=== PATIENT | female | born 1960 | race Caucasian/White ===

== ENCOUNTER → 2016-05-25 | Outpatient (CLI) | payer BC ==
[~2016-05-25] MED LIST: ACID1TAB PO; ALPR0.2550 PO; ALPR1TAB2 PO; ALPR1TAB7 PO; AMLO1TAB12 PO; AMLO1TAB13 PO; BNZ10T; CHOL210P2 PO; CYCL10TA9 PO; DOXY100C2; ESTR1TAB24 PO; ETHINYL ESTRADIOL; HYDR-3583 PO; LORA10TA7 PO; LRZ1T; MEDR2.5T6 PO; MELO15TA39 PO; MTC10T; NEXIUM 22.3 MG PO; NF-ESOM40C PO; NITR100C3 PO; NORG1TAB81 PO; NORGESTIMATE; OMEP20TA2 PO; ONDA-42 SL; OXYC-12 PO; PNT40TEC; PRD20T PO; PRM25T PO; SPRINTEC PO; SULF1TAB35 PO; SULF1TAB38 PO; TRAM50TA2 PO; [UNRECOGNIZED DRUG - CODE] PO; [UNRECOGNIZED DRUG - OTHER]
--- OUTSIDE RECORDS SUMMARY | 2016-05-25 17:45 | XMS REPORT | Continuity of Care Document ---
Author Author [facility] Organization [facility] Address Unknown Phone Unavailable Care Team Providers Care Slusher Operator Name Role Phone EVANS JACKSON MD PCP Insurance Providers Payer Name Policy Number [facility]scriber [id number] [place] [facility] Self / Same As Patient Advance Directives Directive Response Recorded Date/Time Advance Directives No 04/18/14 4:49am Health Care Power of National Sales Trainer No 04/18/14 4:49am Organ Donor Yes 04/18/14 4:49am Resuscitation Status Full Code 04/18/14 4:49am Chief Complaint and Reason for Visit Chief Complaint GASTROENTERITIS;INTRACTABLE NAUSEA Reason for Visit Gastroenteritis Problems Medical Problems Problem Onset Date Status Gastroenteritis Unknown Active Gastroenteritis Unknown Active Gastroenteritis Unknown Active Medications Medication Dose Route Sig Days/Qty Instructions Order Date Discontinued Date Status Benazepril HCl 11/24/07 01/06/13 Discontinued Pantoprazole Sodium 11/24/07 03/14/09 Discontinued [Lo-Ortho Tricyclen] 11/24/07 08/06/11 Discontinued [Citritase Otc] 11/24/07 01/06/13 Discontinued Lorazepam 11/24/07 01/06/13 Discontinued Metoclopramide HCl 03/14/09 01/06/13 Discontinued Alprazolam 1 Mg PO TWICE A DAY PRN PRN ANXIETY 03/14/09 04/17/14 Discontinued Doxycycline Hyclate (Vibramycin) 03/14/09 01/06/13 Discontinued Esomeprazole Magnesium 1 Cap PO DAILY 30 Qty 08/06/11 01/06/13 Discontinued [Sprintec] 1 Tab PO DAILY 08/06/11 04/17/14 Discontinued Amlodipine/Valsartan 10-160 Mg PO DAILY 08/06/11 04/18/14 Discontinued Omeprazole 20 Mg PO DAILY 01/06/13 04/17/14 Discontinued Trimethoprim/Sulfamethoxazole 1 Ea PO TWICE A DAY 5 Days 01/06/1302/08 Discontinued Acetaminophen/Hydrocodone Bitart 1 Ea PO Q4HR PRN 10 Qty 01/06/13 Discontinued Nitrofurantoin Macrocrystals 1 Cap PO TWICE A DAY 10 Qty 01/06/13 Discontinued Acetaminophen/Hydrocodone Bitart 5 Mg PO Q4HR PRN PRN PAIN 01/11/13 Discontinued Oxycodone Hcl/Acetaminophen 1 - 2 Each PO Q4-6H PRN 01/12/13 Discontinued Ondansetron Hcl 4 Mg SL EVERY 4HRS 5 Qty 04/17/14 04/18/14 Discontinued Amlodipine/Valsartan 1 Tab PO DAILY 04/18/14 Active Alprazolam 1 Mg PO BEDTIME 04/18/14 Active [Nexium 22.3MG Otc] 22.3 Mg PO DAILY 04/18/14 Active Loratadine 10 Mg PO DAILY 04/18/14 Active Norgestimate-Ethinyl Estradiol 1 Tab PO DAILY 04/18/14 Active Acidophilus 1 Tab.chew PO TWICE A DAY 60 Qty 04/19/14 Active Promethazine Hcl 1 Tab PO FOUR TIMES DAILY PRN NAUSEA/VOMITING 30 Qty 04/19/14 Active Ondansetron Hcl 4 Mg SL EVERY 4HRS 15 Qty FOR NAUSEA AND VOMITING Active Cholestyramine/Aspartame 210 Gm PO TWICE A DAY 60 Qty diarrhea from cholecystectomy 04/19/14 Active Social History Social History Problem Response Recorded Date/Time Alcohol Use Denies Use 04/18/2014 4:50am Recreational Drug Use No 04/18/2014 4:50am Recent Foreign Travel No 01/14/2013 2:15am Recent Infectious Disease Exposure No 01/14/2013 2:15am Hospitalization with Isolation Denies 01/14/2013 3:48pm Smoking Status Never a Smoker 04/18/2014 4:53am Query Response Start Date Stop Date Smoking Status Never a Smoker Hospital Discharge Instructions Patient Instructions Physician Instructions Prescription: Call to Patients Pharmacy Patient Instructions: call for any acute concerns, bland diet x 48 hours, then advance as tolerated Resume Normal Activity: Yes Discharge Diet: Avoid Fatty Foods Diet for 24 Hours: No Alcohol, No [place] Foods, No Spicy Foods Diet After 24 Hours: Clear Liquid if Nauseous Driving Instructions: No Driving for 24 Hours Symptoms to Reoprt to Dr.: Appetite Changes, Fever Over 101 Degrees F, Questions/Concerns, Nausea/Vomiting, Shortness of Breath Plan of Care Discharge Date 04/19/14 2:00pm Disposition 30 STILL A PATIENT Instructions/Education Provided Clear Liquid Diet (DC) Acute Abdominal Pain (ED) Forms Provided PDI Medical Prescriptions See Medications Section Referrals evans jackson md (Unspecified) Reason(s) for Referral: need follow up appt in 2-3 weeks with jordi or nurse practitioner Functional Status Query Response Date Recorded Comprehension Ability Understands Concepts April 18, 2014 8:17am Allergies, Adverse Reactions, Alerts Allergen Type Severity Reaction Status Last Updated Erythromycin base Allergy Unknown Active 11/24/07 azithromycin ([id number]) Allergy Intermediate Active 04/17/14 Immunizations Name Given Type Tetanus Booster (TDap) More than 5yrs Historical Vital Signs Acute Vital Signs Vital Response Date/Time Temperature (Fahrenheit) 98.9 degrees F (97.6 - 99.5) Temperature (Calculated Celsius) 37.90873 degrees C (36.4 - 37.5) Temperature Source Tympanic Pulse Rate (adult) 73 bpm (60 - 90) Respiratory Rate 20 bpm (12 - 24) O2 Sat by Pulse Oximetry 97 % (88 - 100) Blood Pressure 143/86 mm Hg Pain Pain Intensity 4 Height (Feet) 5 feet Height (Inches) 0.00 inches Height (Calculated Centimeters) 152.581636 cm Weight (Pounds) 136 pounds Weight (Ounces) 8.0 oz Weight (Calculated Grams) 70914.359 gm Weight (Calculated Kilograms) 61.586330 kilograms Calculated BMI 26.17 Results Laboratory Results Test Name Result Units Flags Reference Collection Date/Time Result Date/ Time Comments White Blood Count 9.8 10^3/uL 4.3-11.0 04/17/2014 7:2004/17/2014 7: 52pm Red Blood Count 4.68 10^6/uL 4.35-5.85 04/17/2014 7:2004/17/2014 7: 52pm Hemoglobin 14.4 G/DL 11.5-16.0 04/17/2014 7:20pm 04/17/2014 7:52pm Hematocrit 40 % 35-52 04/17/2014 7:04/17/2014 7:52pm Mean Corpuscular Volume 86 FL 80-99 04/17/2014 7:04/17/2014 7: 52pm Mean Corpuscular Hemoglobin 31 PG 25-34 04/17/2014 7:04/17/2014 7: 52pm Mean Corpuscular Hemoglobin Concent 36 G/DL 32-36 04/17/2014 7:pm 7:52pm Red Cell Distribution Width 11.9 % 10.0-14.5 04/17/2014 7:2014 7:52pm Platelet Count 360 10^3/uL 130-400 04/17/2014 7:04/17/2014 7:52pm Mean Platelet Volume 10.4 FL 7.4-10.4 04/17/2014 7:04/17/2014 7: 52pm Neutrophils (%) (Auto) 60 % 42-75 04/17/2014 7:pm 04/17/2014 7:52pm Lymphocytes (%) (Auto) 34 % 12-44 04/17/2014 7:04/17/2014 7:52pm Monocytes (%) (Auto) 5 % 0-12 04/17/2014 7:pm 04/17/2014 7:52pm Eosinophils (%) (Auto) 2 % 0-10 04/17/2014 7:pm 04/17/2014 7:52pm Basophils (%) (Auto) 1 % 0-10 04/17/2014 7:pm 04/17/2014 7:52pm Neutrophils # (Auto) 5.8 X 10^3 1.8-7.8 04/17/2014 7:20pm 04/17/2014 7: 52pm Lymphocytes # (Auto) 3.3 X 10^3 1.0-4.0 04/17/2014 7:20pm 04/17/2014 7: 52pm Monocytes # (Auto) 0.5 X 10^3 0.0-1.0 04/17/2014 7:20pm 04/17/2014 7: 52pm Eosinophils # (Auto) 0.2 10^3/uL 0.0-0.3 04/17/2014 7:20pm 04/17/2014 7 :52pm Basophils # (Auto) 0.1 10^3/uL 0.0-0.1 04/17/2014 7:20pm 04/17/2014 7: 52pm Urine Color YELLOW 04/17/2014 7:00pm 04/17/2014 8:02pm Urine Clarity CLEAR 04/17/2014 7:00pm 04/17/2014 8:02pm Urine pH 5 5-9 04/17/2014 7:00pm 04/17/2014 8:02pm Urine Specific [place] 1.020 1.016-1.022 04/17/2014 7:00pm 2014 8:02pm Urine Protein NEGATIVE NEGATIVE 04/17/2014 7:00pm 04/17/2014 8:02pm Urine Glucose (UA) NEGATIVE NEGATIVE 04/17/2014 7:00pm 04/17/2014 8: 02pm Urine RBC (Auto) 1+ * NEGATIVE 04/17/2014 7:00pm 04/17/2014 8:02pm Urine Ketones 4+ * NEGATIVE 04/17/2014 7:00pm 04/17/2014 8:02pm Urine Nitrite NEGATIVE NEGATIVE 04/17/2014 7:00pm 04/17/2014 8:02pm Urine Bilirubin NEGATIVE NEGATIVE 04/17/2014 7:00pm 04/17/2014 8: 02pm Urine Urobilinogen NORMAL MG/DL NORMAL 04/17/2014 7:00pm 04/17/2014 8: 02pm Urine Leukocyte Esterase NEGATIVE NEGATIVE 04/17/2014 7:00pm 2014 8:02pm Urine RBC RARE /HPF 04/17/2014 7:00pm 04/17/2014 8:02pm Urine WBC 0-2 /HPF 04/17/2014 7:00pm 04/17/2014 8:02pm Urine Bacteria MODERATE /HPF * 04/17/2014 7:00pm 04/17/2014 8:02pm Urine Squamous Epithelial Cells 10-25 /HPF * 04/17/2014 7:00pm 2014 8:02pm Urine Crystals NONE /LPF 04/17/2014 7:00pm 04/17/2014 8:02pm Urine Casts NONE /LPF 04/17/2014 7:00pm 04/17/2014 8:02pm Urine Mucus MODERATE /LPF * 04/17/2014 7:00pm 04/17/2014 8:02pm Urine Culture Indicated NO 04/17/2014 7:00pm 04/17/2014 8:02pm Sodium Level 137 MMOL/L 135-145 04/17/2014 7:04/17/2014 8:09pm Potassium Level 3.1 MMOL/L L 3.6-5.0 04/17/2014 7:04/17/2014 8:09pm Chloride Level 105 MMOL/L 98-107 04/17/2014 7:04/17/2014 8:09pm Carbon Dioxide Level 19 MMOL/L L 21-32 04/17/2014 7:04/17/2014 8: 09pm Blood Urea Nitrogen 6 MG/DL L 7-18 04/17/2014 7:04/17/2014 8:09pm Creatinine 0.69 MG/DL 0.60-1.30 04/17/2014 7:04/17/2014 8:09pm BUN/Creatinine Ratio 9 04/17/2014 7:04/17/2014 8:09pm Estimat Glomerular Filtration Rate > 60 04/17/2014 7:2014 8:09pm GFR INTERPRETIVE DATA UNITS FOR ESTIMATED GFR (eGFR): mL/min/1.73 M2 REFERENCE RANGE FOR ESTIMATED GFR (eGFR) eGFR NORMAL eGFR >60 MODERATELY DECREASED eGFR 30-59 SEVERLY DECREASED eGFR 15-29 KIDNEY FAILURE <15 (OR DIALYSIS) Glucose Level 89 MG/DL 70-105 04/17/2014 7:20pm 04/17/2014 8:09pm Calcium Level 9.3 MG/DL 8.5-10.1 04/17/2014 7:2004/17/2014 8:09pm Total Bilirubin 0.6 MG/DL 0.1-1.0 04/17/2014 7:2004/17/2014 8:09pm Alkaline Phosphatase 56 U/L 40-136 04/17/2014 7:04/17/2014 8:09pm Aspartate Amino Transf (AST/SGOT) 16 U/L 5-34 04/17/2014 7:202014 8:09pm Alanine Aminotransferase (ALT/SGPT) 11 U/L 0-55 04/17/2014 7:2004/17 8:09pm Total Protein 7.3 G/DL 6.4-8.2 04/17/2014 7:04/17/2014 8:09pm Albumin 4.2 G/DL 3.2-4.5 04/17/2014 7:2004/17/2014 8:09pm Amylase Level 65 U/L 25-125 04/17/2014 7:04/17/2014 8:09pm Lipase 14 U/L 8-78 04/17/2014 7:04/17/2014 8:09pm White Blood Count 8.9 10^3/uL 4.3-11.0 04/18/2014 6:04/18/2014 6: 34am Red Blood Count 3.92 10^6/uL L 4.35-5.85 04/18/2014 6:04/18/2014 6: 34am Hemoglobin 12.3 G/DL 11.5-16.0 04/18/2014 6:04/18/2014 6:34am Hematocrit 34 % L 35-52 04/18/2014 6:04/18/2014 6:34am Mean Corpuscular Volume 87 FL 80-99 04/18/2014 6:04/18/2014 6: 34am Mean Corpuscular Hemoglobin 31 PG 25-34 04/18/2014 6:04/18/2014 6: 34am Mean Corpuscular Hemoglobin Concent 36 G/DL 32-36 04/18/2014 6: 6:34am Red Cell Distribution Width 11.8 % 10.0-14.5 04/18/2014 6:2014 6:34am Platelet Count 310 10^3/uL 130-400 04/18/2014 6:04/18/2014 6:34am Mean Platelet Volume 10.4 FL 7.4-10.4 04/18/2014 6:04/18/2014 6: 34am Neutrophils (%) (Auto) 74 % 42-75 04/18/2014 6:04/18/2014 6:34am Lymphocytes (%) (Auto) 22 % 12-44 04/18/2014 6:04/18/2014 6:34am Monocytes (%) (Auto) 3 % 0-12 04/18/2014 6:04/18/2014 6:34am Eosinophils (%) (Auto) 0 % 0-10 04/18/2014 6:04/18/2014 6:34am Basophils (%) (Auto) 1 % 0-10 04/18/2014 6:04/18/2014 6:34am Neutrophils # (Auto) 6.6 X 10^3 1.8-7.8 04/18/2014 6:04/18/2014 6: 34am Lymphocytes # (Auto) 2.0 X 10^3 1.0-4.0 04/18/2014 6:04/18/2014 6: 34am Monocytes # (Auto) 0.3 X 10^3 0.0-1.0 04/18/2014 6:04/18/2014 6: 34am Eosinophils # (Auto) 0.0 10^3/uL 0.0-0.3 04/18/2014 6:04/18/2014 6 :34am Basophils # (Auto) 0.1 10^3/uL 0.0-0.1 04/18/2014 6:04/18/2014 6: 34am Sodium Level 137 MMOL/L 135-145 04/18/2014 6:04/18/2014 7:00am Potassium Level 3.3 MMOL/L L 3.6-5.0 04/18/2014 6:04/18/2014 7:00am Chloride Level 108 MMOL/L H 98-107 04/18/2014 6:04/18/2014 7:00am Carbon Dioxide Level 22 MMOL/L 21-32 04/18/2014 6:04/18/2014 7: 00am Blood Urea Nitrogen 5 MG/DL L 7-18 04/18/2014 6:04/18/2014 7:00am Creatinine 0.61 MG/DL 0.60-1.30 04/18/2014 6:1304/18/2014 7:00am BUN/Creatinine Ratio 8 04/18/2014 6:04/18/2014 7:00am Estimat Glomerular Filtration Rate > 60 04/18/2014 6:2014 7:00am GFR INTERPRETIVE DATA UNITS FOR ESTIMATED GFR (eGFR): mL/min/1.73 M2 REFERENCE RANGE FOR ESTIMATED GFR (eGFR) eGFR NORMAL eGFR >60 MODERATELY DECREASED eGFR 30-59 SEVERLY DECREASED eGFR 15-29 KIDNEY FAILURE <15 (OR DIALYSIS) Glucose Level 93 MG/DL 70-105 04/18/2014 6:04/18/2014 7:00am Calcium Level 8.5 MG/DL 8.5-10.1 04/18/2014 6:04/18/2014 7:00am Total Bilirubin 0.5 MG/DL 0.1-1.0 04/18/2014 6:04/18/2014 7:00am Alkaline Phosphatase 47 U/L 40-136 04/18/2014 6:04/18/2014 7:00am Aspartate Amino Transf (AST/SGOT) 13 U/L 5-34 04/18/2014 6:2014 7:00am Alanine Aminotransferase (ALT/SGPT) 12 U/L 0-55 04/18/2014 6:04/18 7:00am Total Protein 5.9 G/DL L 6.4-8.2 04/18/2014 6:04/18/2014 7:00am Albumin 3.5 G/DL 3.2-4.5 04/18/2014 6:04/18/2014 7:00am Stool Occult Blood Immunoassay NEGATIVE NEGATIVE 04/19/2014 10:50am 04/19/2014 11:09am Procedures No known history of procedures. Encounters Encounter Location Date/Time Discharged Inpatient Via [facility] 04/18/14 3:00am Departed Emergency Room Via [facility] 04/17/14 6:42pm Recent Diagnosis Gastroenteritis
--- NOTE | 2016-05-25 18:18 | Diagnostic Imaging Report ---
PROCEDURE: CT head without contrast. TECHNIQUE: Multiple contiguous axial images were obtained through the brain without the use of intravenous contrast. INDICATION: 55-year-old female injured injured in fall presents with dizziness, visual changes and headaches. COMPARISONS: None FINDINGS: Midline structures are not displaced. The lateral, third and fourth ventricles are normal in size, shape and anatomic position. There is no evidence of mass, mass effect, hydrocephalus or hemorrhage. Walter-white differentiation is normal. There is no sulcal effacement. There are no abnormal extra-axial fluid collections or hemorrhages. There is a background chronic microvascular ischemic change. Basilar cisterns appear normal. Sinuses, orbits and mastoid air cells are normal. Bone windows show no calvarial changes. IMPRESSION: A few small areas of background chronic microvascular ischemic change, otherwise unremarkable nonenhanced CT head. Dictated by: Dictated on workstation # [id number]
== END ==
LOC: RAD 17:41
PROVIDERS: ATTEND Nurse Practitioner Family
DX: R51 Headache (principal); H53.9 Unspecified visual disturbance; W19.XXXA Unspecified fall, initial encounter; Y99.8 Other external cause status
CPT/HCPCS: 70450

== ENCOUNTER 2016-06-10 10:09 | Emergency (ER) | payer BC ==
[~2016-06-10] VITALS: Ht 152.4 cm; Wt 58.3 kg
[~2016-06-10 10:09] MED LIST changes: -ALPR1TAB2 PO; -AMLO1TAB12 PO; -CYCL10TA9 PO; -ESTR1TAB24 PO; -MEDR2.5T6 PO; -MELO15TA39 PO; -PRD20T PO; -TRAM50TA2 PO
--- OUTSIDE RECORDS SUMMARY | 2016-06-10 10:15 | XMS REPORT | Continuity of Care Document ---
Author Author [facility] Organization [facility] Address Unknown Phone Unavailable Care Team Providers Care Locomotive Oiler Name Role Phone EVANS JACKSON MD PCP Insurance Providers Payer Name Policy Number Subscriber [id number] [place] [place] [facility] Self / Same As Patient Advance Directives Directive Response Recorded Date/Time Advance Directives No 04/18/14 4:49am Health Care Power of [place] Man No 04/18/14 4:49am Organ Donor Yes 04/18/14 [...] Diet for 24 Hours: No Alcohol, No [place] Foods, No Spicy Foods Diet After 24 [...] Erythromycin base Allergy Unknown Active 11/24/07 azithromycin ([id number]) Allergy Intermediate Active 04/17/14 Immunizations Name Given Type Tetanus Booster (TDap) More than 5yrs Historical Vital Signs Acute Vital Signs Vital Response Date/Time Temperature (Fahrenheit) 98.9 degrees F (97.6 - 99.5) Temperature (Calculated Celsius) 37.57325 degrees C (36.4 - 37.5) Temperature Source Tympanic Pulse Rate (adult) 73 bpm (60 - 90) Respiratory Rate 20 bpm (12 - 24) O2 Sat by Pulse Oximetry 97 % (88 - 100) Blood Pressure 143/86 mm Hg Pain Pain Intensity 4 Height (Feet) 5 feet Height (Inches) 0.00 inches Height (Calculated Centimeters) 152.284788 cm Weight (Pounds) 136 pounds Weight (Ounces) 8.0 oz Weight (Calculated Grams) 35588.359 gm Weight (Calculated Kilograms) 61.535915 kilograms Calculated BMI 26.17 Results Laboratory Results [...] 5-9 04/17/2014 7:00pm 04/17/2014 8:02pm Urine Specific [place] 1.020 1.016-1.022 04/17/2014 7:00pm 2014 8:02pm Urine [...] Encounters Encounter Location Date/Time Discharged Inpatient Via [facility] 04/18/14 3:00am Departed Emergency Room Via [facility] 04/17/14 6:42pm Recent Diagnosis Gastroenteritis
[2016-06-10] MEDS ORDERED: AMLO1TAB12 PO (11:05)
[2016-06-10] MEDS ORDERED: MELO15TA39 PO (11:05)
[2016-06-10] MEDS ORDERED: MEDR2.5T6 PO (11:05)
[2016-06-10] MEDS ORDERED: ALPR1TAB2 PO (11:05)
[2016-06-10] MEDS ORDERED: ESTR1TAB24 PO (11:05)
--- NOTE | 2016-06-10 11:56 | ED Back Pain ---
General Chief Complaint: Back Problems Stated Complaint: BACK/LEFT HIP PAIN Nursing Triage Note: Pt c/o L lower back/hip pain. Pt reports she was dx last summer w/ bursitis of L hip by Dr Morgan at [address] and received injections at that time. Pt reports pain began to get worse again last night. Nursing Sepsis Screen: No Definite Risk Source of Information: Patient Exam Limitations: No Limitations History of Present Illness Time Seen by Provider: 11:56 Location: Paraspinous Muscles (left low back) Timing/Duration: 1-2 Days, Getting Worse Pain/Injury Location: Back Radiation: Buttocks (left hip/buttock.) Method of Injury: Unknown Modifying Factors: Improves With Immobilization, Worse With Movement Associated Symptoms: muscle spasmsNo fever, No weakness, No numbness in legs/ feet, No tingling in legs/feet, No sensory/motor loss, lower back painNo loss of bladder control, No loss of bowel control Allergies and Home Medications Allergies Coded Allergies: azithromycin (Unverified Allergy, Intermediate, 04/17/14) erythromycin base (Verified Allergy, Unknown, 11/24/07) Home Medications Alprazolam 1 Mg Tablet 1 MG PO HS (Reported) Alprazolam 1 Mg Tablet 1 MG PO HS (Reported) Amlodipine/Valsartan 1 Each Tablet 1 EACH PO DAILY (Reported) Cyclobenzaprine HCl 10 Mg Tablet #14 10 MG PO Q8H PRN PRN SPASMS Prescribed by: SHANNA DE LA GARZA on 06/10/16 1233 Estradiol 1 Mg Tablet 1 MG PO DAILY (Reported) Medroxyprogesterone Acetate 2.5 Mg Tablet 2.5 MG PO DAILY (Reported) Meloxicam 15 Mg Tablet Unknown Dose PO (Reported) Prednisone 20 Mg Tab #10 40 MG PO DAILY Prescribed by: SHANNA DE LA GARZA on 06/10/16 1233 Tramadol HCl 50 Mg Tablet #14 50 MG PO Q4H PRN PRN PAIN Prescribed by: SHANNA DE LA GARZA on 06/10/16 1233 Constitutional: No chills, No dizziness, No fever, No malaise, No weakness EENTM: no symptoms reported Respiratory: no symptoms reported Cardiovascular: no symptoms reported Gastrointestinal: No abdominal pain, No constipation, No diarrhea, No nausea, No vomiting Genitourinary: No decreased output, No dysuria, No frequency, No hematuria, No pain Musculoskeletal: see HPI back pain joint pain muscle pain Skin: no symptoms reported Psychiatric/Neurological: Denies Headache, Denies Numbness, Denies Paresthesia , Denies Tingling, Denies Weakness All Other Systems Reviewed Negative Unless Noted: Yes (Negative excepted noted.) Past Lqqlleq-Tofwlb-Jteooy Hx Patient Social History Alcohol Use: Denies Use Recreational Drug Use: No Smoking Status: Never a Smoker 2nd Hand Smoke Exposure: No Recent Foreign Travel: No Contact w/Someone Who Travel: No Recent Infectious Disease Expo: No Recent Hopitalizations: No Immunizations Up To Date Tetanus Booster (TDap): More than 5yrs Seasonal Allergies Seasonal Allergies: No Surgeries HX Surgeries: Yes (HIATAL HERNIA REPAIR) Surgeries: Gallbladder Respiratory Hx Respiratory Disorders: No Cardiovascular Hx Cardiac Disorders: Yes Cardiac Disorders: Hypertension Neurological Hx Neurological Disorders: No Reproductive System Hx Reproductive Disorders: No Genitourinary Hx Genitourinary Disorders: No Gastrointestinal Hx Gastrointestinal Disorders: Yes Gastrointestinal Disorders: Abdominal Hernia, Gastroesophageal Reflux Musculoskeletal Hx Musculoskeletal Disorders: Yes (DX W/ BURSITIS L HIP LAST SUMMER) Musculoskeletal Disorders: Chronic Back Pain Endocrine Hx Endocrine Disorders: No HEENT HX ENT Disorders: No Cancer Hx Cancer: No Psychosocial Hx Psychiatric Problems: Yes Behavioral Health Disorders: Anxiety Integumentary HX Skin/Integumentary Disorder: No Blood Transfusions Hx Blood Disorders: No Adverse Reaction to a Blood Tr: No (NEVER HAD BLOOD TRANSFUSION) Reviewed Nursing Assessment Reviewed/Agree w Nursing PMH: Yes Family Medical History Significant Family History: No Pertinent Family Hx Family Medial History: Arthritis 19 MOTHER Cardiovascular disease 19 MOTHER Completed stroke 19 MOTHER Diabetes mellitus 19 MOTHER Hypertension 19 MOTHER No Family History of: AIDS Abdominal aortic aneurysm Brennan's disease Alcoholism Alzheimer's disease Aphasia Asthma Cancer of mouth Cataracts Colon cancer Congenital disease Congenital heart disease Coronary thrombosis Cystic fibrosis Deafness or hearing loss Dementia Drug abuse Dysphasia Fibrocystic disease of breast Gastroenteritis Glaucoma Headache disorder Hypercholesterolemia Infertility Kidney disease Myocardial infarction Neoplasm Not obtainable due to adoption Osteoporosis Parkinson's disease Prostate cancer Psychosocial problem Respiratory disorder Seizure disorder Severe allergy Thyroid disease Tuberculosis Visual disorder Physical Exam Vital Signs Vital Sign - Last 12Hours 06/10/16 10:56 Temp 98.8 Pulse 71 Resp 18 B/P 124/97 Pulse Ox 96 O2 Delivery Room Air Capillary Refill : Less Than 3 Seconds General Appearance: No Apparent Distress WD/WN HEENT: PERRL/EOMI Pharynx Normal Neck: Full Range of Motion Normal Inspection Non Tender Supple Cardiovascular: Regular Rate, Rhythm No Edema No Murmur Normal Peripheral Pulses Respiratory: Lungs Clear Normal Breath Sounds No Respiratory Distress Peripheral Pulses: 2+ Dorsalis Pedis (R), 2+ Left Dors-Pedis (L), 2+ Radial Pulses (R), 2+ Radial Pulses (L) Gastrointestinal: Normal Bowel Sounds Non Tender SoftNo Distended Back: Normal Inspection No Vertebral TendernessNo Decreased Range of Motion, Muscle Spasm Extremity: Normal Capillary Refill Normal Inspection Normal Range of Motion Other (left buttock and lateral hip ttp w/o evidence of trauma. ) Neurologic/Psychiatric: Alert Oriented x3 No Motor/Sensory Deficits Normal Mood/Affect Skin: Normal Color Warm/Dry Progress/Results/Core Measures Results/Orders My Orders Orders-SHANNA DE LA GARZA Ketorolac Injection (Toradol Injection) (06/10/16 12:10) Dexamethasone Pf Injection (Decadron Pf (06/10/16 12:10) Vital Signs/I&O Vital Sign - Last 12Hours 06/10/16 06/10/16 10:56 12:50 Temp 98.8 Pulse 71 65 Resp 18 18 B/P 124/97 Pulse Ox 96 97 O2 Delivery Room Air Blood Pressure Mean: 106 Departure Communication Progress Notes Patient reports improvement in symptoms with medications given. Plan for discharge to home. Patient ambulated from the emergency department without difficulty. Impression Impression: Primary Impression: Hip pain, left Disposition: 01 HOME, SELF-CARE Condition: Improved Departure-Patient Inst. Decision time for Depature: 12:28 Referrals: EVANS JACKSON MD (PCP/Family) Primary Care Physician Patient Instructions: Hip Bursitis (DC) Add. Discharge Instructions: All discharge instructions reviewed with patient and/or family. Voiced understanding. Medications as directed. Continue usual medications. Heating pad or ice packs as needed. No heavy lifting, pushing, pulling, twisting, bending, climbing 7 days. Avoid riding in cars or sitting for long periods of time for 5-7 days. Follow-up with Dr. Morgan next week as previously scheduled. Return to the emergency department for worsened pain, numbness, weakness, bowel incontinence, bladder incontinence, or any other concerns. Scripts Tramadol HCl 50 Mg [id number] Mg PO Q4H PRN PAIN #14 TAB Ref 0 Prov:SHANNA DE LA GARZA 06/10/16 Cyclobenzaprine HCl 10 Mg [id number] Mg PO Q8H PRN SPASMS #14 TAB Ref 0 Prov:SHANNA DE LA GARZA 06/10/16 Prednisone 20 Mg Tab40 Mg PO DAILY #10 TAB Ref 0 Prov:SHANNA DE LA GARZA 06/10/16 Work/School Note: Work Release Form Date Seen in the Emergency Department: Jun 10, 2016 Return to Work: Jun 13, 2016 SHANNA DE LA GARZA Jun 10, 2016 11:56
[2016-06-10] MEDS ORDERED: DEXAMETHASONE PF 10 MG/ML (DECADRON) VIAL IM STA (12:10)
[2016-06-10] MEDS ORDERED: KETOROLAC 60 MG/2 ML VIAL IM STA (12:10)
[2016-06-10] MEDS ORDERED: CYCL10TA9 PO (12:33)
[2016-06-10] MEDS ORDERED: TRAM50TA2 PO (12:33)
[2016-06-10] MEDS ORDERED: PRD20T PO (12:33)
[2016-06-10 12:50] VITALS: BP 144/86
== END 2016-06-10 12:50 | disposition home or self-care (01) ==
LOC: EDUNIT# 10:09 → ER 10:12
DX: M25.552 Pain in left hip (principal)
CPT/HCPCS: 96372; 99281

== ENCOUNTER → 2017-02-09 | Outpatient (CLI) | payer BC ==
[~2017-02-09] MED LIST changes: +ALPR1TAB2 PO; +AMLO1TAB12 PO; +CYCL10TA9 PO; +ESTR1TAB24 PO; +MEDR2.5T6 PO; +MELO15TA39 PO; +PRD20T PO; +TRAM50TA2 PO
--- NOTE | 2017-02-09 19:16 | Diagnostic Imaging Report ---
INDICATION: Low back pain. COMPARISON: 10/18/2015. FINDINGS: Three views of the lumbar column demonstrate normal alignment. There is no subluxation or fracture. Minimal degenerative changes are seen in the disc spaces and facet joints. There is no osseous lesion. The SI joints are symmetric. IMPRESSION: Minimal stable degenerative changes throughout the disc spaces and facet joints. Dictated by: Dictated on workstation # [id number]
--- NOTE | 2017-02-09 19:47 | Diagnostic Imaging Report ---
EXAMINATION: AP pelvis and bilateral frog-leg lateral and AP views of the hip on both sides. INDICATION: Back and hip pain, more on the left. FINDINGS: There is degenerative change at the SI joints of mild degree with no subluxation or dislocation. No pelvic fracture is noted. The hip radiographs bilaterally demonstrate mild subchondral sclerotic degenerative changes; otherwise, no significant joint space loss. No fracture is seen. No radiopaque foreign body. IMPRESSION: Mild degenerative changes. Dictated by: Dictated on workstation # [id number]
== END ==
LOC: RAD 16:36
PROVIDERS: ATTEND Chiropractor
DX: M54.5 Low back pain (principal); M25.552 Pain in left hip
CPT/HCPCS: 72100; 73521

== ENCOUNTER 2017-04-15 09:12 | Emergency (ER) | payer BC ==
[~2017-04-15] VITALS: Ht 152.4 cm; Wt 56.9 kg
--- OUTSIDE RECORDS SUMMARY | 2017-04-15 09:18 | XMS REPORT | Continuity of Care Document ---
Author Author [facility] Organization [facility] Address Unknown Phone Unavailable Allergies Active Description Code Type Severity Reaction Onset Reported/Identified Relationship to Patient Clinical Status Yes erythromycin base [id number] Drug Allergy Unknown N/A 11/24/2007 Yes azithromycin [id number] Drug Allergy Moderate N/A 04/17/2014 Medications There is no data. Problems Date Dx Coded Attending Type Code Diagnosis Diagnosed By 08/10/2011 Ot 530.81 ESOPHAGEAL REFLUX 01/06/2013 TAMAR MISHRA APRN Ot 564.00 UNSPEC CONSTIPATION 01/06/2013 TAMAR MISHRA APRN Ot 789.07 ABDOMINAL PAIN, GENERALIZED 01/12/2013 ARTURO LARES MD Ot 574.10 CHOLELITH W CHOLECYS NEC 01/14/2013 ARTURO LARES MD Ot 276.8 HYPOPOTASSEMIA 01/14/2013 ARTURO LARES MD Ot 338.18 OTHER ACUTE POSTOPERATIVE PAIN 01/14/2013 ARTURO LARES MD Ot 401.9 HYPERTENSION NOS 01/14/2013 ARTURO LARES MD Ot 530.81 ESOPHAGEAL REFLUX 01/14/2013 ARTURO LARES MD Ot 787.02 NAUSEA ALONE 01/14/2013 ARTURO LARES MD Ot V45.89 POSTSURGICAL STATES NEC 04/17/2014 JALEN PIERCE DO Ot 558.9 NONINF GASTROENTERIT NEC 04/17/2014 JALEN PIERCE DO Ot 787.91 DIARRHEA 04/18/2014 Ot 787.91 04/18/2014 Ot 789.00 04/18/2014 Ot 789.00 04/18/2014 Ot V16.0 04/18/2014 Ot V76.12 04/18/2014 Ot V76.12 04/18/2014 Ot V76.12 04/18/2014 Ot V72.84 04/18/2014 Ot 530.81 04/18/2014 EVANS JACKSON MD Ot V76.12 04/18/2014 ARTURO LARES MD Ot 575.8 04/18/2014 ARNAUD GALAN, TAKAAKI Ot 575.8 04/18/2014 ARNAUD GALAN, TAKAAKI Ot V72.63 04/18/2014 ARNAUD GALAN, TAKAAKI Ot V72.81 04/18/2014 RENETTA GALAN, EVANS Latif Ot V76.12 04/18/2014 CRISTY MAXWELL Ot 782.1 04/18/2014 CRISTY MAXWELL Ot 786.05 04/19/2014 RENETTA GALAN, EVANS Latif Ot 300.00 ANXIETY STATE NOS 04/19/2014 RENETTA GALAN, EVANS Latif Ot 305.1 TOBACCO USE DISORDER 04/19/2014 RENETTA GALAN, EVANS Latif Ot 401.9 HYPERTENSION NOS 04/19/2014 RENETTA GALAN, EVANS Latif Ot 558.9 04/19/2014 RENETTA GALAN, EVANS Latif Ot 787.01 NAUSEA WITH VOMITING 04/19/2014 RENETTA GALAN, EVANS Latif Ot 787.91 DIARRHEA 07/26/2014 Ot 789.00 07/26/2014 Ot V16.0 07/26/2014 Ot V76.12 07/26/2014 Ot V76.12 07/26/2014 Ot V76.12 07/26/2014 Ot V72.84 07/26/2014 Ot 530.81 07/26/2014 RENETTA GALAN, EVANS Latif Ot V76.12 07/26/2014 ARNAUD GALAN, LUDINAAGISELLA Ot 575.8 07/26/2014 ARNAUD GALAN, TAKAAGISELLA Ot 575.8 07/26/2014 ARNAUD GALAN, TAKAAKI Ot V72.63 07/26/2014 ARNAUD GALAN, TAKAAKI Ot V72.81 07/26/2014 RENETTA GALAN, EVANS Latif Ot V76.12 07/26/2014 CRISTY MAXWELL Ot 782.1 07/26/2014 CRISTY MAXWELL Ot 786.05 08/25/2014 LUCIO WHITEHEADP Ot 789.04 09/11/2014 LUCIO WHITEHEAD VP CLIENT SERVICES Ot V76.12 09/12/2014 RENETTA GALAN, EVANS Latif Ot 787.3 09/12/2014 EVANS JACKSON MD Ot 789.00 09/12/2014 LUCIO WHITEHEAD Ot 401.9 09/12/2014 LUCIO WHITEHEADP Ot 789.00 10/24/2015 MIKAYLA BOYD DO Ot M54.5 LOW BACK PAIN 10/29/2015 MIKAYLA BOYD DO Ot M54.5 LOW BACK PAIN 11/28/2015 MIKAYLA BOYD DO Ot M54.5 LOW BACK PAIN 12/18/2015 MIKAYLA BOYD DO Ot M54.5 LOW BACK PAIN 05/28/2016 Ot V76.12 OTH SCREEN MAMMO-MALIGN NEOPLASM OF PAT 05/28/2016 Ot V72.84 EXAM PRE- OPERATIVE NOS 05/28/2016 Ot 530.81 ESOPHAGEAL REFLUX 05/28/2016 RENETTA GALAN, EVANS Latif Ot V76.12 OTH SCREEN MAMMO-MALIGN NEOPLASM OF PAT 05/28/2016 ARNAUD GALAN, ARTURO Ot 575.8 DIS OF GALLBLADDER NEC 05/28/2016 ARNAUD GALAN, ARTURO Ot 575.8 DIS OF GALLBLADDER NEC 05/28/2016 ARNAUD GALAN, ARTURO Ot V72.63 PRE-PROCEDURAL LABORATORY EXAMINATION 05/28/2016 ARNAUD GALAN, ARTURO Ot V72.81 [id number] CARDIOVASCULAR 05/28/2016 RENETTA GALAN, EVANS Latif Ot V76.12 OTH SCREEN MAMMO-MALIGN NEOPLASM OF PAT 05/28/2016 CRISTY MAXWELL AUGER MILL OPERATOR Ot 782.1 NONSPECIF SKIN ERUPT NEC 05/28/2016 CRISTY MAXWELL AUGER MILL OPERATOR Ot 786.05 SHORTNESS OF BREATH 05/28/2016 LUCIO WHITEHEAD Ot V76.12 OTH SCREEN MAMMO-MALIGN NEOPLASM OF PAT 05/28/2016 EVANS JACKSON MD Ot 787.3 FLATUL/ERUCTAT/GAS PAIN 05/28/2016 EVANS JACKSON MD Ot 789.00 ABDOMINAL PAIN, UNSPECIFIED SITE 05/28/2016 LUCIO WHITEHEAD Ot 789.04 ABDOMINAL PAIN, LEFT LOWER QUADRANT 05/28/2016 LUCIO WHITEHEADP Ot 401.9 HYPERTENSION NOS 05/28/2016 LUCIO WHITEHEAD Ot 789.00 ABDOMINAL PAIN, UNSPECIFIED SITE 05/28/2016 MIKAYLA BOYD DO Ot M54.5 LOW BACK PAIN 05/28/2016 TORY MARTIN 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 Ot H53.9 UNSPECIFIED VISUAL DISTURBANCE 05/28/2016 TORY MARTIN 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 Ot R51 HEADACHE 05/28/2016 TORY MARTIN 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 Ot W19.XXXA UNSPECIFIED FALL, INITIAL ENCOUNTER 05/28/2016 TORY MARTIN 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 Ot Y99.8 OTHER EXTERNAL CAUSE STATUS 06/10/2016 SHANNA ROSA Ot M25.552 PAIN IN LEFT HIP 06/11/2016 SHANNA ROSA Ot M25.552 PAIN IN LEFT HIP 06/11/2016 TORY MARTIN 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 Ot H53.9 UNSPECIFIED VISUAL DISTURBANCE 06/11/2016 TORY MARTIN 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 Ot R51 HEADACHE 06/11/2016 TORY MARTIN 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 Ot W19.XXXA UNSPECIFIED FALL, INITIAL ENCOUNTER 06/11/2016 TORY MARTIN 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 Ot Y99.8 OTHER EXTERNAL CAUSE STATUS 06/12/2016 SHANNA ROSA Ot M25.552 PAIN IN LEFT HIP 06/22/2016 Ot V76.12 OTH SCREEN MAMMO-MALIGN NEOPLASM OF PAT 06/22/2016 Ot V72.84 EXAM PRE- OPERATIVE NOS 06/22/2016 Ot 530.81 ESOPHAGEAL REFLUX 06/22/2016 EVANS JACKSON MD Ot V76.12 OTH SCREEN MAMMO-MALIGN NEOPLASM OF PAT 06/22/2016 ARTURO LARES MD Ot 575.8 DIS OF GALLBLADDER NEC 06/22/2016 ARTURO LARES MD Ot 575.8 DIS OF GALLBLADDER NEC 06/22/2016 ARTURO LARES MD Ot V72.63 PRE-PROCEDURAL LABORATORY EXAMINATION 06/22/2016 ARTURO LARES MD Ot V72.81 [id number] CARDIOVASCULAR 06/22/2016 EVANS JACKSON MD Ot V76.12 OTH SCREEN MAMMO-MALIGN NEOPLASM OF PAT 06/22/2016 CRISTY MAXWELL AUGER MILL OPERATOR Ot 782.1 NONSPECIF SKIN ERUPT NEC 06/22/2016 CRISTY MAXWELL Ot 786.05 SHORTNESS OF BREATH 06/22/2016 WHITEHEAD, LUCIO M VP CLIENT SERVICES Ot V76.12 OTH SCREEN MAMMO-MALIGN NEOPLASM OF PAT 06/22/2016 EVANS JACKSON MD Ot 787.3 FLATUL/ERUCTAT/GAS PAIN 06/22/2016 EVANS JACKSON MD Ot 789.00 ABDOMINAL PAIN, UNSPECIFIED SITE 06/22/2016 LUCIO WHITEHEAD VP CLIENT SERVICES Ot 789.04 ABDOMINAL PAIN, LEFT LOWER QUADRANT 06/22/2016 LUCIO WHITEHEAD VP CLIENT SERVICES Ot 401.9 HYPERTENSION NOS 06/22/2016 LUCIO WHITEHEAD VP CLIENT SERVICES Ot 789.00 ABDOMINAL PAIN, UNSPECIFIED SITE 06/22/2016 OLIVER DAY MIKAYLA Paulo Ot M54.5 LOW BACK PAIN 06/22/2016 TORY MARTIN 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 Ot H53.9 UNSPECIFIED VISUAL DISTURBANCE 06/22/2016 TORY MARTIN 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 Ot R51 HEADACHE 06/22/2016 TORY MARTIN 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 Ot W19.XXXA UNSPECIFIED FALL, INITIAL ENCOUNTER 06/22/2016 TORY MARTIN 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 Ot Y99.8 OTHER EXTERNAL CAUSE STATUS 06/22/2016 Ot V76.12 OTH SCREEN MAMMO-MALIGN NEOPLASM OF PAT 06/22/2016 Ot V72.84 EXAM PRE- OPERATIVE NOS 06/22/2016 Ot 530.81 ESOPHAGEAL REFLUX 06/22/2016 EVANS JACKSON MD Ot V76.12 OTH SCREEN MAMMO-MALIGN NEOPLASM OF PAT 06/22/2016 ARTURO LARES MD Ot 575.8 DIS OF GALLBLADDER NEC 06/22/2016 ARTURO LARES MD Ot 575.8 DIS OF GALLBLADDER NEC 06/22/2016 ARTURO LARES MD Ot V72.63 PRE-PROCEDURAL LABORATORY EXAMINATION 06/22/2016 ARTURO LARES MD Ot V72.81 [id number] CARDIOVASCULAR 06/22/2016 EVANS JACKSON MD Ot V76.12 OTH SCREEN MAMMO-MALIGN NEOPLASM OF PAT 06/22/2016 CRISTY MAXWELL AUGER MILL OPERATOR Ot 782.1 NONSPECIF SKIN ERUPT NEC 06/22/2016 CRISTY MAXWELL AUGER MILL OPERATOR Ot 786.05 SHORTNESS OF BREATH 06/22/2016 LUCIO WHITEHEAD VP CLIENT SERVICES Ot V76.12 OTH SCREEN MAMMO-MALIGN NEOPLASM OF PAT 06/22/2016 EVANS JACKSON MD Ot 787.3 FLATUL/ERUCTAT/GAS PAIN 06/22/2016 EVANS JACKSON MD Ot 789.00 ABDOMINAL PAIN, UNSPECIFIED SITE 06/22/2016 LUCIO WHITEHEAD VP CLIENT SERVICES Ot 789.04 ABDOMINAL PAIN, LEFT LOWER QUADRANT 06/22/2016 LUCIO WHITEHEAD VP CLIENT SERVICES Ot 401.9 HYPERTENSION NOS 06/22/2016 LUCIO WHITEHEAD VP CLIENT SERVICES Ot 789.00 ABDOMINAL PAIN, UNSPECIFIED SITE 06/22/2016 MIKAYLA BOYD DO M Ot M54.5 LOW BACK PAIN 06/22/2016 TORY MARTIN 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 Ot H53.9 UNSPECIFIED VISUAL DISTURBANCE 06/22/2016 TORY MARTIN 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 Ot R51 HEADACHE 06/22/2016 TORY MARTIN 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 Ot W19.XXXA UNSPECIFIED FALL, INITIAL ENCOUNTER 06/22/2016 TORY MARTIN 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 Ot Y99.8 OTHER EXTERNAL CAUSE STATUS 06/22/2016 Ot V76.12 OTH SCREEN MAMMO-MALIGN NEOPLASM OF PAT 06/22/2016 Ot V72.84 EXAM PRE- OPERATIVE NOS 06/22/2016 Ot 530.81 ESOPHAGEAL REFLUX 06/22/2016 EVANS JACSKON MD Ot V76.12 OTH SCREEN MAMMO-MALIGN NEOPLASM OF PAT 06/22/2016 ARTURO LARES MD Ot 575.8 DIS OF GALLBLADDER NEC 06/22/2016 ARTURO LARES MD Ot 575.8 DIS OF GALLBLADDER NEC 06/22/2016 ARTURO LARES MD Ot V72.63 PRE-PROCEDURAL LABORATORY EXAMINATION 06/22/2016 ARTURO LARES MD Ot V72.81 [id number]-[id number] CARDIOVASCULAR 06/22/2016 EVANS JACKSON MD Ot V76.12 OTH SCREEN MAMMO-MALIGN NEOPLASM OF PAT 06/22/2016 CRISTY MAXWELL AUGER MILL OPERATOR Ot 782.1 NONSPECIF SKIN ERUPT NEC 06/22/2016 CRISTY MAXWELL AUGER MILL OPERATOR Ot 786.05 SHORTNESS OF BREATH 06/22/2016 LUCIO WHITEHEAD VP CLIENT SERVICES Ot V76.12 OTH SCREEN MAMMO-MALIGN NEOPLASM OF PAT 06/22/2016 EVANS JACKSON MD Ot 787.3 FLATUL/ERUCTAT/GAS PAIN 06/22/2016 RENETTA GALAN, EVANS Latif Ot 789.00 ABDOMINAL PAIN, UNSPECIFIED SITE 06/22/2016 LUCIO WHITEHEAD VP CLIENT SERVICES Ot 789.04 ABDOMINAL PAIN, LEFT LOWER QUADRANT 06/22/2016 LUCIO WHITEHEAD VP CLIENT SERVICES Ot 401.9 HYPERTENSION NOS 06/22/2016 GARY WHITEHEADHANTAMIR Bates VP CLIENT SERVICES Ot 789.00 ABDOMINAL PAIN, UNSPECIFIED SITE 06/22/2016 MIKAYLA BOYD DO M Ot M54.5 LOW BACK PAIN 06/22/2016 TORY MARTIN 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 Ot H53.9 UNSPECIFIED VISUAL DISTURBANCE 06/22/2016 TORY MARTIN 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 Ot R51 HEADACHE 06/22/2016 TORY MARTIN 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 Ot W19.XXXA UNSPECIFIED FALL, INITIAL ENCOUNTER 06/22/2016 TORY MARTIN 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 Ot Y99.8 OTHER EXTERNAL CAUSE STATUS 06/22/2016 Ot V76.12 OTH SCREEN MAMMO-MALIGN NEOPLASM OF PAT 06/22/2016 Ot V72.84 EXAM PRE- OPERATIVE NOS 06/22/2016 Ot 530.81 ESOPHAGEAL REFLUX 06/22/2016 EVANS JACKSON MD Ot V76.12 OTH SCREEN MAMMO-MALIGN NEOPLASM OF PAT 06/22/2016 ARNAUD GALAN, ARTURO Ot 575.8 DIS OF GALLBLADDER NEC 06/22/2016 ARTURO LARES MD Ot 575.8 DIS OF GALLBLADDER NEC 06/22/2016 ARTURO LARES MD Ot V72.63 PRE-PROCEDURAL LABORATORY EXAMINATION 06/22/2016 ARTURO LARES MD Ot V72.81 JKXX-NOR-ASARRZCEI CARDIOVASCULAR 06/22/2016 EVANS JACKSON MD Ot V76.12 OTH SCREEN MAMMO-MALIGN NEOPLASM OF PAT 06/22/2016 CRISTY MAXWELLP Ot 782.1 NONSPECIF SKIN ERUPT NEC 06/22/2016 CRISTY MAXWELL AUGER MILL OPERATOR Ot 786.05 SHORTNESS OF BREATH 06/22/2016 LUCIO WHITEHEAD VP CLIENT SERVICES Ot V76.12 OTH SCREEN MAMMO-MALIGN NEOPLASM OF PAT 06/22/2016 EVANS JACKSON MD Ot 787.3 FLATUL/ERUCTAT/GAS PAIN 06/22/2016 EVANS JACKSON MD Ot 789.00 ABDOMINAL PAIN, UNSPECIFIED SITE 06/22/2016 LUCIO WHITEHEAD VP CLIENT SERVICES Ot 789.04 ABDOMINAL PAIN, LEFT LOWER QUADRANT 06/22/2016 LUCIO WHITEHEAD VP CLIENT SERVICES Ot 401.9 HYPERTENSION NOS 06/22/2016 LUCIO WHITEHEAD VP CLIENT SERVICES Ot 789.00 ABDOMINAL PAIN, UNSPECIFIED SITE 06/22/2016 MIKAYLA BOYD DO M Ot M54.5 LOW BACK PAIN 06/22/2016 TORY MARTIN 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 Ot H53.9 UNSPECIFIED VISUAL DISTURBANCE 06/22/2016 TORY MARTIN 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 Ot R51 HEADACHE 06/22/2016 TORY MARTIN 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 Ot W19.XXXA UNSPECIFIED FALL, INITIAL ENCOUNTER 06/22/2016 TORY MARTIN 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 Ot Y99.8 OTHER EXTERNAL CAUSE STATUS 06/22/2016 Ot V76.12 OTH SCREEN MAMMO-MALIGN NEOPLASM OF PAT 06/22/2016 Ot V72.84 EXAM PRE- OPERATIVE NOS 06/22/2016 Ot 530.81 ESOPHAGEAL REFLUX 06/22/2016 EVANS JACKSON MD Ot V76.12 OTH SCREEN MAMMO-MALIGN NEOPLASM OF PAT 06/22/2016 ARTURO LARES MD Ot 575.8 DIS OF GALLBLADDER NEC 06/22/2016 ARTURO LARES MD Ot 575.8 DIS OF GALLBLADDER NEC 06/22/2016 ARTURO LARES MD Ot V72.63 PRE-PROCEDURAL LABORATORY EXAMINATION 06/22/2016 ARTURO LARES MD Ot V72.81 [id number] CARDIOVASCULAR 06/22/2016 EVANS JACKSON MD Ot V76.12 OTH SCREEN MAMMO-MALIGN NEOPLASM OF PAT 06/22/2016 CRISTY MAXWELLP Ot 782.1 NONSPECIF SKIN ERUPT NEC 06/22/2016 RCISTY MAXWELL AUGER MILL OPERATOR Ot 786.05 SHORTNESS OF BREATH 06/22/2016 LUCIO WHITEHEAD Ot V76.12 OTH SCREEN MAMMO-MALIGN NEOPLASM OF PAT 06/22/2016 EVANS JACKSON MD Ot 787.3 FLATUL/ERUCTAT/GAS PAIN 06/22/2016 EVANS JACKSON MD Ot 789.00 ABDOMINAL PAIN, UNSPECIFIED SITE 06/22/2016 LUCIO WHITEHEAD VP CLIENT SERVICES Ot 789.04 ABDOMINAL PAIN, LEFT LOWER QUADRANT 06/22/2016 LUCIO WHITEHEAD VP CLIENT SERVICES Ot 401.9 HYPERTENSION NOS 06/22/2016 LUCIO WHITEHEAD VP CLIENT SERVICES Ot 789.00 ABDOMINAL PAIN, UNSPECIFIED SITE 06/22/2016 MIKAYLA BOYD DO Ot M54.5 LOW BACK PAIN 06/22/2016 TORY MARTIN 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 Ot H53.9 UNSPECIFIED VISUAL DISTURBANCE 06/22/2016 TORY MARTIN 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 Ot R51 HEADACHE 06/22/2016 TORY MARTIN 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 Ot W19.XXXA UNSPECIFIED FALL, INITIAL ENCOUNTER 06/22/2016 TORY MARTIN 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 Ot Y99.8 OTHER EXTERNAL CAUSE STATUS 06/23/2016 Ot V76.12 OTH SCREEN MAMMO-MALIGN NEOPLASM OF PAT 06/23/2016 Ot V72.84 EXAM PRE- OPERATIVE NOS 06/23/2016 Ot 530.81 ESOPHAGEAL REFLUX 06/23/2016 EVANS JACKSON MD Ot V76.12 OTH SCREEN MAMMO-MALIGN NEOPLASM OF PAT 06/23/2016 ARTURO LARES MD Ot 575.8 DIS OF GALLBLADDER NEC 06/23/2016 ARTURO LARES MD Ot 575.8 DIS OF GALLBLADDER NEC 06/23/2016 ARTURO LARES MD Ot V72.63 PRE-PROCEDURAL LABORATORY EXAMINATION 06/23/2016 ARTURO LARES MD Ot V72.81 [id number]-PKZ-MIHBJESMF CARDIOVASCULAR 06/23/2016 EVANS JACKSON MD Ot V76.12 OTH SCREEN MAMMO-MALIGN NEOPLASM OF PAT 06/23/2016 CRISTY MAXWELL AUGER MILL OPERATOR Ot 782.1 NONSPECIF SKIN ERUPT NEC 06/23/2016 CRISTY MAXWELL AUGER MILL OPERATOR Ot 786.05 SHORTNESS OF BREATH 06/23/2016 LUCIO WHITEHEAD VP CLIENT SERVICES Ot V76.12 OTH SCREEN MAMMO-MALIGN NEOPLASM OF PAT 06/23/2016 EVANS JACKSON MD Ot 787.3 FLATUL/ERUCTAT/GAS PAIN 06/23/2016 EVANS JACKSON MD Ot 789.00 ABDOMINAL PAIN, UNSPECIFIED SITE 06/23/2016 LUCIO WHITEHEAD VP CLIENT SERVICES Ot 789.04 ABDOMINAL PAIN, LEFT LOWER QUADRANT 06/23/2016 LUCIO WHITEHEAD VP CLIENT SERVICES Ot 401.9 HYPERTENSION NOS 06/23/2016 LUCIO WHITEHEAD VP CLIENT SERVICES Ot 789.00 ABDOMINAL PAIN, UNSPECIFIED SITE 06/23/2016 MIKAYLA BOYD DO Ot M54.5 LOW BACK PAIN 06/23/2016 VERONICA TORY M 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 Ot H53.9 UNSPECIFIED VISUAL DISTURBANCE 06/23/2016 TORY MARTIN 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 Ot R51 HEADACHE 06/23/2016 TORY MARTIN 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 Ot W19.XXXA UNSPECIFIED FALL, INITIAL ENCOUNTER 06/23/2016 VERONICATORY 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 Ot Y99.8 OTHER EXTERNAL CAUSE STATUS 02/09/2017 Ot 530.81 ESOPHAGEAL REFLUX 02/09/2017 RENETTA GALAN, EVANS Latif Ot V76.12 OTH SCREEN MAMMO-MALIGN NEOPLASM OF PAT 02/09/2017 ARNAUD GALAN, ARTURO Ot 575.8 DIS OF GALLBLADDER NEC 02/09/2017 ARNAUD GALAN, ARTURO Ot 575.8 DIS OF GALLBLADDER NEC 02/09/2017 ARNAUD GALAN, ARTURO Ot V72.63 PRE-PROCEDURAL LABORATORY EXAMINATION 02/09/2017 ARNAUD GALAN, ARTURO Ot V72.81 BTMI-YYW-EHHUDMPEW CARDIOVASCULAR 02/09/2017 RENETTA GALAN, EVANS Latif Ot V76.12 OTH SCREEN MAMMO-MALIGN NEOPLASM OF PAT 02/09/2017 CRISTY MAXWELL AUGER MILL OPERATOR Ot 782.1 NONSPECIF SKIN ERUPT NEC 02/09/2017 CRISTY MAXWELL AUGER MILL OPERATOR Ot 786.05 SHORTNESS OF BREATH 02/09/2017 LUCIO WHITEHEAD VP CLIENT SERVICES Ot V76.12 OTH SCREEN MAMMO-MALIGN NEOPLASM OF PAT 02/09/2017 EVANS JACKSON MD Ot 787.3 FLATUL/ERUCTAT/GAS PAIN 02/09/2017 EVANS JACKSON MD Ot 789.00 ABDOMINAL PAIN, UNSPECIFIED SITE 02/09/2017 LUCIO WHITEHEAD VP CLIENT SERVICES Ot 789.04 ABDOMINAL PAIN, LEFT LOWER QUADRANT 02/09/2017 LUCIO WHITEHEAD VP CLIENT SERVICES Ot 401.9 HYPERTENSION NOS 02/09/2017 LUCIO WHITEHEAD VP CLIENT SERVICES Ot 789.00 ABDOMINAL PAIN, UNSPECIFIED SITE 02/09/2017 MIKAYLA BOYD DO Ot M54.5 LOW BACK PAIN 02/09/2017 TORY MARTIN Paulo 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 Ot H53.9 UNSPECIFIED VISUAL DISTURBANCE 02/09/2017 VERONICATORY 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 Ot R51 HEADACHE 02/09/2017 TORY MARTIN 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 Ot W19.XXXA UNSPECIFIED FALL, INITIAL ENCOUNTER 02/09/2017 TORY MARTIN 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 Ot Y99.8 OTHER EXTERNAL CAUSE STATUS 02/11/2017 LONG DC, RICH S Ot M25.552 PAIN IN LEFT HIP 02/11/2017 LONG DC, RICH S Ot M54.5 LOW BACK PAIN 02/25/2017 LONG DC, RICH S Ot M25.552 PAIN IN LEFT HIP 02/25/2017 LONG DC, RICH S Ot M54.5 LOW BACK PAIN Procedures There is no data. Results There is no data. Encounters ACCT No. Visit Date/Time Discharge Status Pt. Type Provider Facility Loc./Unit Complaint [id number] 08/09/2013 16:44:47 08/09/2013 23:59:59 CLS Outpatient Walker, Angelina [id number] 08/02/2013 14:06:17 08/02/2013 23:59:59 CLS Outpatient Walker, Angelina [id number] 07/26/2013 14:22:04 07/26/2013 23:59:59 CLS Outpatient Walker, Angelina [id number] 07/19/2013 09:16:53 07/19/2013 23:59:59 CLS Outpatient Walker, Angelina [id number] 07/19/2013 09:03:44 07/19/2013 23:59:59 CLS Outpatient Walker, Angelina [id number] 07/12/2013 09:08:28 07/12/2013 23:59:59 CLS Outpatient Walker, Angelina [id number] 07/06/2013 09:04:31 07/06/2013 23:59:59 CLS Outpatient Nataly Varner [id number] 06/29/2013 11:16:49 06/29/2013 23:59:59 CLS Outpatient Walker, Angelina [id number] 02/09/2017 16:36:00 02/09/2017 23:59:59 CLS Outpatient LONG DC, RICH S [facility] RAD LBP LT HIP PAIN [id number] 06/10/2016 10:12:00 06/10/2016 12:50:00 DIS Emergency SHANNA ROSA [facility] ER BACK/LEFT HIP PAIN [id number] 05/25/2016 17:41:00 05/25/2016 23:59:59 CLS Outpatient VERONICA TORY M 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 [facility] RAD FALL,HEADACHE,VISION CHANGE [id number] 10/23/2015 16:35:00 10/23/2015 23:59:59 CLS Outpatient MIKAYLA BOYD DO [facility] RAD LOW BACK PAIN [id number] 10/18/2015 10:13:00 10/18/2015 23:59:59 CLS Outpatient MISSY DURAND 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 [facility] QUICK [id number] 08/15/2014 11:01:00 08/15/2014 23:59:59 CLS Outpatient LUCIO WHITEHEAD VP CLIENT SERVICES [facility] RAD SCREENING [id number] 07/30/2014 06:49:00 07/30/2014 23:59:59 CLS Outpatient LUCIO WHITEHEAD VP CLIENT SERVICES [facility] RAD ABDOMINAL PAIN HTN [id number] 07/26/2014 10:25:00 07/26/2014 23:59:59 CLS Outpatient LUCIO WHITEHEAD VP CLIENT SERVICES [facility] RAD LEFT LOWER QUADRANT PAIN [id number] 07/25/2014 11:15:00 07/25/2014 23:59:59 CLS Outpatient EVANS JACKSON MD [facility] SDC ABD PAIN [id number] 04/18/2014 03:00:00 04/19/2014 14:00:00 DIS Inpatient EVANS JACKSON MD [facility] 4TH GASTROENTERITIS; INTRACTABLE NAUSEA [id number] 04/17/2014 18:42:00 04/17/2014 21:26:00 DIS Emergency JALEN PIERCE DO [facility] ER DEHYDRATION [id number] 11/22/2013 13:56:00 11/22/2013 23:59:59 CLS Outpatient [id number] 08/18/2013 10:01:00 08/18/2013 23:59:59 CLS Outpatient CRISYT MAXWELL AUGER MILL OPERATOR [facility] RAD RASH,SOB [id number] 05/31/2013 15:14:00 05/31/2013 23:59:59 CLS Outpatient EVANS JACKSON MD [facility] RAD SCREENING [id number] 01/14/2013 01:58:00 01/14/2013 15:21:00 DIS Inpatient ARTURO LARES MD [facility] SURGICAL INTRACTABLE NAUSEA, POST OP PAIN [id number] 01/12/2013 06:31:00 01/12/2013 13:15:00 DIS Outpatient ARTURO LARES MD [facility] SDC DYSKNESIA [id number] 01/11/2013 13:22:00 01/11/2013 23:59:59 CLS Outpatient ARTURO LARES MD [facility] PREOP DYSKNESIA [id number] 01/11/2013 09:55:00 01/11/2013 23:59:59 CLS Outpatient ARTURO LARES MD [facility] RAD ABD PAIN [id number] 01/06/2013 12:28:00 01/06/2013 14:56:00 DIS Emergency TAMAR 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 [facility] ER ABD [id number] 08/02/2012 10:13:00 08/02/2012 23:59:59 CLS Outpatient EVANS JACKSON MD [facility] RAD SCREENING [id number] 04/18/2014 04:16:00 Document Registration [id number] 04/18/2014 04:16:00 Document Registration [id number] 08/31/2011 07:58:00 Document Registration [id number] 08/10/2011 07:18:00 Document Registration [id number] 08/05/2011 07:52:00 Document Registration [id number] 07/31/2011 07:57:00 Document Registration [id number] 08/15/2010 09:43:00 Document Registration [id number] 08/16/2009 07:43:00 Document Registration [id number] 08/02/2009 06:55:00 Document Registration [id number] 12/13/2008 07:52:00 Document Registration
[2017-04-15] MEDS ORDERED: LACTATED RINGERS 1,000 ML IV ONE ×2 (09:56→15:07)
[2017-04-15] MEDS ORDERED: diphenhydrAMINE 50 MG/ML INJ (BENADRYL) IVP ONE ×3 (10:00→14:30)
[2017-04-15] MEDS ORDERED: PROMETHAZINE INJ 25 MG/ML (PHENERGAN) AMP IVP ONE ×3 (10:00→14:30)
[2017-04-15 10:07] LABS: BASOPHILS % (AUTO) 0 % (0-10); EOSINOPHILS # (AUTO) 0.2 10^3/uL (0.0-0.3); EOSINOPHILS % (AUTO) 1 % (0-10); HEMATOCRIT 47 % (35-52); HEMOGLOBIN 16.6 G/DL (11.5-16.0); LYMPHOCYTES % (AUTO) 7 % (12-44); MEAN CORPUSCULAR HEMOGLOBIN 31 PG (25-34); MEAN CORPUSCULAR HGB CONC 36 G/DL (32-36); MEAN CORPUSCULAR VOLUME 86 FL (80-99); MEAN PLATELET VOLUME 10.8 FL (7.4-10.4); MONOCYTES # (AUTO) 0.7 X 10^3 (0.0-1.0); MONOCYTES % (AUTO) 5 % (0-12); NEUTROPHILS # (AUTO) 12.3 X 10^3 (1.8-7.8); NEUTROPHILS % (AUTO) 86 % (42-75); PLATELET COUNT 317 10^3/uL (130-400); RED BLOOD COUNT 5.38 10^6/uL (4.35-5.85); RED CELL DISTRIBUTION WIDTH 12.3 % (10.0-14.5); WHITE BLOOD COUNT 14.2 10^3/uL (4.3-11.0)
[2017-04-15 10:21] LABS: PROTHROMBIN TIME PATIENT 13.3 SEC (12.2-14.7)
[2017-04-15 10:29] LABS: ALANINE AMINOTRANSFERASE 20 U/L (0-55); ALBUMIN 4.4 GM/DL (3.2-4.5); ALKALINE PHOSPHATASE 67 U/L (40-136); AMYLASE 62 U/L (25-125); BILIRUBIN,TOTAL 0.8 MG/DL (0.1-1.0); BUN/CREATININE RATIO 26; CALCIUM 9.1 MG/DL (8.5-10.1); CARBON DIOXIDE 21 MMOL/L (21-32); CHLORIDE 106 MMOL/L (98-107); GFR ESTIMATED > 60; GLUCOSE 95 MG/DL (70-105); LIPASE 17 U/L (8-78); MAGNESIUM 1.9 MG/DL (1.8-2.4); POTASSIUM 4.3 MMOL/L (3.6-5.0); SODIUM 140 MMOL/L (135-145); TOTAL PROTEIN 7.2 GM/DL (6.4-8.2)
[2017-04-15 10:30] LABS: CLARITY,URINE CLEAR; COLOR,URINE YELLOW; GLUCOSE, URINE (UA) NEGATIVE (NEGATIVE); KETONES,URINE NEGATIVE (NEGATIVE); LEUKOCYTE ESTERASE ,URINE NEGATIVE (NEGATIVE); NITRITE,URINE NEGATIVE (NEGATIVE); PH,URINE 5 (5-9); PROTEIN,URINE NEGATIVE (NEGATIVE); UROBILINOGEN,URINE NORMAL (NORMAL)
[2017-04-15 10:42] LABS: BAND NEUTROPHILS 0 %; BASOPHILS % (MANUAL) 0 %; EOSINOPHILS % (MANUAL) 4 %; LYMPHOCYTES % (MANUAL) 12 %; MONOCYTES % (MANUAL) 3 %; NEUTROPHILS % (MANUAL) 81 %
[2017-04-15 10:43] LABS: RBC MORPH NORMAL
[2017-04-15] MEDS ORDERED: IOHEXOL 350 MG/ML 100 ML (OMNIPAQUE 350) VIAL IV ONE (10:45)
[2017-04-15] MEDS ORDERED: NS 100 ML (IVPB) BAG IV ONE (10:45)
[2017-04-15] MEDS ORDERED: SCOPOLAMINE 1.5 MG (TRANSDERM-SCOP) PATCH TD ONE (10:45)
[2017-04-15] MEDS ORDERED: CATHETER FLUSH 10 ML SYR IV PRN (10:45)
[2017-04-15] MEDS ORDERED: PANTOPRAZOLE 40 MG/10 ML (PROTONIX) VIAL IV ONE (10:45)
[2017-04-15 11:01] LABS: BILIRUBIN,URINE 2+ (NEGATIVE); WBC,URINE RARE /HPF
[2017-04-15 11:02] LABS: BACTERIA,URINE TRACE /HPF
--- NOTE | 2017-04-15 12:07 | Diagnostic Imaging Report ---
PROCEDURE: CT abdomen and pelvis with contrast. TECHNIQUE: Multiple contiguous axial images were obtained through the abdomen and pelvis after administration of intravenous contrast. INDICATION: Nausea and abdominal pain. Comparison is made with prior CT from 04/17/2014. The lung bases are clear. Liver again demonstrates a well-defined low densities, suggestive of cysts. The gallbladder is surgically absent. Pancreas and spleen are unremarkable. No adrenal mass is identified. Kidneys are unremarkable. Aorta is nonaneurysmal. There is moderate stool in the sigmoid colon and rectum. Remainder of the colon is fluid-filled. Small bowel loops are nondilated. No free fluid or fluid collection is seen. No inflammatory process is detected. The uterus and bladder are unremarkable. The bony structures are nonacute. IMPRESSION: Moderate stool in the colon and fluid-filled colon, perhaps owing to diarrhea. The remainder of the study is unremarkable. Dictated by: Dictated on workstation # [id number]
[2017-04-15] MEDS ORDERED: LACT1CAP8 PO (12:25)
[2017-04-15] MEDS ORDERED: PANT40TA2 PO (12:25)
[2017-04-15] MEDS ORDERED: SCOP1PAT TD (12:25)
[2017-04-15] MEDS ORDERED: HYOS0.1283 SL (12:25)
[2017-04-15] MEDS ORDERED: ONDA8TAB9 PO (12:25)
[2017-04-15] MEDS ORDERED: PROM25SU43 RC (12:25)
--- NOTE | 2017-04-15 12:25 | ED GI ---
General Chief Complaint: Abdominal/GI Problems Stated Complaint: ABD PAIN,DIZZY Nursing Triage Note: PT STATES ABD PAIN, DIZZINESS, AND LT EAR ACHE SINCE THIS A.M. WAS DX WITH BRONCHITIS LAST WEDNESDAY AT [facility]. Sepsis Screen: No Definite Risk Source of Information: Patient History of Present Illness Date Seen by Provider: Apr 15, 2017 Time Seen By Provider: 09:55 Initial Comments PT ARRIVES VIA POV FROM HOME C/O NAUSEA AND DRY HEAVES, WITH DIFFUSE ABDOMINAL PAIN, BUT MOST PAIN IS IN UPPER ABDOMEN/EPIGASTRIC AREA NO VOMITING C/O SOME DIZZINESS AND LEFT EAR PAIN ALL THESE SYMPTOMS BEGAN THIS AM HAS CHRONIC DIARRHEA/LOOSE STOOLS, BUT HAS NOT HAD A BM YET TODAY. NO URINARY SYMPTOMS NO FEVER C/O LEFT EAR PAIN AND DIZZINESS WAS SEEN AT [facility] ON WEDNESDAY FOR SORE THROAT/COUGH--DX BRONCHITIS AND PLACED ON BACTRIM, TESSALON, PREDNISONE-THOSE SYMPTOMS ARE BETTER PT HAS HAD THESE SAME SYMPTOMS BEFORE, STATES ZOFRAN NEVER WORKS, AND REQUESTS PHENERGAN. PT HAS HAD CHOLECYSTECTOMY AND HIATAL HERNIA REPAIR. PCP: DR. JACKSON Allergies and Home Medications Allergies Coded Allergies: azithromycin (Unverified Allergy, Intermediate, 04/17/14) erythromycin base (Verified Allergy, Unknown, 11/24/07) Home Medications Alprazolam 1 Mg Tablet, 1 MG PO HS, (Reported) Alprazolam 1 Mg Tablet, 1 MG PO HS, (Reported) Amlodipine/Valsartan 1 Each Tablet, 1 EACH PO DAILY, (Reported) Cyclobenzaprine HCl 10 Mg Tablet, 10 MG PO Q8H PRN for SPASMS, #14 Ref 0 Prescribed by: SHANNA DE LA GARZA on 06/10/16 1233 Estradiol 1 Mg Tablet, 1 MG PO DAILY, (Reported) Hyoscyamine Sulfate 0.125 Mg Tab.subl, 1-2 TAB SL Q4H, #15 Prescribed by: JALEN PIERCE on 04/15/17 1225 Lactobacillus Acidophilus 1 Each Capsule, 2 EACH PO QID, #80 Prescribed by: JALEN PIERCE on 04/15/17 1225 Medroxyprogesterone Acetate 2.5 Mg Tablet, 2.5 MG PO DAILY, (Reported) Meloxicam 15 Mg Tablet, Unknown Dose PO, (Reported) Ondansetron 8 Mg Tab.rapdis, 8 MG PO Q4H, #14 Prescribed by: JALEN PIERCE on 04/15/17 1225 Pantoprazole Sodium 40 Mg Tablet.dr, 40 MG PO DAILY, #15 Prescribed by: JALEN PIERCE on 04/15/17 1225 Prednisone 20 Mg Tab, 40 MG PO DAILY, #10 Ref 0 Prescribed by: SHANNA DE LA GARZA on 06/10/16 1233 Promethazine HCl 25 Mg Supp.rect, 25 MG RC Q4H, #10 Prescribed by: JALEN PIERCE on 04/15/17 1225 Scopolamine 1 Each Patch.td72, 1 EACH TD Q72 HOURS, #3 Prescribed by: JALEN PIERCE on 04/15/17 1225 Tramadol HCl 50 Mg Tablet, 50 MG PO Q4H PRN for PAIN, #14 Ref 0 Prescribed by: SHANNA DE LA GARZA on 06/10/16 1233 Review of Systems Constitutional: No fever, malaise, weakness EENTM: Ear Pain Respiratory: No Symptoms Reported Cardiovascular: No Symptoms Reported, Denies Edema, Denies Irregular Heart Rate , Lightheadedness, Denies Palpitations, Denies Syncope Gastrointestinal: See HPI, Abdominal Pain, Diarrhea, Nausea, Poor Appetite, Vomiting (DRY HEAVES ) Genitourinary: No Symptoms Reported Musculoskeletal: no symptoms reported Skin: no symptoms reported Psychiatric/Neurological: No Symptoms Reported Endocrine: No Symptoms Reported Hematologic/Lymphatic: No Symptoms Reported Past Udjfyex-Xljhmp-Tkzwvb Hx Patient Social History Alcohol Use: Rarely Uses Alcohol Beverage of Choice: Beer Recreational Drug Use: No Smoking Status: Current Someday Smoker (< 1/2 PPD) Type Used: Cigarettes 2nd Hand Smoke Exposure: No Recent Foreign Travel: No Contact w/Someone Who Travel: No Recent Infectious Disease Expo: No Recent Hopitalizations: No Immunizations Up To Date Tetanus Booster (TDap): More than 5yrs Date of Influenza Vaccine: Dec 02, 2016 Seasonal Allergies Seasonal Allergies: No Surgeries History of Surgeries: Yes (HIATAL HERNIA REPAIR) Surgeries: Abdominal, Gallbladder Respiratory History of Respiratory Disorde: No Cardiovascular History of Cardiac Disorders: Yes Cardiac Disorders: Hypertension Neurological History of Neurological Disord: No Reproductive System Hx Reproductive Disorders: No DOUBLE CUTTER History: Menopausal Genitourinary History of Genitourinary Disor: No Gastrointestinal History of Gastrointestinal Di: Yes Gastrointestinal Disorders: Abdominal Hernia, Gastroesophageal Reflux, Chronic Diarrhea Musculoskeletal History of Musculoskeletal Dis: Yes (DX W/ BURSITIS L HIP LAST SUMMER) Musculoskeletal Disorders: Chronic Back Pain Endocrine History of Endocrine Disorders: No HEENT History of HEENT Disorders: No Cancer History of Cancer: No Psychosocial History of Psychiatric Problem: Yes Behavioral Health Disorders: Anxiety Integumentary History of Skin or Integumenta: No Blood Transfusions History of Blood Disorders: No Adverse Reaction to a Blood Tr: No (NEVER HAD BLOOD TRANSFUSION) Family Medical History Significant Family History: No Pertinent Family Hx Family Medial History: Arthritis 19 MOTHER Cardiovascular disease 19 MOTHER Completed stroke 19 MOTHER Diabetes mellitus 19 MOTHER Hypertension 19 MOTHER No Family History of: AIDS Abdominal aortic aneurysm Brennan's disease Alcoholism Alzheimer's disease Aphasia Asthma Cancer of mouth Cataracts Colon cancer Congenital disease Congenital heart disease Coronary thrombosis Cystic fibrosis Deafness or hearing loss Dementia Drug abuse Dysphasia Fibrocystic disease of breast Gastroenteritis Glaucoma Headache disorder Hypercholesterolemia Infertility Kidney disease Myocardial infarction Neoplasm Not obtainable due to adoption Osteoporosis Parkinson's disease Prostate cancer Psychosocial problem Respiratory disorder Seizure disorder Severe allergy Thyroid disease Tuberculosis Visual disorder Physical Exam Vital Signs VS - Last 72 Hours, by Label 04/15/17 04/15/17 09:41 17:01 Temp 97.4 97.0 Pulse 81 90 Resp 18 18 B/P (MAP) 114/81 (92) Pulse Ox 97 97 O2 Delivery Room Air Room Air Capillary Refill : Less Than 3 Seconds General Appearance: WD/WN, no apparent distress, other (MILDLY LETHARGIC) HEENT: PERRL/EOMI, other (ORAL MUCOSA MOIST) Neck: normal inspection Respiratory: normal breath sounds, no respiratory distress, no accessory muscle use Cardiovascular: no edema, no JVD, no murmur, tachycardia (110), extra beats ( OCCASIONAL ECTOPY--C/W PAC'S ON MONITOR) Gastrointestinal: normal bowel sounds, soft, no organomegaly, no pulsatile mass , No distended, No guarding, No rebound, tenderness (DIFFUSE TENDERNESS, BUT MOST TENDER IN EPIGASTRIC AREA, WELL RLQ AND LLQ AND RIGHT FLANK), No hernia, No mass Extremities: normal inspection, normal capillary refill Back: normal inspection, no CVA tenderness, CVA tenderness (R) 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, no motor/sensory deficits, alert, oriented x 3 Skin: normal color, warm/dry Progress/Results/Core Measures Results/Orders Lab Results Laboratory Tests Test 1/18/18 09:50 04/15/17 10:10 Range/Units White Blood Count 14.2 H 4.3-11.0 10^3/uL Red Blood Count 5.38 4.35-5.85 10^6/uL Hemoglobin 16.6 H 11.5-16.0 G/DL Hematocrit 47 35-52 % Mean Corpuscular Volume 86 80-99 FL Mean Corpuscular Hemoglobin 31 25-34 PG Mean Corpuscular Hemoglobin Concent 36 32-36 G/DL Red Cell Distribution Width 12.3 10.0-14.5 % Platelet Count 317 130-400 10^3/uL Mean Platelet Volume 10.8 H 7.4-10.4 FL Neutrophils (%) (Auto) 86 H 42-75 % Lymphocytes (%) (Auto) 7 L 12-44 % Monocytes (%) (Auto) 5 0-12 % Eosinophils (%) (Auto) 1 0-10 % Basophils (%) (Auto) 0 0-10 % Neutrophils # (Auto) 12.3 H 1.8-7.8 X 10^3 Lymphocytes # (Auto) 1.0 1.0-4.0 X 10^3 Monocytes # (Auto) 0.7 0.0-1.0 X 10^3 Eosinophils # (Auto) 0.2 0.0-0.3 10^3/uL Basophils # (Auto) 0.0 0.0-0.1 10^3/uL Neutrophils % (Manual) 81 % Lymphocytes % (Manual) 12 % Monocytes % (Manual) 3 % Eosinophils % (Manual) 4 % Basophils % (Manual) 0 % Band Neutrophils 0 % Blood Morphology Comment NORMAL Prothrombin Time 13.3 12.2-14.7 SEC INR Comment 1.0 0.8-1.4 Activated Partial Thromboplast Time 20 L 24-35 SEC Sodium Level 140 135-145 MMOL/L Potassium Level 4.3 3.6-5.0 MMOL/L Chloride Level 106 98-107 MMOL/L Carbon Dioxide Level 21 21-32 MMOL/L Anion Gap 13 5-14 MMOL/L Blood Urea Nitrogen 21 H 7-18 MG/DL Creatinine 0.80 0.60-1.30 MG/DL Estimat Glomerular Filtration Rate > 60 BUN/Creatinine Ratio 26 Glucose Level 95 70-105 MG/DL Calcium Level 9.1 8.5-10.1 MG/DL Magnesium Level 1.9 1.8-2.4 MG/DL Total Bilirubin 0.8 0.1-1.0 MG/DL Aspartate Amino Transf (AST/SGOT) 17 5-34 U/L Alanine Aminotransferase (ALT/SGPT) 20 0-55 U/L Alkaline Phosphatase 67 40-136 U/L Total Protein 7.2 6.4-8.2 GM/DL Albumin 4.4 3.2-4.5 GM/DL Amylase Level 62 25-125 U/L Lipase 17 8-78 U/L Urine Color YELLOW Urine Clarity CLEAR Urine pH 5 5-9 Urine Specific [place] 1.025 H 1.016-1.022 Urine Protein NEGATIVE NEGATIVE Urine Glucose (UA) NEGATIVE NEGATIVE Urine Ketones NEGATIVE NEGATIVE Urine Nitrite NEGATIVE NEGATIVE Urine Bilirubin 2+ H NEGATIVE Urine Urobilinogen NORMAL NORMAL MG/DL Urine Leukocyte Esterase NEGATIVE NEGATIVE Urine RBC (Auto) NEGATIVE NEGATIVE Urine RBC NONE /HPF Urine WBC RARE /HPF Urine Squamous Epithelial Cells 10-25 H /HPF Urine Crystals NONE /LPF Urine Bacteria TRACE /HPF Urine Casts NONE /LPF Urine Mucus LARGE H /LPF Urine Culture Indicated NO My Orders Orders - JALEN PIERCE DO Saline Lock/Iv-Start (04/15/17 09:56) Monitor-Rhythm Ecg Trace Only (04/15/17 09:56) Amylase (04/15/17 09:56) Cbc With Automated Diff (04/15/17 09:56) Comprehensive Metabolic Panel (04/15/17 09:56) Lipase (04/15/17 09:56) Magnesium (04/15/17 09:56) Protime With Inr (04/15/17 09:56) Partial Thromboplastin Time (04/15/17 09:56) Ua Culture If Indicated (04/15/17 09:56) Saline Lock/Iv-Start (04/15/17 09:56) Lactated Ringers (Lr 1000 Ml Iv Solution (04/15/17 09:56) Promethazine Injection (Phenergan Injec (04/15/17 10:00) Diphenhydramine Injection (Benadryl Inje (04/15/17 10:00) Manual Differential (04/15/17 09:50) Scopolamine Patch (Transderm-Scop Patch) (04/15/17 10:45) Promethazine Injection (Phenergan Injec (04/15/17 10:45) Ct Abdomen/Pelvis W (04/15/17 10:39) Pantoprazole Injection (Protonix Injecti (04/15/17 10:45) Iohexol Injection (Omnipaque 350 Mg/Ml 1 (04/15/17 10:45) Sodium Chloride Flush (Catheter Flush Sy (04/15/17 10:45) Ns (Ivpb) (Sodium Chloride 0.9% Ivpb Bag (04/15/17 10:45) Pharmacy Communication (Pharmacy Communi (04/15/17 10:42) Hyoscyamine Sl Tablet (Levsin Sl Tablet) (04/15/17 12:30) Diphenhydramine Injection (Benadryl Inje (04/15/17 12:30) Ondansetron Injection (Zofran Injectio (04/15/17 12:30) Promethazine Injection (Phenergan Injec (04/15/17 14:30) Diphenhydramine Injection (Benadryl Inje (04/15/17 14:30) Saline Lock/Iv-Start (04/15/17 15:07) Lactated Ringers (Lr 1000 Ml Iv Solution (04/15/17 15:07) Metoclopramide Injection (Reglan Injecti (04/15/17 15:15) Prochlorperazine Injection (Compazine In (04/15/17 15:15) Medications Given in ED Current Medications Medications Dose Ordered Sig/Jovanna Route Start Time Stop Time Status Last Admin Dose Admin Diphenhydramine HCl 25 mg ONCE ONCE IVP 04/15/17 10:00 04/15/17 10:01 DC 04/15/17 10:09 25 MG Diphenhydramine HCl 25 mg ONCE ONCE IVP 04/15/17 14:30 04/15/17 14:31 DC 04/15/17 15:14 25 MG Hyoscyamine Sulfate 0.25 mg ONCE ONCE PO 04/15/17 12:30 04/15/17 12:31 DC 04/15/17 15:38 0.25 MG Iohexol 100 ml ONCE ONCE IV 04/15/17 10:45 04/15/17 10:46 DC 04/15/17 10:58 100 ML Lactated Ringer's 1,000 ml @ 0 mls/hr Q0M ONCE IV 04/15/17 09:56 04/15/17 09:59 DC 04/15/17 10:10 1,000 MLS/HR Lactated Ringer's 1,000 ml @ 0 mls/hr Q0M ONCE IV 04/15/17 15:07 04/15/17 15:09 DC 04/15/17 15:13 1,000 MLS/HR Metoclopramide HCl 10 mg ONCE ONCE IVP 04/15/17 15:15 04/15/17 15:16 DC 04/15/17 15:38 10 MG Ondansetron HCl 8 mg ONCE ONCE IVP 04/15/17 12:30 04/15/17 12:31 DC 04/15/17 14:05 8 MG Pantoprazole 40 mg ONCE ONCE IV 04/15/17 10:45 04/15/17 10:46 DC 04/15/17 10:51 40 MG Prochlorperazine Edisylate 10 mg ONCE ONCE IV 04/15/17 15:15 04/15/17 15:16 DC 04/15/17 15:38 10 MG Promethazine HCl 25 mg ONCE ONCE IVP 04/15/17 10:00 04/15/17 10:01 DC 04/15/17 10:09 25 MG Promethazine HCl 25 mg ONCE ONCE IVP 04/15/17 10:45 04/15/17 10:46 DC 04/15/17 10:51 25 MG Promethazine HCl 25 mg ONCE ONCE IVP 04/15/17 14:30 04/15/17 14:31 DC 04/15/17 15:14 25 MG Scopolamine 1.5 mg ONCE ONCE TD 04/15/17 10:45 04/15/17 10:46 DC 04/15/17 10:51 1.5 MG Sodium Chloride 10 ml NEEDED PRN IV 04/15/17 10:45 04/15/17 17:01 DC 04/15/17 10:58 10 ML Sodium Chloride 100 ml ONCE ONCE IV 04/15/17 10:45 04/15/17 10:46 DC 04/15/17 10:58 80 ML Vital Signs/I&O Vital Sign - Last 12Hours 04/15/17 04/15/17 09:41 17:01 Temp 97.4 97.0 Pulse 81 90 Resp 18 18 B/P (MAP) 114/81 (92) Pulse Ox 97 97 O2 Delivery Room Air Room Air Blood Pressure Mean: 92 Progress Note : Progress Note VERY LONG ER STAY, DUE TO PERSISTENT DRY HEAVING--MOSTLY WHEN STAFF ENTER ROOM. PT GIVEN LARGE AMOUNTS OF MULTIPLE ANTI-EMETICS PT WANTING TO BE ADMITTED --DISCUSSED WITH PT AND SON THAT SHE DID NOT MEET ADMISSION CRITERIA AT THIS POINT. PT EVENTUALLY ABLE TO TAKE ICE CHIPS AND STATES NAUSEA IS A LITTLE BETTER AT DISMISSAL PT HAD NO VOMITING, ONLY DRY HEAVES. AND DID NOT HAVE ANY DIARRHEA DURING ER STAY PT DID NOT COMPLAIN OF ABDOMINAL PAIN AT ANY OTHER TIME DURING ER STAY, ONLY NAUSEA. PT RECEIVED 3 LITERS OF FLUIDS DURING ER STAY AND HAD ADEQUATE URINE OUTPUT Diagnostic Imaging Comments CT ABDOMEN/PELVIS--NO ACUTE PROCESS, LARGE AMOUNT OF LIQUID STOOL IN COLON C/W DIARRHEA. PER RADIOLOGIST REPORT @ 1209 Reviewed: Reviewed by Me Departure Communication (Admissions) Progress Notes 4490--MESSAGE TO DR. JACKSON'S OFFICE STAFF 1510--SPOKE WITH DR. JACKSON, REVIEWED ALL LAB. SHE STATES PT DOES NOT MEET ADMISSION OR EVEN OBSERVATION CRITERIA AT THIS POINT. SHE ADVISES GIVING REGLAN AND COMPAZINE IN ADDITION TO WHAT SHE HAS ALREADY RECEIVED. 1610--DR. JACKSON CALLED BACK TO CHECK ON PT--UPDATE GIVEN. Impression Impression: Primary Impression: Gastroenteritis Disposition: 01 HOME, SELF-CARE Condition: Stable Departure-Patient Inst. Referrals: EVANS JACKSON MD (PCP/Family) Primary Care Physician Patient Instructions: [id number], Viral Gastroenteritis, Adult ( DC) Add. Discharge Instructions: CLEAR LIQUIDS--WATER, BROTH, JELLO, GATORADE TOMORROW IF YOU ARE BETTER, ADD BRATS DIET TO CLEAR LIQUIDS--BANANAS, RICE, APPLESAUCE, TOAST, SALTINES FOLLOW UP WITH YOUR DR IN 1-2 DAYS IF NO BETTER All discharge instructions reviewed with patient and/or family. Voiced understanding. Scripts Ondansetron (Zofran Odt) 8 Mg Tab.rapdis 8 MG PO Q4H for Nausea/Vomiting, #14 TAB Prov: JALEN PIERCE DO 04/15/17 Scopolamine (Transderm-Scop) 1 Each Patch.td72 1 EACH TD Q72 HOURS for Dizziness, #3 PATCH Prov: JALEN PIERCE DO 04/15/17 Pantoprazole Sodium (Protonix) 40 Mg Tablet.dr 40 MG PO DAILY, #15 TAB Prov: JALEN PIERCE DO 04/15/17 Promethazine HCl (Phenergan) 25 Mg Supp.rect 25 MG RC Q4H for Nausea/Vomiting, #10 SUPP.RECT Prov: JALEN PIERCE DO 04/15/17 Hyoscyamine Sulfate (Levsin-Sl) 0.125 Mg Tab.subl 1-2 TAB SL Q4H for Abdominal Pain, #15 TAB Prov: JALEN PIERCE DO 04/15/17 Lactobacillus Acidophilus (Acidophilus) 1 Each Capsule 2 EACH PO QID, #80 CAP Prov: JALEN PIERCE DO 04/15/17 JALEN PIERCE DO Apr 15, 2017 12:25
[2017-04-15] MEDS ORDERED: HYOSCYAMINE 0.125 MG (LEVSIN) TAB PO ONE (12:30)
[2017-04-15] MEDS ORDERED: ONDANSETRON 4 MG/2 ML (SDV) Z0FRAN IVP ONE (12:30)
[2017-04-15] MEDS ORDERED: PROCHLORPERAZINE 10 MG/2ML INJ (COMPAZINE) IV ONE (15:15)
[2017-04-15] MEDS ORDERED: METOCLOPRAMIDE INJ 10 MG/2 ML (REGLAN) IVP ONE (15:15)
[2017-04-15 17:01] VITALS: BP 111/68
== END 2017-04-15 17:01 | disposition home or self-care (01) ==
LOC: EDUNIT# 09:12 → ER 09:14
DX: K52.9 Noninfective gastroenteritis and colitis, unspecified (principal); F41.9 Anxiety disorder, unspecified; K21.9 Gastro-esophageal reflux disease without esophagitis; I10 Essential (primary) hypertension; F17.210 Nicotine dependence, cigarettes, uncomplicated; Z90.49 Acquired absence of other specified parts of digestive tract; Z87.19 Personal history of other diseases of the digestive system
CPT/HCPCS: 36415; 74177; 80053; 81000; 82150; 83690; 83735; 85007; 85027; 85610; 85730; 93041; 96361; 96374; 96375; 96376

== ENCOUNTER → 2017-07-29 | Outpatient (CLI) | payer BC ==
[~2017-07-29] MED LIST changes: +FLUO20CA25; +HYOS0.1283 SL; +LACT1CAP8 PO; +ONDA8TAB9 PO; +OXYC-197 PO; +OXYC-465 PO; +PANT40TA2 PO; +PROM25SU43 RC; +SCOP1PAT11 TD
--- NOTE | 2017-07-29 09:03 | Diagnostic Imaging Report ---
Indication: Breast density. Patient presents for additional views. Comparison is made with recent screening study from 07/20/2017. 2-D and 3-D unilateral left diagnostic mammography was performed including 90 degree lateral views as well as exaggerated CC spot compression and spot compression MLO views. Findings: There is a persistent slightly spiculated density in the upper and outer posterior left breast. There are some associated calcifications. No other abnormalities are seen. Impression: Persistent spiculated density upper-outer left breast after additional views. Further evaluation with ultrasound is recommended. BI-RADS 0 ACR BI-RADS Category 0: Incomplete. (Needs additional imaging evaluation). Result letter will be mailed to the patient. Note: At least 10% of breast cancer is not imaged by mammography. Dictated by: Dictated on workstation # [id number]
--- NOTE | 2017-07-29 09:53 | Diagnostic Imaging Report ---
INDICATION: Abnormal mammogram and left breast density. Comparison is made with diagnostic mammogram earlier same day. FINDINGS: Sonographic interrogation of the upper outer left breast was performed. There is an ill-defined hypoechoic mass at the 2 o'clock location of the left breast 5 cm from the nipple, corresponding with the mammographic density. This measures 12 mm x 7 mm x 11 mm. There is some internal vascularity. There is some posterior acoustic shadowing. No other masses are seen. Left axilla was evaluated. No enlarged lymph nodes are seen. IMPRESSION: Ill-defined hypoechoic mass 2 o'clock location left breast corresponding to the mammographic density. Features are concerning for a small neoplasm. Tissue sampling is recommended. Surgical consult is recommended. ACR BI-RADS Category 4: Suspicious abnormality. Dictated by: Dictated on workstation # [id number]
== END ==
LOC: RAD 08:05
PROVIDERS: ATTEND Obstetrics & Gynecology
DX: N63.21 Unspecified lump in the left breast, upper outer quadrant (principal)
CPT/HCPCS: 76642

== ENCOUNTER → 2017-07-30 | Outpatient (CLI) | payer BC ==
[~2017-07-30] VITALS: Ht 152.4 cm; Wt 56.7 kg
[~2017-07-30] MED LIST changes: +LIDOCAINE 1% INJ 50 ML (XYLOCAINE) VIAL IJ ONE; +LIDOCAINE 1% INJ 50 ML (XYLOCAINE) VIAL ONE
[2017-07-30 08:32] VITALS: BP 118/67
[2017-07-30 09:10] VITALS: BP 121/64
--- NOTE | 2017-07-30 10:42 | Diagnostic Imaging Report ---
Indication: Left breast mass. The patient presents for a left breast biopsy. Findings: The patient was brought to the procedure room, placed on the table in the supine position. Ultrasound imaging over the left breast was performed to evaluate appropriate entry site. The skin of the left breast was then prepped and draped in the usual sterile fashion. A small amount of 1% lidocaine was utilized for local anesthesia. A total of 4 passes were made into the hypoechoic mass at the 2 o'clock location of the left breast 5 cm from the nipple with a 14-gauge Achieve needle. Cores were obtained. Needle was withdrawn, hemostasis was obtained using manual compression. A localizer clip was deployed adjacent to the mass. Impression: Successful ultrasound-guided core biopsy of the hypoechoic mass 2 o'clock location of the left breast, as described. Pathology results are currently pending. Dictated by: Dictated on workstation # [id number]
--- NOTE | 2017-07-30 10:49 | Diagnostic Imaging Report ---
Indication: Left breast mass. The patient is status post ultrasound-guided biopsy. 2D, CC and ML views of the left breast were obtained. The images demonstrate a biopsy clip in the upper, outer and posterior left breast, near the spiculated density. Impression: Clip placement upper-outer left breast, as described. Dictated by: Dictated on workstation # [id number]
== END ==
LOC: RAD 08:08
PROVIDERS: ATTEND Surgery
DX: N63.20 Unspecified lump in the left breast, unspecified quadrant (principal)
CPT/HCPCS: 19083; 88305; 88307; 88341; 88342; 88360

== ENCOUNTER 2017-08-02 11:34 | Outpatient (CLI) | payer BC ==
[~2017-08-02] VITALS: Ht 152.4 cm; Wt 57.2 kg
[~2017-08-02 11:34] MED LIST changes: -FLUO20CA25; -LIDOCAINE 1% INJ 50 ML (XYLOCAINE) VIAL IJ ONE; -LIDOCAINE 1% INJ 50 ML (XYLOCAINE) VIAL ONE; -OXYC-197 PO; -OXYC-465 PO
[2017-08-02 11:41] VITALS: BP 129/78
[2017-08-02 12:03] LABS: BASOPHILS # (AUTO) 0.1 10^3/uL (0.0-0.1); BASOPHILS % (AUTO) 2 % (0-10); EOSINOPHILS # (AUTO) 0.2 10^3/uL (0.0-0.3); EOSINOPHILS % (AUTO) 4 % (0-10); HEMATOCRIT 40 % (35-52); HEMOGLOBIN 13.9 G/DL (11.5-16.0); LYMPHOCYTES # (AUTO) 2.4 X 10^3 (1.0-4.0); LYMPHOCYTES % (AUTO) 40 % (12-44); MEAN CORPUSCULAR HEMOGLOBIN 31 PG (25-34); MEAN CORPUSCULAR HGB CONC 34 G/DL (32-36); MEAN CORPUSCULAR VOLUME 89 FL (80-99); MEAN PLATELET VOLUME 11.1 FL (7.4-10.4); MONOCYTES # (AUTO) 0.3 X 10^3 (0.0-1.0); MONOCYTES % (AUTO) 5 % (0-12); NEUTROPHILS % (AUTO) 50 % (42-75); PLATELET COUNT 127 10^3/uL (130-400); RED BLOOD COUNT 4.52 10^6/uL (4.35-5.85); RED CELL DISTRIBUTION WIDTH 12.3 % (10.0-14.5); WHITE BLOOD COUNT 5.9 10^3/uL (4.3-11.0)
== END 2017-08-02 12:00 | disposition home or self-care (01) ==
LOC: PREOP 11:34
PROVIDERS: ATTEND Obstetrics & Gynecology
DX: Z01.812 Encounter for preprocedural laboratory examination (principal); Z11.2 Encounter for screening for other bacterial diseases; N95.0 Postmenopausal bleeding; N85.9 Noninflammatory disorder of uterus, unspecified; D64.9 Anemia, unspecified
CPT/HCPCS: 36415; 85025; 87081

== ENCOUNTER 2017-08-04 06:36 | Day surgery (SDC) | payer BC ==
[~2017-08-04] VITALS: Ht 152.4 cm; Wt 57.2 kg
[2017-08-04] MEDS ORDERED: ONDANSETRON 4 MG/2 ML (SDV) Z0FRAN IV ONE (07:00)
[2017-08-04] MEDS ORDERED: LIDOCAINE 1% INJ 50 ML (XYLOCAINE) VIAL IJ ONE (07:00)
[2017-08-04] MEDS ORDERED: FAMOTIDINE 20MG/2ML IV (PEPCID) IV ONE (07:00)
[2017-08-04] MEDS ORDERED: ceFAZolin INJECTION 1,000 MG in NS (IVPB) 100 ML IV ONE (07:00)
[2017-08-04] MEDS ORDERED: SCOPOLAMINE 1.5 MG (TRANSDERM-SCOP) PATCH TOP ONE (07:00)
--- NOTE | 2017-08-04 07:39 | Progress Note-Pre Operative ---
Pre-Operative Progress Note H&P Reviewed The H&P was reviewed, patient examined and no changes noted. Date Seen by Provider: August 02, 2017 Time Seen by Provider: 15:20 Date H&P Reviewed: August 04, 2017 Time H&P Reviewed: 07:39 Pre-Operative Diagnosis: Left breast carcinoma YIFAN PARADA MD August 04, 2017 7:39 am
[2017-08-04] MEDS ORDERED: MIDAZOLAM 2 MG/2 ML (VERSED) VIAL IV ONE (08:15)
[2017-08-04] MEDS: LACTATED RINGERS 1,000 ML IV PRN ×2 (08:23→12:40)
[2017-08-04 08:26] VITALS: BP 137/87
[2017-08-04] MEDS ORDERED: SEVOFLURANE (ULTANE) 15 ML INHAL SOLN ONE ×10 (11:13→14:55)
[2017-08-04] MEDS ORDERED: proPOfol 200 MG/20 ML (DIPRIVAN) VIAL IV ONE (11:13)
[2017-08-04] MEDS ORDERED: LIDOCAINE PF 2% 5 ML (XYLOCAINE) VIAL ONE (11:13)
[2017-08-04] MEDS ORDERED: fentaNYL INJECTION 100 MCG/2 ML AMP ONE ×2 (11:13→15:10)
[2017-08-04] MEDS ORDERED: DEXAMETHASONE 10 MG/ML (DECADRON) 1 ML VIAL ONE (11:13)
[2017-08-04] MEDS ORDERED: ONDANSETRON 4 MG/2 ML (SDV) Z0FRAN ONE (11:13)
[2017-08-04] MEDS ORDERED: MIDAZOLAM 2 MG/2 ML (VERSED) VIAL ONE (11:14)
[2017-08-04] MEDS ORDERED: BUP/EPI 0.5% 1:200,000 (SENSORCAINE) 30 ML VIAL ONE (11:19)
--- NOTE | 2017-08-04 11:21 | Diagnostic Imaging Report ---
EXAMINATION: Ultrasound-guided needle localization. INDICATION: Breast cancer. PERSONAL HISTORY: The patient recently underwent an ultrasound guided biopsy of a small hypoechoic lesion in the upper-outer aspect of the left breast on 07/30/2017. The biopsy did prove that the area in question was related to a malignant process. The patient presents today for localization of the area of concern for surgical excision. TECHNIQUE: Followup aseptic preparation of the skin and administration of local anesthesia, a 5 cm Kopans needle was advanced into the lesion in question with ultrasound guidance. The post procedure diagnostic mammogram performed following the exam reveals that the needle appears to be in good position and is in close proximity to the stereotactic clip. The patient tolerated the procedure well and was dismissed in good condition. IMPRESSION: 1. There has been a successful localization of the hypoechoic mass in the upper-outer aspect of the left breast. 2. These results will be called to Dr. Wilson. Dictated by: Dictated on workstation # [id number]
[2017-08-04] MEDS ORDERED: 0.9% SODIUM CHLORIDE PF INJ 20 ML VIAL ONE (11:42)
[2017-08-04] MEDS ORDERED: INDIGO CARMINE 8 MG/ML 5 ML AMP ONE (11:44)
[2017-08-04] MEDS ORDERED: D5 LR IV SOLUTION 1,000 ML IV SCH (12:32)
[2017-08-04] MEDS ORDERED: OXYC-465 PO (12:36)
--- NOTE | 2017-08-04 12:37 | Discharge Instructions ---
Discharge Instructions Discharge Medications New, Converted or Re-Newed RX: RX on Chart Patient Instructions Patient Instructions: As directed Return to The Hospital For: As directed Activity & Diet Discharge Diet: No Restrictions Activity as Tolerated: No Orders-Post D/C & Referrals Follow Up Appt: Call to make follow up appt. for patient in 2 weeks. Activity: Rest for 24 hours, than as tolerated. Diet: As tolerated-Clear Liquids only if nauseated. Tomorrow, may shower or tub bathe as desired. No driving for 24 hours, no alcoholic beverages for 24 hours, and nothing per vagina (no tampons, douching, or intercourse) for 2 weeks. Patient to return to the clinic as soon as possible for: Temperature greater than 101F, Severe Pain, Foul discharge from incision or vagina, Excessive Bleeding (more than a period). TEMITOPE CARBAJAL MD August 04, 2017 12:37
--- NOTE | 2017-08-04 12:38 | Progress Note-Pre Operative ---
Pre-Operative Progress Note H&P Reviewed The H&P was reviewed, patient examined and no changes noted. Date Seen by Provider: August 04, 2017 Time Seen by Provider: 12:37 Date H&P Reviewed: August 04, 2017 Time H&P Reviewed: 12:37 Pre-Operative Diagnosis: Postmenopausal bleeding/intrauterine mass TEMITOPE CARBAJAL MD August 04, 2017 12:38 pm
--- NOTE | 2017-08-04 12:38 | Progress Note-Post Operative ---
Post-Operative Progess Note Surgeon (s)/Cable Ferry Operator (s) Surgeon TEMITOPE CARBAJAL MD Cable Ferry Operator: none Pre-Operative Diagnosis Postmenopausal bleeding/intrauterine mass Post-Operative Diagnosis Same with pathology pending Procedure & Operative Findings Date of Procedure 08/04/17 Procedure Performed/Findings Hysteroscopy with directed biopsy and D&C Anesthesia Type GETA Estimated Blood Loss Estimated blood loss (mL): min Specimens/Packing Specimens Removed Intrauterine mass and endometrial curettings Packing: None TEMITOPE CARBAJAL MD August 04, 2017 12:38
--- NOTE | 2017-08-04 12:40 | Diagnostic Imaging Report ---
EXAMINATION: Lymphoscintigraphy. INDICATION: Breast cancer. TECHNIQUE: Following aseptic preparation of the skin, 1.0 mCi of 99M technetium sulfur colloid was injected in 4 divided doses about the biopsy site in the upper-outer aspect of the left breast. There is uptake of the radiotracer by a lymph node in the left axilla. The skin over the lymph node was marked. IMPRESSION: There has been a successful lymphoscintigraphy procedure. Dictated by: Dictated on workstation # [id number]
[2017-08-04] MEDS ORDERED: oxyCODONE/APAP 10/325MG (PERCOCET 10) TABLET PO PRN (12:45)
[2017-08-04] MEDS ORDERED: MEPERIDINE (DEMEROL) INJ 100 MG/ML IM ONE (12:45)
[2017-08-04] MEDS ORDERED: KETOROLAC 30 MG/ML VIAL IVP ONE (12:45)
[2017-08-04] MEDS ORDERED: PROMETHAZINE INJ 25 MG/ML (PHENERGAN) AMP IM ONE (12:45)
[2017-08-04] MEDS ORDERED: ONDANSETRON 4 MG/2 ML (SDV) Z0FRAN IVP PRN ×2 (12:45→15:15)
--- NOTE | 2017-08-04 13:17 | Diagnostic Imaging Report ---
EXAMINATION: Unilateral diagnostic left mammogram with CAD. TECHNIQUE: The patient underwent an ultrasound-guided localization of a hypoechoic mass in the upper-outer aspect of the left breast. This hypoechoic mass had proven to be malignant by the recent ultrasound-guided biopsy of 07/26/2017. FINDINGS: On this exam, the localization wire appears to be in good position. The wire has extended through the lesion and is in close proximity to the stereotactic clip. IMPRESSION: 1. The localization wire appears to be in good position with respect to the neoplastic mass and the stereotactic clip. 2. These results were discussed with Dr. Wilson. Dictated by: Dictated on workstation # [id number]
[2017-08-04] MEDS ORDERED: OXYC-197 PO (14:53)
--- NOTE | 2017-08-04 14:54 | Discharge Inst-Simple/Standard ---
Discharge Inst-Standard Discharge Medications New, Converted or Re-Newed RX: RX on Chart Patient Instructions/Follow Up Plan of Care/Instructions/FU: dRESSINGS OFF IN 48 HOURS. F/U IN 2 WEEKS Activity as Tolerated: Yes Discharge Diet: No Restrictions YIFAN PARADA MD August 04, 2017 2:54 pm
[2017-08-04] MEDS ORDERED: KETOROLAC 30 MG/ML VIAL ONE (15:10)
[2017-08-04] MEDS ORDERED: PROMETHAZINE INJ 25 MG/ML (PHENERGAN) AMP IVP PRN (15:15)
[2017-08-04] MEDS ORDERED: MEPERIDINE (DEMEROL) INJ 50 MG/ML IVP PRN (15:15)
[2017-08-04] MEDS: fentaNYL INJECTION 100 MCG/2 ML AMP IVP PRN ×2 (15:19→15:26)
[2017-08-04] MEDS: HYDROmorphone 1 MG/ML (DILAUDID) 1 ML SYRINGE IV PRN ×2 (15:40→15:50)
[2017-08-04 16:15] VITALS: BP 144/78
--- NOTE | 2017-08-04 16:17 | Operative Report ---
Operative Report Date of Procedure/Surgery August 04, 2017 Surgeon (s) YIFAN PARADA MD Hvac Sales Representative (s): N/A Post-Operative Diagnosis Same with pathology pending Procedure Performed 1. Needle localized lumpectomy left breast 2. [place] lymph node biopsy Description of Procedure Anesthesia Type: General Estimated blood loss (mL): Minimal Specimen(s) collected/removed [place] lymph nodes 2. 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 After an adequate discussion, she was offered breast conservation surgery; this would entail needle localized lumpectomy, combined with sentinel lymph node biopsy. Informed consent was obtained after reviewing the procedure details and complications of wound infection, hematoma accept. Description of the procedure: Following her admission to the outpatient surgery area, she underwent lymphoscintigraphy using technetium labeled sulfur colloid injection by our radiologist. Radioactivity was easily identified in the ipsilateral axilla. In addition, tumor was localized using a hook wire, under ultrasound guidance. Subsequently, she was brought to the operating room and placed supine on the operating table. Gen. anesthesia had been induced to facilitate hysteroscopy with D&C I Dr. Rebollar, her pharmacy intern. Ancef was administered intravenously as prophylaxis against wound infection. Left breast and axilla were prepared and draped in the usual sterile manner. 5 mL of indigo carmine dye was injected intradermally around the areola and into the breast parenchyma, the breast tissue being massaged gently for 5 minutes. Using the [place] counter probe, activity was identified in the axilla. [place] lymph node biopsy: Pre-emptive analgesia was established using 0.5 percent Marcaine with epinephrine. A 4 cm incision was made inferior to the axillary hair line and by sharp dissection, blue colored lymphatics were identified easily, leading to the identification of the first sentinel lymph node. It was colored blue and had the following radioactivity counts. Target count 22,640. Ex-vivo count : [id number] and background count 40. Further interrogation with the probe revealed second cluster of lymph nodes with high radioactivity count. These were removed separately and sent as sentinel lymph node II.lymphatics were controlled using ligaclips and hemostasis was optimized using minimal use of cautery. The incision was then closed using 3-0 Vicryl for the subcutaneous tissue and 4-0 Vicryl for skin, in a subcuticular fashion. It was then covered with a sterile dressing. Needle localized lumpectomy: By following the will require its had been placed from a lateral aspect, breast tissue surrounding the wire was excised down to the chest wall. It was sent for conventional mammogram and confirmed to contain the clip deployed during biopsy and the hookwire being intact. Hemostasis was achieved using ligaclips and the incision closed in a similar fashion She tolerated the procedures well, was extubated in the operating room and taken to the recovery room in a stable condition. Findings of the Procedure See op report Allergies and Home Medications Allergies Coded Allergies: azithromycin (Unverified Allergy, Intermediate, 04/17/14) erythromycin base (Verified Allergy, Unknown, 11/24/07) Home Medications Alprazolam 1 Mg Tablet, 1 MG PO HS, (Reported) Amlodipine/Valsartan 1 Each Tablet, 1 EACH PO DAILY, (Reported) Estradiol 1 Mg Tablet, 1 MG PO DAILY, (Reported) Medroxyprogesterone Acetate 2.5 Mg Tablet, 2.5 MG PO DAILY, (Reported) Oxycodone HCl/Acetaminophen 1 Each Tablet, 1-2 TAB PO Q4H PRN for PAIN Prescribed by: TEMITOPE ARIZMENDI on 08/04/17 1236 Oxycodone HCl/Acetaminophen 1 Each Tablet, 1-2 TAB PO Q4H PRN for PAIN-MILD TO MODERATE Prescribed by: YIFAN PARADA on 08/04/17 6545 Patient Home Medication List Home Medication List Reviewed: Yes YIFAN PARADA MD August 04, 2017 4:17 pm
[2017-08-04 16:45] VITALS: BP 142/72
[2017-08-04 17:15] VITALS: BP 129/67
[2017-08-04 17:30] VITALS: BP 129/67
--- NOTE | 2017-08-04 19:12 | Diagnostic Imaging Report ---
INDICATION: Surgical specimen. EXAMINATION: A single specimen from the left breast was received from the OR. FINDINGS: The specimen contains the localization wire, the stereotactic clip and the abnormal density seen on the needle localization exam performed earlier today. IMPRESSION: 1. The area in question appears to have been sampled. 2. These results were discussed with Dr. Wilson. Dictated by: Dictated on workstation # [id number]
--- NOTE | 2017-08-04 23:46 | OPERATIVE REPORT ---
DATE OF SERVICE: 08/04/2017 PREOPERATIVE DIAGNOSIS: Postmenopausal bleeding and intrauterine mass. POSTOPERATIVE DIAGNOSIS: Postmenopausal bleeding and intrauterine mass, pathology pending, but with the clinical impression of a posterior uterine wall leiomyoma. OPERATIVE PROCEDURE: Hysteroscopy with directed biopsy and D and C. OPERATIVE DESCRIPTION: With the patient in the supine position under satisfactory general anesthesia, she was repositioned in dorsal lithotomy position in the [facility] and prepped and draped in the usual fashion for vaginal surgery. A weighted speculum placed in the posterior fornix of vagina. The cervix exposed and grasped anteriorly with single tooth tenaculum. The uterus was sounded to 9 cm with a uterine sound. The cervix was then serially dilated with Agus dilators to a 20 Agus. The hysteroscope was then introduced and using LR as a distending medium, the endometrial cavity was examined. There was a relatively large mass emanating from the posterior uterine wall occupying most of the posterior uterine wall. Pharmacist Apprentice biopsies were taken multiply from this mass and then the balance of the mass was resected in bits and pieces with the biopsy forceps well. The uterine cavity was examined. Both tubal ostia were seen. Neither appeared abnormal. There was no other abnormal appearing pathology. The endometrial cavity was then sharply curettaged in all 4 quadrants to good uterine cry with removal of additional fragments of what appeared to be likely posterior uterine wall fibroid. The hysteroscope was reintroduced, the endometrial cavity was examined. There was no significant bleeding. There were still a couple fragments of the mass remaining. These were removed with the biopsy forceps leaving a clean uterine wall with no remaining abnormal appearing tissue. The hysteroscope was removed. All blood clot and debris had been evacuated from the uterine cavity. The tenaculum was removed. There was essentially no bleeding from the puncture site. There was minimal bleeding from the cervical os. The patient tolerated the procedure well and remained under general anesthesia for a breast biopsy at the hands of Dr. Wilson due to a known carcinoma. Sponge and needle counts were correct at this point. The estimated blood loss was minimal. The LR used for the distending medium was 500 mL, 300 mL of which was recovered directly. There was an additional aliquot of that fluid in the drapes and on the floor about almost 200 mL of LR passed into the patient's abdominal cavity. The patient was stable and remained under anesthesia on the operating table having been placed supine when I left the room with Dr. Wilson on the way for his portion of the procedure. Job ID: [id number] DocumentID: [id number] Dictated Date: 08/04/2017 13:12:45 Paediatric Thoracic Physician Date: 08/04/2017 23:46:18 Dictated By: TEMITOPE CARBAJAL MD
== END 2017-08-04 17:30 | disposition home or self-care (01) ==
LOC: SDC 06:36
PROVIDERS: ATTEND Obstetrics & Gynecology
DX: N84.0 Polyp of corpus uteri (principal); N95.0 Postmenopausal bleeding; D05.12 Intraductal carcinoma in situ of left breast; I10 Essential (primary) hypertension; Z87.891 Personal history of nicotine dependence; F41.9 Anxiety disorder, unspecified; Z79.899 Other long term (current) drug therapy
CPT/HCPCS: 19285; 76098; 78195; 88305; 88307; 88341; 88342

== ENCOUNTER 2017-08-26 12:51 | Emergency (ER) | payer BC ==
[~2017-08-26] VITALS: Ht 152.4 cm; Wt 57.2 kg
[~2017-08-26 12:51] MED LIST changes: +OXYC-197 PO; +OXYC-465 PO
[2017-08-26] MEDS ORDERED: FLUO20CA25 (13:17)
--- NOTE | 2017-08-26 13:21 | Diagnostic Imaging Report ---
Patient History: Chest pain. Technique: Single frontal view of the chest Comparison: 08/18/2013 FINDINGS: The lung volumes are mildly large. No focal consolidation is seen. No large pleural effusion or pneumothorax is seen. The cardiomediastinal silhouette is normal in size and contour. No acute osseous abnormality is seen. Surgical clips are seen overlying the left hemithorax and left axilla. IMPRESSION: Mildly large lung volumes with no acute pulmonary abnormality seen. Dictated by: Dictated on workstation # [id number]
[2017-08-26 13:33] LABS: BASOPHILS # (AUTO) 0.1 10^3/uL (0.0-0.1); BASOPHILS % (AUTO) 2 % (0-10); EOSINOPHILS # (AUTO) 0.6 10^3/uL (0.0-0.3); EOSINOPHILS % (AUTO) 8 % (0-10); HEMATOCRIT 38 % (35-52); HEMOGLOBIN 13.7 G/DL (11.5-16.0); LYMPHOCYTES # (AUTO) 2.8 X 10^3 (1.0-4.0); LYMPHOCYTES % (AUTO) 35 % (12-44); MEAN CORPUSCULAR HEMOGLOBIN 31 PG (25-34); MEAN CORPUSCULAR HGB CONC 36 G/DL (32-36); MEAN CORPUSCULAR VOLUME 88 FL (80-99); MEAN PLATELET VOLUME 10.1 FL (7.4-10.4); MONOCYTES # (AUTO) 0.5 X 10^3 (0.0-1.0); MONOCYTES % (AUTO) 7 % (0-12); NEUTROPHILS # (AUTO) 3.8 X 10^3 (1.8-7.8); NEUTROPHILS % (AUTO) 48 % (42-75); PLATELET COUNT 354 10^3/uL (130-400); RED BLOOD COUNT 4.37 10^6/uL (4.35-5.85); RED CELL DISTRIBUTION WIDTH 12.5 % (10.0-14.5); WHITE BLOOD COUNT 7.9 10^3/uL (4.3-11.0)
[2017-08-26 13:52] LABS: ALANINE AMINOTRANSFERASE 18 U/L (0-55); ALBUMIN 4.4 GM/DL (3.2-4.5); ALKALINE PHOSPHATASE 66 U/L (40-136); BILIRUBIN,TOTAL 0.5 MG/DL (0.1-1.0); BUN/CREATININE RATIO 14; CALCIUM 8.9 MG/DL (8.5-10.1); CARBON DIOXIDE 24 MMOL/L (21-32); CHLORIDE 109 MMOL/L (98-107); CREATININE SERUM 0.65 MG/DL (0.60-1.30); GFR ESTIMATED > 60; GLUCOSE 78 MG/DL (70-105); POTASSIUM 3.9 MMOL/L (3.6-5.0); SODIUM 142 MMOL/L (135-145); TOTAL PROTEIN 6.7 GM/DL (6.4-8.2)
--- NOTE | 2017-08-26 14:11 | ED Chest Pain ---
General Chief Complaint: Chest Pain Stated Complaint: CP Nursing Triage Note: ARRIVED VIA AMB TO ROOM 07. COMPLAINS OF CHESTPAIN THAT STARTED AT APPX 1000. STATES IT HURTS TO TAKE A DEEP BREATH. RECENT LEFT BREAST SURGERY AND AREA REMOVED FROM UTERUS. PT WONDERS IF SHE HAS A BLOOD CLOT. Nursing Sepsis Screen: No Definite Risk Source: patient Exam Limitations: no limitations History of Present Illness Date Seen by Provider: August 26, 2017 Time Seen by Provider: 14:07 Initial Comments The patient is a 56-year-old white female who presents with a chief complaint of central chest pain. She had been sent here by the [facility] care clinic after complaining of chest pain. This did not come with exercise and in fact she walked over here from the clinic. She had not had anything similar previously. She had a breast biopsy and uterine procedure done in combination on 08/04/17. The uterine materials were benign. There was a 3 mm ductal carcinoma of the left breast. She has an appointment at the cancer center in early August to lay out the treatment program. She felt somewhat short of breath after walking over here. Her SaO2's are good. She had concerns about a pulmonary embolus. Timing/Duration: 1-3 hours Severity/Quality: mild Location: central Radiation: no radiation Prior CP/Workup: no prior chest pain Associated Symptoms: denies symptoms Allergies and Home Medications Allergies Coded Allergies: azithromycin (Unverified Allergy, Intermediate, 04/17/14) erythromycin base (Verified Allergy, Unknown, 11/24/07) Home Medications Alprazolam 1 Mg Tablet, 1 MG PO HS, (Reported) Amlodipine/Valsartan 1 Each Tablet, 1 EACH PO DAILY, (Reported) Oxycodone HCl/Acetaminophen 1 Each Tablet, 1-2 TAB PO Q4H PRN for PAIN-MILD TO MODERATE Prescribed by: YIFAN PARADA on 08/04/17 7802 Patient Home Medication List Home Medication List Reviewed: Yes Review of Systems Constitutional: see HPI EENTM: No Symptoms Reported Respiratory: SOA With Exertion Cardiovascular: Chest Pain Gastrointestinal: No Symptoms Reported Genitourinary: No Symptoms Reported Musculoskeletal: no symptoms reported Skin: no symptoms reported Psychiatric/Neurological: No Symptoms Reported Past Xqspztx-[id number]-Oyixns Hx Patient Social History Alcohol Use: Denies Use Alcohol Beverage of Choice: Beer Recreational Drug Use: No Smoking Status: Former Smoker Type Used: Cigarettes Former Smoker, Quit: Jul 03, 2017 2nd Hand Smoke Exposure: No Recent Foreign Travel: No Contact w/Someone Who Travel: No Recent Infectious Disease Expo: No Recent Hopitalizations: No Immunizations Up To Date Tetanus Booster (TDap): More than 5yrs Date of Influenza Vaccine: Dec 02, 2016 Seasonal Allergies Seasonal Allergies: No Past Medical History Surgeries: Yes (HIATAL HERNIA REPAIR) Abdominal, Breast, Gallbladder Respiratory: No Cardiac: Yes Hypertension Neurological: No Reproductive Disorders: Yes (PMB) 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 Genitourinary: No Gastrointestinal: No Abdominal Hernia, Gastroesophageal Reflux, Chronic Diarrhea Musculoskeletal: Yes (DX W/ BURSITIS L HIP LAST SUMMER) Arthritis Endocrine: No HEENT: No Loss of Vision: Denies Hearing Impairment: Denies Cancer: Yes (LT BREAST) Breast Psychosocial: Yes Anxiety Integumentary: No Blood Disorders: No Adverse Reaction/Blood Tranf: No (NEVER HAD BLOOD TRANSFUSION) Family Medical History Arthritis 19 MOTHER Cardiovascular disease 19 MOTHER Completed stroke 19 MOTHER Diabetes mellitus 19 MOTHER Hypertension 19 MOTHER No Family History of: AIDS Abdominal aortic aneurysm [place]'s disease Alcoholism Alzheimer's disease Aphasia Asthma Cancer of mouth Cataracts Colon cancer Congenital disease Congenital heart disease Coronary thrombosis Cystic fibrosis Deafness or hearing loss Dementia Drug abuse Dysphasia Fibrocystic disease of breast Gastroenteritis Glaucoma Headache disorder Hypercholesterolemia Infertility Kidney disease Myocardial infarction Neoplasm Not obtainable due to adoption Osteoporosis Parkinson's disease Prostate cancer Psychosocial problem Respiratory disorder Seizure disorder Severe allergy Thyroid disease Tuberculosis Visual disorder No Pertinent Family Hx Physical Exam Vital Signs Vital Signs - First Documented 08/26/17 12:52 Temp 97.2 Pulse 72 Resp 18 B/P (MAP) 127/75 (92) Pulse Ox 97 O2 Delivery Room Air Capillary Refill : Less Than 3 Seconds General Appearance: No Apparent Distress, WD/WN HEENT: Normal ENT Inspection Neck: Normal Inspection Respiratory: Chest Non Tender, Lungs Clear, Normal Breath Sounds, No Accessory Muscle Use, No Respiratory Distress Cardiovascular: Regular Rate, Rhythm, No Edema, No Gallop, Other (the pain is reproduced by pressure over the lower left sternum) Gastrointestinal: Normal Bowel Sounds, No Organomegaly, No Pulsatile Mass, Non Tender Neurologic/Psychiatric: Alert, Oriented x3, No Motor/Sensory Deficits, Normal Mood/Affect Skin: Normal Color, Warm/Dry Lymphatic: No Adenopathy Progress/Results/Core Measures Results/Orders Lab Results Laboratory Tests Test 08/26/17 13:26 Range/Units White Blood Count 7.9 4.3-11.0 10^3/uL Red Blood Count 4.37 4.35-5.85 10^6/uL Hemoglobin 13.7 11.5-16.0 G/DL Hematocrit 38 35-52 % Mean Corpuscular Volume 88 80-99 FL Mean Corpuscular Hemoglobin 31 25-34 PG Mean Corpuscular Hemoglobin Concent 36 32-36 G/DL Red Cell Distribution Width 12.5 10.0-14.5 % Platelet Count 354 130-400 10^3/uL Mean Platelet Volume 10.1 7.4-10.4 FL Neutrophils (%) (Auto) 48 42-75 % Lymphocytes (%) (Auto) 35 12-44 % Monocytes (%) (Auto) 7 0-12 % Eosinophils (%) (Auto) 8 0-10 % Basophils (%) (Auto) 2 0-10 % Neutrophils # (Auto) 3.8 1.8-7.8 X 10^3 Lymphocytes # (Auto) 2.8 1.0-4.0 X 10^3 Monocytes # (Auto) 0.5 0.0-1.0 X 10^3 Eosinophils # (Auto) 0.6 H 0.0-0.3 10^3/uL Basophils # (Auto) 0.1 0.0-0.1 10^3/uL D-Dimer 0.57 H 0.00-0.49 UG/ML Sodium Level 142 135-145 MMOL/L Potassium Level 3.9 3.6-5.0 MMOL/L Chloride Level 109 H 98-107 MMOL/L Carbon Dioxide Level 24 21-32 MMOL/L Anion Gap 9 5-14 MMOL/L Blood Urea Nitrogen 9 7-18 MG/DL Creatinine 0.65 0.60-1.30 MG/DL Estimat Glomerular Filtration Rate > 60 BUN/Creatinine Ratio 14 Glucose Level 78 70-105 MG/DL Calcium Level 8.9 8.5-10.1 MG/DL Total Bilirubin 0.5 0.1-1.0 MG/DL Aspartate Amino Transf (AST/SGOT) 15 5-34 U/L Alanine Aminotransferase (ALT/SGPT) 18 0-55 U/L Alkaline Phosphatase 66 40-136 U/L Troponin I < 0.30 <0.30 NG/ML Total Protein 6.7 6.4-8.2 GM/DL Albumin 4.4 3.2-4.5 GM/DL My Orders Orders - EZIO SANDHU MD Ekg Tracing (08/26/17 12:54) Cbc With Automated Diff (08/26/17 12:54) Comprehensive Metabolic Panel (08/26/17 12:54) Troponin I (08/26/17 12:54) Chest 1 View, Ap/Pa Only (08/26/17 12:54) Fibrin Degradation Products (08/26/17 14:11) Vital Signs/I&O 08/26/17 12:52 Temp 97.2 Pulse 72 Resp 18 B/P (MAP) 127/75 (92) Pulse Ox 97 O2 Delivery Room Air Blood Pressure Mean: 92 Departure Communication (Admissions) EKG troponin and chest x-ray are negative. Impression Primary Impression: chest wall pain Disposition: HOME, SELF-CARE Condition: Stable/Unchanged Departure-Patient Inst. Decision time for Depature: 14:43 Referrals: EVANS JACKSON MD (PCP/Family) Primary Care Physician Patient Instructions: Chest Pain That Is Not Caused by the Heart (DC) Add. Discharge Instructions: All discharge instructions reviewed with patient and/or family. Voiced understanding. Try ibuprofen 600 mg or naproxen 440 mg 4 chest wall pain Return if more intense pain, radiation to jaw or shoulder, or sweating EZIO SANDHU MD August 26, 2017 14:11
[2017-08-26 14:50] VITALS: BP 104/64
--- OUTSIDE RECORDS SUMMARY | 2017-08-26 17:34 | XMS REPORT | CCD ---
Author Author [facility] Address [address] [place] [address] Phone Care Team Providers Care Meter Setter Name Role Phone PP Unavailable CCM Unavailable Summary Purpose Interface Exchange Insurance Providers Payer name Policy type / Coverage type Covered libertarian ID Effective Begin Date Effective End Date [facility] [id number] 2016 Unknown Family history Father Diagnosis Age At Onset Cancer Unknown Mother Diagnosis Age At Onset Dementia Unknown Depression Unknown Cardiovascular disease Unknown Stroke Unknown Cancer Unknown Social History Social History Element Codes Description Effective Dates Marital status Unknown Since 199211/24/2010 Number of children Unknown 4 2 adult children, and 2 young children at home 11/24/2010 Employment Unknown 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 Unknown Has never used illegal drugs 11/24/2010 Allergies, Adverse Reactions, Alerts Allergies, Adverse Reactions, Alerts data not found Past Medical History Illness Codes Condition Status Onset Date Resolved Date Generalized anxiety disorder ICD-9: 300.00 ICD-10: F41.1 Active 03/25/2017 Unknown Major depressive disorder, single episode, moderate ICD-9: 296.22 ICD-10: F32.1 Active 03/25/2017 Unknown Other fatigue ICD-9: 780.79 ICD-10: R53.83 Active 03/25/2017 Unknown Essential (primary) hypertension ICD-9: 401.9 ICD-10: I10 Active 11/03/2016 Unknown Left lower quadrant pain ICD-9: 789.04 ICD-10: R10.32 Active 11/03/2016 Unknown Irritable bowel syndrome with diarrhea ICD-9: 564.1 ICD-10: K58.0 Active 07/27/2016 Unknown Fall (on)(from) sidewalk curb, initial encounter ICD-9: E880.1 ICD-10: W10.1XXA Active 05/25/2016 Unknown Headache ICD-9: 784.0 ICD-10: R51 Active 05/26/2016 Unknown Generalized anxiety disorder ICD-9: 300.02 ICD-10: F41.1 Active 05/15/2015 Unknown Mood disorder due to known physiological condition with depressive features ICD-9: 311 ICD-10: F06.31 Active 05/15/2015 Unknown Cervical os stenosis ICD-9: 622.4 Active 08/14/2014 Unknown Other screening mammogram ICD-9: V76.12 Active 08/13/2014 Unknown LLQ abdominal pain ICD -9: 789.04 Active 07/25/2014 Unknown Nausea ICD-9: 787.02 Active 01/10/2013 Unknown ALLERGIC RHINITIS ICD- 9: 477.9 Active 05/08/2014 Unknown ESOPHAGEAL REFLUX ICD- 9: 530.81 Active 05/08/2014 Unknown EDEMA ICD-9: 782.3 Active 01/23/2014 Unknown ESSENTIAL HYPERTENSION ICD-9: 401.9 Active 01/23/2014 Unknown Fatigue ICD-9: 780.79 Active 01/23/2014 Unknown Weight gain ICD-9: 783.1 Active 01/23/2014 Unknown URINARY FREQUENCY ICD- 9: 788.41 Active 03/15/2013 Unknown GENERALIZED ANXIETY DISEASE ICD-9: 300.02 Active 03/01/2013 Unknown Abdominal pain ICD-9: 789.00 Active 01/10/2013 Unknown Gas ICD-9: 787.3 Active 12/20/2012 Unknown Tick bite of abdomen ICD-9: 911.4 Active 12/20/2012 Unknown Nausea and vomiting ICD-9: 787.01 Active 04/06/2012 Unknown Rash ICD-9: 782.1 Active 01/04/2012 Unknown ACUTE URI ICD-9: 465.9 Active 09/17/2011 Unknown ROUTINE GYNE EXAM ICD- 9: V72.31 Active 07/27/2011 Unknown Depression Unknown Active 04/07/2011 Unknown Acute sinusitis ICD-9 : 461.9 Active 12/04/2010 Unknown Abdominal pain, generalized ICD-9: 789.07 Active 11/27/2010 Unknown Abnormal Pap smear, atypical squamous cells of undetermined sign (ASC-US) ICD-9: 795.01 Active 11/27/2010 Unknown Alopecia ICD-9: 704.00 Active 11/27/2010 Unknown Chronic LBP ICD-9: 724.2 Active 11/27/2010 Unknown Depressed ICD-9: 311 Active 11/27/2010 Unknown Encounter for long-term (current) use of high-risk medication ICD-9: V58.69 Active 11/27/2010 Unknown Hypothyroid ICD-9: 244.9 Active 11/27/2010 Unknown Panic disorder without agoraphobia ICD-9: 300.01 Active 2010 Unknown Gastroesophageal reflux disease Unknown Active 11/24/2010 Unknown Hypertension Unknown Active 11/24/2010 Unknown Irritable bowel syndrome Unknown Active 11/24/2010 Unknown Problems Condition Codes Effective Dates Condition Status Generalized anxiety disorder ICD-9: 300.00 ICD-10: F41.1 03/25/2017 Active Major depressive disorder, single episode, moderate ICD-9: 296.22 ICD-10: F32.1 03/25/2017 Active Other fatigue ICD-9: 780.79 ICD-10: R53.83 03/25/2017 Active Essential (primary) hypertension ICD-9: 401.9 ICD-10: I10 11/03/2016 Active Left lower quadrant pain ICD-9: 789.04 ICD-10: R10.32 11/03/2016 Active Irritable bowel syndrome with diarrhea ICD-9: 564.1 ICD-10: K58.0 07/27/2016 Active Fall (on)(from) sidewalk curb, initial encounter ICD-9: E880.1 ICD-10: W10.1XXA 05/25/2016 Active Headache ICD-9: 784.0 ICD-10: R51 05/26/2016 Active Generalized anxiety disorder ICD-9: 300.02 ICD-10: F41.1 05/15/2015 Active Mood disorder due to known physiological condition with depressive features ICD-9: 311 ICD-10: F06.31 05/15/2015 Active Cervical os stenosis ICD-9: 622.4 08/14/2014 Active Other screening mammogram ICD-9: V76.12 08/13/2014 Active LLQ abdominal pain ICD -9: 789.04 07/25/2014 Active Nausea ICD-9: 787.02 01/10/2013 Active ALLERGIC RHINITIS ICD- 9: 477.9 05/08/2014 Active ESOPHAGEAL REFLUX ICD- 9: 530.81 05/08/2014 Active EDEMA ICD-9: 782.3 01/23/2014 Active ESSENTIAL HYPERTENSION ICD-9: 401.9 01/23/2014 Active Fatigue ICD-9: 780.79 01/23/2014 Active Weight gain ICD-9: 783.1 01/23/2014 Active URINARY FREQUENCY ICD- 9: 788.41 03/15/2013 Active GENERALIZED ANXIETY DISEASE ICD-9: 300.02 03/01/2013 Active Abdominal pain ICD-9: 789.00 01/10/2013 Active Gas ICD-9: 787.3 12/20/2012 Active Tick bite of abdomen ICD-9: 911.4 12/20/2012 Active Nausea and vomiting ICD-9: 787.01 04/06/2012 Active Rash ICD-9: 782.1 01/04/2012 Active ACUTE URI ICD-9: 465.9 09/17/2011 Active ROUTINE GYNE EXAM ICD- 9: V72.31 07/27/2011 Active Depression Unknown 04/07/2011 Active Acute sinusitis ICD-9 : 461.9 12/04/2010 Active Abdominal pain, generalized ICD-9: 789.07 11/27/2010 Active Abnormal Pap smear, atypical squamous cells of undetermined sign (ASC-US) ICD-9: 795.01 11/27/2010 Active Alopecia ICD-9: 704.00 11/27/2010 Active Chronic LBP ICD-9: 724.2 11/27/2010 Active Depressed ICD-9: 311 11/27/2010 Active Encounter for long-term (current) use of high-risk medication ICD-9: V58.69 11/27/2010 Active Hypothyroid ICD-9: 244.9 11/27/2010 Active Panic disorder without agoraphobia ICD-9: 300.01 11/27/2010 Active Gastroesophageal reflux disease Unknown 11/24/2010 Active Hypertension Unknown 11/24/2010 Active Irritable bowel syndrome Unknown 11/24/2010 Active Medications Medication Codes Instructions Start Date Stop Date Status Fill Instructions Lexapro 10 mg tablet RxNorm: 394155 1 Tablet(s) PO QHS 201604/23/2017 Inactive Xanax 1 mg tablet RxNorm: 044489 Tablet(s) TAKE 1 TABLET BY MOUTH IN THE MORNING 1/2 TABLET AT BEDTIME , AND 1/2 TABLET EVERY SIX HOURS NEEDED FOR ANXIETY 01/22/2017 No Stop Date Active Xanax 1 mg tablet RxNorm: 944268 Tablet(s) TAKE 1 TABLET BY MOUTH IN THE MORNING 1/2 TABLET AT BEDTIME , AND 1/2 TABLET EVERY SIX HOURS NEEDED FOR ANXIETY 01/21/2017 01/21/2017 Inactive Exforge 5 mg-160 mg tablet RxNorm: 266686 1 Tablet(s) PO daily Tablet(s) TAKE ONE (1) TABLET BY MOUTH DAILY 11/03/201605/01 Active Generic For:EXFORGE 5-160MG TAB 03/12/2015 9:09:52 AM estradiol 1 mg tablet RxNorm: 564075 1 Tablet(s) PO daily 201605/01/2017 Active Provera 2.5 mg tablet RxNorm: 3906797 1 Tablet(s) PO daily 11/0305/01/2017 Active Bentyl 10 mg capsule RxNorm: 789669 1 Capsule(s) PO TID 201607/29/2016 Inactive Bentyl 10 mg capsule RxNorm: 916373 1 Capsule(s) PO TID 201603/24/2017 Inactive Viberzi 75 mg tablet RxNorm: 8927386 1 Tablet(s) PO BID 201611/02/2016 Inactive Xanax 1 mg tablet RxNorm: 283575 Tablet(s) TAKE 1 TABLET BY MOUTH IN THE MORNING 1/2 TABLET AT BEDTIME , AND 1/2 TABLET EVERY SIX HOURS NEEDED FOR ANXIETY 07/14/2016 No Stop Date Active Xanax 1 mg tablet RxNorm: 407022 Tablet(s) TAKE 1 TABLET BY MOUTH IN THE MORNING 1/2 TABLET AT BEDTIME , AND 1/2 TABLET EVERY SIX HOURS NEEDED FOR ANXIETY 06/01/2016 07/13/2016 Inactive ketorolac 60 mg/2 mL intramuscular solution RxNorm: 841403 2 Milliliter(s) IM 05/26/2016 05/26/2016 Inactive Exforge 5 mg-160 mg tablet RxNorm: 431607 Tablet(s) TAKE ONE (1) TABLET BY MOUTH DAILY 04/13/2016 10/09/2016 Inactive Generic For:EXFORGE 5-160MG TAB 03/12/2015 9: 09:52 AM Xanax 1 mg tablet RxNorm: 677952 Tablet(s) TAKE 1 TABLET BY MOUTH IN THE MORNING 1/2 TABLET AT BEDTIME , AND 1/2 TABLET EVERY SIX HOURS NEEDED FOR ANXIETY 04/09/2016 05/31/2016 Inactive Mobic 15 mg tablet RxNorm: 681737 1 Tablet(s) PO daily 201503/25/2016 Inactive Mobic 15 mg tablet RxNorm: 551548 1 Tablet(s) PO daily 201511/02/2016 Inactive Xanax 1 mg tablet RxNorm: 754878 Tablet(s) TAKE 1 TABLET BY MOUTH IN THE MORNING 1/2 TABLET AT BEDTIME , AND 1/2 TABLET EVERY SIX HOURS NEEDED FOR ANXIETY 02/24/2016 04/08/2016 Inactive Xanax 1 mg tablet RxNorm: 669765 Tablet(s) TAKE 1 TABLET BY MOUTH IN THE MORNING 1/2 TABLET AT BEDTIME , AND 1/2 TABLET EVERY SIX HOURS NEEDED FOR ANXIETY 01/01/2016 02/23/2016 Inactive Generic For:XANAX 1 MG TABLET(Response to an electronic controlled substance refill request - RxReferenceNumber: [id number]) Xanax 1 mg tablet RxNorm: 843331 Tablet(s) TAKE 1 TABLET BY MOUTH IN THE MORNING 1/2 TABLET AT BEDTIME , AND 1/2 TABLET EVERY SIX HOURS NEEDED FOR ANXIETY 09/26/2015 12/31/2015 Inactive Generic For:XANAX 1 MG TABLET(Response to an electronic controlled substance refill request - RxReferenceNumber: [id number]) Exforge 5 mg-160 mg tablet RxNorm: 007505 Tablet(s) TAKE ONE (1) TABLET BY MOUTH DAILY 09/26/2015 04/13/2016 Inactive Generic For:EXFORGE 5-160MG TAB 03/12/2015 9: 09:52 AM Xanax 1 mg tablet RxNorm: 968866 Tablet(s) TAKE 1 TABLET BY MOUTH IN THE MORNING 1/2 TABLET AT BEDTIME , AND 1/2 TABLET EVERY SIX HOURS NEEDED FOR ANXIETY 04/22/2015 09/25/2015 Inactive Generic For:XANAX 1 MG TABLET(Response to an electronic controlled substance refill request - RxReferenceNumber: [id number]) Exforge 5 mg-160 mg tablet RxNorm: 063960 TAKE ONE (1) TABLET BY MOUTH DAILY 03/12/2015 09/07/2015 Inactive Generic For:EXFORGE 5-160MG TAB 03/12/2015 9:09:52 AM Exforge 5 mg-160 mg tablet RxNorm: 492997 1 Tablet(s) PO daily TAKE ONE (1) TABLET BY MOUTH DAILY 08/28/20142014 Inactive 09/05/2012 4:02:25 PM Sprintec (28) 0.25 mg-35 mcg tablet RxNorm: 639274 TAKE 1 TABLET BY MOUTH EVERY DAY 06/18/2014 04/28/2015 Inactive Generic For:ORTHO-CYCLEN 28 TABLET N O T I C E Last quantity doesn't match original quantity Singulair 10 mg tablet RxNorm: 261449 1 Tablet(s) PO daily 07/25/2014 Inactive Singulair 10 mg tablet RxNorm: 057343 1 Tablet(s) PO daily 05/20/2014 Inactive Flonase 50 mcg/actuation nasal spray,suspension RxNorm: 336140 2 [place] NASAL daily 05/18/2014 05/27/2014 Inactive Xanax 1 mg tablet RxNorm: 095115 TAKE 1 TABLET BY MOUTH IN THE MORNING 1/2 TABLET AT BEDTIME , AND 1/2 TABLET EVERY SIX HOURS NEEDED FOR ANXIETY 04/24/2014 06/21/2014 Inactive Generic For:XANAX 1 MG TABLET(Response to an electronic controlled substance refill request - RxReferenceNumber: [id number]) Xanax 1 mg tablet RxNorm: 122156 Tablet(s) TAKE 1 TABLET BY MOUTH IN THE MORNING 1/2 TABLET AT BEDTIME , AND 1/2 TABLET EVERY SIX HOURS NEEDED FOR ANXIETY 04/24/2014 05/07/2014 Inactive Generic For:XANAX 1 MG TABLET(Response to an electronic controlled substance refill request - RxReferenceNumber: [id number]) Exforge 5 mg-160 mg tablet RxNorm: 759128 1 Tablet(s) PO daily TAKE ONE (1) TABLET BY MOUTH DAILY 02/16/20142014 Inactive 09/05/2012 4:02:25 PM Exforge 5 mg-160 mg tablet RxNorm: 921483 1 Tablet(s) PO daily TAKE ONE (1) TABLET BY MOUTH DAILY 01/23/20142013 Inactive 09/05/2012 4:02:25 PM Xanax 1 mg tablet RxNorm: 012058 TAKE 1 TABLET BY MOUTH IN THE MORNING 1/2 TABLET AT BEDTIME , AND 1/2 TABLET EVERY SIX HOURS NEEDED FOR ANXIETY 12/22/2013 12/22/2013 Inactive Generic For:XANAX 1 MG TABLET(Response to an electronic controlled substance refill request - RxReferenceNumber: [id number]) Xanax 1 mg tablet RxNorm: 633117 TAKE 1 TABLET BY MOUTH IN THE MORNING 1/2 TABLET AT BEDTIME , AND 1/2 TABLET EVERY SIX HOURS NEEDED FOR ANXIETY 12/22/2013 01/20/2014 Inactive Generic For:XANAX 1 MG TABLET(Response to an electronic controlled substance refill request - RxReferenceNumber: [id number]) Xanax 1 mg tablet RxNorm: 010246 TAKE 1 TABLET BY MOUTH IN THE MORNING 1/2 TABLET AT BEDTIME , AND 1/2 TABLET EVERY SIX HOURS NEEDED FOR ANXIETY 10/23/2013 12/22/2013 Inactive Generic For:XANAX 1 MG TABLET(Response to an electronic controlled substance refill request - RxReferenceNumber: [id number]) Sprintec (28) 0.25 mg-35 mcg tablet RxNorm: 349848 1 Tablet(s) PO daily 06/09/2013 06/17/2014 Inactive disp. 3 packs at a time please Xanax 1 mg tablet RxNorm: 019042 1 q am 1 1/2 at hs Tablet(s) PO TAKE ONE TABLET BY MOUTH EVERY MORNING AND TAKE ONE AND ONE-HALF TABLETS BY MOUTH AT BEDTIME 05/31/2013 09/26/2013 Inactive Generic For:XANAX 1 MG TABLET (Appended: Controlled substance eRx refill - RxReferenceNumber: [id number]) Exforge 10 mg-160 mg tablet RxNorm: 942720 1 Tablet(s) PO daily TAKE ONE (1) TABLET BY MOUTH DAILY 05/31/20132013 Inactive 09/05/2012 4:02:25 PM Sprintec (28) 0.25 mg-35 mcg tablet RxNorm: 480431 1 Tablet(s) PO daily 05/31/2013 06/08/2013 Inactive disp. 3 packs at a time please Xanax 1 mg tablet RxNorm: 464776 1 q am 1 1/2 at hs Tablet(s) PO TAKE ONE TABLET BY MOUTH EVERY MORNING AND TAKE ONE AND ONE-HALF TABLETS BY MOUTH AT BEDTIME 04/10/2013 05/30/2013 Inactive Generic For:XANAX 1 MG TABLET (Appended: Controlled substance eRx refill - RxReferenceNumber: [id number]) Bactrim DS 800 mg-160 mg tablet RxNorm: 823752 1 Tablet(s) PO BID 03/15/2013 03/21/2013 Inactive Effexor 75 mg tablet RxNorm: 246075 1 Tablet(s) PO BID 201203/14/2013 Inactive Bactrim DS 800 mg-160 mg tablet RxNorm: 911256 1 Tablet(s) PO BID 03/15/2013 03/14/2013 Inactive Effexor 75 mg tablet RxNorm: 787811 1 Tablet(s) PO BID 201207/12/2013 Inactive escitalopram 10 mg tablet RxNorm: 859780 1 Tablet(s) PO QPM 06/201203/15/2013 Inactive ketorolac 60 mg/2 mL IM RxNorm: 491900 2 Milliliter(s) IM 01/1001/10/2013 Inactive promethazine 25 mg/mL Syringe RxNorm: 375672 2 Milliliter(s) Inj 01/10/2013 01/10/2013 Inactive Bactrim DS 800 mg-160 mg tablet RxNorm: 422171 1 Tablet(s) PO BID 01/09/2013 01/08/2013 Inactive Bactrim DS 800 mg-160 mg tablet RxNorm: 882279 1 Tablet(s) PO BID 01/09/2013 01/15/2013 Inactive doxycycline monohydrate 100 mg tablet RxNorm: 710446 1 Tablet(s) PO BID 12/20/2012 12/26/2012 Inactive Xanax 1 mg tablet RxNorm: 426749 Tablet(s) PO TAKE ONE TABLET BY MOUTH EVERY MORNING AND TAKE ONE AND ONE-HALF TABLETS BY MOUTH AT BEDTIME 09/26/2012 04/09/2013 Inactive Generic For:XANAX 1 MG TABLET (Appended: Controlled substance eRx refill - RxReferenceNumber: [id number]) Exforge 10 mg-160 mg tablet RxNorm: 291063 Tablet(s) PO TAKE ONE (1) TABLET BY MOUTH DAILY 09/05/2012 05/30/2013 Inactive 09/05/2012 4:02:25 PM nystatin-triamcinolone 100,000 unit/g-0.1 % Topical Cream RxNorm: 2161563 1 Application TOP QID 08/02/2012 09/12/2012 Inactive Nexium 40 mg capsule,delayed release RxNorm: 827975 1 Capsule(s) PO daily 08/02/2012 01/09/2013 Inactive use if dexilant does not work Xanax 1 mg tablet RxNorm: 380556 Tablet(s) PO TAKE ONE TABLET BY MOUTH EVERY MORNING AND TAKE ONE AND ONE-HALF TABLETS BY MOUTH AT BEDTIME 06/07/2012 09/25/2012 Inactive Generic For:XANAX 1 MG TABLET (Appended: Controlled substance eRx refill - RxReferenceNumber: [id number]) Xanax 1 mg tablet RxNorm: 624753 Tablet(s) PO TAKE ONE TABLET BY MOUTH EVERY MORNING AND TAKE ONE AND ONE-HALF TABLET BY MOUTH AT BEDTIME 06/07/2012 No Stop Date Active Generic For:XANAX 1 MG TABLET 03/03/12 Thank you (Appended: Controlled substance eRx refill - RxReferenceNumber: [id number]) Sprintec (28) 0.25 mg-35 mcg tablet RxNorm: 537334 1 Tablet(s) PO daily 05/12/2012 12/07/2012 Inactive disp. 3 packs at a time please Claritin-D 24 Hour 10 mg-240 mg tablet,extended release RxNorm: 3344281 1 Tablet(s ) PO daily 05/12/2012 11/02/2016 Inactive Xanax 1 mg tablet RxNorm: 342913 Tablet(s) PO TAKE ONE TABLET BY MOUTH EVERY MORNING AND TAKE ONE AND ONE-HALF TABLET BY MOUTH AT BEDTIME 04/25/2012 06/07/2012 Inactive Generic For:XANAX 1 MG TABLET 03/03/12 Thank you (Appended: Controlled substance eRx refill - RxReferenceNumber: [id number]) fluconazole 150 mg tablet RxNorm: 820071 1 Tablet(s) PO QW weekly x 4 weeks 03/11/2012 No Stop Date Active Xanax 1 mg tablet RxNorm: 679801 Tablet(s) PO TAKE ONE TABLET BY MOUTH EVERY MORNING AND TAKE ONE AND ONE-HALF TABLET BY MOUTH AT BEDTIME 03/03/2012 04/24/2012 Inactive Generic For:XANAX 1 MG TABLET 03/03/12 Thank you (Appended: Controlled substance eRx refill - RxReferenceNumber: [id number]) Nexium 40 mg capsule,delayed release RxNorm: 933126 1 Capsule(s) PO BID 01/04/2012 08/01/2012 Inactive use if dexilant does not work fluconazole 150 mg tablet RxNorm: 442863 1 Tablet(s) PO daily 01/04/2012 01/10/2012 Inactive triamcinolone acetonide 0.5 % Topical Cream RxNorm: 2907095 1 TOP BID 01/04/2012 01/23/2012 Inactive Claritin-D 24 Hour 10 mg-240 mg tablet,extended release RxNorm: 2052855 1 Tablet(s ) PO daily 10/19/2011 04/15/2012 Inactive Flonase 50 mcg/actuation Nasal [place] RxNorm: 619588 2 [place] NASAL daily 09/17/2011 09/26/2011 Inactive amoxicillin 500 mg Tab RxNorm: 379015 1 Tablet(s) PO BID 201109/26/2011 Inactive Sprintec (28) 0.25 mg-35 mcg tablet RxNorm: 890349 1 Tablet(s) PO daily 09/08/2011 05/11/2012 Inactive Zofran 4 mg Tab RxNorm : 155787 1 Tablet(s) PO Q8 PRN 08/07/2011 01/03/2012 Inactive promethazine 25 mg Tab RxNorm: 088775 1 Tablet(s) PO Q6 PRN 01/201211/02/2016 Inactive Xanax 1 mg tablet RxNorm: 508716 Tablet(s) PO 07/22/2011 03/03/2012 Inactive 1/2 q am 1 1/2 alprazolam 0.25 mg Tab RxNorm: 861359 1/2 Tablet(s) PO BID 07/21/2011 Inactive Exforge 10 mg-160 mg tablet RxNorm: 812232 Tablet(s) PO 201109/04/2012 Inactive TAKE ONE (1) TABLET BY MOUTH DAILY;wc baclofen 10 mg Tab RxNorm: 537634 1/2 Tablet(s) PO BID 201110/22/2011 Inactive alprazolam 0.25 mg Tab RxNorm: 949377 1/2 Tablet(s) PO BID 07/16/2011 Inactive alprazolam 0.25 mg Tab RxNorm: 336781 1 Tablet(s) PO BID 201106/24/2011 Inactive alprazolam 0.25 mg Tab RxNorm: 591211 Tablet(s) PO 06/02/2011 06/02/2011 Inactive TAKE ONE TABLET BY MOUTH TWICE DAILY;Generic For:XANAX 0.25 MG TABLET 03/14/11 Thank you (Appended: Controlled substance eRx refill - RxReferenceNumber: [id number]) alprazolam 0.25 mg Tab RxNorm: 951928 Tablet(s) PO 04/14/2011 06/01/2011 Inactive TAKE ONE TABLET BY MOUTH TWICE DAILY;Generic For:XANAX 0.25 MG TABLET 03/14/11 Thank you (Appended: Controlled substance eRx refill - RxReferenceNumber: [id number]) Nexium 40 mg Cap RxNorm: 132953 1 Capsule(s) PO QAM 2011 No Stop Date Active use if dexilant does not work Nexium 40 mg capsule,delayed release RxNorm: 524972 1 Capsule(s) PO BID 04/07/2011 01/03/2012 Inactive use if dexilant does not work Exforge 10 mg-160 mg Tab RxNorm: 827846 1 Tablet(s) PO daily No Stop Date Active alprazolam 0.25 mg Tab RxNorm: 033145 2.5 Tablet(s) PO QHS 12/201104/14/2011 Inactive dicyclomine 10 mg Cap RxNorm: 242891 1 Capsule(s) PO BID 201001/03/2012 Inactive alprazolam 0.25 mg Tab RxNorm: 195713 1 Tablet(s) PO BID take 1/2 to 1 pill po bid prn for anxiety 02/25/2011 04/06/2011 Inactive Bentyl 10 mg Cap RxNorm: 162075 1 Capsule(s) PO BID 201003/01/2013 Inactive alprazolam 0.25 mg Tab RxNorm: 926224 1 Tablet(s) PO BID take 1/2 to 1 pill po bid prn for anxiety 12/31/2010 02/24/2011 Inactive amoxicillin 500 mg Tab RxNorm: 169328 1 Tablet(s) PO TID 201012/11/2010 Inactive Xanax 0.25 mg Tab RxNorm: 547318 1/2 Tablet(s) PO BID 1/2 tab bid prn 12/05/2010 01/29/2011 Inactive alprazolam 0.25 mg Tab RxNorm: 074748 1 Tablet(s) PO BID take 1/2 to 1 pill po bid prn for anxiety 12/04/2010 12/30/2010 Inactive Exforge 10 mg-160 mg Tab RxNorm: 452130 1 Tablet(s) PO daily 12/26/2010 Inactive Exforge 10 mg-160 mg Tab RxNorm: 287668 1 Tablet(s) PO daily 12/26/2010 Inactive Xanax 0.25 mg Tab RxNorm: 767199 1/2 Tablet(s) PO BID 1/2 tab bid prn No Start Date 12/04/2010 Inactive Claritin-D 24 Hour 10 mg-240 mg tablet,extended release RxNorm: 2880018 Oral No Start Date 10/18/2011 Inactive Nexium 40 mg Cap RxNorm: 286726 Capsule(s) PO PRN No Start Date 01/28/2011 Inactive use if dexilant does not work Zofran 4 mg Tab RxNorm : 805277 1 Tablet(s) PO Q8 PRN No Start Date 08/06/2011 Inactive Dexilant 60 mg Capsule RxNorm: 186921 1 Capsule(s) PO daily No Start Date 04/07/2011 Inactive Exforge 10 mg-160 mg Tab RxNorm: 250740 1 Tablet(s) PO daily No Start Date 11/26/2010 Inactive estradiol 1 mg tablet RxNorm: 365444 1 Tablet(s) PO daily No Start Date 11/02/2016 Inactive promethazine 25 mg Tab RxNorm: 239140 1 Tablet(s) PO Q6 PRN No Start Date 08/06/2011 Inactive Sprintec (28) 0.25 mg-35 mcg Tab RxNorm: 190448 1 Tablet(s) PO daily No Start Date 09/07/2011 Inactive Provera 2.5 mg tablet RxNorm: 0305427 1 Tablet(s) PO daily No Start Date 11/02/2016 Inactive Medication Administered Medication Codes Instructions Start Date Status ketorolac 60 mg/2 mL intramuscular solution RxNorm: 496293 2Milliliter 05/26/2016 No longer Active promethazine 25 mg/mL Syringe RxNorm: 787660 2Milliliter 01/10/2013 No longer Active ketorolac 60 mg/2 mL IM RxNorm: 811973 2Milliliter 01/10/2013 No longer Active Immunizations Vaccine Codes Date Status PPD Unknown 08/23/2014 completed Influenza CVX: 141 03/01/2013 completed Assessments Condition Codes Effective Dates Major depressive disorder, single episode, moderate ICD-10: F32.1 ICD-9: 296.22 03/25/2017 Other fatigue ICD-10: R53.83 ICD-9: 780.79 03/25/2017 Generalized anxiety disorder ICD-10: F41.1 ICD-9: 300.00 03/25/2017 Left lower quadrant pain ICD-10: R10.32 ICD-9: 789.04 11/03/2016 Essential (primary) hypertension ICD-10: I10 ICD-9: 401.9 11/03/2016 Irritable bowel syndrome with diarrhea ICD-10: K58.0 ICD-9: 564.1 07/27/2016 Headache ICD-10: R51 ICD-9: 784.0 05/26/2016 Fall (on)(from) sidewalk curb, initial encounter ICD-10: W10.1XXA ICD-9: E880.1 05/25/2016 Generalized anxiety disorder ICD-10: F41.1 ICD-9: 300.02 05/16/2015 Mood disorder due to known physiological condition with depressive features ICD-10: F06.31 ICD-9: 311 05/16/2015 Cervical os stenosis ICD-9: 622.4 2014 Other screening mammogram ICD-9: V76.12 08/14/2014 ESSENTIAL HYPERTENSION ICD-9: 401.9 07/26 LLQ abdominal pain ICD-9: 789.04 2014 Nausea ICD-9: 787.02 07/26/2014 ALLERGIC RHINITIS ICD-9: 477.9 2014 ESOPHAGEAL REFLUX ICD-9: 530.81 2014 Weight gain ICD-9: 783.1 01/23/2014 Fatigue ICD-9: 780.79 01/23/2014 EDEMA ICD-9: 782.3 01/23/2014 ROUTINE GYNE EXAM ICD-9: V72.31 2013 URINARY FREQUENCY ICD-9: 788.41 2012 DEPRESSIVE DISORDER NEC ICD-9: 311 2012 GENERALIZED ANXIETY DISEASE ICD-9: 300.02 03/01/2013 Abdominal pain ICD-9: 789.00 01/10/2013 Gas ICD-9: 787.3 12/20/2012 Tick bite of abdomen ICD-9: 911.4 2012 Nausea and vomiting ICD-9: 787.01 2012 Rash ICD-9: 782.1 01/04/2012 ACUTE URI ICD-9: 465.9 09/17/2011 ABD PAIN GENERALIZED ICD-9: 789.07 2011 Acute sinusitis ICD-9: 461.9 12/04/2010 Reason For Visit Reason For Visit Effective Dates Notes low back pain 03/25/2017 hypertension 11/03/2016 diarrhea 07/27/2016 headache 05/25/2016 medication follow up 05/16/2015 well woman exam (40-65 years) 08/23/2014 well woman exam (40-65 years) 08/15/2014 abdominal pain 07/26/2014 Hospital Follow Up 05/08/2014 edema 01/23/2014 well woman exam (40-65 years) 05/31/2013 depression 03/01/2013 abdominal pain 01/10/2013 arthropod bite 12/20/2012 well woman exam (40-65 years) 08/02/2012 vomiting 04/06/2012 flare up of rash 01/04/2012 sore throat 09/17/2011 well woman exam (40-65 years) 07/27/2011 gastroesophageal reflux 04/07/2011 hasn' t had an EGD since 2007 headache 12/04/2010 gastroesophageal reflux 11/25/2010 Results Observation Observation Code Item Item Code Result Date Lipid Ord30 CHOL 183 mg/dL 03/26/2017 Lipid Ord30 HDL 72.0 mg/dl 03/26/2017 Lipid Ord30 TRIG 59 mg/dL 03/26/2017 Lipid Ord30 LDL 99 mg/dL 03/26/2017 Lipid Ord30 C/HDL 2.5 Ratio 03/26/2017 Tsh Ord6 hTSH II 1.03 uIU/mL 03/26/2017 Comp Metabolic Kbj409 NA 142 mEq/L 03/26/2017 Comp Metabolic Kzx867 K 4.4 mEq/L 03/26/2017 Comp Metabolic Yfk360 CL 108 mEq/L 03/26/2017 Comp Metabolic Cgw132 CO2 27.0 mEq/L 03/26/2017 Comp Metabolic Nob110 ANION GAP 11 03/26/2017 Comp Metabolic Yma626 GLUCOSE 94 mg/dL 03/26/2017 Comp Metabolic Ljg746 Creat 0.7 mg/dL 03/26/2017 Comp Metabolic Rtn928 eGFR 96 ml/min/1.73m2 03/26/2017 Comp Metabolic Rze869 BUN 11 mg/dL 03/26/2017 Comp Metabolic Bwg520 B/C Ratio 16.4 Ratio 03/26/2017 Comp Metabolic Umv538 CALCIUM 9.2 mg/dL 03/26/2017 Comp Metabolic Rnj876 ALK PHOS 64 U/L 03/26/2017 Comp Metabolic Ioy123 AST(SGOT) 13 U/L 03/26/2017 Comp Metabolic Rve321 ALT(SGPT) 11 U/L 03/26/2017 Comp Metabolic Dzc915 BILI T 0.7 mg/dL 03/26/2017 Comp Metabolic You524 ALBUMIN 4.3 g/dL 03/26/2017 Comp Metabolic Att212 TPRO 6.1 g/dL 03/26/2017 Comp Metabolic Heh203 GLOB 1.8 g/dL 03/26/2017 Comp Metabolic Fry026 A/G Ratio 2.4 Ratio 03/26/2017 Comp Metabolic Rhs272 Osmo 282 mOsmo 03/26/2017 Cbc With Differential Ord2 WBC 5.88 K/ul 03/26/2017 Cbc With Differential Ord2 RBC 4.46 M/ul 03/26/2017 Cbc With Differential Ord2 HGB 13.9 g/dl 03/26/2017 Cbc With Differential Ord2 Neut% 57.9 % 03/26/2017 Cbc With Differential Ord2 HCT 40.0 % 03/26/2017 Cbc With Differential Ord2 MCV 89.7 fl 03/26/2017 Cbc With Differential Ord2 Lymph% 33.0 % 03/26/2017 Cbc With Differential Ord2 [place]% 4.8 % 03/26/2017 Cbc With Differential Ord2 MCH 31.2 pg 03/26/2017 Cbc With Differential Ord2 Eos% 3.1 % 03/26/2017 Cbc With Differential Ord2 MCHC 34.8 pg 03/26/2017 Cbc With Differential Ord2 Baso% 1.2 % 03/26/2017 Cbc With Differential Ord2 PLT 320 K/ul 03/26/2017 Cbc With Differential Ord2 Neut ABS# 3.41 K/ul 03/26/2017 Cbc With Differential Ord2 RDW 12.8 % 03/26/2017 Cbc With Differential Ord2 Lymph ABS# 1.94 K/ul 03/26/2017 Cbc With Differential Ord2 [place] ABS# 0.3 K/ul 03/26/2017 Cbc With Differential Ord2 Eos ABS# 0.2 K/ul 03/26/2017 Cbc With Differential Ord2 Baso ABS# 0.1 K/ul 03/26/2017 Test(s) Not Perfromed [id number] Test(s) Not Performed Test(s) Not Performed. 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 UA 44434 Specific [place] 1.005 DateTime(Free Text in Apr ) UA 90372 PH 8 DateTime(Free Text in ) UA 54541 GLUCOSE DateTime(Free Text in Apr) UA 02198 Protein DateTime(Free Text in Apr) UA 79866 Blood DateTime(Free Text in Apr) UA 48081 Bilirubin DateTime(Free Text in Apr) UA 45006 Ketones DateTime(Free Text in Aprima) UA 48742 Urobilinogen DateTime(Free Text in ) UA 11415 Nitrite DateTime(Free Text in ) UA 83686 Leukocytes trace DateTime(Free Text in ) Review of Systems System Result Effective Dates Constitutional No recent illness 2016 Constitutional No chills 03/25/2017 Constitutional No diaphoresis 03/25/2017 Constitutional No fever 03/25/2017 Eyes No eye erythema 03/25/2017 Ears/Nose/Throat/Neck No nasal discharge 03/25/2017 Ears/Nose/Throat/Neck No nasal allergies 03/25/2017 Cardiovascular No chest pain/pressure Cardiovascular No dyspnea 03/25/2017 Respiratory No daytime hypersomnolence Respiratory No chest congestion 2016 Gastrointestinal No abdominal pain 2016 Musculoskeletal back pain 03/25/2017 Neurologic No alteration of consciousness 03/25/2017 Neurologic No mental status change 2016 Psychiatric anxiety 03/25/2017 Psychiatric depression 03/25/2017 Psychiatric suicidality 03/25/2017 Psychiatric disturbances of emotion 03/25 Constitutional No recent illness 2016 Constitutional No night sweats 2016 Constitutional No chills 11/03/2016 Constitutional No insomnia 11/03/2016 Eyes No eye discharge 11/03/2016 Eyes No eye erythema 11/03/2016 Ears/Nose/Throat/Neck No dizziness 2016 Ears/Nose/Throat/Neck No headache 2016 Ears/Nose/Throat/Neck No nasal allergies 11/03/2016 Cardiovascular No chest pain/pressure 10/2016 Cardiovascular No dyspnea 11/03/2016 Cardiovascular No edema 11/03/2016 Respiratory No chest congestion 2016 Respiratory No cough 11/03/2016 Gastrointestinal No constipation 2016 Gastrointestinal diarrhea 11/03/2016 Gastrointestinal No nausea 11/03/2016 Musculoskeletal No joint complaint 2016 Dermatologic No rash 11/03/2016 Neurologic No alteration of consciousness 11/03/2016 Psychiatric anxiety 11/03/2016 Genitourinary/Nephrology No dysuria 11/03 Genitourinary/Nephrology pelvic pain 10/2016 Constitutional No recent illness 2016 Constitutional No anorexia 07/27/2016 Constitutional No night sweats 2016 Constitutional No chills 07/27/2016 Constitutional No diaphoresis 07/27/2016 Constitutional No fatigue 07/27/2016 Constitutional No fever 07/27/2016 Constitutional No insomnia 07/27/2016 Constitutional No malaise 07/27/2016 Constitutional No weight loss 07/27/2016 Constitutional No weight gain 07/27/2016 Constitutional No obesity 07/27/2016 Eyes No eye pain 07/27/2016 Eyes No vision change 07/27/2016 Ears/Nose/Throat/Neck No dizziness 2016 Ears/Nose/Throat/Neck No headache 2016 Cardiovascular No chest pain/pressure 03/2016 Cardiovascular No dyspnea 07/27/2016 Respiratory No chest tightness 2016 Respiratory No cigarette smoking 2016 Respiratory No chest congestion 2016 Respiratory No cough 07/27/2016 Gastrointestinal abdominal pain 2016 Gastrointestinal diarrhea 07/27/2016 Gastrointestinal constipation 07/27/2016 Gastrointestinal gas and bloating 2016 Gastrointestinal No vomiting 07/27/2016 Gastrointestinal No nausea 07/27/2016 Genitourinary/Nephrology No anuria/oliguria 07/27/2016 Genitourinary/Nephrology No dysuria 07/27 Musculoskeletal No stiffness 07/27/2016 Musculoskeletal No swelling 07/27/2016 Musculoskeletal No arthralgia(s) 2016 Dermatologic No rash 07/27/2016 Dermatologic No sores 07/27/2016 Neurologic No alteration of consciousness 07/27/2016 Neurologic No headache 07/27/2016 Psychiatric anxiety 07/27/2016 Psychiatric No depression 07/27/2016 Hematologic/Lymphatic No abnormal ecchymoses 07/27/2016 Hematologic/Lymphatic No abnormal bleeding and bruising 07/27/2016 Endocrine No polydipsia 07/27/2016 Endocrine No polyuria 07/27/2016 Allergy/Immunology No anaphylactoid reaction 07/27/2016 Allergy/Immunology No food allergy 2016 Constitutional No recent illness 2016 Constitutional No fever 05/25/2016 Eyes No eye erythema 05/25/2016 Ears/Nose/Throat/Neck No nasal allergies 05/25/2016 Ears/Nose/Throat/Neck No nasal discharge 05/25/2016 Cardiovascular No chest pain/pressure Respiratory No cough 05/25/2016 Respiratory No dyspnea 05/25/2016 Gastrointestinal No abdominal pain 2016 Musculoskeletal joint complaint 2016 Dermatologic No rash 05/25/2016 Neurologic dizziness 05/25/2016 Neurologic headache 05/25/2016 Neurologic No aphasia 05/25/2016 Constitutional No recent illness 2015 Constitutional No night sweats 2015 Constitutional No chills 05/16/2015 Constitutional No insomnia 05/16/2015 Eyes No eye discharge 05/16/2015 Eyes No eye erythema 05/16/2015 Ears/Nose/Throat/Neck No dizziness 2015 Ears/Nose/Throat/Neck No headache 2015 Ears/Nose/Throat/Neck No nasal allergies 05/16/2015 Cardiovascular No chest pain/pressure Cardiovascular No dyspnea 05/16/2015 Cardiovascular No edema 05/16/2015 Respiratory No chest congestion 2015 Respiratory No cough 05/16/2015 Gastrointestinal No constipation 2015 Gastrointestinal No diarrhea 05/16/2015 Gastrointestinal No nausea 05/16/2015 Musculoskeletal No joint complaint 2015 Dermatologic No rash 05/16/2015 Neurologic No alteration of consciousness 05/16/2015 Psychiatric anxiety 05/16/2015 Constitutional No chills 08/23/2014 Constitutional No fever 08/23/2014 Eyes No vision change 08/23/2014 Ears/Nose/Throat/Neck No dizziness 2014 Ears/Nose/Throat/Neck No headache 2014 Cardiovascular No chest pain/pressure Respiratory No chest congestion 2014 Respiratory No cough 08/23/2014 Gastrointestinal No constipation 2014 Gastrointestinal No diarrhea 08/23/2014 Gastrointestinal No nausea 08/23/2014 Gastrointestinal No vomiting 08/23/2014 Musculoskeletal No stiffness 08/23/2014 Musculoskeletal No arthralgia(s) 2014 Dermatologic No rash 08/23/2014 Dermatologic No sores 08/23/2014 Neurologic No dizziness 08/23/2014 Neurologic No headache 08/23/2014 Psychiatric anxiety 08/23/2014 Psychiatric depression 08/23/2014 Constitutional No chills 08/15/2014 Constitutional No fever 08/15/2014 Eyes No vision change 08/15/2014 Ears/Nose/Throat/Neck No dizziness 2014 Ears/Nose/Throat/Neck No headache 2014 Cardiovascular No chest pain/pressure Respiratory No chest congestion 2014 Respiratory No cough 08/15/2014 Gastrointestinal No constipation 2014 Gastrointestinal No diarrhea 08/15/2014 Gastrointestinal No nausea 08/15/2014 Gastrointestinal No vomiting 08/15/2014 Musculoskeletal No stiffness 08/15/2014 Musculoskeletal No arthralgia(s) 2014 Dermatologic No rash 08/15/2014 Dermatologic No sores 08/15/2014 Neurologic No dizziness 08/15/2014 Neurologic No headache 08/15/2014 Psychiatric anxiety 08/15/2014 Psychiatric depression 08/15/2014 Constitutional fatigue 07/26/2014 Constitutional weight gain 07/26/2014 Constitutional No obesity 07/26/2014 Constitutional No night sweats 2014 Constitutional No chills 07/26/2014 Eyes No photophobia 07/26/2014 Ears/Nose/Throat/Neck No dizziness 2014 Ears/Nose/Throat/Neck No facial pain Ears/Nose/Throat/Neck No headache 2014 Ears/Nose/Throat/Neck No nasal allergies 07/26/2014 Ears/Nose/Throat/Neck No nasal discharge 07/26/2014 Cardiovascular No dyspnea 07/26/2014 Respiratory No chest tightness 2014 Respiratory No cigarette smoking 2014 Respiratory No cough 07/26/2014 Gastrointestinal constipation 07/26/2014 Gastrointestinal No diarrhea 07/26/2014 Genitourinary/Nephrology No dysuria 07/26 Genitourinary/Nephrology No nocturia Genitourinary/Nephrology urinary frequency 07/26/2014 Musculoskeletal No swelling 07/26/2014 Musculoskeletal arthralgia(s) 07/26/2014 Musculoskeletal stiffness 07/26/2014 Dermatologic No rash 07/26/2014 Dermatologic No sores 07/26/2014 Neurologic No headache 07/26/2014 Psychiatric anxiety 07/26/2014 Constitutional No recent illness 2014 Constitutional anorexia 05/08/2014 Constitutional No night sweats 2014 Constitutional No chills 05/08/2014 Constitutional No diaphoresis 05/08/2014 Constitutional No fatigue 05/08/2014 Constitutional No fever 05/08/2014 Constitutional No insomnia 05/08/2014 Constitutional No weight loss 05/08/2014 Constitutional No malaise 05/08/2014 Constitutional No weight gain 05/08/2014 Gastrointestinal No vomiting 05/08/2014 Gastrointestinal No nausea 05/08/2014 Gastrointestinal diarrhea 05/08/2014 Gastrointestinal No constipation 2014 Gastrointestinal No gas and bloating 12/2014 Gastrointestinal No gastroesophageal reflux 05/08/2014 Gastrointestinal No dyspepsia 05/08/2014 Eyes No eye discharge 05/08/2014 Eyes No eye erythema 05/08/2014 Ears/Nose/Throat/Neck nasal allergies 12/2014 Ears/Nose/Throat/Neck nasal discharge 12/2014 Ears/Nose/Throat/Neck No otalgia 2014 Respiratory No cough 05/08/2014 Cardiovascular No chest pain/pressure 12/2014 Genitourinary/Nephrology No dysuria 05/08 Musculoskeletal No joint complaint 2014 Dermatologic No rash 05/08/2014 Dermatologic No sores 05/08/2014 Constitutional No recent illness 2013 Constitutional No anorexia 01/23/2014 Constitutional No night sweats 2013 Constitutional No chills 01/23/2014 Constitutional No diaphoresis 01/23/2014 Constitutional fatigue 01/23/2014 Constitutional No fever 01/23/2014 Constitutional No insomnia 01/23/2014 Constitutional No malaise 01/23/2014 Constitutional No weight loss 01/23/2014 Constitutional weight gain 01/23/2014 Eyes No eye discharge 01/23/2014 Eyes No eye erythema 01/23/2014 Ears/Nose/Throat/Neck No dizziness 2013 Ears/Nose/Throat/Neck No headache 2013 Ears/Nose/Throat/Neck No nasal discharge 01/23/2014 Ears/Nose/Throat/Neck No otalgia 2013 Cardiovascular No chest pain/pressure Cardiovascular No dyspnea 01/23/2014 Cardiovascular edema 01/23/2014 Respiratory No cough 01/23/2014 Respiratory No chest congestion 2013 Gastrointestinal No abdominal pain 2013 Gastrointestinal No constipation 2013 Gastrointestinal No diarrhea 01/23/2014 Gastrointestinal gastroesophageal reflux 01/23/2014 Gastrointestinal No vomiting 01/23/2014 Gastrointestinal No nausea 01/23/2014 Genitourinary/Nephrology No dysuria 01/23 Musculoskeletal No joint complaint 2013 Dermatologic No sores 01/23/2014 Dermatologic No rash 01/23/2014 Neurologic No alteration of consciousness 01/23/2014 Constitutional No chills 05/31/2013 Constitutional No fever 05/31/2013 Eyes No vision change 05/31/2013 Ears/Nose/Throat/Neck No dizziness 2013 Ears/Nose/Throat/Neck No headache 2013 Cardiovascular No chest pain/pressure 07/2013 Respiratory No chest congestion 2013 Respiratory No cough 05/31/2013 Gastrointestinal No constipation 2013 Gastrointestinal No diarrhea 05/31/2013 Gastrointestinal No nausea 05/31/2013 Gastrointestinal No vomiting 05/31/2013 Musculoskeletal No stiffness 05/31/2013 Musculoskeletal No arthralgia(s) 2013 Dermatologic No rash 05/31/2013 Dermatologic No sores 05/31/2013 Neurologic No dizziness 05/31/2013 Neurologic No headache 05/31/2013 Psychiatric anxiety 05/31/2013 Psychiatric depression 05/31/2013 Constitutional No fever 03/01/2013 Ears/Nose/Throat/Neck No headache 2012 Cardiovascular No chest pain/pressure 06/2012 Respiratory No chest congestion 2012 Respiratory No chest tightness 2012 Respiratory No cough 03/01/2013 Gastrointestinal No constipation 2012 Gastrointestinal No diarrhea 03/01/2013 Gastrointestinal No nausea 03/01/2013 Gastrointestinal No vomiting 03/01/2013 Musculoskeletal No arthralgia(s) 2012 Dermatologic No rash 03/01/2013 Dermatologic No sores 03/01/2013 Neurologic No ataxia 03/01/2013 Neurologic No dizziness 03/01/2013 Neurologic No headache 03/01/2013 Psychiatric anxiety 03/01/2013 Psychiatric depression 03/01/2013 Constitutional recent illness 01/10/2013 Constitutional anorexia 01/10/2013 Constitutional fever 01/10/2013 Constitutional No insomnia 01/10/2013 Constitutional fatigue 01/10/2013 Constitutional No chills 01/10/2013 Constitutional No diaphoresis 01/10/2013 Eyes No eye discharge 01/10/2013 Eyes No eye erythema 01/10/2013 Ears/Nose/Throat/Neck No dizziness 2012 Ears/Nose/Throat/Neck No headache 2012 Cardiovascular No chest pain/pressure Respiratory No cough 01/10/2013 Genitourinary/Nephrology No dysuria 01/10 Dermatologic No rash 01/10/2013 Dermatologic No sores 01/10/2013 Constitutional No recent illness 2012 Constitutional No anorexia 12/20/2012 Constitutional No night sweats 2012 Constitutional No chills 12/20/2012 Constitutional No diaphoresis 12/20/2012 Constitutional No fatigue 12/20/2012 Constitutional No fever 12/20/2012 Constitutional No insomnia 12/20/2012 Constitutional No malaise 12/20/2012 Eyes No eye discharge 12/20/2012 Eyes No eye erythema 12/20/2012 Ears/Nose/Throat/Neck No dizziness 2012 Ears/Nose/Throat/Neck No headache 2012 Ears/Nose/Throat/Neck No nasal discharge 12/20/2012 Cardiovascular No chest pain/pressure Respiratory No cough 12/20/2012 Gastrointestinal No nausea 12/20/2012 Gastrointestinal No vomiting 12/20/2012 Genitourinary/Nephrology No dysuria 12/20 Musculoskeletal No joint complaint 2012 Constitutional No chills 08/02/2012 Constitutional No fever 08/02/2012 Eyes No vision change 08/02/2012 Ears/Nose/Throat/Neck No dizziness 2012 Ears/Nose/Throat/Neck No headache 2012 Cardiovascular No chest pain/pressure 09/2012 Respiratory No chest congestion 2012 Respiratory No cough 08/02/2012 Gastrointestinal No constipation 2012 Gastrointestinal No diarrhea 08/02/2012 Gastrointestinal No nausea 08/02/2012 Gastrointestinal No vomiting 08/02/2012 Musculoskeletal No stiffness 08/02/2012 Musculoskeletal No arthralgia(s) 2012 Dermatologic No rash 08/02/2012 Dermatologic No sores 08/02/2012 Neurologic No dizziness 08/02/2012 Neurologic No headache 08/02/2012 Psychiatric anxiety 08/02/2012 Psychiatric depression 08/02/2012 Constitutional recent illness 04/06/2012 Constitutional anorexia 04/06/2012 Constitutional No chills 04/06/2012 Constitutional No night sweats 2012 Constitutional No diaphoresis 04/06/2012 Constitutional No fatigue 04/06/2012 Constitutional fever 04/06/2012 Constitutional No insomnia 04/06/2012 Eyes No eye discharge 04/06/2012 Eyes No eye erythema 04/06/2012 Ears/Nose/Throat/Neck No dizziness 2012 Ears/Nose/Throat/Neck No headache 2012 Respiratory No cough 04/06/2012 Cardiovascular No chest pain/pressure 11/2012 Genitourinary/Nephrology No dysuria 04/06 Musculoskeletal No joint complaint 2012 Dermatologic No rash 04/06/2012 Dermatologic No sores 04/06/2012 Constitutional No recent illness 2011 Constitutional No anorexia 01/04/2012 Constitutional No night sweats 2011 Constitutional No chills 01/04/2012 Constitutional No diaphoresis 01/04/2012 Constitutional No fatigue 01/04/2012 Constitutional No fever 01/04/2012 Constitutional No insomnia 01/04/2012 Constitutional No malaise 01/04/2012 Eyes No eye discharge 01/04/2012 Eyes No eye erythema 01/04/2012 Ears/Nose/Throat/Neck No dizziness 2011 Ears/Nose/Throat/Neck No headache 2011 Ears/Nose/Throat/Neck No nasal discharge 01/04/2012 Cardiovascular No chest pain/pressure 10/2011 Respiratory No cough 01/04/2012 Gastrointestinal No nausea 01/04/2012 Gastrointestinal No vomiting 01/04/2012 Genitourinary/Nephrology No dysuria 01/03 Musculoskeletal No joint complaint 2011 Constitutional No anorexia 09/17/2011 Constitutional No night sweats 2011 Constitutional No chills 09/17/2011 Constitutional No diaphoresis 09/17/2011 Constitutional No fatigue 09/17/2011 Constitutional No fever 09/17/2011 Constitutional No insomnia 09/17/2011 Constitutional No malaise 09/17/2011 Constitutional No recent illness 2011 Eyes No eye discharge 09/17/2011 Eyes No eye erythema 09/17/2011 Cardiovascular No chest pain/pressure Respiratory No productive sputum 2011 Respiratory No chest congestion 2011 Respiratory No dyspnea 09/17/2011 Respiratory cough 09/17/2011 Gastrointestinal No vomiting 09/17/2011 Gastrointestinal No nausea 09/17/2011 Genitourinary/Nephrology No dysuria 09/16 Constitutional No chills 07/27/2011 Constitutional No fever 07/27/2011 Eyes No vision change 07/27/2011 Cardiovascular No chest pain/pressure Gastrointestinal No constipation 2011 Gastrointestinal No diarrhea 07/27/2011 Gastrointestinal No nausea 07/27/2011 Gastrointestinal No vomiting 07/27/2011 Psychiatric anxiety 07/27/2011 Psychiatric depression 07/27/2011 Neurologic No dizziness 07/27/2011 Neurologic No headache 07/27/2011 Dermatologic No rash 07/27/2011 Dermatologic No sores 07/27/2011 Musculoskeletal No stiffness 07/27/2011 Musculoskeletal No arthralgia(s) 2011 Respiratory No cough 07/27/2011 Respiratory No chest congestion 2011 Ears/Nose/Throat/Neck No dizziness 2011 Ears/Nose/Throat/Neck No headache 2011 Constitutional No fever 04/07/2011 Cardiovascular No chest pain/pressure 12/2011 Ears/Nose/Throat/Neck No headache 2011 Gastrointestinal No vomiting 04/07/2011 Gastrointestinal No nausea 04/07/2011 Gastrointestinal No constipation 2011 Gastrointestinal No diarrhea 04/07/2011 Psychiatric No anxiety 04/07/2011 Psychiatric No depression 04/07/2011 Dermatologic No rash 04/07/2011 Dermatologic No sores 04/07/2011 Neurologic No ataxia 04/07/2011 Neurologic No dizziness 04/07/2011 Neurologic No headache 04/07/2011 Respiratory No cough 04/07/2011 Respiratory No chest congestion 2011 Respiratory No chest tightness 2011 Musculoskeletal No arthralgia(s) 2011 Ears/Nose/Throat/Neck nasal allergies 10/2010 Ears/Nose/Throat/Neck nasal discharge 10/2010 Ears/Nose/Throat/Neck headache 2010 Cardiovascular No chest pain/pressure 10/2010 Cardiovascular No edema 12/04/2010 Cardiovascular No hypertension 2010 Respiratory cough 12/04/2010 Respiratory No chest tightness 2010 Respiratory No chest congestion 2010 Respiratory No productive sputum 2010 Gastrointestinal No nausea 12/04/2010 Gastrointestinal No vomiting 12/04/2010 Gastrointestinal No diarrhea 12/04/2010 Gastrointestinal No constipation 2010 Gastrointestinal No abdominal pain 2010 Constitutional No recent illness 2010 Constitutional No fever 12/04/2010 Constitutional No chills 12/04/2010 Constitutional No diaphoresis 12/04/2010 Eyes No eye discharge 12/04/2010 Eyes No eye erythema 12/04/2010 Ears/Nose/Throat/Neck sore throat 2010 Constitutional No recent illness 2010 Constitutional No anorexia 11/25/2010 Constitutional No fatigue 11/25/2010 Constitutional No fever 11/25/2010 Constitutional No insomnia 11/25/2010 Constitutional No weight loss 11/25/2010 Gastrointestinal No abdominal pain 2010 Gastrointestinal No anorexia 11/25/2010 Gastrointestinal No constipation 2010 Gastrointestinal No diarrhea 11/25/2010 Gastrointestinal No dysphagia 11/25/2010 Gastrointestinal gas and bloating 2010 Gastrointestinal gastroesophageal reflux 11/25/2010 Gastrointestinal No hematemesis 2010 Gastrointestinal No hematochezia 2010 Gastrointestinal No nausea 11/25/2010 Gastrointestinal No vomiting 11/25/2010 Physical Exam Exam Name System Name Item Name Status Result Effective Dates Notes Full Exam - General 1994 Constitutional general appearance Overall: well developed 03/25/2017 None Full Exam - General 1994 Constitutional general appearance Overall: well nourished 03/25/2017 None Full Exam - General 1994 Constitutional general appearance Evidence of Distress: mild distress 03/25/2017 None Full Exam - General 1994 Constitutional general appearance Evidence of Distress: agitated 03/25/2017 None Full Exam - General 1994 Constitutional general appearance Evidence of Distress: anxious 03/25/2017 None Full Exam - General 1994 Constitutional general appearance Evidence of Distress: tearful 03/25/2017 None Full Exam - General 1994 Eyes conjunctiva /eyelids Overall: conjunctiva clear 03/25/2017 None Full Exam - General 1994 Eyes conjunctiva /eyelids Overall: eyelids normal 03/25/2017 None Full Exam - General 1994 Eyes conjunctiva /eyelids Overall: cornea clear 03/25/2017 None Full Exam - General 1994 Eyes pupils and irises Overall: pupils equal, round, reactive to light and accomodation 03/25/2017 None Full Exam - General 1994 Ears/Nose/Throat otoscopic exam Overall: external auditory canals clear 03/25/2017 None Full Exam - General 1994 Ears/Nose/Throat otoscopic exam Overall: tympanic membranes clear 03/25/2017 None Full Exam - General 1994 Ears/Nose/Throat lips/teeth/gingiva Overall: benign lips 03/25/2017 None Full Exam - General 1994 Ears/Nose/Throat oral cavity/pharynx/larynx Overall: oral mucosa clear 03/25/2017 None Full Exam - General 1994 Respiratory respiratory effort/rhythm Overall: normal rate 03/25/2017 None Full Exam - General 1994 Respiratory respiratory effort/rhythm Overall: no retractions 03/25/2017 None Full Exam - General 1994 Respiratory auscultation Overall: breath sounds clear bilaterally 03/25/2017 None Full Exam - General 1994 Cardiovascular auscultation of heart Overall: regular rate 03/25/2017 None Full Exam - General 1994 Cardiovascular auscultation of heart Overall: normal heart sounds 03/25/2017 None Full Exam - General 1994 Musculoskeletal head and neck Overall: head atraumatic 03/25/2017 None Full Exam - General 1994 Musculoskeletal gait and station Overall: normal station 03/25/2017 None Full Exam - General 1994 Musculoskeletal gait and station Overall: normal gait 03/25/2017 None Full Exam - General 1994 Musculoskeletal spine, ribs and pelvis Spine: tender @ lumbar spine 03/25/2017 None Full Exam - General 1994 Neurologic cranial nerves Overall: crainial nerves 2 - 12 grossly intact 03/25/2017 None Full Exam - General 1994 Psychiatric orientation/consciousness Overall: oriented to person, place and time 03/25/2017 None Full Exam - General 1994 Psychiatric mood and affect Mood: flat 03/25/2017 None Full Exam - General 1994 Psychiatric mood and affect Mood: depressed 03/25/2017 None Full Exam - General 1994 Psychiatric mood and affect Mood: irritable 03/25/2017 None Full Exam - General 1994 Psychiatric mood and affect Mood: labile mood 03/25/2017 None Full Exam - General 1994 Psychiatric mood and affect Affect: flat 03/25/2017 None Full Exam - General 1994 Psychiatric appearance Overall: well-groomed, good eye contact 03/25/2017 None Full Exam - General 1994 Constitutional general appearance Development: well developed 11/03/2016 None Full Exam - General 1994 Constitutional general appearance Development: appears stated age 0811/03/2016 None Full Exam - General 1994 Eyes pupils and irises Overall: pupils equal, round, reactive to light and accomodation 11/03/2016 None Full Exam - General 1994 Ears/Nose/Throat otoscopic exam Overall: external auditory canals clear 11/03/2016 None Full Exam - General 1994 Ears/Nose/Throat otoscopic exam Overall: tympanic membranes clear 11/03/2016 None Full Exam - General 1994 Ears/Nose/Throat lips/teeth/gingiva Overall: benign lips 11/03/2016 None Full Exam - General 1994 Ears/Nose/Throat lips/teeth/gingiva Overall: normal dentition 11/03/2016 None Full Exam - General 1994 Respiratory auscultation Overall: breath sounds clear bilaterally 11/03/2016 None Full Exam - General 1994 Respiratory respiratory effort/rhythm Overall: no retractions 11/03/2016 None Full Exam - General 1994 Respiratory respiratory effort/rhythm Overall: normal rate 11/03/2016 None Full Exam - General 1994 Cardiovascular extremities Overall: no clubbing 11/03/2016 None Full Exam - General 1994 Cardiovascular auscultation of heart Overall: regular rate 11/03/2016 None Full Exam - General 1994 Cardiovascular auscultation of heart Overall: normal heart sounds 11/03/2016 None Full Exam - General 1994 Abdomen abdominal exam Overall: normal bowel sounds 11/03/2016 None Full Exam - General 1994 Musculoskeletal spine, ribs and pelvis Overall: good posture 11/03/2016 None Full Exam - General 1994 Musculoskeletal head and neck Overall: head atraumatic 11/03/2016 None Full Exam - General 1994 Integument inspection of skin Overall: few scattered moles, no gross abnormalities 11/03/2016 None Full Exam - General 1994 Integument inspection of skin Overall: no rash, lesions 11/03/2016 None Full Exam - General 1994 Neurologic gait Overall: no ataxia, no unsteadiness 11/03/2016 None Full Exam - General 1994 Psychiatric orientation/consciousness Overall: oriented to person, place and time 11/03/2016 None Full Exam - General 1994 Abdomen abdominal exam Lower quadrant: dull pain 11/03/2016 None Full Exam - General 1994 Constitutional general appearance Development: well developed 07/27/2016 None Full Exam - General 1994 Constitutional general appearance Development: appears stated age 0507/27/2016 None Full Exam - General 1994 Eyes conjunctiva /eyelids Overall: conjunctiva clear 07/27/2016 None Full Exam - General 1994 Eyes conjunctiva /eyelids Overall: cornea clear 07/27/2016 None Full Exam - General 1994 Eyes conjunctiva /eyelids Overall: eyelids normal 07/27/2016 None Full Exam - General 1994 Eyes pupils and irises Overall: pupils equal, round, reactive to light and accomodation 07/27/2016 None Full Exam - General 1994 Ears/Nose/Throat otoscopic exam Overall: external auditory canals clear 07/27/2016 None Full Exam - General 1994 Ears/Nose/Throat otoscopic exam Overall: tympanic membranes clear 07/27/2016 None Full Exam - General 1994 Ears/Nose/Throat lips/teeth/gingiva Overall: benign lips 07/27/2016 None Full Exam - General 1994 Ears/Nose/Throat lips/teeth/gingiva Overall: normal dentition 07/27/2016 None Full Exam - General 1994 Ears/Nose/Throat oral cavity/pharynx/larynx Overall: oral mucosa clear 07/27/2016 None Full Exam - General 1994 Neck thyroid Overall: normal size 03/2016 None Full Exam - General 1994 Neck thyroid Overall: normal consistency 07/27/2016 None Full Exam - General 1994 Neck inspection of neck Overall: normal size 07/27/2016 None Full Exam - General 1994 Neck inspection of neck Overall: normal appearance 07/27/2016 None Full Exam - General 1994 Respiratory auscultation Overall: breath sounds clear bilaterally 07/27/2016 None Full Exam - General 1994 Respiratory respiratory effort/rhythm Overall: no retractions 07/27/2016 None Full Exam - General 1994 Respiratory respiratory effort/rhythm Overall: normal rate 07/27/2016 None Full Exam - General 1994 Cardiovascular auscultation of heart Overall: regular rate 07/27/2016 None Full Exam - General 1994 Cardiovascular auscultation of heart Overall: normal heart sounds 07/27/2016 None Full Exam - General 1994 Abdomen abdominal exam Bowel sounds: hyperactive 07/27/2016 None Full Exam - General 1994 Abdomen abdominal exam Overall: no tenderness 07/27/2016 None Full Exam - General 1994 Lymphatic neck nodes Overall: anterior cervical chain benign 07/27/2016 None Full Exam - General 1994 Lymphatic neck nodes Overall: posterior cervical chain benign 07/27/2016 None Full Exam - General 1994 Musculoskeletal gait and station Overall: normal gait 07/27/2016 None Full Exam - General 1994 Musculoskeletal gait and station Overall: normal station 07/27/2016 None Full Exam - General 1994 Musculoskeletal head and neck Overall: head atraumatic 07/27/2016 None Full Exam - General 1994 Musculoskeletal head and neck Overall: cervical spine benign 07/27/2016 None Full Exam - General 1994 Integument inspection of skin Overall: few scattered moles, no gross abnormalities 07/27/2016 None Full Exam - General 1994 Neurologic mental status Overall: alert 07/27/2016 None Full Exam - General 1994 Neurologic mental status Overall: oriented 07/27/2016 None Full Exam - General 1994 Neurologic gait Overall: no ataxia, no unsteadiness 07/27/2016 None Full Exam - General 1994 Neurologic coordination Overall: no dysdiadochokinesis, no dysmetria 07/27/2016 None Full Exam - General 1994 Psychiatric orientation/consciousness Overall: oriented to person, place and time 07/27/2016 None Full Exam - General 1994 Psychiatric mood and affect Overall: normal mood and affect 07/27/2016 None Full Exam - General 1994 Psychiatric thought Overall: normal form and content 07/27/2016 None Full Exam - General 1994 Constitutional general appearance Overall: well developed 05/25/2016 None Full Exam - General 1994 Constitutional general appearance Overall: well nourished 05/25/2016 None Full Exam - General 1994 Constitutional general appearance Evidence of Distress: mild distress 05/25/2016 headache Full Exam - General 1994 Eyes conjunctiva /eyelids Overall: conjunctiva clear 05/25/2016 None Full Exam - General 1994 Eyes conjunctiva /eyelids Overall: eyelids normal 05/25/2016 None Full Exam - General 1994 Eyes pupils and irises Overall: pupils equal, round, reactive to light and accomodation 05/25/2016 None Full Exam - General 1994 Ears/Nose/Throat otoscopic exam Overall: external auditory canals clear 05/25/2016 None Full Exam - General 1994 Ears/Nose/Throat otoscopic exam Overall: tympanic membranes clear 05/25/2016 None Full Exam - General 1994 Ears/Nose/Throat lips/teeth/gingiva Overall: benign lips 05/25/2016 None Full Exam - General 1994 Ears/Nose/Throat oral cavity/pharynx/larynx Overall: oral mucosa clear 05/25/2016 None Full Exam - General 1995 Ears/Nose/Throat oral cavity/pharynx/larynx Overall: oropharyngeal mucosa clear 05/25/2016 None Full Exam - General 1994 Ears/Nose/Throat oral cavity/pharynx/larynx Overall: no masses 05/25/2016 None Full Exam - General 1994 Respiratory auscultation Overall: breath sounds clear bilaterally 05/25/2016 None Full Exam - General 1994 Respiratory respiratory effort/rhythm Overall: no retractions 05/25/2016 None Full Exam - General 1994 Respiratory respiratory effort/rhythm Overall: normal rate 05/25/2016 None Full Exam - General 1994 Cardiovascular auscultation of heart Overall: regular rate 05/25/2016 None Full Exam - General 1994 Cardiovascular auscultation of heart Overall: normal heart sounds 05/25/2016 None Full Exam - General 1994 Musculoskeletal spine, ribs and pelvis Spine: tender @ thoracic spine 05/25/2016 None Full Exam - General 1994 Musculoskeletal gait and station Overall: normal gait 05/25/2016 None Full Exam - General 1994 Musculoskeletal gait and station Overall: normal station 05/25/2016 None Full Exam - General 1994 Musculoskeletal head and neck Overall: head atraumatic 05/25/2016 None Full Exam - General 1994 Neurologic mental status Overall: alert 05/25/2016 None Full Exam - General 1994 Neurologic mental status Overall: oriented 05/25/2016 None Full Exam - General 1994 Neurologic gait Overall: no ataxia, no unsteadiness 05/25/2016 None Full Exam - General 1994 Neurologic coordination Overall: no dysdiadochokinesis, no dysmetria 05/25/2016 None Full Exam - General 1994 Neurologic cranial nerves Overall: crainial nerves 2 - 12 grossly intact 05/25/2016 None Full Exam - General 1994 Psychiatric orientation/consciousness Overall: oriented to person, place and time 05/25/2016 None Full Exam - General 1994 Psychiatric mood and affect Mood: flat 05/25/2016 None Full Exam - General 1994 Psychiatric appearance Eye contact: no 05/25/2016 None Full Exam - General 1994 Psychiatric appearance Grooming: well-groomed 05/25/2016 None Full Exam - General 1994 Psychiatric speech Overall: normal quality, no aphasia 05/25/2016 None Full Exam - General 1994 Psychiatric speech Overall: normal quality, quantity, rate 05/25/2016 None Full Exam - General 1994 Psychiatric thought Form of thought: evasiveness 05/25/2016 None Full Exam - General 1994 Constitutional general appearance Development: well developed 05/16/2015 None Full Exam - General 1994 Constitutional general appearance Development: appears stated age 0205/16/2015 None Full Exam - General 1994 Respiratory auscultation Overall: breath sounds clear bilaterally 05/16/2015 None Full Exam - General 1994 Cardiovascular auscultation of heart Overall: regular rate 05/16/2015 None Full Exam - General 1994 Cardiovascular auscultation of heart Overall: normal heart sounds 05/16/2015 None Full Exam - General 1994 Abdomen abdominal exam Overall: normal bowel sounds 05/16/2015 None Full Exam - General 1994 Musculoskeletal head and neck Overall: head atraumatic 05/16/2015 None Full Exam - General 1994 Integument inspection of skin Overall: few scattered moles, no gross abnormalities 05/16/2015 None Full Exam - General 1994 Integument inspection of skin Overall: no rash, lesions 05/16/2015 None Full Exam - General 1994 Psychiatric orientation/consciousness Overall: oriented to person, place and time 05/16/2015 None Full Exam - General 1994 Eyes pupils and irises Overall: pupils equal, round, reactive to light and accomodation 05/16/2015 None Full Exam - General 1994 Ears/Nose/Throat otoscopic exam Overall: external auditory canals clear 05/16/2015 None Full Exam - General 1994 Ears/Nose/Throat otoscopic exam Overall: tympanic membranes clear 05/16/2015 None Full Exam - General 1994 Ears/Nose/Throat lips/teeth/gingiva Overall: benign lips 05/16/2015 None Full Exam - General 1994 Ears/Nose/Throat lips/teeth/gingiva Overall: normal dentition 05/16/2015 None Full Exam - General 1994 Respiratory respiratory effort/rhythm Overall: no retractions 05/16/2015 None Full Exam - General 1994 Respiratory respiratory effort/rhythm Overall: normal rate 05/16/2015 None Full Exam - General 1994 Cardiovascular extremities Overall: no clubbing 05/16/2015 None Full Exam - General 1994 Musculoskeletal spine, ribs and pelvis Overall: good posture 05/16/2015 None Full Exam - General 1994 Neurologic gait Overall: no ataxia, no unsteadiness 05/16/2015 None Full Exam - General 1994 Constitutional general appearance Overall: well developed 08/23/2014 None Full Exam - General 1994 Constitutional general appearance Overall: in no acute distress 08/23/2014 None Full Exam - General 1994 Constitutional general appearance Overall: well nourished 08/23/2014 None Full Exam - General 1994 Eyes pupils and irises Overall: pupils equal, round, reactive to light and accomodation 08/23/2014 None Full Exam - General 1994 Ears/Nose/Throat otoscopic exam Overall: external auditory canals clear 08/23/2014 None Full Exam - General 1994 Ears/Nose/Throat otoscopic exam Overall: tympanic membranes clear 08/23/2014 None Full Exam - General 1994 Ears/Nose/Throat oral cavity/pharynx/larynx Overall: oral mucosa clear 08/23/2014 None Full Exam - General 1994 Ears/Nose/Throat oral cavity/pharynx/larynx Overall: oropharyngeal mucosa clear 08/23/2014 None Full Exam - General 1994 Ears/Nose/Throat oral cavity/pharynx/larynx Overall: no masses 08/23/2014 None Full Exam - General 1994 Neck thyroid Overall: normal size None Full Exam - General 1994 Neck thyroid Overall: no mass lesions 08/23/2014 None Full Exam - General 1994 Respiratory auscultation Overall: breath sounds clear bilaterally 08/23/2014 None Full Exam - General 1994 Cardiovascular extremities Overall: no clubbing 08/23/2014 None Full Exam - General 1994 Cardiovascular auscultation of heart Overall: regular rate 08/23/2014 None Full Exam - General 1994 Cardiovascular auscultation of heart Overall: normal heart sounds 08/23/2014 None Full Exam - General 1994 Cardiovascular auscultation of heart Overall: no murmurs 08/23/2014 None Full Exam - General 1994 Chest/Breast breast and axillae palpation Overall: breasts non-tender 08/23/2014 None Full Exam - General 1994 Chest/Breast breast and axillae palpation Overall: no nipple discharge 08/23/2014 None Full Exam - General 1994 Chest/Breast breast/chest inspection Overall: breasts to symmetric and without lesions 08/23/2014 None Full Exam - General 1994 Chest/Breast breast/chest inspection Overall: normal chest shape 08/23/2014 None Full Exam - General 1994 Abdomen abdominal exam Overall: normal bowel sounds 08/23/2014 None Full Exam - General 1994 Abdomen abdominal exam Epigastric: tender to palpation 08/23/2014 None Full Exam - General 1994 Abdomen abdominal exam Epigastric: no rebound tenderness 08/23/2014 None Full Exam - General 1994 Abdomen abdominal exam Epigastric: no mass lesions 08/23/2014 None Full Exam - General 1994 Abdomen liver and spleen exam Overall: no hepatosplenomegaly 08/23/2014 None Full Exam - General 1994 Abdomen liver and spleen exam Overall: no stigmata of chronic liver disease 08/23/2014 None Full Exam - General 1994 Genitourinary uterus Overall: normal size 08/23/2014 None Full Exam - General 1994 Genitourinary uterus Position: a normal exam 08/23/2014 None Full Exam - General 1994 Genitourinary uterus Mobility: a normal exam 08/23/2014 None Full Exam - General 1994 Genitourinary cervix Inspection: no lesions 08/23/2014 - os closed, unable to appreciate the cervical os Full Exam - General 1994 Genitourinary labia and vagina Overall: normal hair distribution 08/23/2014 None Full Exam - General 1994 Genitourinary labia and vagina Overall: no lesions 08/23/2014 None Full Exam - General 1994 Genitourinary labia and vagina Labia: no lesions present 08/23/2014 None Full Exam - General 1994 Genitourinary urethra Overall: no masses 08/23/2014 None Full Exam - General 1994 Musculoskeletal head and neck Overall: head atraumatic 08/23/2014 None Full Exam - General 1994 Musculoskeletal head and neck Overall: cervical spine benign 08/23/2014 None Full Exam - General 1994 Neurologic cranial nerves Overall: crainial nerves 2 - 12 grossly intact 08/23/2014 None Full Exam - General 1994 Psychiatric orientation/consciousness Overall: oriented to person, place and time 08/23/2014 None Full Exam - General 1994 Psychiatric mood and affect Overall: normal mood and affect 08/23/2014 None Full Exam - General 1994 Constitutional general appearance Overall: well developed 08/15/2014 None Full Exam - General 1994 Constitutional general appearance Overall: in no acute distress 08/15/2014 None Full Exam - General 1994 Constitutional general appearance Overall: well nourished 08/15/2014 None Full Exam - General 1994 Eyes pupils and irises Overall: pupils equal, round, reactive to light and accomodation 08/15/2014 None Full Exam - General 1994 Ears/Nose/Throat otoscopic exam Overall: external auditory canals clear 08/15/2014 None Full Exam - General 1994 Ears/Nose/Throat otoscopic exam Overall: tympanic membranes clear 08/15/2014 None Full Exam - General 1994 Ears/Nose/Throat oral cavity/pharynx/larynx Overall: oral mucosa clear 08/15/2014 None Full Exam - General 1994 Ears/Nose/Throat oral cavity/pharynx/larynx Overall: oropharyngeal mucosa clear 08/15/2014 None Full Exam - General 1994 Ears/Nose/Throat oral cavity/pharynx/larynx Overall: no masses 08/15/2014 None Full Exam - General 1994 Neck thyroid Overall: normal size None Full Exam - General 1994 Neck thyroid Overall: no mass lesions 08/15/2014 None Full Exam - General 1994 Respiratory auscultation Overall: breath sounds clear bilaterally 08/15/2014 None Full Exam - General 1994 Cardiovascular extremities Overall: no clubbing 08/15/2014 None Full Exam - General 1994 Cardiovascular auscultation of heart Overall: regular rate 08/15/2014 None Full Exam - General 1994 Cardiovascular auscultation of heart Overall: normal heart sounds 08/15/2014 None Full Exam - General 1994 Cardiovascular auscultation of heart Overall: no murmurs 08/15/2014 None Full Exam - General 1994 Chest/Breast breast and axillae palpation Overall: breasts non-tender 08/15/2014 None Full Exam - General 1994 Chest/Breast breast and axillae palpation Overall: no nipple discharge 08/15/2014 None Full Exam - General 1994 Chest/Breast breast/chest inspection Overall: breasts to symmetric and without lesions 08/15/2014 None Full Exam - General 1994 Chest/Breast breast/chest inspection Overall: normal chest shape 08/15/2014 None Full Exam - General 1994 Abdomen abdominal exam Overall: normal bowel sounds 08/15/2014 None Full Exam - General 1994 Abdomen abdominal exam Epigastric: tender to palpation 08/15/2014 None Full Exam - General 1994 Abdomen abdominal exam Epigastric: no rebound tenderness 08/15/2014 None Full Exam - General 1994 Abdomen abdominal exam Epigastric: no mass lesions 08/15/2014 None Full Exam - General 1994 Abdomen liver and spleen exam Overall: no hepatosplenomegaly 08/15/2014 None Full Exam - General 1994 Abdomen liver and spleen exam Overall: no stigmata of chronic liver disease 08/15/2014 None Full Exam - General 1994 Genitourinary uterus Overall: normal size 08/15/2014 None Full Exam - General 1994 Genitourinary uterus Position: a normal exam 08/15/2014 None Full Exam - General 1994 Genitourinary uterus Mobility: a normal exam 08/15/2014 None Full Exam - General 1994 Genitourinary labia and vagina Overall: normal hair distribution 08/15/2014 None Full Exam - General 1994 Genitourinary labia and vagina Overall: no lesions 08/15/2014 None Full Exam - General 1994 Genitourinary labia and vagina Labia: no lesions present 08/15/2014 None Full Exam - General 1994 Genitourinary urethra Overall: no masses 08/15/2014 None Full Exam - General 1994 Musculoskeletal head and neck Overall: head atraumatic 08/15/2014 None Full Exam - General 1994 Musculoskeletal head and neck Overall: cervical spine benign 08/15/2014 None Full Exam - General 1994 Neurologic cranial nerves Overall: crainial nerves 2 - 12 grossly intact 08/15/2014 None Full Exam - General 1994 Psychiatric orientation/consciousness Overall: oriented to person, place and time 08/15/2014 None Full Exam - General 1994 Psychiatric mood and affect Overall: normal mood and affect 08/15/2014 None Full Exam - General 1994 Genitourinary cervix Inspection: no lesions 08/15/2014 - os closed, unable to appreciate the cervical os Full Exam - General 1994 Psychiatric orientation/consciousness Overall: oriented to person, place and time 07/26/2014 None Full Exam - General 1994 Integument inspection of skin Overall: few scattered moles, no gross abnormalities 07/26/2014 None Full Exam - General 1994 Integument inspection of skin Overall: no rash, lesions 07/26/2014 None Full Exam - General 1994 Musculoskeletal head and neck Overall: head atraumatic 07/26/2014 None Full Exam - General 1994 Lymphatic neck nodes Overall: anterior cervical chain benign 07/26/2014 None Full Exam - General 1994 Lymphatic neck nodes Overall: posterior cervical chain benign 07/26/2014 None Full Exam - General 1994 Abdomen abdominal exam Overall: no tenderness 07/26/2014 None Full Exam - General 1994 Abdomen abdominal exam Overall: normal bowel sounds 07/26/2014 None Full Exam - General 1994 Cardiovascular auscultation of heart Overall: regular rate 07/26/2014 None Full Exam - General 1994 Cardiovascular auscultation of heart Overall: normal heart sounds 07/26/2014 None Full Exam - General 1994 Cardiovascular auscultation of heart Overall: no murmurs 07/26/2014 None Full Exam - General 1994 Respiratory auscultation Overall: breath sounds clear bilaterally 07/26/2014 None Full Exam - General 1994 Neck thyroid Overall: normal size None Full Exam - General 1994 Neck thyroid Overall: normal consistency 07/26/2014 None Full Exam - General 1994 Constitutional general appearance Development: well developed 07/26/2014 None Full Exam - General 1994 Constitutional general appearance Development: appears stated age 0407/26/2014 None Full Exam - General 1994 Constitutional general appearance Overall: well developed 05/08/2014 None Full Exam - General 1994 Constitutional general appearance Overall: in no acute distress 05/08/2014 None Full Exam - General 1994 Constitutional general appearance Overall: well nourished 05/08/2014 None Full Exam - General 1994 Psychiatric orientation/consciousness Overall: oriented to person, place and time 05/08/2014 None Full Exam - General 1994 Lymphatic neck nodes Overall: anterior cervical chain benign 05/08/2014 None Full Exam - General 1994 Lymphatic neck nodes Overall: posterior cervical chain benign 05/08/2014 None Full Exam - General 1994 Cardiovascular auscultation of heart Overall: regular rate 05/08/2014 None Full Exam - General 1994 Cardiovascular auscultation of heart Overall: normal heart sounds 05/08/2014 None Full Exam - General 1994 Respiratory auscultation Overall: breath sounds clear bilaterally 05/08/2014 None Full Exam - General 1994 Respiratory respiratory effort/rhythm Overall: no retractions 05/08/2014 None Full Exam - General 1994 Respiratory respiratory effort/rhythm Overall: normal rate 05/08/2014 None Full Exam - General 1994 Ears/Nose/Throat otoscopic exam Overall: external auditory canals clear 05/08/2014 None Full Exam - General 1994 Ears/Nose/Throat otoscopic exam Overall: tympanic membranes clear 05/08/2014 None Full Exam - General 1994 Ears/Nose/Throat oral cavity/pharynx/larynx Overall: oral mucosa clear 05/08/2014 None Full Exam - General 1994 Constitutional general appearance Overall: well developed 01/23/2014 None Full Exam - General 1994 Constitutional general appearance Overall: in no acute distress 01/23/2014 None Full Exam - General 1994 Constitutional general appearance Overall: well nourished 01/23/2014 None Full Exam - General 1994 Respiratory auscultation Overall: breath sounds clear bilaterally 01/23/2014 None Full Exam - General 1994 Cardiovascular extremities Overall: no clubbing 01/23/2014 None Full Exam - General 1994 Cardiovascular auscultation of heart Overall: regular rate 01/23/2014 None Full Exam - General 1994 Cardiovascular auscultation of heart Overall: normal heart sounds 01/23/2014 None Full Exam - General 1994 Cardiovascular auscultation of heart Overall: no murmurs 01/23/2014 None Full Exam - General 1994 Musculoskeletal head and neck Overall: head atraumatic 01/23/2014 None Full Exam - General 1994 Musculoskeletal head and neck Overall: cervical spine benign 01/23/2014 None Full Exam - General 1994 Neurologic cranial nerves Overall: crainial nerves 2 - 12 grossly intact 01/23/2014 None Full Exam - General 1994 Psychiatric orientation/consciousness Overall: oriented to person, place and time 01/23/2014 None Full Exam - General 1994 Psychiatric mood and affect Overall: normal mood and affect 01/23/2014 None Full Exam - General 1994 Ears/Nose/Throat otoscopic exam Overall: tympanic membranes clear 01/23/2014 None Full Exam - General 1994 Ears/Nose/Throat otoscopic exam Overall: external auditory canals clear 01/23/2014 None Full Exam - General 1994 Ears/Nose/Throat oral cavity/pharynx/larynx Overall: oropharyngeal mucosa clear 01/23/2014 None Full Exam - General 1994 Ears/Nose/Throat oral cavity/pharynx/larynx Overall: no masses 01/23/2014 None Full Exam - General 1994 Ears/Nose/Throat oral cavity/pharynx/larynx Overall: oral mucosa clear 01/23/2014 None Full Exam - General 1994 Lymphatic neck nodes Overall: anterior cervical chain benign 01/23/2014 None Full Exam - General 1994 Lymphatic neck nodes Overall: posterior cervical chain benign 01/23/2014 None Full Exam - General 1994 Constitutional general appearance Overall: well developed 05/31/2013 None Full Exam - General 1994 Constitutional general appearance Overall: in no acute distress 05/31/2013 None Full Exam - General 1994 Constitutional general appearance Overall: well nourished 05/31/2013 None Full Exam - General 1994 Eyes pupils and irises Overall: pupils equal, round, reactive to light and accomodation 05/31/2013 None Full Exam - General 1994 Ears/Nose/Throat otoscopic exam Overall: external auditory canals clear 05/31/2013 None Full Exam - General 1994 Ears/Nose/Throat otoscopic exam Overall: tympanic membranes clear 05/31/2013 None Full Exam - General 1994 Ears/Nose/Throat oral cavity/pharynx/larynx Overall: oral mucosa clear 05/31/2013 None Full Exam - General 1994 Ears/Nose/Throat oral cavity/pharynx/larynx Overall: oropharyngeal mucosa clear 05/31/2013 None Full Exam - General 1994 Ears/Nose/Throat oral cavity/pharynx/larynx Overall: no masses 05/31/2013 None Full Exam - General 1994 Neck thyroid Overall: normal size 07/2013 None Full Exam - General 1994 Neck thyroid Overall: no mass lesions 05/31/2013 None Full Exam - General 1994 Respiratory auscultation Overall: breath sounds clear bilaterally 05/31/2013 None Full Exam - General 1994 Cardiovascular extremities Overall: no clubbing 05/31/2013 None Full Exam - General 1994 Cardiovascular auscultation of heart Overall: regular rate 05/31/2013 None Full Exam - General 1994 Cardiovascular auscultation of heart Overall: normal heart sounds 05/31/2013 None Full Exam - General 1994 Cardiovascular auscultation of heart Overall: no murmurs 05/31/2013 None Full Exam - General 1994 Chest/Breast breast and axillae palpation Overall: breasts non-tender 05/31/2013 None Full Exam - General 1994 Chest/Breast breast and axillae palpation Overall: no nipple discharge 05/31/2013 None Full Exam - General 1994 Chest/Breast breast/chest inspection Overall: breasts to symmetric and without lesions 05/31/2013 None Full Exam - General 1994 Chest/Breast breast/chest inspection Overall: normal chest shape 05/31/2013 None Full Exam - General 1994 Abdomen abdominal exam Overall: normal bowel sounds 05/31/2013 None Full Exam - General 1994 Abdomen abdominal exam Epigastric: tender to palpation 05/31/2013 None Full Exam - General 1994 Abdomen abdominal exam Epigastric: no rebound tenderness 05/31/2013 None Full Exam - General 1994 Abdomen abdominal exam Epigastric: no mass lesions 05/31/2013 None Full Exam - General 1994 Abdomen liver and spleen exam Overall: no hepatosplenomegaly 05/31/2013 None Full Exam - General 1994 Abdomen liver and spleen exam Overall: no stigmata of chronic liver disease 05/31/2013 None Full Exam - General 1994 Genitourinary uterus Overall: normal size 05/31/2013 None Full Exam - General 1994 Genitourinary uterus Position: a normal exam 05/31/2013 None Full Exam - General 1994 Genitourinary uterus Mobility: a normal exam 05/31/2013 None Full Exam - General 1994 Genitourinary cervix Overall: no discharge 05/31/2013 None Full Exam - General 1994 Genitourinary cervix Inspection: no lesions 05/31/2013 None Full Exam - General 1994 Genitourinary labia and vagina Overall: normal hair distribution 05/31/2013 None Full Exam - General 1994 Genitourinary labia and vagina Overall: no lesions 05/31/2013 None Full Exam - General 1994 Genitourinary labia and vagina Labia: no lesions present 05/31/2013 None Full Exam - General 1994 Genitourinary adnexa/parametria Overall: no tenderness 05/31/2013 None Full Exam - General 1994 Genitourinary urethra Overall: no masses 05/31/2013 None Full Exam - General 1994 Genitourinary bladder Overall: no tenderness 05/31/2013 None Full Exam - General 1995 Musculoskeletal head and neck Overall: head atraumatic 05/31/2013 None Full Exam - General 1994 Musculoskeletal head and neck Overall: cervical spine benign 05/31/2013 None Full Exam - General 1994 Neurologic cranial nerves Overall: crainial nerves 2 - 12 grossly intact 05/31/2013 None Full Exam - General 1994 Psychiatric orientation/consciousness Overall: oriented to person, place and time 05/31/2013 None Full Exam - General 1994 Psychiatric mood and affect Overall: normal mood and affect 05/31/2013 None Full Exam - General 1994 Constitutional general appearance Overall: well nourished 03/01/2013 None Full Exam - General 1994 Constitutional general appearance Overall: well developed 03/01/2013 None Full Exam - General 1994 Constitutional general appearance Overall: in no acute distress 03/01/2013 None Full Exam - General 1994 Respiratory auscultation Overall: breath sounds clear bilaterally 03/01/2013 None Full Exam - General 1994 Cardiovascular auscultation of heart Overall: regular rate 03/01/2013 None Full Exam - General 1994 Cardiovascular auscultation of heart Overall: normal heart sounds 03/01/2013 None Full Exam - General 1994 Cardiovascular auscultation of heart Overall: no murmurs 03/01/2013 None Full Exam - General 1994 Cardiovascular extremities Overall: no clubbing 03/01/2013 None Full Exam - General 1994 Musculoskeletal head and neck Overall: head atraumatic 03/01/2013 None Full Exam - General 1994 Musculoskeletal head and neck Overall: cervical spine benign 03/01/2013 None Full Exam - General 1994 Neurologic cranial nerves Overall: crainial nerves 2 - 12 grossly intact 03/01/2013 None Full Exam - General 1994 Psychiatric orientation/consciousness Overall: oriented to person, place and time 03/01/2013 None Full Exam - General 1994 Psychiatric mood and affect Overall: normal mood and affect 03/01/2013 None Full Exam - General 1994 Constitutional general appearance Overall: well developed 01/10/2013 None Full Exam - General 1994 Constitutional general appearance Overall: well nourished 01/10/2013 None Full Exam - General 1994 Eyes conjunctiva /eyelids Overall: conjunctiva clear 01/10/2013 None Full Exam - General 1995 Ears/Nose/Throat otoscopic exam Overall: external auditory canals clear 01/10/2013 None Full Exam - General 1995 Ears/Nose/Throat otoscopic exam Overall: tympanic membranes clear 01/10/2013 None Full Exam - General 1995 Ears/Nose/Throat oral cavity/pharynx/larynx Overall: oral mucosa clear 01/10/2013 None Full Exam - General 1994 Respiratory auscultation Overall: breath sounds clear bilaterally 01/10/2013 None Full Exam - General 1994 Respiratory respiratory effort/rhythm Overall: no retractions 01/10/2013 None Full Exam - General 1994 Respiratory respiratory effort/rhythm Overall: normal rate 01/10/2013 None Full Exam - General 1994 Cardiovascular auscultation of heart Overall: regular rate 01/10/2013 None Full Exam - General 1994 Cardiovascular auscultation of heart Overall: normal heart sounds 01/10/2013 None Full Exam - General 1994 Lymphatic neck nodes Overall: anterior cervical chain benign 01/10/2013 None Full Exam - General 1994 Lymphatic neck nodes Overall: posterior cervical chain benign 01/10/2013 None Full Exam - General 1994 Integument inspection of skin Overall: no rash, lesions 01/10/2013 None Full Exam - General 1994 Psychiatric orientation/consciousness Overall: oriented to person, place and time 01/10/2013 None Full Exam - General 1994 Abdomen abdominal exam Bowel sounds: hyperactive 01/10/2013 None Full Exam - General 1994 Abdomen abdominal exam Upper quadrant: tender to palpation 01/10/2013 None Full Exam - General 1994 Abdomen abdominal exam Lower quadrant: tender to palpation 01/10/2013 None Full Exam - General 1994 Constitutional general appearance Development: well developed 12/20/2012 None Full Exam - General 1994 Constitutional general appearance Development: appears stated age 0912/20/2012 None Full Exam - General 1994 Integument inspection of skin Location: right foot 12/20/2012 None Full Exam - General 1994 Integument inspection of skin Rash/Lesions: patch 12/20/2012 None Full Exam - General 1994 Integument inspection of skin Consistency: dry 12/20/2012 None Full Exam - General 1994 Psychiatric orientation/consciousness Overall: oriented to person, place and time 12/20/2012 None Full Exam - General 1994 Respiratory respiratory effort/rhythm Overall: normal rate 12/20/2012 None Full Exam - General 1994 Respiratory respiratory effort/rhythm Overall: no retractions 12/20/2012 None Full Exam - General 1994 Respiratory auscultation Overall: breath sounds clear bilaterally 12/20/2012 None Full Exam - General 1994 Cardiovascular auscultation of heart Overall: regular rate 12/20/2012 None Full Exam - General 1994 Cardiovascular auscultation of heart Overall: normal heart sounds 12/20/2012 None Full Exam - General 1994 Cardiovascular auscultation of heart Overall: no murmurs 12/20/2012 None Full Exam - General 1994 Abdomen abdominal exam Overall: no tenderness 12/20/2012 None Full Exam - General 1994 Abdomen abdominal exam Overall: normal bowel sounds 12/20/2012 None Full Exam - General 1994 Eyes pupils and irises Overall: pupils equal, round, reactive to light and accomodation 08/02/2012 None Full Exam - General 1995 Ears/Nose/Throat otoscopic exam Overall: external auditory canals clear 08/02/2012 None Full Exam - General 1995 Ears/Nose/Throat otoscopic exam Overall: tympanic membranes clear 08/02/2012 None Full Exam - General 1994 Ears/Nose/Throat oral cavity/pharynx/larynx Overall: oral mucosa clear 08/02/2012 None Full Exam - General 1995 Ears/Nose/Throat oral cavity/pharynx/larynx Overall: oropharyngeal mucosa clear 08/02/2012 None Full Exam - General 1995 Ears/Nose/Throat oral cavity/pharynx/larynx Overall: no masses 08/02/2012 None Full Exam - General 1994 Neck thyroid Overall: normal size 09/2012 None Full Exam - General 1994 Neck thyroid Overall: no mass lesions 08/02/2012 None Full Exam - General 1994 Respiratory auscultation Overall: breath sounds clear bilaterally 08/02/2012 None Full Exam - General 1994 Cardiovascular auscultation of heart Overall: regular rate 08/02/2012 None Full Exam - General 1994 Cardiovascular auscultation of heart Overall: normal heart sounds 08/02/2012 None Full Exam - General 1994 Cardiovascular auscultation of heart Overall: no murmurs 08/02/2012 None Full Exam - General 1994 Cardiovascular extremities Overall: no clubbing 08/02/2012 None Full Exam - General 1994 Constitutional general appearance Overall: well nourished 08/02/2012 None Full Exam - General 1994 Constitutional general appearance Overall: well developed 08/02/2012 None Full Exam - General 1994 Constitutional general appearance Overall: in no acute distress 08/02/2012 None Full Exam - General 1994 Chest/Breast breast and axillae palpation Overall: breasts non-tender 08/02/2012 None Full Exam - General 1994 Chest/Breast breast and axillae palpation Overall: no nipple discharge 08/02/2012 None Full Exam - General 1994 Chest/Breast breast/chest inspection Overall: breasts to symmetric and without lesions 08/02/2012 None Full Exam - General 1994 Chest/Breast breast/chest inspection Overall: normal chest shape 08/02/2012 None Full Exam - General 1994 Abdomen abdominal exam Overall: normal bowel sounds 08/02/2012 None Full Exam - General 1994 Abdomen abdominal exam Epigastric: tender to palpation 08/02/2012 None Full Exam - General 1994 Abdomen abdominal exam Epigastric: no rebound tenderness 08/02/2012 None Full Exam - General 1994 Abdomen abdominal exam Epigastric: no mass lesions 08/02/2012 None Full Exam - General 1994 Abdomen liver and spleen exam Overall: no hepatosplenomegaly 08/02/2012 None Full Exam - General 1994 Abdomen liver and spleen exam Overall: no stigmata of chronic liver disease 08/02/2012 None Full Exam - General 1994 Genitourinary uterus Overall: normal size 08/02/2012 None Full Exam - General 1994 Genitourinary uterus Position: a normal exam 08/02/2012 None Full Exam - General 1994 Genitourinary uterus Mobility: a normal exam 08/02/2012 None Full Exam - General 1994 Genitourinary cervix Overall: no discharge 08/02/2012 None Full Exam - General 1994 Genitourinary cervix Inspection: no lesions 08/02/2012 None Full Exam - General 1994 Genitourinary labia and vagina Overall: normal hair distribution 08/02/2012 None Full Exam - General 1994 Genitourinary labia and vagina Overall: no lesions 08/02/2012 None Full Exam - General 1994 Genitourinary labia and vagina Labia: no lesions present 08/02/2012 None Full Exam - General 1994 Genitourinary adnexa/parametria Overall: no tenderness 08/02/2012 None Full Exam - General 1995 Genitourinary urethra Overall: no masses 08/02/2012 None Full Exam - General 1995 Genitourinary bladder Overall: no tenderness 08/02/2012 None Full Exam - General 1995 Musculoskeletal head and neck Overall: head atraumatic 08/02/2012 None Full Exam - General 1995 Musculoskeletal head and neck Overall: cervical spine benign 08/02/2012 None Full Exam - General 1994 Neurologic cranial nerves Overall: crainial nerves 2 - 12 grossly intact 08/02/2012 None Full Exam - General 1995 Psychiatric orientation/consciousness Overall: oriented to person, place and time 08/02/2012 None Full Exam - General 1995 Psychiatric mood and affect Overall: normal mood and affect 08/02/2012 None Full Exam - General 1994 Constitutional general appearance Overall: well developed 04/06/2012 None Full Exam - General 1994 Constitutional general appearance Overall: in no acute distress 04/06/2012 None Full Exam - General 1994 Constitutional general appearance Overall: well nourished 04/06/2012 None Full Exam - General 1994 Psychiatric orientation/consciousness Overall: oriented to person, place and time 04/06/2012 None Full Exam - General 1994 Integument inspection of skin Overall: no rash, lesions 04/06/2012 None Full Exam - General 1994 Abdomen abdominal exam Overall: no tenderness 04/06/2012 None Full Exam - General 1994 Abdomen abdominal exam Overall: normal bowel sounds 04/06/2012 None Full Exam - General 1994 Lymphatic neck nodes Overall: anterior cervical chain benign 04/06/2012 None Full Exam - General 1994 Lymphatic neck nodes Overall: posterior cervical chain benign 04/06/2012 None Full Exam - General 1994 Cardiovascular auscultation of heart Overall: regular rate 04/06/2012 None Full Exam - General 1994 Cardiovascular auscultation of heart Overall: normal heart sounds 04/06/2012 None Full Exam - General 1994 Respiratory auscultation Overall: breath sounds clear bilaterally 04/06/2012 None Full Exam - General 1994 Respiratory respiratory effort/rhythm Overall: no retractions 04/06/2012 None Full Exam - General 1994 Respiratory respiratory effort/rhythm Overall: normal rate 04/06/2012 None Full Exam - General 1994 Ears/Nose/Throat otoscopic exam Overall: external auditory canals clear 04/06/2012 None Full Exam - General 1995 Ears/Nose/Throat otoscopic exam Overall: tympanic membranes clear 04/06/2012 None Full Exam - General 1994 Ears/Nose/Throat oral cavity/pharynx/larynx Overall: oral mucosa clear 04/06/2012 None Full Exam - General 1994 Eyes conjunctiva /eyelids Overall: conjunctiva clear 04/06/2012 None Full Exam - General 1994 Constitutional general appearance Development: well developed 01/04/2012 None Full Exam - General 1994 Constitutional general appearance Development: appears stated age 1001/04/2012 None Full Exam - General 1994 Psychiatric orientation/consciousness Overall: oriented to person, place and time 01/04/2012 None Full Exam - General 1994 Integument inspection of skin Location: right foot 01/04/2012 None Full Exam - General 1994 Integument inspection of skin Rash/Lesions: patch 01/04/2012 None Full Exam - General 1994 Integument inspection of skin Consistency: dry 01/04/2012 None Full Exam - ENT Ears/Nose/Throat otoscopic exam Left tympanic membrane: air -fluid level 09/17/2011 None Full Exam - ENT Ears/Nose/Throat otoscopic exam Right tympanic membrane: air-fluid level 09/17/2011 None Full Exam - ENT Ears/Nose/Throat oropharynx Overall: oral mucosa clear 09/17/2011 None Full Exam - ENT Neurologic orientation Overall: oriented to person, place and time 09/17/2011 None Full Exam - ENT Lymphatic palpation of lymph nodes Overall: shotty lymphadenopathy 09/17/2011 left Full Exam - ENT Cardiovascular auscultation of heart Overall: regular rate 09/17/2011 None Full Exam - ENT Cardiovascular auscultation of heart Overall: normal heart sounds 09/17/2011 None Full Exam - ENT Respiratory auscultation Overall: breath sounds clear bilaterally 09/17/2011 None Full Exam - ENT Respiratory inspection Overall: no retractions 09/17/2011 None Full Exam - ENT Respiratory inspection Overall: normal rate None Full Exam - ENT Constitutional general appearance Overall: well nourished 09/17/2011 None Full Exam - ENT Constitutional general appearance Overall: well developed 09/17/2011 None Full Exam - ENT Constitutional general appearance Overall: in no acute distress 09/17/2011 None Full Exam - ENT Ears/Nose/Throat otoscopic exam Overall: external auditory canals normal 09/17/2011 None Full Exam - General 1994 Constitutional general appearance Overall: well nourished 07/27/2011 None Full Exam - General 1994 Constitutional general appearance Overall: well developed 07/27/2011 None Full Exam - General 1994 Constitutional general appearance Overall: in no acute distress 07/27/2011 None Full Exam - General 1994 Eyes pupils and irises Overall: pupils equal, round, reactive to light and accomodation 07/27/2011 None Full Exam - General 1994 Ears/Nose/Throat otoscopic exam Overall: external auditory canals clear 07/27/2011 None Full Exam - General 1994 Ears/Nose/Throat otoscopic exam Overall: tympanic membranes clear 07/27/2011 None Full Exam - General 1994 Ears/Nose/Throat oral cavity/pharynx/larynx Overall: oral mucosa clear 07/27/2011 None Full Exam - General 1994 Ears/Nose/Throat oral cavity/pharynx/larynx Overall: oropharyngeal mucosa clear 07/27/2011 None Full Exam - General 1994 Ears/Nose/Throat oral cavity/pharynx/larynx Overall: no masses 07/27/2011 None Full Exam - General 1994 Respiratory auscultation Overall: breath sounds clear bilaterally 07/27/2011 None Full Exam - General 1994 Cardiovascular auscultation of heart Overall: regular rate 07/27/2011 None Full Exam - General 1994 Cardiovascular auscultation of heart Overall: normal heart sounds 07/27/2011 None Full Exam - General 1994 Cardiovascular auscultation of heart Overall: no murmurs 07/27/2011 None Full Exam - General 1994 Cardiovascular extremities Overall: no clubbing 07/27/2011 None Full Exam - General 1994 Abdomen abdominal exam Overall: normal bowel sounds 07/27/2011 None Full Exam - General 1994 Abdomen abdominal exam Epigastric: tender to palpation 07/27/2011 None Full Exam - General 1994 Abdomen abdominal exam Epigastric: no rebound tenderness 07/27/2011 None Full Exam - General 1994 Abdomen abdominal exam Epigastric: no mass lesions 07/27/2011 None Full Exam - General 1994 Abdomen liver and spleen exam Overall: no hepatosplenomegaly 07/27/2011 None Full Exam - General 1994 Abdomen liver and spleen exam Overall: no stigmata of chronic liver disease 07/27/2011 None Full Exam - General 1994 Musculoskeletal head and neck Overall: head atraumatic 07/27/2011 None Full Exam - General 1994 Musculoskeletal head and neck Overall: cervical spine benign 07/27/2011 None Full Exam - General 1994 Neurologic cranial nerves Overall: crainial nerves 2 - 12 grossly intact 07/27/2011 None Full Exam - General 1994 Psychiatric orientation/consciousness Overall: oriented to person, place and time 07/27/2011 None Full Exam - General 1994 Psychiatric mood and affect Overall: normal mood and affect 07/27/2011 None Full Exam - General 1994 Neck thyroid Overall: normal size None Full Exam - General 1994 Neck thyroid Overall: no mass lesions 07/27/2011 None Full Exam - General 1994 Chest/Breast breast/chest inspection Overall: breasts to symmetric and without lesions 07/27/2011 None Full Exam - General 1994 Chest/Breast breast/chest inspection Overall: normal chest shape 07/27/2011 None Full Exam - General 1994 Chest/Breast breast and axillae palpation Overall: breasts non-tender 07/27/2011 None Full Exam - General 1994 Chest/Breast breast and axillae palpation Overall: no nipple discharge 07/27/2011 None Full Exam - General 1994 Genitourinary uterus Overall: normal size 07/27/2011 None Full Exam - General 1994 Genitourinary uterus Position: a normal exam 07/27/2011 None Full Exam - General 1994 Genitourinary uterus Mobility: a normal exam 07/27/2011 None Full Exam - General 1994 Genitourinary cervix Overall: no discharge 07/27/2011 None Full Exam - General 1994 Genitourinary cervix Inspection: no lesions 07/27/2011 None Full Exam - General 1994 Genitourinary labia and vagina Overall: normal hair distribution 07/27/2011 None Full Exam - General 1994 Genitourinary labia and vagina Overall: no lesions 07/27/2011 None Full Exam - General 1994 Genitourinary labia and vagina Labia: no lesions present 07/27/2011 None Full Exam - General 1994 Genitourinary adnexa/parametria Overall: no tenderness 07/27/2011 None Full Exam - General 1994 Genitourinary urethra Overall: no masses 07/27/2011 None Full Exam - General 1994 Genitourinary bladder Overall: no tenderness 07/27/2011 None Full Exam - General 1994 Psychiatric mood and affect Overall: normal mood and affect 04/07/2011 None Full Exam - General 1994 Constitutional general appearance Overall: well nourished 04/07/2011 None Full Exam - General 1994 Constitutional general appearance Overall: well developed 04/07/2011 None Full Exam - General 1994 Constitutional general appearance Overall: in no acute distress 04/07/2011 None Full Exam - General 1994 Eyes pupils and irises Overall: pupils equal, round, reactive to light and accomodation 04/07/2011 None Full Exam - General 1994 Ears/Nose/Throat otoscopic exam Overall: tympanic membranes clear 04/07/2011 None Full Exam - General 1994 Ears/Nose/Throat otoscopic exam Overall: external auditory canals clear 04/07/2011 None Full Exam - General 1994 Ears/Nose/Throat oral cavity/pharynx/larynx Overall: oropharyngeal mucosa clear 04/07/2011 None Full Exam - General 1994 Ears/Nose/Throat oral cavity/pharynx/larynx Overall: no masses 04/07/2011 None Full Exam - General 1994 Ears/Nose/Throat oral cavity/pharynx/larynx Overall: oral mucosa clear 04/07/2011 None Full Exam - General 1994 Respiratory auscultation Overall: breath sounds clear bilaterally 04/07/2011 None Full Exam - General 1994 Cardiovascular extremities Overall: no clubbing 04/07/2011 None Full Exam - General 1994 Cardiovascular auscultation of heart Overall: regular rate 04/07/2011 None Full Exam - General 1994 Cardiovascular auscultation of heart Overall: normal heart sounds 04/07/2011 None Full Exam - General 1994 Cardiovascular auscultation of heart Overall: no murmurs 04/07/2011 None Full Exam - General 1994 Abdomen abdominal exam Overall: normal bowel sounds 04/07/2011 None Full Exam - General 1994 Abdomen abdominal exam Epigastric: tender to palpation 04/07/2011 None Full Exam - General 1994 Abdomen abdominal exam Epigastric: no rebound tenderness 04/07/2011 None Full Exam - General 1994 Abdomen abdominal exam Epigastric: no mass lesions 04/07/2011 None Full Exam - General 1994 Abdomen liver and spleen exam Overall: no hepatosplenomegaly 04/07/2011 None Full Exam - General 1994 Abdomen liver and spleen exam Overall: no stigmata of chronic liver disease 04/07/2011 None Full Exam - General 1994 Musculoskeletal head and neck Overall: cervical spine benign 04/07/2011 None Full Exam - General 1994 Musculoskeletal head and neck Overall: head atraumatic 04/07/2011 None Full Exam - General 1994 Neurologic cranial nerves Overall: crainial nerves 2 - 12 grossly intact 04/07/2011 None Full Exam - General 1994 Psychiatric orientation/consciousness Overall: oriented to person, place and time 04/07/2011 None Full Exam - ENT Cardiovascular auscultation of heart Overall: normal heart sounds 12/04/2010 None Full Exam - ENT Cardiovascular auscultation of heart Overall: no murmurs 12/04/2010 None Full Exam - ENT Abdomen abdominal exam Overall: no tenderness 12/04/2010 None Full Exam - ENT Abdomen abdominal exam Overall: normal bowel sounds 12/04/2010 None Full Exam - ENT Lymphatic palpation of lymph nodes Left anterior cervical chain: shotty 12/04/2010 None Full Exam - ENT Integument inspection of skin Overall: no rash, lesions 12/04/2010 None Full Exam - ENT Constitutional general appearance Overall: well nourished 12/04/2010 None Full Exam - ENT Constitutional general appearance Overall: well developed 12/04/2010 None Full Exam - ENT Constitutional general appearance Overall: in no acute distress 12/04/2010 None Full Exam - ENT Ears/Nose/Throat otoscopic exam Left tympanic membrane: air -fluid level 12/04/2010 None Full Exam - ENT Ears/Nose/Throat otoscopic exam Right tympanic membrane: air-fluid level 12/04/2010 None Full Exam - ENT Ears/Nose/Throat otoscopic exam Left external auditory canal: a normal exam 12/04/2010 None Full Exam - ENT Ears/Nose/Throat otoscopic exam Right external auditory canal: a normal exam 12/04/2010 None Full Exam - ENT Ears/Nose/Throat oropharynx Overall: oral mucosa clear 12/04/2010 None Full Exam - ENT Face and Head palpation Left maxillary sinus: tender 12/04/2010 None Full Exam - ENT Face and Head palpation Right maxillary sinus: tender 12/04/2010 None Full Exam - ENT Respiratory auscultation Overall: breath sounds clear bilaterally 12/04/2010 None Full Exam - General Ears/Nose/Throat otoscopic exam Left tympanic membrane: a normal exam 11/25/2010 None Full Exam - General Ears/Nose/Throat oral cavity/pharynx/larynx Overall: oral mucosa clear 11/25/2010 None Full Exam - General Respiratory auscultation Overall: breath sounds clear bilaterally 11/25/2010 None Full Exam - General Respiratory respiratory effort/rhythm Overall: normal rate 11/25/2010 None Full Exam - General Cardiovascular auscultation of heart Overall: normal heart sounds 11/25/2010 None Full Exam - General Abdomen abdominal exam Overall: no tenderness 11/25/2010 None Full Exam - General Abdomen abdominal exam Overall: normal bowel sounds 11/25/2010 None Full Exam - General Psychiatric orientation/consciousness Overall: oriented to person, place and time 11/25/2010 None Full Exam - General Constitutional general appearance Overall: well nourished 11/25/2010 None Full Exam - General Constitutional general appearance Overall: well developed 11/25/2010 None Full Exam - General Constitutional general appearance Overall: in no acute distress 11/25/2010 None Full Exam - General Eyes conjunctiva/ eyelids Overall: conjunctiva clear 11/25/2010 None Full Exam - General Eyes pupils and irises Overall: pupils equal, round, reactive to light and accomodation 11/25/2010 None Full Exam - General Ears/Nose/Throat otoscopic exam Overall: external auditory canals clear 11/25/2010 None Full Exam - General Ears/Nose/Throat otoscopic exam Right tympanic membrane: air-fluid level 11/25/2010 None Procedures Procedure Codes Date URINALYSIS NONAUTO W/O SCOPE CPT-4: 58267 11/03/2016 THER/PROPH/DIAG INJ SC/IM CPT-4: 80672 05/26/2016 KETOROLAC TROMETHAMINE INJ CPT-4: J1885 05/26/2016 URINALYSIS NONAUTO W/O SCOPE CPT-4: 03730 03/15/2013 KETOROLAC TROMETHAMINE INJ CPT-4: J1885 01/10/2013 PROMETHAZINE HCL INJECTION CPT-4: J2550 01/10/2013 GC/CHL PRB CPT-4: 4184653 08/02/2012 PAP CPT-4: 8297841 08/02/2012 Vital Signs Date Vital 03/25/2017 Blood Pressure 1: 110/76 Code : 8480-6 BMI: 25.3 Code : 53930-0 Heart Rate 1 : 81 bpm Height: 5'1" SpO2: 98% Weight: 132 lbs 11/03/2016 Blood Pressure 1: 126/76 Code : 8480-6 BMI: 25.4 Code : 67379-4 Heart Rate 1 : 76 bpm Height: 5'1" SpO2: 97% Weight: 132 lbs 8 oz 07/27/2016 Blood Pressure 1: 128/82 Code : 8480-6 BMI: 25.6 Code : 08869-7 Heart Rate 1 : 72 bpm Height: 5' Respiratory Rate: 18 bpm SpO2: 96% Temperature: 37.1 (C) / 98.7 (F) Weight: 131 lbs 05/25/2016 Blood Pressure 1: 154/80 Code : 8480-6 BMI: 25.3 Code : 00737-2 Heart Rate 1 : 80 bpm Height: 5'1" SpO2: 99% Weight: 132 lbs 05/16/2015 Blood Pressure 1: 126/68 Code : 8480-6 BMI: 26.2 Code : 94284-2 Heart Rate 1 : 71 bpm Height: 5'1" SpO2: 97% Weight: 137 lbs 08/15/2014 Blood Pressure 1: 122/82 Code : 8480-6 BMI: 26.6 Code : 58960-2 Heart Rate 1 : 78 bpm Height: 5'1" SpO2: 97% Weight: 139 lbs 07/26/2014 Blood Pressure 1: 122/84 Code : 8480-6 BMI: 26.6 Code : 31446-2 Heart Rate 1 : 69 bpm Height: 5'1" SpO2: 97% Temperature: 37.6 (C) / 99.7 (F) Weight: 139 lbs 05/08/2014 Blood Pressure 1: 102/72 Code : 8480-6 BMI: 25.7 Code : 31345-7 Heart Rate 1 : 76 bpm Height: 5'1" Weight: 134 lbs 01/23/2014 Blood Pressure 1: 120/72 Code : 8480-6 BMI: 26.8 Code : 27570-6 Heart Rate 1 : 80 bpm Height: 5'1" Weight: 140 lbs 05/31/2013 Blood Pressure 1: 110/62 Code : 8480-6 BMI: 25.1 Code : 15489-1 Heart Rate 1 : 64 bpm Height: 5'1" Weight: 131 lbs 03/01/2013 Blood Pressure 1: 112/72 Code : 8480-6 BMI: 25.5 Code : 67255-6 Heart Rate 1 : 76 bpm Height: 5'1" Weight: 133 lbs 01/10/2013 Blood Pressure 1: 100/60 Code : 8480-6 Heart Rate 1: 84 bpm Temperature: 37.8 (C) / 100.0 (F) Weight: 136 lbs 12/20/2012 Blood Pressure 1: 112/62 Code : 8480-6 BMI: 25.3 Code : 32209-7 Heart Rate 1 : 72 bpm Height: 5'1" Weight: 132 lbs 08/02/2012 Blood Pressure 1: 124/62 Code : 8480-6 BMI: 23.8 Code : 80249-4 Heart Rate 1 : 64 bpm Height: 5'1" Weight: 124 lbs 8 oz 04/06/2012 Blood Pressure 1: 108/62 Code : 8480-6 Heart Rate 1: 76 bpm Temperature: 36.9 (C) / 98.4 (F) Weight: 124 lbs 01/04/2012 Blood Pressure 1: 130/70 Code : 8480-6 Heart Rate 1: 68 bpm Weight: 128 lbs 09/17/2011 Blood Pressure 1: 108/62 Code : 8480-6 Heart Rate 1: 76 bpm Temperature: 36.7 (C) / 98.0 (F) Weight: 128 lbs 8 oz 07/27/2011 Blood Pressure 1: 110/80 Code : 8480-6 BMI: 24.8 Code : 00289-5 Heart Rate 1 : 76 bpm Height: 5' Respiratory Rate: 16 bpm Weight: 127 lbs 04/07/2011 Blood Pressure 1: 126/70 Code : 8480-6 BMI: 24.7 Code : 76506-1 Heart Rate 1 : 76 bpm Height: 5' Respiratory Rate: 16 bpm Weight: 126 lbs 8 oz 12/04/2010 Blood Pressure 1: 127/84 Code : 8480-6 BMI: 24.2 Code : 08710-2 Heart Rate 1 : 97 bpm Height: 5' Weight: 124 lbs 11/25/2010 Blood Pressure 1: 115/77 Code : 8480-6 BMI: 24.5 Code : 07510-6 Heart Rate 1 : 74 bpm Height: 5' Respiratory Rate: 20 bpm Weight: 125 lbs 8 oz Functional Status No Functional Status data History of Present Illness Symptom Name Status Result Effective Date Notes low back pain Radiating the left buttock 03/25/2017 (hip) low back pain Quality chronic 03/25/2017 None low back pain Quality constant 03/25/2017 None low back pain Onset and Resolution ongoing 03/25/2017 None low back pain Onset of Symptom 2 years ago 03/25/2017 None low back pain Limitation on Activities allows weight bearing activity 03/25/2017 None low back pain Frequency of Episodes daily 03/25/2017 None depression Onset and Resolution ongoing 03/25/2017 None depression Onset of Symptom during adulthood 03/25/2017 None depression Pertinent Findings agitation 03/25/2017 None depression Pertinent Findings depressed mood 03/25/2017 None depression Pertinent Findings family history of mood disorder 03/25/2017 None depression Pertinent Findings irritability 03/25/2017 None depression Pertinent Findings Denies self harm 03/25/2017 None depression Pertinent Findings suicidal ideation 03/25/2017 None depression Pertinent Findings Denies suicide attempt/plan 03/25/2017 None depression Pertinent Findings Denies self -harm 03/25/2017 None medication follow up Location oral intake 11/03/2016 None medication follow up Quality constant 11/03/2016 None hypertension Quality chronic 11/03/2016 None hypertension Onset of Symptom during adulthood 11/03/2016 None hypertension Onset and Resolution ongoing 11/03/2016 None hypertension Blood Pressure Values not checking blood pressure at home 11/03/2016 None hypertension Pertinent Findings anxiety 11/03/2016 None hypertension Pertinent Findings Denies dizziness 11/03/2016 None hypertension Pertinent Findings Denies dyspnea 11/03/2016 None hypertension Pertinent Findings Denies edema 11/03/2016 None hypertension Pertinent Findings Denies decreased energy 11/03/2016 None pelvic pain Location on both sides 11/03/2016 None pelvic pain Quality aching 11/03/2016 None pelvic pain Quality acute 11/03/2016 f pelvic pain Onset and Resolution ongoing 11/03/2016 None pelvic pain Pertinent Findings bladder pain 11/03/2016 None pelvic pain Pertinent Findings Denies urinary urgency 11/03/2016 None hypertension Severity not consistently severe symptoms, the symptoms fluctuate from no symptoms to anxiety and headaches 11/03/2016 None hypertension Frequency of Episodes unchanged 11/03/2016 None hypertension Triggers no known associated factors 11/03/2016 None diarrhea Quality intermittent 07/27/2016 None diarrhea Onset and Resolution ongoing 07/27/2016 None diarrhea Onset of Symptom 1 years ago 07/27/2016 None diarrhea Limitation on Activities moderately limits activities 07/27/2016 None diarrhea Frequency of Episodes daily 07/27/2016 None diarrhea Timing of Episodes no specific time 07/27/2016 None diarrhea Significant Medical Conditions irritable bowel syndrome 07/27/2016 None diarrhea Alleviating Factors medication 07/27/2016 Immodium diarrhea Pertinent Findings fecal urgency 07/27/2016 None diarrhea Pertinent Findings Denies abdominal distension 07/27/2016 None diarrhea Pertinent Findings Denies chills 07/27/2016 None diarrhea Pertinent Findings Denies cough 07/27/2016 None diarrhea Pertinent Findings cramping 07/27/2016 None diarrhea Pertinent Findings Denies dyspepsia 07/27/2016 None diarrhea Pertinent Findings Denies dysphagia 07/27/2016 None diarrhea Pertinent Findings Denies early satiety 07/27/2016 None diarrhea Pertinent Findings Denies edema 07/27/2016 None diarrhea Pertinent Findings Denies emesis 07/27/2016 None diarrhea Pertinent Findings Denies fever 07/27/2016 None diarrhea Pertinent Findings Denies fistula 07/27/2016 None diarrhea Pertinent Findings Denies flatulence 07/27/2016 None diarrhea Pertinent Findings Denies heartburn 07/27/2016 None diarrhea Pertinent Findings Denies hematemesis 07/27/2016 None diarrhea Pertinent Findings Denies irritability 07/27/2016 None diarrhea Pertinent Findings Denies lethargy 07/27/2016 None diarrhea Pertinent Findings Denies nausea 07/27/2016 None diarrhea Pertinent Findings Denies unable to tolerate liquids orally 07/27/2016 None diarrhea Pertinent Findings Denies seizures 07/27/2016 None diarrhea Pertinent Findings Denies rectal prolapse 07/27/2016 None diarrhea Pertinent Findings Denies poor weight gain 07/27/2016 None diarrhea Pertinent Findings Denies weight loss 07/27/2016 None diarrhea Pertinent Findings bloating 07/27/2016 None diarrhea Pertinent Findings Denies dyspnea 07/27/2016 None diarrhea Pertinent Findings Denies lightheadedness 07/27/2016 None diarrhea Exacerbating Factors eating 07/27/2016 None diarrhea Exacerbating Factors exertion 07/27/2016 None diarrhea Exacerbating Factors activity 07/27/2016 None headache Location diffusely 05/25/2016 None headache Quality constant 05/25/2016 None headache Quality pressure 05/25/2016 None headache Quality throbbing 05/25/2016 None headache Quality worsening 05/25/2016 None headache Onset and Resolution sudden in onset 05/25/2016 None headache Onset of Symptom 2 days ago 05/25/2016 None headache Frequency of Episodes daily 05/25/2016 None headache Limitation on Activities is incapacitating 05/25/2016 at time medication follow up Additional Comments medication use 05/16/2015 None medication follow up Location oral intake 05/16/2015 None medication follow up Quality constant 05/16/2015 None well woman exam (40-65 years) Menstrual History normal flow 08/15/2014 None well woman exam (40-65 years) Lifestyle no history of physical abuse 08/15/2014 None well woman exam (40-65 years) Lifestyle regular seatbelt use 08/15/2014 None well woman exam (40-65 years) Lifestyle family supportive of relationship 08/15/2014 None well woman exam (40-65 years) Lifestyle satisfactory work experience 08/15/2014 None well woman exam (40-65 years) Lifestyle normal sleep patterns 08/15/2014 None well woman exam (40-65 years) Lifestyle normal amount of stress 08/15/2014 None well woman exam (40-65 years) Control regular use 08/15/2014 None well woman exam (40-65 years) Control oral contraceptives 08/15/2014 None well woman exam (40-65 years) Nutrition and Exercise normal weight 08/15/2014 None well woman exam (40-65 years) Nutrition and Exercise balanced nutrition 08/15/2014 None well woman exam (40-65 years) Obstetrical History 4 total pregnancies 08/15/2014 None well woman exam (40-65 years) Obstetrical History 3 full term 08/15/2014 None well woman exam (40-65 years) Obstetrical History 1 08/15/2014 None well woman exam (40-65 years) Obstetrical History 4 living children 08/15/2014 None well woman exam (40-65 years) Cardiovascular Risk Factors hypertension 08/15/2014 None well woman exam (40-65 years) Health Guidance self-breast exam 08/15/2014 None well woman exam (40-65 years) Health Guidance regular exercise 08/15/2014 None well woman exam (40-65 years) Health Guidance depression symptoms 08/15/2014 None well woman exam (40-65 years) Sexual Activity experiences sexual satisfaction 08/15/2014 None well woman exam (40-65 years) Sexual Activity is monogamous 08/15/2014 None abdominal pain Location in the LLQ 07/26/2014 None abdominal pain Onset of Symptom 2 days ago 07/26/2014 Reports Wednesday pain was all day long, yesterday intermittent and today intermittent. Had IV fluids yesterday at hospital. abdominal pain Pertinent Findings back pain 07/26/2014 lower left back pain abdominal pain Pertinent Findings Denies nausea 07/26/2014 none today, had a little nausea Laura abdominal pain Pertinent Findings Denies urinary urgency 07/26/2014 [facility] checked her for UTI which was negative. abdominal pain Pertinent Findings Denies vomiting 07/26/2014 None abdominal pain Quality acute 07/26/2014 None abdominal pain Onset and Resolution ongoing 07/26/2014 None abdominal pain Limitation on Activities does not limit activities 07/26/2014 None abdominal pain Triggers no known associated factors 07/26/2014 None abdominal pain Alleviating Factors rest 07/26/2014 resolved on it's own Hospital Follow Up _ Other: _ 05/08/2014 nausea Hospital Follow Up Onset of Symptom _ weeks ago 05/08/2014 04-07-14 nausea- diagnosed as a virus Hospital Follow Up Pertinent Findings Denies pain 05/08/2014 None Hospital Follow Up Pertinent Findings Denies fever 05/08/2014 None Hospital Follow Up Quality acute 05/08/2014 None Hospital Follow Up Onset and Resolution resolved 05/08/2014 None Hospital Follow Up Severity mild 05/08/2014 None Hospital Follow Up Significant Medical Conditions acute illness 05/08/2014 None Hospital Follow Up Mechanism of injury unknown 05/08/2014 None Hospital Follow Up Alleviating Factors medication 05/08/2014 None edema Onset of Symptom _ months ago 01/23/2014 None edema Frequency of Episodes weekly 01/23/2014 None edema Pertinent Findings Denies limb pain / tenderness 01/23/2014 None edema Pertinent Findings Denies limb redness 01/23/2014 None edema Location on the left ankle 01/23/2014 None edema Location on the right ankle 01/23/2014 None weight gain/obesity Location globally 01/23/2014 None weight gain/obesity Onset and Resolution gradual in onset 01/23/2014 aprilapril well woman exam (40-65 years) Menstrual History normal flow 05/31/2013 None well woman exam (40-65 years) Lifestyle no history of physical abuse 05/31/2013 None well woman exam (40-65 years) Lifestyle regular seatbelt use 05/31/2013 None well woman exam (40-65 years) Lifestyle family supportive of relationship 05/31/2013 None well woman exam (40-65 years) Lifestyle satisfactory work experience 05/31/2013 None well woman exam (40-65 years) Lifestyle normal sleep patterns 05/31/2013 None well woman exam (40-65 years) Lifestyle normal amount of stress 05/31/2013 None well woman exam (40-65 years) Control regular use 05/31/2013 None well woman exam (40-65 years) Control oral contraceptives 05/31/2013 None well woman exam (40-65 years) Nutrition and Exercise normal weight 05/31/2013 None well woman exam (40-65 years) Nutrition and Exercise balanced nutrition 05/31/2013 None well woman exam (40-65 years) Obstetrical History 4 total pregnancies 05/31/2013 None well woman exam (40-65 years) Obstetrical History 3 full term 05/31/2013 None well woman exam (40-65 years) Obstetrical History 1 05/31/2013 None well woman exam (40-65 years) Obstetrical History 4 living children 05/31/2013 None well woman exam (40-65 years) Cardiovascular Risk Factors hypertension 05/31/2013 None well woman exam (40-65 years) Health Guidance self-breast exam 05/31/2013 None well woman exam (40-65 years) Health Guidance regular exercise 05/31/2013 None well woman exam (40-65 years) Health Guidance depression symptoms 05/31/2013 None well woman exam (40-65 years) Sexual Activity experiences sexual satisfaction 05/31/2013 None well woman exam (40-65 years) Sexual Activity is monogamous 05/31/2013 None well woman exam (40-65 years) Pap Smear last normal performed on 08-02-12 05/31/2013 None depression Pertinent Findings depressed mood 03/01/2013 None depression Pertinent Findings lethargy 03/01/2013 None depression Pertinent Findings irritability 03/01/2013 cries a lot depression Quality worsening 03/01/2013 None depression Pertinent Findings sleep disturbance 03/01/2013 states has to take xanax to sleep depression Triggers no known associated factors 03/01/2013 None depression Onset and Resolution gradual in onset 03/01/2013 None depression Limitation on Activities is incapacitating 03/01/2013 Pt states that the stress at home and financial stressors have caused her to have a short fuse in her temper. abdominal pain Location diffusely 01/10/[address] ji who has ordered hida scan on . abdominal pain Quality acute 01/10/2013 None abdominal pain Limitation on Activities moderately limits activities 01/10/2013 but still going to work abdominal pain Frequency of Episodes increasing 01/10/2013 None abdominal pain Location in the LUQ 01/10/2013 None abdominal pain Location in the RUQ 01/10/2013 None abdominal pain Radiating the back 01/10/2013 None abdominal pain Onset and Resolution ongoing 01/10/2013 None abdominal pain Onset of Symptom 5 days ago 01/10/2013 worse over the past few days-ER Wednesday and Dr Ji yesterday. CTnegative. on bactrim for UTI. abdominal pain Timing of Episodes after meals 01/10/2013 None abdominal pain Triggers meals 01/10/2013 None abdominal pain Pertinent Findings bloating 01/10/2013 None abdominal pain Pertinent Findings fever 01/10/2013 None abdominal pain Pertinent Findings nausea 01/10/2013 None abdominal pain Pertinent Findings Denies vomiting 01/10/2013 None arthropod bite Quality acute 12/20/2012 on left hip. arthropod bite Onset of Symptom 3 days ago 12/20/2012 None arthropod bite Pertinent Findings erythema 12/20/2012 pain arthropod bite Pertinent Findings nocturnal pruritus 12/20/2012 None gas and bloating Onset and Resolution ongoing 12/20/2012 None gas and bloating Quality intermittent 12/20/2012 None gas and bloating Alleviating Factors passing flatus 12/20/2012 patient complains of bad gassy abdominal pain gas and bloating Alleviating Factors medication 12/20/2012 gas x gas and bloating Location in the suprapubic area 12/20/2012 None gas and bloating Exacerbating Factors meals 12/20/2012 None well woman exam (40-65 years) Pap Smear last normal performed in 201108/02/2012 None well woman exam (40-65 years) Lifestyle no history of physical abuse 08/02/2012 None well woman exam (40-65 years) Lifestyle regular seatbelt use 08/02/2012 None well woman exam (40-65 years) Lifestyle family supportive of relationship 08/02/2012 None well woman exam (40-65 years) Lifestyle satisfactory work experience 08/02/2012 None well woman exam (40-65 years) Lifestyle normal sleep patterns 08/02/2012 None well woman exam (40-65 years) Lifestyle normal amount of stress 08/02/2012 None well woman exam (40-65 years) Menstrual History normal flow 08/02/2012 None well woman exam (40-65 years) Control regular use 08/02/2012 None well woman exam (40-65 years) Control oral contraceptives 08/02/2012 None well woman exam (40-65 years) Nutrition and Exercise normal weight 08/02/2012 None well woman exam (40-65 years) Nutrition and Exercise balanced nutrition 08/02/2012 None well woman exam (40-65 years) Obstetrical History 4 total pregnancies 08/02/2012 None well woman exam (40-65 years) Obstetrical History 3 full term 08/02/2012 None well woman exam (40-65 years) Obstetrical History 1 08/02/2012 None well woman exam (40-65 years) Obstetrical History 4 living children 08/02/2012 None well woman exam (40-65 years) Cardiovascular Risk Factors hypertension 08/02/2012 None well woman exam (40-65 years) Sexual Activity experiences sexual satisfaction 08/02/2012 None well woman exam (40-65 years) Sexual Activity is monogamous 08/02/2012 None well woman exam (40-65 years) Health Guidance self-breast exam 08/02/2012 None well woman exam (40-65 years) Health Guidance regular exercise 08/02/2012 None well woman exam (40-65 years) Health Guidance depression symptoms 08/02/2012 None vomiting Pertinent Findings Denies dyspnea 04/06/2012 None vomiting Pertinent Findings Denies edema 04/06/2012 None vomiting Pertinent Findings Denies lightheadedness 04/06/2012 None vomiting Pertinent Findings nausea 04/06/2012 None vomiting Pertinent Findings Denies tachycardic 04/06/2012 None vomiting Onset of Symptom 3 days ago 04/06/2012 None vomiting Quality acute 04/06/2012 None vomiting Onset and Resolution ongoing 04/06/2012 None vomiting Severity mild 04/06/2012 None vomiting Frequency of Episodes decreasing 04/06/2012 States today is better than yeterday, States she has only vomited once today. vomiting Triggers no known associated factors 04/06/2012 None vomiting Pertinent Findings Denies abdominal distension 04/06/2012 None vomiting Pertinent Findings Denies bloating 04/06/2012 None vomiting Pertinent Findings Denies cough 04/06/2012 None flare up of rash Location-Major on the feet 01/04/2012 right foot flare up of rash Quality chronic 01/04/2012 None flare up of rash Onset and Resolution ongoing 01/04/2012 None flare up of rash Onset of Symptom 6 weeks ago 01/04/2012 None flare up of rash Quality pruritic 01/04/2012 None flare up of rash Frequency of Episodes unchanged 01/04/2012 None flare up of rash Limitation on Activities does not limit activities 01/04/2012 None flare up of rash Prior Treatments unresponsive to treatment 01/04/2012 abx ointment did not help flare up of rash Triggers no known triggers 01/04/2012 None flare up of rash Alleviating Factors no alleviating factors 01/04/2012 None sore throat Location diffusely 09/17/2011 None sore throat Quality acute 09/17/2011 None sore throat Onset and Resolution ongoing 09/17/2011 None sore throat Onset of Symptom 1 days ago 09/17/2011 None sore throat Limitation on Activities does not limit oral intake 09/17/2011 None sore throat Frequency of Episodes increasing 09/17/2011 States she started with a sore throat and left earache last night sore throat Significant Medications ibuprofen 09/17/2011 took 2 ibuprofen last night. well woman exam (40-65 years) Nutrition and Exercise normal weight 07/27/2011 None well woman exam (40-65 years) Obstetrical History 4 total pregnancies 07/27/2011 None well woman exam (40-65 years) Obstetrical History 3 full term 07/27/2011 None well woman exam (40-65 years) Obstetrical History 1 07/27/2011 None well woman exam (40-65 years) Obstetrical History 4 living children 07/27/2011 None well woman exam (40-65 years) Control oral contraceptives 07/27/2011 None well woman exam (40-65 years) Sexual Activity experiences sexual satisfaction 07/27/2011 None well woman exam (40-65 years) Sexual Activity is monogamous 07/27/2011 None well woman exam (40-65 years) Health Guidance self-breast exam 07/27/2011 None well woman exam (40-65 years) Health Guidance baseline mammogram 07/27/2011 mammo planned for this week well woman exam (40-65 years) Cardiovascular Risk Factors hypertension 07/27/2011 None well woman exam (40-65 years) Pap Smear last normal performed in 201007/27/2011 None well woman exam (40-65 years) Lifestyle regular seatbelt use 07/27/2011 None well woman exam (40-65 years) Lifestyle family supportive of relationship 07/27/2011 None well woman exam (40-65 years) Lifestyle satisfactory work experience 07/27/2011 None gastroesophageal reflux Quality heartburn 04/07/2011 albarran in her throat gastroesophageal reflux Timing of Episodes in the evening 04/07/2011 None gastroesophageal reflux Severity moderate 04/07/2011 None gastroesophageal reflux Frequency of Episodes increasing 04/07/2011 None gastroesophageal reflux Frequency of Episodes daily 04/07/2011 she states that she has been on dexilant, it did not help, the carafate made her symptoms worse , has been on protonix in the past, prior to the fundoplication, and she had initial good response, then it stopped working.. She states that she has been on multiple other meds, prevacid and pepcid, all without relief. gastroesophageal reflux Triggers no known associated factors 04/07/2011 None gastroesophageal reflux Alleviating Factors proton pump inhibitor 04/07/2011 None gastroesophageal reflux Pertinent Findings Denies hoarseness 04/07/2011 None gastroesophageal reflux Pertinent Findings heartburn 04/07/2011 None gastroesophageal reflux Pertinent Findings nausea 04/07/2011 occasional nausea gastroesophageal reflux Pertinent Findings bloating 04/07/2011 None gastroesophageal reflux Pertinent Findings Denies irritability 04/07/2011 None gastroesophageal reflux Pertinent Findings Denies cough 04/07/2011 None gastroesophageal reflux Pertinent Findings esophagitis 04/07/2011 None headache Location diffusely 12/04/2010 None headache Quality aching 12/04/2010 None headache Onset and Resolution gradual in onset 12/04/2010 None headache Onset and Resolution ongoing 12/04/2010 None headache Onset of Symptom 6 days ago 12/04/2010 None headache Limitation on Activities does not limit activities 12/04/2010 None headache Frequency of Episodes unchanged 12/04/2010 None lymph node enlargement/mass Location in the left anterior cervical chain 12/04/2010 None lymph node enlargement/mass Quality tender 12/04/2010 None lymph node enlargement/mass Severity moderate 12/04/2010 None lymph node enlargement/mass Onset of Symptom a couple of days ago 12/04/2010 None gastroesophageal reflux Quality chronic 11/25/2010 None gastroesophageal reflux Quality heartburn 11/25/2010 None gastroesophageal reflux Quality regurgitation of acid 11/25/2010 None gastroesophageal reflux Quality worsening 11/25/2010 None gastroesophageal reflux Onset and Resolution gradual in onset 11/25/2010 None gastroesophageal reflux Onset and Resolution ongoing 11/25/2010 None gastroesophageal reflux Severity moderate 11/25/2010 None gastroesophageal reflux Frequency of Episodes daily 11/25/2010 None gastroesophageal reflux Significant Medications antacids 11/25/2010 None gastroesophageal reflux Alleviating Factors antacids 11/25/2010 None gastroesophageal reflux Alleviating Factors proton pump inhibitor 11/25/2010 None Advance Directives No Advance Directive data Encounters Encounter Performer Location Codes Date EST. PATIENT, LEVEL IV Diagnosis: Other fatigue[ICD10: R53.83] Diagnosis: Generalized anxiety disorder[ICD10: F41.1] Diagnosis: Major depressive disorder, single episode, moderate[ICD10: F32.1] Sandra Triana MD, [facility] CPT-4: 00541 03/25/2017 ([id number]) 37912 EST. PATIENT, LEVEL III Diagnosis: Essential (primary) hypertension[ICD10: I10] Diagnosis: Left lower quadrant pain[ICD10: R10.32] Shira Triana MD, [facility] CPT-4: 04847 11/03/2016 ([id number]) 06867 EST. PATIENT, LEVEL III Diagnosis: Irritable bowel syndrome with diarrhea[ICD10: K58.0] Shira Triana MD, [facility] CPT-4: 18184 07/27/2016 [id number] EST. PATIENT, LEVEL IV Diagnosis: Headache[ICD10: R51] Diagnosis: Fall (on)(from) sidewalk curb, initial encounter[ICD10: W10.1XXA] Sandra Triana MD, [facility] CPT-4: 05131 05/25/2016 06493 EST. 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 PATIENT, LEVEL III Diagnosis: Cervical os stenosis[ICD9: 622.4] [facility] CPT-4: 05072 08/23/2014 ([id number]) Miscellaneous no charge Diagnosis: Cervical os stenosis[ICD9: 622.4] [facility] CPT-4: 16838 08/23/2014 ([id number]) PREV VISIT EST AGE 40-64 Diagnosis: Cervical os stenosis[ICD9: 622.4] [facility] CPT-4: 40536 08/15/2014 ([id number]) 00288 EST. PATIENT, LEVEL IV Diagnosis: LLQ abdominal pain[ICD9: 789.04] Diagnosis: Nausea[ICD9: 787.02] Diagnosis: ESSENTIAL HYPERTENSION[ICD9: 401.9] Shira Triana MD, [facility] CPT-4: 31823 07/26/2014 ([id number]) 73669 EST. PATIENT, LEVEL III Diagnosis: ALLERGIC RHINITIS[ICD9: 477.9] Diagnosis: ESOPHAGEAL REFLUX[ICD9: 530.81] Tiffany Triana MD, [facility] CPT- 4: 93034 05/08/2014 ([id number]) 85405 EST. PATIENT, LEVEL IV Diagnosis: EDEMA[ICD9: 782.3] Diagnosis: Weight gain[ICD9: 783.1] Diagnosis: Fatigue[ICD9: 780.79] Diagnosis: ESSENTIAL HYPERTENSION[ICD9: 401.9] Shira Triana MD, [facility] CPT-4: 52987 01/23/2014 ([id number]) PREV VISIT EST AGE 40-64 Diagnosis: ROUTINE GYNE EXAM[ICD9: V72.31] Tiffany Triana MD, [facility] CPT- 4: 85793 05/31/2013 ([id number]) 58414 EST. PATIENT, LEVEL III Diagnosis: GENERALIZED ANXIETY DISEASE[ICD9: 300.02] Diagnosis: DEPRESSIVE DISORDER NEC[ICD9: 311] Tiffany Triana MD, [facility] CPT-4: 78477 03/01/2013 ([id number]) 25828 EST. PATIENT, LEVEL III Diagnosis: Abdominal pain[ICD9: 789.00] Diagnosis: Nausea[ICD9: 787.02] Tiffany Triana MD, [facility] CPT-4: 92692 01/10/2013 ([id number]) 79195 EST. PATIENT, LEVEL III Diagnosis: Tick bite of abdomen[ICD9: 911.4] Diagnosis: Gas[ICD9: 787.3] Tiffany Triana MD, [facility] CPT-4: 41281 12/20/2012 ([id number]) PREV VISIT EST AGE 40-64 Diagnosis: Encounter for routine gynecological examination[ICD9: V72.31] Tiffany Triana MD [facility] CPT-4: 68424 08/02/2012 ([id number]) 63442 EST. PATIENT, LEVEL III Diagnosis: Nausea and vomiting[ICD9: 787.01] Shira Triana MD [facility] CPT-4: 32160 04/06/2012 ([id number]) 03482 EST. PATIENT, LEVEL III Diagnosis: Rash[ICD9: 782.1] Shira Triana MD [facility] CPT-4: 35355 01/04/2012 ([id number]) 20643 EST. PATIENT, LEVEL III Diagnosis: ALLERGIC RHINITIS[ICD9: 477.9] Diagnosis: ACUTE URI[ICD9: 465.9] Shira Triana MD [facility] CPT-4: 32662 09/17/2011 ([id number]) PREV VISIT EST AGE 40-64 Diagnosis: ROUTINE GYNE EXAM[ICD9: V72.31] Diagnosis: ESSENTIAL HYPERTENSION[SNOMED: 86964190] Diagnosis: DEPRESSIVE DISORDER NEC[ICD9: 311] Tiffany Triana MD [facility] CPT-4: 27713 07/27/2011 03509 EST. PATIENT, LEVEL IV Diagnosis: ESOPHAGEAL REFLUX[ICD9: 530.81] Diagnosis: ESSENTIAL HYPERTENSION[SNOMED: 91551906] Diagnosis: ABD PAIN GENERALIZED[ICD9: 789.07] Tiffany Triana MD [facility] CPT-4: 74920 04/07/2011 [id number] EST. PATIENT, LEVEL III Diagnosis: Acute sinusitis[ICD9: 461.9] Shira Triana MD [facility] CPT-4: 47043 12/04/2010 [id number] EST. PATIENT, LEVEL III Diagnosis: Acid reflux[ICD9: 530.81] Shira Triana MD, [facility] CPT-4: 61833 11/25/2010 Plan of Care Planned Activity Notes Codes Status Date Care Plan: Vitamin D 25 Oh Pending 03/26/2017 Visit Plan: Anxiety - the patient has uncontrolled anxiety and will benefit from an SSRI on a daily basis to attempt control of the symptoms of anxiety (tachycardia, overwhelming sensations, stress, insomnia, etc ). I also believe that the patient will benefit from very low dose of prn benzodiazepine. Pt is aware of the risks and benefits of treatment with the above medications. Depression - uncontrolled - Pt has agreed to sign a NO HARM / NO SUICIDE CONTRACT - Pt has been counseled about the diagnosis of depression , the potential causes, and risks associated with the diagnosis. The pt states that she has had some suicidal thoughts, but denies plans - she states that she would not ever hurt herself. Pt refuses to go to the ER, or to seek in patient treatment. She agrees to not harm herself or others. The patient has been counseled about treatment options, and understands the risks associated with treatment of depression, as well as the risks associated with NOT treating the depression. I believe the pt will benefit from medical intervention and an antidepressant has been appropriately prescribed for this patient. 03/25/2017 Appointment: Sandra Conway WPtel: [facility] (30 min) [facility] 03/25/2017 Patient Education: Patient Medication Summary Completed 03/25/2017 Visit Plan: Hypertension - well controlled - continue with current medications, continue with no added salt diet. Pt has been encouraged to exercise daily. The pt has been advised to call the office if there are any acute concerns about change in blood pressure readings at home. LLQ pain- intermittent-UA negative-monitor symptoms and call if worsen 11/03/2016 Patient Education: Patient Medication Summary Completed 11/03/2016 Visit Plan: Irritable Bowel syndrome - Discussed need for adequate daily fiber intake. Continue with a healthy diet, and I have recommended addition of probiotic to the diet when having loose bowel movements. 07/27/2016 Patient Education: Patient Medication Summary Completed 07/27/2016 Patient Education: Obesity Completed 07/27/2016 Appointment: Injection 05/26/2016 Patient Education: Patient Medication Summary Completed 05/26/2016 Care Plan: CT HEAD/BRAIN W/O DYE LOINC : 69068-1 Pending 05/26/2016 Visit Plan: Pt fell on Wednesday05/23/16 - she denies hitting her head, but states that she has had trouble remembering the weekend events and has a headache. She also states that today she was had some spots in her vision and had dizziness but that it did not last - will send for stat head CT. Pt is to notify clinic if symptoms are not improving, if they worsen, or with any concerns. 05/25/2016 Appointment: Sandra Conway WPtel: [phone] [facility] (15 min) Moderate 05/25/2016 Patient Education: Patient Medication Summary Completed 05/25/2016 Patient Education: Obesity Completed 05/25/2016 Visit Plan: Chronic Depression and anxiety - the pt has symptoms of chronic anxiety and depression that have been fairly well controlled since the last office visit. The pt has expected periods of exacerbation with abatement of the symptoms with change in situational exposure. No change in current medications. 05/16/2015 Appointment: (30 min) Complex 05/16/2015 Patient Education: Patient Medication Summary Completed 05/16/2015 Visit Plan: Cervical stenosis - recommended pt to have evaluation by Dr. High for further recommendations. 08/23/2014 Patient Education: Patient Medication Summary Completed 08/23/2014 Patient Education: Patient Medication Summary Completed 08/23/2014 Care Plan: PAP Pending 08/23/2014 Visit Plan: Well Adult Female - exam completed, pap unable to be obtained due to stenotic cervical os, pt to RTC in one week and have repeat eval performed. She was advised to continue with yearly annual exams. Safe sex practices discussed during office visit today. Call if any abnormal gynecologic issues during the next year, otherwise, RTC yearly or prn. 08/15/2014 Appointment: Tiffany Triana WPtel: [facility] Well Woman 08/15/2014 Patient Education: Patient Medication Summary Completed 08/15/2014 Patient Education: Patient Medication Summary Completed 08/14/2014 Appointment: Sick 07/27/2014 Visit Plan: LLQ abdominal ibbz-xmqcljrsfibq-icqpl pelvic ultrasound, draw labs today HTN-well controlled-no change in medications 07/26/2014 Appointment: Sick 07/26/2014 Patient Education: Patient Medication Summary Completed 07/26/2014 Patient Education: Hypertension Completed 07/26/2014 Care Plan: COMPLETE CBC AUTOMATED LOINC : 75143-7 Ordered 07/26/2014 Care Plan: ASSAY OF AMYLASE Ordered 07/26/2014 Care Plan: ASSAY OF LIPASE Ordered 07/26/2014 Visit Plan: Allergies - chronic - recommended pt to use allergy medication as prescribed. Pt has been counseled as to the appropriate use of the medication. Pt to call if allergy symptoms are not controlled with the medication. Esophageal Reflux - the patient has been counseled against excessive intake of caffeine, spicy foods, peppermint, and cinnamon - all of which can exacerbate esophageal reflux. The patient is to take medications as prescribed and call the office if the symptoms are not improving. 05/08/2014 Patient Education: Patient Medication Summary Completed 05/08/2014 Appointment: Tiffany Triana WPtel: [facility]2 [facility] Sick 04/18/2014 Visit Plan: Edema - pt has been advised to elevate legs to prevent dependent edema, compression has been recommended to help to naturally decrease peripheral edema. Diuretic use has been discussed and pt has been instructed in appropriate use of such medication as necessary to further attempt to reduce peripheral edema. DECREASE EXFORGE FROM 10MG/160MG TO 5MG/ 160MG Weight eayz-tzjarzg-hgtkb thyroid, cbc, chem panel HTN-well controlled- decreasing medication due to edema-monitor blood pressure 01/23/2014 Appointment: Follow up 01/23/2014 Patient Education: Patient Medication Summary Completed 01/23/2014 Visit Plan: Well Adult Female - exam completed. pelvic and breast exam completed. Pt will be called with results of her testing. She was advised to continue with yearly annual exams. Safe sex practices discussed during office visit today. Call if any abnormal gynecologic issues during the next year, otherwise, RTC yearly or prn. 05/31/2013 Appointment: Tiffany Triana WPtel: [facility] Well Woman 05/31/2013 Patient Education: Patient Medication Summary Completed 05/31/2013 Appointment: Tiffany Triana WPtel: [facility] Lab Draw 03/15/2013 Patient Education: Patient Medication Summary Completed 03/15/2013 Care Plan: C URINE RT Pending 03/15/2013 Visit Plan: Anxiety and Depression - uncontrolled - Pt has been counseled about the diagnosis of anxiety and depression, the potential causes, and risks associated with the diagnosis. The pt denies suicidal ideation , or plans. The patient has been counseled about treatment options, and understands the risks associated with treatment of depression, as well as the risks associated with NOT treating the depression. I believe the pt will benefit from medical intervention and an antidepressant has been appropriately prescribed for this patient. Pt to start on lexapro and monitor symptoms, call if not improved. 03/01/2013 Appointment: Tiffany Triana WPtel: [address] [place] [address] Other 03/01/2013 Patient Education: Patient Medication Summary Completed 03/01/2013 Visit Plan: Abdominal prfw-uugjcv-Nx [place] in to evaluate patient-also discussed patient with Dr Ji. FRANKY lynne moved to Wednesday at 10am and will follow as indicated. Toradol and phenergan injections today in the office for acute symptoms. Patient verbalized understanding of plan. 01/10/2013 Appointment: Shira Emery WPtel: [facility] Other 01/10/2013 Patient Education: Patient Medication Summary Completed 01/10/2013 Visit Plan: Tick Bite - pt given script for treatment of infected tick bite, call for symptoms of worsening infection or nonhealing. Gas and bloating - advised to try beano, gas-x, avoid gas producing foods, call if not improving. 12/20/2012 Appointment: Tiffany Triana WPtel: [address] [place] [address] Other 12/20/2012 Patient Education: Patient Medication Summary Completed 12/20/2012 Visit Plan: Well Adult Female - exam completed. Pap and gc/ chlamydia and breast exam completed. Pt will be called with results of her testing. She was advised to continue with yearly annual exams. Safe sex practices discussed during office visit today. Call if any abnormal gynecologic issues during the next year, otherwise, RTC yearly or prn. 08/02/2012 Appointment: Tiffany Triana WPtel: [address] [place] [address] Well Woman 08/02/2012 Patient Education: Patient Medication Summary Completed 08/02/2012 Visit Plan: Nausea and vomiting- recommended clear liquid advance to bland diet, start on probiotic if diarrhea starts, and rehydrate with gatorade-like product. Pt to call if feeling worse, or does not improve with above recommendations. Pt to call for acute worsening of stomach upset or stomach pain. 04/06/2012 Appointment: Shira Emery WPtel: [address] [place] [address] Sick 04/06/2012 Patient Education: Patient Medication Summary Completed 04/06/2012 Visit Plan: Rash-discussed natural and expected course of this diagnosis and to alert me if symptoms do not follow expected course, or if any worse. RX sent to patient's pharmacy. Patient verbalized understanding of plan. 01/04/2012 Appointment: Shira Emery WPtel: [address] [place] [address] Other 01/04/2012 Patient Education: Patient Medication Summary Completed 01/04/2012 Visit Plan: Allergies - Advised avoidance of allergens if possible, we discussed natural and expected course of this diagnosis and need to alert me if symtpoms do not follow expected course, or if any worse. Pt given samples and script for flonase URI - Pt advised to increase fluids, vitamin C. Discussed natural and expected course of this diagnosis and need to alert me if symtpoms do not follow expected course, or if any worse. RX sent to patient's pharmacy. 09/17/2011 Appointment: Shira Emery WPtel: [address] [place] [address] Other 09/17/2011 Patient Education: Patient Medication Summary Completed 09/17/2011 Visit Plan: Well Adult Female - exam completed. Pap and gc/ chlamydia and breast exam completed. Pt will be called with results of her testing. She was advised to continue with yearly annual exams. Safe sex practices discussed during office visit today. Call if any abnormal gynecologic issues during the next year, otherwise, RTC yearly or prn.. Hypertension - well controlled - continue with current medications, continue with no added salt diet. Pt has been encouraged to exercise daily. The pt has been advised to call the office if there are any acute concerns about change in blood pressure readings at home. 07/27/2011 Appointment: Tiffany Triana WPtel: [facility] Well Woman 07/27/2011 Patient Education: Patient Medication Summary Completed 07/27/2011 Patient Education: High Blood Pressure: Essential Hypertension Completed 2011 Appointment: KongTiffany WPtel: [facility]5 [facility] Other 04/21/2011 Visit Plan: Esophageal Reflux - the patient has been counseled against excessive intake of caffiene, spicy foods, peppermint, and cinnamon - all of which can exacerbate esophageal reflux. The patient is to take medications as prescribed and call the office if the symptoms are not improving. Indu has been on nexium 40mg daily, She has been instructed to use nexium in the morning and aciphex at night. She is to start checking her blood pressure when she has the sensation of her heart beat in her ears. Call the office with the readings in a few weeks. 04/07/2011 Appointment: Tiffany Triana WPtel: [facility]5 [facility] Other 04/07/2011 Patient Education: Patient Medication Summary Completed 04/07/2011 Patient Education: High Blood Pressure: Essential Hypertension Completed 2011 Visit Plan: DX sinusitis - discussed expected course with the patient, pt advised to call for worsening symptoms, or lack of improvement on prescribed treatment course. Written script for amoxicillin provided per patient request. Nasal saline rinses also recommended. Call for any concerns. 12/04/2010 Appointment: Shira Emery WPtel: [facility]5 [phone] Other 12/04/2010 Patient Education: Patient Medication Summary Completed 12/04/2010 Visit Plan: Esophageal Reflux - the patient has been counseled against excessive intake of caffiene, spicy foods, peppermint, and cinnamon - all of which can exacerbate esophageal reflux. The patient is to take medications as prescribed and call the office if the symptoms are not improving. Samples of dexilant provided for patient to try-instructed her to call in 2 weeks with update-if working, I will provide her with a prescription for dexilant. I have also given her samples of nexium to use in place of the dexilant if it does not work. 11/25/2010 Appointment: Shira Emery WPtel: [address] [place], [place] [id number] Other 11/25/2010 Patient Education: Patient Medication Summary Completed 11/25/2010 Instructions Comment . Well Adult Female - exam completed. Pap and gc/ chlamydia and breast exam completed. Pt will be called with results of her testing. She was advised to continue with yearly annual exams. Safe sex practices discussed during office visit today. Call if any abnormal gynecologic issues during the next year, otherwise, RTC yearly or prn.. Hypertension - well controlled - continue with current medications, continue with no added salt diet. Pt has been encouraged to exercise daily. The pt has been advised to call the office if there are any acute concerns about change in blood pressure readings at home. . Well Adult Female - exam completed. Pap and gc/ chlamydia and breast exam completed. Pt will be called with results of her testing. She was advised to continue with yearly annual exams. Safe sex practices discussed during office visit today. Call if any abnormal gynecologic issues during the next year, otherwise, RTC yearly or prn. . LLQ abdominal odfu-ucxqaxdxtylr-qonio pelvic ultrasound, draw labs today HTN-well controlled-no change in medications CHANGE EXFORGE TO 5MG/160MG DAILY-SAMPLE PROVIDED CALL IN 2 WEEKS WITH UPDATE ON SWELLING-IF NOT BETTER, WE WILL CHANGE YOUR MEDICATION . Edema - pt has been advised to elevate legs to prevent dependent edema, compression has been recommended to help to naturally decrease peripheral edema. Diuretic use has been discussed and pt has been instructed in appropriate use of such medication as necessary to further attempt to reduce peripheral edema. DECREASE EXFORGE FROM 10MG/160MG TO 5MG/160MG Weight bcgt-irwnmuy-tvobo thyroid, cbc, chem panel HTN-well controlled-decreasing medication due to edema-monitor blood pressure Avoid salad and creamy/ fatty foods. Viberzi 75 mg BID with food- side effects of constipation discussed with patient. Copay card given to patient. . Irritable Bowel syndrome - Discussed need for adequate daily fiber intake. Continue with a healthy diet, and I have recommended addition of probiotic to the diet when having loose bowel movements. check UA call if pelvic pain does not resolve or if any worse . Hypertension - well controlled - continue with current medications, continue with no added salt diet. Pt has been encouraged to exercise daily. The pt has been advised to call the office if there are any acute concerns about change in blood pressure readings at home. LLQ awva-elvmcnjagstl-QP negative-monitor symptoms and call if worsen . Well Adult Female - exam completed. pelvic and breast exam completed. Pt will be called with results of her testing. She was advised to continue with yearly annual exams. Safe sex practices discussed during office visit today. Call if any abnormal gynecologic issues during the next year, otherwise, RTC yearly or prn. Call in 2 weeks with update on medication effectiveness. . Esophageal Reflux - the patient has been counseled against excessive intake of caffiene, spicy foods, peppermint, and cinnamon - all of which can exacerbate esophageal reflux. The patient is to take medications as prescribed and call the office if the symptoms are not improving. Samples of dexilant provided for patient to try-instructed her to call in 2 weeks with update-if working, I will provide her with a prescription for dexilant. I have also given her samples of nexium to use in place of the dexilant if it does not work. . Chronic Depression and anxiety - the pt has symptoms of chronic anxiety and depression that have been fairly well controlled since the last office visit. The pt has expected periods of exacerbation with abatement of the symptoms with change in situational exposure. No change in current medications. . Cervical stenosis - recommended pt to have evaluation by Dr. High for further recommendations. TAKE SUSY DAILY AT BEDTIME . Allergies - chronic - recommended pt to use allergy medication as prescribed. Pt has been counseled as to the appropriate use of the medication. Pt to call if allergy symptoms are not controlled with the medication. Esophageal Reflux - the patient has been counseled against excessive intake of caffeine, spicy foods, peppermint, and cinnamon - all of which can exacerbate esophageal reflux. The patient is to take medications as prescribed and call the office if the symptoms are not improving. Recommend over the counter allergy med daily Take flonase 1 spray each nare daily. I. Allergies - Advised avoidance of allergens if possible, we discussed natural and expected course of this diagnosis and need to alert me if symtpoms do not follow expected course, or if any worse. Pt given samples and script for flonase URI - Pt advised to increase fluids, vitamin C. Discussed natural and expected course of this diagnosis and need to alert me if symtpoms do not follow expected course, or if any worse. RX sent to patient's pharmacy. . Tick Bite - pt given script for treatment of infected tick bite, call for symptoms of worsening infection or nonhealing. Gas and bloating - advised to try beano, gas-x, avoid gas producing foods, call if not improving. . DX sinusitis - discussed expected course with the patient , pt advised to call for worsening symptoms, or lack of improvement on prescribed treatment course. Written script for amoxicillin provided per patient request. Nasal saline rinses also recommended. Call for any concerns. . Pt fell on Wednesday05/23/16 - she denies hitting her head , but states that she has had trouble remembering the weekend events and has a headache. She also states that today she was had some spots in her vision and had dizziness but that it did not last - will send for stat head CT. Pt is to notify clinic if symptoms are not improving, if they worsen, or with any concerns. . Nausea and vomiting- recommended clear liquid advance to bland diet, start on probiotic if diarrhea starts, and rehydrate with gatorade- like product. Pt to call if feeling worse, or does not improve with above recommendations. Pt to call for acute worsening of stomach upset or stomach pain. . Anxiety and Depression - uncontrolled - Pt has been counseled about the diagnosis of anxiety and depression, the potential causes, and risks associated with the diagnosis. The pt denies suicidal ideation, or plans. The patient has been counseled about treatment options, and understands the risks associated with treatment of depression, as well as the risks associated with NOT treating the depression. I believe the pt will benefit from medical intervention and an antidepressant has been appropriately prescribed for this patient. Pt to start on lexapro and monitor symptoms, call if not improved. Follow up in 1 week - Sooner if you need anything. Anxiety - the patient has uncontrolled anxiety and will benefit from an SSRI on a daily basis to attempt control of the symptoms of anxiety (tachycardia, overwhelming sensations, stress, insomnia, etc). I also believe that the patient will benefit from very low dose of prn benzodiazepine. Pt is aware of the risks and benefits of treatment with the above medications. Depression - uncontrolled - Pt has agreed to sign a NO HARM / NO SUICIDE CONTRACT - Pt has been counseled about the diagnosis of depression, the potential causes, and risks associated with the diagnosis. The pt states that she has had some suicidal thoughts, but denies plans - she states that she would not ever hurt herself. Pt refuses to go to the ER, or to seek in patient treatment. She agrees to not harm herself or others. The patient has been counseled about treatment options, and understands the risks associated with treatment of depression, as well as the risks associated with NOT treating the depression. I believe the pt will benefit from medical intervention and an antidepressant has been appropriately prescribed for this patient. . Rash-discussed natural and expected course of this diagnosis and to alert me if symptoms do not follow expected course, or if any worse. RX sent to patient's pharmacy. Patient verbalized understanding of plan. HIDA scan tomorrow at 10am. Abdominal [id number] [place] in to evaluate patient-also discussed patient with Dr Ji. HIDA scan moved to Wednesday at 10am and will follow as indicated. Toradol and phenergan injections today in the office for acute symptoms. Patient verbalized understanding of plan. . Esophageal Reflux - the patient has been counseled against excessive intake of caffiene, spicy foods, peppermint, and cinnamon - all of which can exacerbate esophageal reflux. The patient is to take medications as prescribed and call the office if the symptoms are not improving. Indu has been on nexium 40mg daily, She has been instructed to use nexium in the morning and aciphex at night. She is to start checking her blood pressure when she has the sensation of her heart beat in her ears. Call the office with the readings in a few weeks. . Well Adult Female - exam completed, pap unable to be obtained due to stenotic cervical os, pt to RTC in one week and have repeat eval performed. She was advised to continue with yearly annual exams. Safe sex practices discussed during office visit today. Call if any abnormal gynecologic issues during the next year, otherwise, RTC yearly or prn.
--- OUTSIDE RECORDS SUMMARY | 2017-08-26 17:35 | XMS REPORT | Continuity of Care Document ---
Author Author [facility] Organization [facility] Address Unknown Phone Unavailable Allergies Active Description Code Type Severity Reaction Onset Reported/Identified Relationship to Patient Clinical Status Yes erythromycin base [id number] Drug Allergy Unknown N/A 11/24/2007 Yes azithromycin [id number] Drug Allergy Moderate N/A 04/17/2014 Medications There [...] LUCIO WHITEHEADP Ot 789.04 09/11/2014 LUCIO WHITEHEAD WATERFRONT DIRECTOR Ot V76.12 09/12/2014 RENETTA GALAN, EVANS Latif [...] EXAMINATION 05/28/2016 ARNAUD GALAN, ARTURO Ot V72.81 KWGL-XSL-JZXPVOVDG CARDIOVASCULAR 05/28/2016 RENETTA GALAN, EVANS Latif Ot V76.12 OTH SCREEN MAMMO-MALIGN NEOPLASM OF PAT 05/28/2016 CRISTY MAXWELL WATER PLANT OPERATOR Ot 782.1 NONSPECIF SKIN ERUPT NEC 05/28/2016 CRISTY MAXWELL WATER PLANT OPERATOR Ot 786.05 SHORTNESS OF BREATH 05/28/2016 [...] M54.5 LOW BACK PAIN 05/28/2016 TORY MARTIN EMPLOYEE SERVICES MANAGER Ot H53.9 UNSPECIFIED VISUAL DISTURBANCE 05/28/2016 TORY MARTIN EMPLOYEE SERVICES MANAGER Ot R51 HEADACHE 05/28/2016 TORY MARTIN EMPLOYEE SERVICES MANAGER Ot W19.XXXA UNSPECIFIED FALL, INITIAL ENCOUNTER 05/28/2016 TORY MARTNI EMPLOYEE SERVICES MANAGER Ot Y99.8 OTHER EXTERNAL CAUSE STATUS 06/10/2016 SHANNA ROSA Ot M25.552 PAIN IN LEFT HIP 06/11/2016 SHANNA ROSA Ot M25.552 PAIN IN LEFT HIP 06/11/2016 TORY MARTIN EMPLOYEE SERVICES MANAGER Ot H53.9 UNSPECIFIED VISUAL DISTURBANCE 06/11/2016 TORY MARTIN EMPLOYEE SERVICES MANAGER Ot R51 HEADACHE 06/11/2016 TORY MARTIN EMPLOYEE SERVICES MANAGER Ot W19.XXXA UNSPECIFIED FALL, INITIAL ENCOUNTER 06/11/2016 TORY MARTIN EMPLOYEE SERVICES MANAGER Ot Y99.8 OTHER EXTERNAL CAUSE STATUS 06/12/2016 [...] EXAMINATION 06/22/2016 ARTURO LARES MD Ot V72.81 QNRR-RJW-ZSZETTQAL CARDIOVASCULAR 06/22/2016 EVANS JACKSON MD Ot V76.12 OTH SCREEN MAMMO-MALIGN NEOPLASM OF PAT 06/22/2016 CRISTY MAXWELL WATER PLANT OPERATOR Ot 782.1 NONSPECIF SKIN ERUPT NEC 06/22/2016 CRISTY MAXWELL Ot 786.05 SHORTNESS OF BREATH 06/22/2016 WHITEHEAD, LUCIO M WATERFRONT DIRECTOR Ot V76.12 OTH SCREEN MAMMO-MALIGN NEOPLASM OF PAT 06/22/2016 EVANS JACKSON MD Ot 787.3 FLATUL/ERUCTAT/GAS PAIN 06/22/2016 EVANS JACKSON MD Ot 789.00 ABDOMINAL PAIN, UNSPECIFIED SITE 06/22/2016 LUCIO WHITEHEAD WATERFRONT DIRECTOR Ot 789.04 ABDOMINAL PAIN, LEFT LOWER QUADRANT 06/22/2016 LUCIO WHITEHEAD WATERFRONT DIRECTOR Ot 401.9 HYPERTENSION NOS 06/22/2016 LUCIO WHITEHEAD WATERFRONT DIRECTOR Ot 789.00 ABDOMINAL PAIN, UNSPECIFIED SITE 06/22/2016 OLIVER DAY MIKAYLA Paulo Ot M54.5 LOW BACK PAIN 06/22/2016 TORY MARTIN EMPLOYEE SERVICES MANAGER Ot H53.9 UNSPECIFIED VISUAL DISTURBANCE 06/22/2016 TORY MARTIN EMPLOYEE SERVICES MANAGER Ot R51 HEADACHE 06/22/2016 TORY MARTIN EMPLOYEE SERVICES MANAGER Ot W19.XXXA UNSPECIFIED FALL, INITIAL ENCOUNTER 06/22/2016 TORY MARTIN EMPLOYEE SERVICES MANAGER Ot Y99.8 OTHER EXTERNAL CAUSE STATUS 06/22/2016 [...] EXAMINATION 06/22/2016 ARTURO LARES MD Ot V72.81 LSDU-GDD-EFWWWORQK CARDIOVASCULAR 06/22/2016 EVANS JACKSON MD Ot V76.12 OTH SCREEN MAMMO-MALIGN NEOPLASM OF PAT 06/22/2016 CRISTY MAXWELL WATER PLANT OPERATOR Ot 782.1 NONSPECIF SKIN ERUPT NEC 06/22/2016 CRISTY MAXWELL WATER PLANT OPERATOR Ot 786.05 SHORTNESS OF BREATH 06/22/2016 LUCIO WHITEHEAD WATERFRONT DIRECTOR Ot V76.12 OTH SCREEN MAMMO-MALIGN NEOPLASM OF PAT 06/22/2016 EVANS JACKSON MD Ot 787.3 FLATUL/ERUCTAT/GAS PAIN 06/22/2016 EVANS JACKSON MD Ot 789.00 ABDOMINAL PAIN, UNSPECIFIED SITE 06/22/2016 LUCIO WHITEHEAD WATERFRONT DIRECTOR Ot 789.04 ABDOMINAL PAIN, LEFT LOWER QUADRANT 06/22/2016 LUCIO WHITEHEAD WATERFRONT DIRECTOR Ot 401.9 HYPERTENSION NOS 06/22/2016 LUCIO WHITEHEAD WATERFRONT DIRECTOR Ot 789.00 ABDOMINAL PAIN, UNSPECIFIED SITE 06/22/2016 MIKAYLA BOYD DO M Ot M54.5 LOW BACK PAIN 06/22/2016 TORY MARTIN EMPLOYEE SERVICES MANAGER Ot H53.9 UNSPECIFIED VISUAL DISTURBANCE 06/22/2016 TORY MARTIN EMPLOYEE SERVICES MANAGER Ot R51 HEADACHE 06/22/2016 TORY MARTIN EMPLOYEE SERVICES MANAGER Ot W19.XXXA UNSPECIFIED FALL, INITIAL ENCOUNTER 06/22/2016 TORY MARTIN EMPLOYEE SERVICES MANAGER Ot Y99.8 OTHER EXTERNAL CAUSE STATUS 06/22/2016 [...] EXAMINATION 06/22/2016 ARTURO LARES MD Ot V72.81 ZTUS-BDA-PXQLRRUBB CARDIOVASCULAR 06/22/2016 EVANS JACKSON MD Ot V76.12 OTH SCREEN MAMMO-MALIGN NEOPLASM OF PAT 06/22/2016 CRISTY MAXWELL WATER PLANT OPERATOR Ot 782.1 NONSPECIF SKIN ERUPT NEC 06/22/2016 CRISTY MAXWELL WATER PLANT OPERATOR Ot 786.05 SHORTNESS OF BREATH 06/22/2016 LUCIO WHITEHEAD WATERFRONT DIRECTOR Ot V76.12 OTH SCREEN MAMMO-MALIGN NEOPLASM OF PAT 06/22/2016 EVANS JACKSON MD Ot 787.3 FLATUL/ERUCTAT/GAS PAIN 06/22/2016 RENETTA GALAN, EVANS Latif Ot 789.00 ABDOMINAL PAIN, UNSPECIFIED SITE 06/22/2016 LUCIO WHITEHEAD WATERFRONT DIRECTOR Ot 789.04 ABDOMINAL PAIN, LEFT LOWER QUADRANT 06/22/2016 LUCIO WHITEHEAD WATERFRONT DIRECTOR Ot 401.9 HYPERTENSION NOS 06/22/2016 GARY WHITEHEADHANTAMIR Bates WATERFRONT DIRECTOR Ot 789.00 ABDOMINAL PAIN, UNSPECIFIED SITE 06/22/2016 MIKAYLA BOYD DO M Ot M54.5 LOW BACK PAIN 06/22/2016 TORY MARTIN EMPLOYEE SERVICES MANAGER Ot H53.9 UNSPECIFIED VISUAL DISTURBANCE 06/22/2016 TORY MARTIN EMPLOYEE SERVICES MANAGER Ot R51 HEADACHE 06/22/2016 TORY MARTIN EMPLOYEE SERVICES MANAGER Ot W19.XXXA UNSPECIFIED FALL, INITIAL ENCOUNTER 06/22/2016 TORY MARTIN EMPLOYEE SERVICES MANAGER Ot Y99.8 OTHER EXTERNAL CAUSE STATUS 06/22/2016 [...] EXAMINATION 06/22/2016 ARTURO LARES MD Ot V72.81 QSVT-CAW-PRUNKIXUU CARDIOVASCULAR 06/22/2016 EVANS JACKSON MD Ot V76.12 OTH SCREEN MAMMO-MALIGN NEOPLASM OF PAT 06/22/2016 CRISTY MAXWELLP Ot 782.1 NONSPECIF SKIN ERUPT NEC 06/22/2016 CRISTY MAXWELL WATER PLANT OPERATOR Ot 786.05 SHORTNESS OF BREATH 06/22/2016 LUCIO WHITEHEAD WATERFRONT DIRECTOR Ot V76.12 OTH SCREEN MAMMO-MALIGN NEOPLASM OF PAT 06/22/2016 EVANS JACKSON MD Ot 787.3 FLATUL/ERUCTAT/GAS PAIN 06/22/2016 EVANS JACKSON MD Ot 789.00 ABDOMINAL PAIN, UNSPECIFIED SITE 06/22/2016 LUCIO WHITEHEAD WATERFRONT DIRECTOR Ot 789.04 ABDOMINAL PAIN, LEFT LOWER QUADRANT 06/22/2016 LUCIO WHITEHEAD WATERFRONT DIRECTOR Ot 401.9 HYPERTENSION NOS 06/22/2016 LUCIO WHITEHEAD WATERFRONT DIRECTOR Ot 789.00 ABDOMINAL PAIN, UNSPECIFIED SITE 06/22/2016 MIKAYLA BOYD DO M Ot M54.5 LOW BACK PAIN 06/22/2016 TORY MARTIN EMPLOYEE SERVICES MANAGER Ot H53.9 UNSPECIFIED VISUAL DISTURBANCE 06/22/2016 TORY MARTIN EMPLOYEE SERVICES MANAGER Ot R51 HEADACHE 06/22/2016 TORY MARTIN EMPLOYEE SERVICES MANAGER Ot W19.XXXA UNSPECIFIED FALL, INITIAL ENCOUNTER 06/22/2016 TORY MARTIN EMPLOYEE SERVICES MANAGER Ot Y99.8 OTHER EXTERNAL CAUSE STATUS 06/22/2016 [...] EXAMINATION 06/22/2016 ARTURO LARES MD Ot V72.81 HJJU-FME-UYBEGTVYV CARDIOVASCULAR 06/22/2016 EVANS JACKSON MD Ot V76.12 OTH SCREEN MAMMO-MALIGN NEOPLASM OF PAT 06/22/2016 CRISTY MAXWELLP Ot 782.1 NONSPECIF SKIN ERUPT NEC 06/22/2016 CRISTY MAXWELL WATER PLANT OPERATOR Ot 786.05 SHORTNESS OF BREATH 06/22/2016 LUCIO WHITEHEAD Ot V76.12 OTH SCREEN MAMMO-MALIGN NEOPLASM OF PAT 06/22/2016 EVANS JACKSON MD Ot 787.3 FLATUL/ERUCTAT/GAS PAIN 06/22/2016 EVANS JACKSON MD Ot 789.00 ABDOMINAL PAIN, UNSPECIFIED SITE 06/22/2016 LUCIO WHITEHEAD WATERFRONT DIRECTOR Ot 789.04 ABDOMINAL PAIN, LEFT LOWER QUADRANT 06/22/2016 LUCIO WHITEHEAD WATERFRONT DIRECTOR Ot 401.9 HYPERTENSION NOS 06/22/2016 LUCIO WHITEHEAD WATERFRONT DIRECTOR Ot 789.00 ABDOMINAL PAIN, UNSPECIFIED SITE 06/22/2016 MIKAYLA BOYD DO Ot M54.5 LOW BACK PAIN 06/22/2016 TORY MARTIN EMPLOYEE SERVICES MANAGER Ot H53.9 UNSPECIFIED VISUAL DISTURBANCE 06/22/2016 TORY MARTIN EMPLOYEE SERVICES MANAGER Ot R51 HEADACHE 06/22/2016 TORY MARTIN EMPLOYEE SERVICES MANAGER Ot W19.XXXA UNSPECIFIED FALL, INITIAL ENCOUNTER 06/22/2016 TORY MARTIN EMPLOYEE SERVICES MANAGER Ot Y99.8 OTHER EXTERNAL CAUSE STATUS 06/23/2016 [...] EXAMINATION 06/23/2016 ARTURO LARES MD Ot V72.81 JDPI-LLC-JWWSVZXTI CARDIOVASCULAR 06/23/2016 EVANS JACKSON MD Ot V76.12 OTH SCREEN MAMMO-MALIGN NEOPLASM OF PAT 06/23/2016 CRISTY MAXWELL WATER PLANT OPERATOR Ot 782.1 NONSPECIF SKIN ERUPT NEC 06/23/2016 CRISTY MAXWELL WATER PLANT OPERATOR Ot 786.05 SHORTNESS OF BREATH 06/23/2016 LUCIO WHITEHEAD WATERFRONT DIRECTOR Ot V76.12 OTH SCREEN MAMMO-MALIGN NEOPLASM OF PAT 06/23/2016 EVANS JACKSON MD Ot 787.3 FLATUL/ERUCTAT/GAS PAIN 06/23/2016 EVANS JACKSON MD Ot 789.00 ABDOMINAL PAIN, UNSPECIFIED SITE 06/23/2016 LUCIO WHITEHEAD WATERFRONT DIRECTOR Ot 789.04 ABDOMINAL PAIN, LEFT LOWER QUADRANT 06/23/2016 LUCIO WHITEHEAD WATERFRONT DIRECTOR Ot 401.9 HYPERTENSION NOS 06/23/2016 LUCIO WHITEHEAD WATERFRONT DIRECTOR Ot 789.00 ABDOMINAL PAIN, UNSPECIFIED SITE 06/23/2016 MIKAYLA BOYD DO Ot M54.5 LOW BACK PAIN 06/23/2016 VERONICA TORY M EMPLOYEE SERVICES MANAGER Ot H53.9 UNSPECIFIED VISUAL DISTURBANCE 06/23/2016 TORY MARTIN EMPLOYEE SERVICES MANAGER Ot R51 HEADACHE 06/23/2016 TORY MARTIN EMPLOYEE SERVICES MANAGER Ot W19.XXXA UNSPECIFIED FALL, INITIAL ENCOUNTER 06/23/2016 VERONICATORY EMPLOYEE SERVICES MANAGER Ot Y99.8 OTHER EXTERNAL CAUSE STATUS 02/09/2017 Ot 530.81 ESOPHAGEAL REFLUX 02/09/2017 RENETTA GALAN, EVANS Latif Ot V76.12 OTH SCREEN MAMMO-MALIGN NEOPLASM OF PAT 02/09/2017 ARNAUD GALAN, ARTURO Ot 575.8 DIS OF GALLBLADDER NEC 02/09/2017 ARNAUD GALAN, ARTURO Ot 575.8 DIS OF GALLBLADDER NEC 02/09/2017 ARNAUD GALAN, ARTURO Ot V72.63 PRE-PROCEDURAL LABORATORY EXAMINATION 02/09/2017 ARNAUD GALAN, ARTURO Ot V72.81 MCOG-POL-RALXWTKNK CARDIOVASCULAR 02/09/2017 RENETTA GALAN, EVANS Latif Ot V76.12 OTH SCREEN MAMMO-MALIGN NEOPLASM OF PAT 02/09/2017 CRISTY MAXWELL WATER PLANT OPERATOR Ot 782.1 NONSPECIF SKIN ERUPT NEC 02/09/2017 CRISTY MAXWELL WATER PLANT OPERATOR Ot 786.05 SHORTNESS OF BREATH 02/09/2017 LUCIO WHITEHEAD WATERFRONT DIRECTOR Ot V76.12 OTH SCREEN MAMMO-MALIGN NEOPLASM OF APT 02/09/2017 EVANS JACKSON MD Ot 787.3 FLATUL/ERUCTAT/GAS PAIN 02/09/2017 EVANS JACKSON MD Ot 789.00 ABDOMINAL PAIN, UNSPECIFIED SITE 02/09/2017 LUCIO WHITEHEAD WATERFRONT DIRECTOR Ot 789.04 ABDOMINAL PAIN, LEFT LOWER QUADRANT 02/09/2017 LUCIO WHITEHEAD WATERFRONT DIRECTOR Ot 401.9 HYPERTENSION NOS 02/09/2017 LUCIO WHITEHEAD WATERFRONT DIRECTOR Ot 789.00 ABDOMINAL PAIN, UNSPECIFIED SITE 02/09/2017 MIKAYLA BOYD DO Ot M54.5 LOW BACK PAIN 02/09/2017 TORY MARTIN EMPLOYEE SERVICES MANAGER Ot H53.9 UNSPECIFIED VISUAL DISTURBANCE 02/09/2017 STEFANIE MARTINTAMIR Bates EMPLOYEE SERVICES MANAGER Ot R51 HEADACHE 02/09/2017 TORY MARTIN EMPLOYEE SERVICES MANAGER Ot W19.XXXA UNSPECIFIED FALL, INITIAL ENCOUNTER 02/09/2017 TORY MARTIN EMPLOYEE SERVICES MANAGER Ot Y99.8 OTHER EXTERNAL CAUSE STATUS 02/11/2017 LONG DC, RICH S Ot M25.552 PAIN IN LEFT HIP 02/11/2017 LONG DC, RICH S Ot M54.5 LOW BACK PAIN 02/25/2017 LONG DC, RICH S Ot M25.552 PAIN IN LEFT HIP 02/25/2017 LONG DC, RICH S Ot M54.5 LOW BACK PAIN 04/15/2017 MIN PIERCE DOA K Ot F17.210 NICOTINE DEPENDENCE, CIGARETTES, UNCOMPL 04/15/2017 STAN DO JALEN K Ot F41.9 ANXIETY DISORDER, UNSPECIFIED 04/15/2017 STAN DO JALEN K Ot I10 ESSENTIAL (PRIMARY) HYPERTENSION 04/15/2017 STAN DO JALEN K Ot K21.9 GASTRO-ESOPHAGEAL REFLUX DISEASE WITHOUT 04/15/2017 STAN DO JALEN K Ot K52.9 NONINFECTIVE GASTROENTERITIS AND COLITIS 04/15/2017 STAN DO JALEN K Ot R10.13 EPIGASTRIC PAIN 04/15/2017 STAN DO JALEN K Ot Z87.19 PERSONAL HISTORY OF OTHER DISEASES OF TH 04/15/2017 STAN DAY JALEN K Ot Z90.49 ACQUIRED ABSENCE OF OTHER SPECIFIED PART 05/03/2017 EVANS JACKSON MD Ot V76.12 OTH SCREEN MAMMO-MALIGN NEOPLASM OF PAT 05/03/2017 ARTURO LARES MD Ot 575.8 DIS OF GALLBLADDER NEC 05/03/2017 ARTURO LARES MD Ot 575.8 DIS OF GALLBLADDER NEC 05/03/2017 ARTURO LARES MD Ot V72.63 PRE-PROCEDURAL LABORATORY EXAMINATION 05/03/2017 ARTURO LARES MD Ot V72.81 ZCVA-CGA-TTMYWJLXN CARDIOVASCULAR 05/03/2017 EVANS JACKSON MD Ot V76.12 OTH SCREEN MAMMO-MALIGN NEOPLASM OF PAT 05/03/2017 CRISTY MAXWELL WATER PLANT OPERATOR Ot 782.1 NONSPECIF SKIN ERUPT NEC 05/03/2017 CRISTY MAXWELL WATER PLANT OPERATOR Ot 786.05 SHORTNESS OF BREATH 05/03/2017 LUCIO WHITEHEAD WATERFRONT DIRECTOR Ot V76.12 OTH SCREEN MAMMO-MALIGN NEOPLASM OF PAT 05/03/2017 EVANS JACKSON MD Ot 787.3 FLATUL/ERUCTAT/GAS PAIN 05/03/2017 EVANS JACKSON MD Ot 789.00 ABDOMINAL PAIN, UNSPECIFIED SITE 05/03/2017 LUCIO WHITEHEAD WATERFRONT DIRECTOR Ot 789.04 ABDOMINAL PAIN, LEFT LOWER QUADRANT 05/03/2017 LUCIO WHITEHEAD WATERFRONT DIRECTOR Ot 401.9 HYPERTENSION NOS 05/03/2017 LUCIO WHITEHEAD WATERFRONT DIRECTOR Ot 789.00 ABDOMINAL PAIN, UNSPECIFIED SITE 05/03/2017 MIKAYLA BOYD DO Ot M54.5 LOW BACK PAIN 05/03/2017 TORY MARTIN EMPLOYEE SERVICES MANAGER Ot H53.9 UNSPECIFIED VISUAL DISTURBANCE 05/03/2017 TORY MARTIN EMPLOYEE SERVICES MANAGER Ot R51 HEADACHE 05/03/2017 TORY MARTIN EMPLOYEE SERVICES MANAGER Ot W19.XXXA UNSPECIFIED FALL, INITIAL ENCOUNTER 05/03/2017 TORY MARTIN EMPLOYEE SERVICES MANAGER Ot Y99.8 OTHER EXTERNAL CAUSE STATUS 05/03/2017 LONG RICH ROUSSEAU S Ot M25.552 PAIN IN LEFT HIP 05/03/2017 RICH GALEANO DC S Ot M54.5 LOW BACK PAIN 07/19/2017 EVANS JACKSON MD Ot V76.12 OTH SCREEN MAMMO-MALIGN NEOPLASM OF PAT 07/19/2017 ARTURO LARES MD Ot 575.8 DIS OF GALLBLADDER NEC 07/19/2017 ARTURO LARES MD Ot 575.8 DIS OF GALLBLADDER NEC 07/19/2017 ARTURO LARES MD Ot V72.63 PRE-PROCEDURAL LABORATORY EXAMINATION 07/19/2017 ARTURO LARES MD Ot V72.81 NCJI-EDR-OCAGFKZKL CARDIOVASCULAR 07/19/2017 EVANS JACKSON MD Ot V76.12 OTH SCREEN MAMMO-MALIGN NEOPLASM OF PAT 07/19/2017 CRISTY MAXWELL WATER PLANT OPERATOR Ot 782.1 NONSPECIF SKIN ERUPT NEC 07/19/2017 CRISTY MAXWELL WATER PLANT OPERATOR Ot 786.05 SHORTNESS OF BREATH 07/19/2017 LUCIO WHITEHEAD WATERFRONT DIRECTOR Ot V76.12 OTH SCREEN MAMMO-MALIGN NEOPLASM OF PAT 07/19/2017 EVANS JACKSON MD Ot 787.3 FLATUL/ERUCTAT/GAS PAIN 07/19/2017 EVANS JACKSON MD Ot 789.00 ABDOMINAL PAIN, UNSPECIFIED SITE 07/19/2017 LUCIO WHITEHEAD WATERFRONT DIRECTOR Ot 789.04 ABDOMINAL PAIN, LEFT LOWER QUADRANT 07/19/2017 LUCIO WHITEHEAD WATERFRONT DIRECTOR Ot 401.9 HYPERTENSION NOS 07/19/2017 LUCIO WHITEHEAD WATERFRONT DIRECTOR Ot 789.00 ABDOMINAL PAIN, UNSPECIFIED SITE 07/19/2017 OLIVER DOMIKAYLA Ot M54.5 LOW BACK PAIN 07/19/2017 TORY MARTIN EMPLOYEE SERVICES MANAGER Ot H53.9 UNSPECIFIED VISUAL DISTURBANCE 07/19/2017 TORY MARTIN EMPLOYEE SERVICES MANAGER Ot R51 HEADACHE 07/19/2017 TORY MARTIN EMPLOYEE SERVICES MANAGER Ot W19.XXXA UNSPECIFIED FALL, INITIAL ENCOUNTER 07/19/2017 TORY MARTIN EMPLOYEE SERVICES MANAGER Ot Y99.8 OTHER EXTERNAL CAUSE STATUS 07/19/2017 RICH GALEANO DC Ot M25.552 PAIN IN LEFT HIP 07/19/2017 RICH GALEANO DC Ot M54.5 LOW BACK PAIN 07/21/2017 RAVEN GALAN, TEMITOPE Fuentes Ot Z12.31 ENCNTR SCREEN MAMMOGRAM FOR MALIGNANT NE 07/29/2017 EVANS JACKSON MD Ot V76.12 OTH SCREEN MAMMO-MALIGN NEOPLASM OF PAT 07/29/2017 ARTURO LARES MD Ot 575.8 DIS OF GALLBLADDER NEC 07/29/2017 ARTURO LARES MD Ot 575.8 DIS OF GALLBLADDER NEC 07/29/2017 ARTURO LARES MD Ot V72.63 PRE-PROCEDURAL LABORATORY EXAMINATION 07/29/2017 ARTURO LARES MD, Ot V72.81 JZSS-FLU-EEPAYVVEZ CARDIOVASCULAR 07/29/2017 EVANS JACKSON MD Ot V76.12 OTH SCREEN MAMMO-MALIGN NEOPLASM OF PAT 07/29/2017 CRISTY MAXWELL WATER PLANT OPERATOR Ot 782.1 NONSPECIF SKIN ERUPT NEC 07/29/2017 CRISTY MAXWELL WATER PLANT OPERATOR Ot 786.05 SHORTNESS OF BREATH 07/29/2017 LUCIO WHITEHEAD WATERFRONT DIRECTOR Ot V76.12 OTH SCREEN MAMMO-MALIGN NEOPLASM OF PAT 07/29/2017 RENETTA GALAN, EVANS Latif Ot 787.3 FLATUL/ERUCTAT/GAS PAIN 07/29/2017 EVANS JACKSON MD Ot 789.00 ABDOMINAL PAIN, UNSPECIFIED SITE 07/29/2017 LUCIO WHITEHEAD WATERFRONT DIRECTOR Ot 789.04 ABDOMINAL PAIN, LEFT LOWER QUADRANT 07/29/2017 LUCIO WHITEHEAD WATERFRONT DIRECTOR Ot 401.9 HYPERTENSION NOS 07/29/2017 LUCIO WHITEHEAD WATERFRONT DIRECTOR Ot 789.00 ABDOMINAL PAIN, UNSPECIFIED SITE 07/29/2017 MIKAYLA BOYD DO Ot M54.5 LOW BACK PAIN 07/29/2017 TORY MARTIN EMPLOYEE SERVICES MANAGER Ot H53.9 UNSPECIFIED VISUAL DISTURBANCE 07/29/2017 TORY MARTIN EMPLOYEE SERVICES MANAGER Ot R51 HEADACHE 07/29/2017 TORY MARTIN EMPLOYEE SERVICES MANAGER Ot W19.XXXA UNSPECIFIED FALL, INITIAL ENCOUNTER 07/29/2017 TORY MARTIN EMPLOYEE SERVICES MANAGER Ot Y99.8 OTHER EXTERNAL CAUSE STATUS 07/29/2017 RICH GALEANO DC Ot M25.552 PAIN IN LEFT HIP 07/29/2017 RICH GALEANO DC Ot M54.5 LOW BACK PAIN 07/29/2017 RAVEN GALAN, TEMITOPE Fuentes Ot Z12.31 ENCNTR SCREEN MAMMOGRAM FOR MALIGNANT NE 07/29/2017 EVANS JACKSON MD Ot V76.12 OTH SCREEN MAMMO-MALIGN NEOPLASM OF PAT 07/29/2017 ARTRUO LARES MD Ot 575.8 DIS OF GALLBLADDER NEC 07/29/2017 ARTURO LARES MD, Ot 575.8 DIS OF GALLBLADDER NEC 07/29/2017 ARTURO LARES MD Ot V72.63 PRE-PROCEDURAL LABORATORY EXAMINATION 07/29/2017 ARTURO LARES MD Ot V72.81 VZYW-JBC-BRUNVWNSG CARDIOVASCULAR 07/29/2017 EVANS JACKSON MD Ot V76.12 OTH SCREEN MAMMO-MALIGN NEOPLASM OF PAT 07/29/2017 CRISTY MAXWELL WATER PLANT OPERATOR Ot 782.1 NONSPECIF SKIN ERUPT NEC 07/29/2017 CRISTY MAXWELL WATER PLANT OPERATOR Ot 786.05 SHORTNESS OF BREATH 07/29/2017 LUCIO WHITEHEAD WATERFRONT DIRECTOR Ot V76.12 OTH SCREEN MAMMO-MALIGN NEOPLASM OF PAT 07/29/2017 EVANS JACKSON MD Ot 787.3 FLATUL/ERUCTAT/GAS PAIN 07/29/2017 EVANS JACKSON MD Ot 789.00 ABDOMINAL PAIN, UNSPECIFIED SITE 07/29/2017 LUCIO WHITEHEAD WATERFRONT DIRECTOR Ot 789.04 ABDOMINAL PAIN, LEFT LOWER QUADRANT 07/29/2017 LUCIO WHITEHEAD WATERFRONT DIRECTOR Ot 401.9 HYPERTENSION NOS 07/29/2017 LUCIO WHITEHEAD WATERFRONT DIRECTOR Ot 789.00 ABDOMINAL PAIN, UNSPECIFIED SITE 07/29/2017 MIKALYA BOYD DO Ot M54.5 LOW BACK PAIN 07/29/2017 TORY MARTIN EMPLOYEE SERVICES MANAGER Ot H53.9 UNSPECIFIED VISUAL DISTURBANCE 07/29/2017 TORY MARTIN EMPLOYEE SERVICES MANAGER Ot R51 HEADACHE 07/29/2017 TORY MARTIN EMPLOYEE SERVICES MANAGER Ot W19.XXXA UNSPECIFIED FALL, INITIAL ENCOUNTER 07/29/2017 TORY MARTIN EMPLOYEE SERVICES MANAGER Ot Y99.8 OTHER EXTERNAL CAUSE STATUS 07/29/2017 RICH GALEANO DC Ot M25.552 PAIN IN LEFT HIP 07/29/2017 RICH GALEANO DC S Ot M54.5 LOW BACK PAIN 07/29/2017 TEMITOPE CARBAJAL MD Ot Z12.31 ENCNTR SCREEN MAMMOGRAM FOR MALIGNANT NE 07/30/2017 TEMITOPE CARBAJAL MD Ot N63.21 UNSPECIFIED LUMP IN THE LEFT BREAST, UPP 08/02/2017 TAL GALAN, YIFAN Bates Ot N63.20 UNSPECIFIED LUMP IN THE LEFT BREAST, UNS 08/02/2017 EVANS JACKSON MD Ot V76.12 OTH SCREEN MAMMO-MALIGN NEOPLASM OF PAT 08/02/2017 ARTURO LARES MD Ot 575.8 DIS OF GALLBLADDER NEC 08/02/2017 ARTURO LARSE MD Ot 575.8 DIS OF GALLBLADDER NEC 08/02/2017 ARTURO LARES MD, Ot V72.63 PRE-PROCEDURAL LABORATORY EXAMINATION 08/02/2017 ARTURO LARES MD Ot V72.81 MGDF-KBA-TEKGHLUHL CARDIOVASCULAR 08/02/2017 EVANS JACKSON MD Ot V76.12 OTH SCREEN MAMMO-MALIGN NEOPLASM OF PAT 08/02/2017 CRISTY MAXWELL WATER PLANT OPERATOR Ot 782.1 NONSPECIF SKIN ERUPT NEC 08/02/2017 CRISTY MAXWELL WATER PLANT OPERATOR Ot 786.05 SHORTNESS OF BREATH 08/02/2017 LUCIO WHITEHEAD WATERFRONT DIRECTOR Ot V76.12 OTH SCREEN MAMMO-MALIGN NEOPLASM OF PAT 08/02/2017 EVANS JACKSON MD Ot 787.3 FLATUL/ERUCTAT/GAS PAIN 08/02/2017 EVANS JACKSON MD Ot 789.00 ABDOMINAL PAIN, UNSPECIFIED SITE 08/02/2017 LUCIO WHITEHEAD WATERFRONT DIRECTOR Ot 789.04 ABDOMINAL PAIN, LEFT LOWER QUADRANT 08/02/2017 LUCIO WHITEHEAD WATERFRONT DIRECTOR Ot 401.9 HYPERTENSION NOS 08/02/2017 LUCIO WHITEHEAD WATERFRONT DIRECTOR Ot 789.00 ABDOMINAL PAIN, UNSPECIFIED SITE 08/02/2017 MIKAYLA BOYD DO Ot M54.5 LOW BACK PAIN 08/02/2017 TORY MARTIN EMPLOYEE SERVICES MANAGER Ot H53.9 UNSPECIFIED VISUAL DISTURBANCE 08/02/2017 TORY MARTIN EMPLOYEE SERVICES MANAGER Ot R51 HEADACHE 08/02/2017 TORY MARTIN EMPLOYEE SERVICES MANAGER Ot W19.XXXA UNSPECIFIED FALL, INITIAL ENCOUNTER 08/02/2017 TORY MARTIN EMPLOYEE SERVICES MANAGER Ot Y99.8 OTHER EXTERNAL CAUSE STATUS 08/02/2017 RICH GALEANO DC S Ot M25.552 PAIN IN LEFT HIP 08/02/2017 RICH GALEANO DC S Ot M54.5 LOW BACK PAIN 08/02/2017 RAVEN GALAN, TEMITOPE Fuentes Ot Z12.31 ENCNTR SCREEN MAMMOGRAM FOR MALIGNANT NE 08/02/2017 TEMITOPE CARBAJAL MD Ot N63.21 UNSPECIFIED LUMP IN THE LEFT BREAST, UPP 08/02/2017 TAL GALAN, YIFAN Bates Ot N63.20 UNSPECIFIED LUMP IN THE LEFT BREAST, UNS 08/02/2017 EVANS JACKSON MD Ot V76.12 OTH SCREEN MAMMO-MALIGN NEOPLASM OF PAT 08/02/2017 ARNAUD GALAN, ARTURO Ot 575.8 DIS OF GALLBLADDER NEC 08/02/2017 ARTURO LARES MD Ot 575.8 DIS OF GALLBLADDER NEC 08/02/2017 ARTURO LARES MD Ot V72.63 PRE-PROCEDURAL LABORATORY EXAMINATION 08/02/2017 ARTURO LARES MD Ot V72.81 [id number]-[id number] CARDIOVASCULAR 08/02/2017 EVANS JACKSON MD Ot V76.12 OTH SCREEN MAMMO-MALIGN NEOPLASM OF PAT 08/02/2017 CRISTY MAXWELL WATER PLANT OPERATOR Ot 782.1 NONSPECIF SKIN ERUPT NEC 08/02/2017 CRISTY MAXWELL W[employer] PLANT OPERATOR Ot 786.05 SHORTNESS OF BREATH 08/02/2017 LUCIO WHITEHEAD Ot V76.12 OTH SCREEN MAMMO-MALIGN NEOPLASM OF PAT 08/02/2017 EVANS JACKSON MD Ot 787.3 FLATUL/ERUCTAT/GAS PAIN 08/02/2017 EVANS JACKSON MD Ot 789.00 ABDOMINAL PAIN, UNSPECIFIED SITE 08/02/2017 LUCIO WHITEHEAD WATERFRONT DIRECTOR Ot 789.04 ABDOMINAL PAIN, LEFT LOWER QUADRANT 08/02/2017 LUCIO WHITEHEAD WATERFRONT DIRECTOR Ot 401.9 HYPERTENSION NOS 08/02/2017 LUCIO WHITEHEAD WATERFRONT DIRECTOR Ot 789.00 ABDOMINAL PAIN, UNSPECIFIED SITE 08/02/2017 MIKAYLA BOYD DO Ot M54.5 LOW BACK PAIN 08/02/2017 TORY MARTIN EMPLOYEE SERVICES MANAGER Ot H53.9 UNSPECIFIED VISUAL DISTURBANCE 08/02/2017 TORY MARTIN EMPLOYEE SERVICES MANAGER Ot R51 HEADACHE 08/02/2017 TORY MARTIN EMPLOYEE SERVICES MANAGER Ot W19.XXXA UNSPECIFIED FALL, INITIAL ENCOUNTER 08/02/2017 TORY MARTIN EMPLOYEE SERVICES MANAGER Ot Y99.8 OTHER EXTERNAL CAUSE STATUS 08/02/2017 RICH GALEANO DC Ot M25.552 PAIN IN LEFT HIP 08/02/2017 RICH GALEANO DC Ot M54.5 LOW BACK PAIN 08/02/2017 RAVEN GALAN, TEMITOPE Fuentes Ot Z12.31 ENCNTR SCREEN MAMMOGRAM FOR MALIGNANT NE 08/02/2017 TEMITOPE CARBAJAL MD, Ot N63.21 UNSPECIFIED LUMP IN THE LEFT BREAST, UPP 08/02/2017 TAL GALAN, YIFAN Bates Ot N63.20 UNSPECIFIED LUMP IN THE LEFT BREAST, UNS 08/03/2017 TEMITOPE CARBAJAL MD, Ot D64.9 ANEMIA, UNSPECIFIED 08/03/2017 TEMITOPE CARBAJAL MD, Ot N85.9 NONINFLAMMATORY DISORDER OF UTERUS, UNSP 08/03/2017 TEMITOPE CARBAJAL MD, Ot N95.0 POSTMENOPAUSAL BLEEDING 08/03/2017 TEMITOPE CARBAJAL MD, Ot Z01.812 ENCOUNTER FOR PREPROCEDURAL LABORATORY E 08/03/2017 TEMITOPE CARBAJAL MD, Ot Z11.2 ENCOUNTER FOR SCREENING FOR OTHER BACTER 08/04/2017 TEMITOPE CARBAJAL MD, Ot Z12.31 ENCNTR SCREEN MAMMOGRAM FOR MALIGNANT NE 08/04/2017 TEMITOPE CARBAJAL MD, Ot C50.912 MALIGNANT NEOPLASM OF UNSPECIFIED SITE O 08/04/2017 TEMITOPE CARBAJAL MD, Ot F41.9 ANXIETY DISORDER, UNSPECIFIED 08/04/2017 TEMITOPE CARBAJAL MD, Ot I10 ESSENTIAL (PRIMARY) HYPERTENSION 08/04/2017 TEMITOPE CARBAJAL MD, Ot N95.0 POSTMENOPAUSAL BLEEDING 08/04/2017 TEMITOPE CARBAJAL MD, Ot Z79.899 OTHER STILL OPERATOR WHISKEY (CURRENT) DRUG THERAPY 08/04/2017 TEMITOPE CARBAJAL MD, Ot Z87.891 PERSONAL HISTORY OF NICOTINE DEPENDENCE 08/11/2017 TEMITOPE CARBAJAL MD, Ot 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 08/11/2017 TEMITOPE CARBAJAL MD, Ot F41.9 ANXIETY DISORDER, UNSPECIFIED 08/11/2017 TEMITOPE CARBAJAL MD, Ot I10 ESSENTIAL (PRIMARY) HYPERTENSION 08/11/2017 TEMITOPE CARBAJAL MD, Ot N84.0 POLYP OF CORPUS UTERI 08/11/2017 TEMITOPE CARBAJAL MD, Ot N95.0 POSTMENOPAUSAL BLEEDING 08/11/2017 TEMITOPE CARBAJAL MD, Ot Z79.899 OTHER STILL OPERATOR WHISKEY (CURRENT) DRUG THERAPY 08/11/2017 TEMITOPE CARBAJAL MD, Ot Z87.891 PERSONAL HISTORY OF NICOTINE DEPENDENCE 08/11/2017 TEMITOPE CARBAJAL MD Ot N63.21 UNSPECIFIED LUMP IN THE LEFT BREAST, UPP 08/11/2017 TAL GALAN, YIFAN M Ot N63.20 UNSPECIFIED LUMP IN THE LEFT BREAST, UNS Procedures There is no data. Results Test Result Range Complete blood count (CBC) with automated white blood cell (WBC) differential - 04/15/17 09:50 Blood leukocytes automated count (number/volume) 14.2 10*3/uL 4.3-11.0 Blood erythrocytes automated count (number/volume) 5.38 10*6/uL 4.35-5.85 Venous blood hemoglobin measurement (mass/volume) 16.6 g/dL 11.5-16.0 Blood hematocrit (volume fraction) 47 % 35-52 Automated erythrocyte mean corpuscular volume 86 [foz_us] 80-99 Automated erythrocyte mean corpuscular hemoglobin (mass per erythrocyte) 31 pg 25-34 Automated erythrocyte mean corpuscular hemoglobin concentration measurement ( mass/volume) 36 g/dL 32-36 Automated erythrocyte distribution width ratio 12.3 % 10.0-14.5 Automated blood platelet count (count/volume) 317 10*3/uL 130-400 Automated blood platelet mean volume measurement 10.8 [foz_us] 7.4-10.4 Automated blood neutrophils/100 leukocytes 86 % 42-75 Automated blood lymphocytes/100 leukocytes 7 % 12-44 Blood monocytes/100 leukocytes 5 % 0-12 Automated blood eosinophils/100 leukocytes 1 % 0-10 Automated blood basophils/100 leukocytes 0 % 0-10 Blood neutrophils automated count (number/volume) 12.3 10*3 1.8-7.8 Blood lymphocytes automated count (number/volume) 1.0 10*3 1.0-4.0 Blood monocytes automated count (number/volume) 0.7 10*3 0.0-1.0 Automated eosinophil count 0.2 10*3/uL 0.0-0.3 Automated blood basophil count (count/volume) 0.0 10*3/uL 0.0-0.1 Comprehensive metabolic panel - 04/15/17 09:50 Serum or plasma sodium measurement (moles/volume) 140 mmol/L 135-145 Serum or plasma potassium measurement (moles/volume) 4.3 mmol/L 3.6-5.0 Serum or plasma chloride measurement (moles/volume) 106 mmol/L 98-107 Carbon dioxide 21 mmol/L 21-32 Serum or plasma anion gap determination (moles/volume) 13 mmol/L 5-14 Serum or plasma urea nitrogen measurement (mass/volume) 21 mg/dL 7-18 Serum or plasma creatinine measurement (mass/volume) 0.80 mg/dL 0.60-1.30 Serum or plasma urea nitrogen/creatinine mass ratio 26 NRG Serum or plasma creatinine measurement with calculation of estimated glomerular filtration rate > NRG Serum or plasma glucose measurement (mass/volume) 95 mg/dL 70-105 Serum or plasma calcium measurement (mass/volume) 9.1 mg/dL 8.5-10.1 Serum or plasma total bilirubin measurement (mass/volume) 0.8 mg/dL 0.1-1.0 Serum or plasma alkaline phosphatase measurement (enzymatic activity/volume) 67 U/L 40-136 Serum or plasma aspartate aminotransferase measurement (enzymatic activity/ volume) 17 U/L 5-34 Serum or plasma alanine aminotransferase measurement (enzymatic activity/volume ) 20 U/L 0-55 Serum or plasma protein measurement (mass/volume) 7.2 g/dL 6.4-8.2 Serum or plasma albumin measurement (mass/volume) 4.4 g/dL 3.2-4.5 Magnesium - 04/15/17 09:50 Magnesium 1.9 mg/dL 1.8-2.4 Serum or plasma amylase measurement (enzymatic activity/volume) - 04/15/17 09: 50 Serum or plasma amylase measurement (enzymatic activity/volume) 62 U /L 25-125 Lipase - 04/15/17 09:50 Lipase 17 U/L 8-78 PT panel in platelet poor plasma by coagulation assay - 04/15/17 09:50 Prothrombin time (PT) in platelet poor plasma by coagulation assay 13.3 s 12.2-14.7 INR in platelet poor plasma or blood by coagulation assay 1.0 0.8-1.4 Activated partial thromboplastin time (aPTT) in platelet poor plasma bycoagulation assay - 04/15/17 09:50 Activated partial thromboplastin time (aPTT) in platelet poor plasma bycoagulation assay 20 s 24-35 Blood manual differential performed detection - 04/15/17 09:50 Blood monocytes/100 leukocytes 3 % NRG Manual blood segmented neutrophils/100 leukocytes 81 % NRG Blood band neutrophils/100 leukocytes 0 % NRG Manual blood lymphocytes/100 leukocytes 12 % NRG Manual eosinophils/100 leukocytes in nose 4 % NRG Manual blood basophils/100 leukocytes 0 % NRG Blood erythrocyte morphology finding identification NORMAL NRG Complete urinalysis with reflex to culture - 04/15/17 10:10 Urine color determination YELLOW NRG Urine clarity determination CLEAR NRG Urine pH measurement by test strip 5 5-9 Specific gravity of urine by test strip 1.025 1.016- 1.022 Urine protein assay by test strip, semi-quantitative NEGATIVE NEGATIVE Urine glucose detection by automated test strip NEGATIVE NEGATIVE Erythrocytes detection in urine sediment by light microscopy NEGATIVE NEGATIVE Urine ketones detection by automated test strip NEGATIVE NEGATIVE Urine nitrite detection by test strip NEGATIVE NEGATIVE Urine total bilirubin detection by test strip 2+ NEGATIVE Urine urobilinogen measurement by automated test strip (mass/volume) NORMAL NORMAL Urine leukocyte esterase detection by dipstick NEGATIVE NEGATIVE Automated urine sediment erythrocyte count by microscopy (number/high power field) NONE NRG Automated urine sediment leukocyte count by microscopy (number/high power field ) RARE NRG Bacteria detection in urine sediment by light microscopy TRACE NRG Squamous epithelial cells detection in urine sediment by light microscopy 10-25 NRG Crystals detection in urine sediment by light microscopy NONE NRG Casts detection in urine sediment by light microscopy NONE NRG Mucus detection in urine sediment by light microscopy LARGE NRG Complete urinalysis with reflex to culture NO NRG Methicillin resistant Staphylococcus aureus (MRSA) screening culture - 11:54 Methicillin resistant Staphylococcus aureus (MRSA) screening culture NEG NRG Complete blood count (CBC) with automated white blood cell (WBC) differential - 08/02/17 11:55 Blood leukocytes automated count (number/volume) 5.9 10*3/uL 4.3-11.0 Blood erythrocytes automated count (number/volume) 4.52 10*6/uL 4.35-5.85 Venous blood hemoglobin measurement (mass/volume) 13.9 g/dL 11.5-16.0 Blood hematocrit (volume fraction) 40 % 35-52 Automated erythrocyte mean corpuscular volume 89 [foz_us] 80-99 Automated erythrocyte mean corpuscular hemoglobin (mass per erythrocyte) 31 pg 25-34 Automated erythrocyte mean corpuscular hemoglobin concentration measurement ( mass/volume) 34 g/dL 32-36 Automated erythrocyte distribution width ratio 12.3 % 10.0-14.5 Automated blood platelet count (count/volume) 127 10*3/uL 130-400 Automated blood platelet mean volume measurement 11.1 [foz_us] 7.4-10.4 Automated blood neutrophils/100 leukocytes 50 % 42-75 Automated blood lymphocytes/100 leukocytes 40 % 12-44 Blood monocytes/100 leukocytes 5 % 0-12 Automated blood eosinophils/100 leukocytes 4 % 0-10 Automated blood basophils/100 leukocytes 2 % 0-10 Blood neutrophils automated count (number/volume) 3.0 10*3 1.8-7.8 Blood lymphocytes automated count (number/volume) 2.4 10*3 1.0-4.0 Blood monocytes automated count (number/volume) 0.3 10*3 0.0-1.0 Automated eosinophil count 0.2 10*3/uL 0.0-0.3 Automated blood basophil count (count/volume) 0.1 10*3/uL 0.0-0.1 Encounters ACCT No. Visit Date/Time Discharge Status Pt. Type Provider Facility Loc./Unit Complaint [id number] 08/09/2013 16:44:47 08/09/2013 23:59:59 CLS Outpatient Walker Angelina [id number] 08/02/2013 14:06:17 08/02/2013 23:59:59 CLS Outpatient Walker, Angelina [id number] 07/26/2013 14:22:04 07/26/2013 23:59:59 CLS Outpatient Walker, Angelina [id number] 07/19/2013 09:16:53 07/19/2013 23:59:59 CLS Outpatient Walker, Angelina [id number] 07/19/2013 09:03:44 07/19/2013 23:59:59 CLS Outpatient Walker, Angelina [id number] 07/12/2013 09:08:28 07/12/2013 23:59:59 CLS Outpatient Walker, Angelina [id number] 07/06/2013 09:04:31 07/06/2013 23:59:59 CLS Outpatient Nataly Varner [id number] 06/29/2013 11:16:49 06/29/2013 23:59:59 CLS Outpatient Walker, Angelina [id number] 08/04/2017 06:36:00 08/04/2017 17:30:00 DIS Outpatient TEMITOPE CARBAJAL MD [facility] SDC POST MENOPAUSAL BLEED,UTERINE MASS, LT BREAST CA [id number] 08/02/2017 11:34:00 08/02/2017 12:00:00 DIS Outpatient TEMITOPE CARBAJAL MD [facility] PREOP POST MENOPAUSAL BLEEDING,UTERINE MASS [id number] 07/30/2017 08:08:00 07/30/2017 23:59:59 CLS Outpatient YIFAN PARADA MD [facility] RAD LEFT BREAST ABNORMAL SONO [id number] 07/29/2017 08:05:00 07/29/2017 23:59:59 CLS Outpatient TEMITOPE CARBAJAL MD [facility] RAD ABNORMAL MAMMO FROM 07/20/17 [id number] 07/20/2017 11:08:00 07/20/2017 23:59:59 CLS Outpatient TEMITOPE CARBAJAL MD [facility] RAD ROUTINE SCREENING [id number] 04/15/2017 09:14:00 04/15/2017 17:01:00 DIS Emergency JALEN PIERCE DO [facility] ER ABD PAIN,DIZZY [id number] 02/09/2017 16:36:00 02/09/2017 23:59:59 CLS Outpatient RICH GALEANO DC [facility] RAD LBP LT HIP PAIN [id number] 06/10/2016 10:12:00 06/10/2016 12:50:00 DIS Emergency SHANNA ROSA [facility] ER BACK/LEFT HIP PAIN [id number] 05/25/2016 17:41:00 05/25/2016 23:59:59 CLS Outpatient TORY MARTIN APRN [facility] RAD FALL,HEADACHE,VISION CHANGE [id number] 10/23/2015 16:35:00 10/23/2015 23:59:59 CLS Outpatient MIKAYLA BOYD DO [facility] RAD LOW BACK PAIN [id number] 10/18/2015 10:13:00 10/18/2015 23:59:59 CLS Outpatient LADARIUSAMADAMISSY 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 [facility] QUICK [id number] 08/15/2014 11:01:00 08/15/2014 23:59:59 CLS Outpatient LUCIO WHITEHEAD [employer] DIRECTOR [facility] RAD SCREENING [id number] 07/30/2014 06:49:00 07/30/2014 23:59:59 CLS Outpatient LUCIO WHITEHEAD W[employer] DIRECTOR [facility] RAD ABDOMINAL PAIN HTN [id number] 07/26/2014 10:25:00 07/26/2014 23:59:59 CLS Outpatient LUCIO WHITEHEAD W[employer] DIRECTOR [facility] RAD LEFT LOWER QUADRANT PAIN [id number] 07/25/2014 11:15:00 07/25/2014 23:59:59 CLS Outpatient EVANS JACKSON MD [facility] SDC ABD PAIN [id number] 04/18/2014 03:00:00 04/19/2014 14:00:00 DIS Inpatient EVANS JACKSON MD [facility] 4TH GASTROENTERITIS; INTRACTABLE NAUSEA [id number] 04/17/2014 18:42:00 04/17/2014 21:26:00 DIS Emergency JALEN PIERCE DO [facility] ER DEHYDRATION [id number] 11/22/2013 13:56:00 11/22/2013 23:59:59 CLS Outpatient [id number] 08/18/2013 10:01:00 08/18/2013 23:59:59 CLS Outpatient CRISTY MAXWELL [employer]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 [facility] RAD RASH,SOB [id number] 05/31/2013 15:14:00 05/31/2013 23:59:59 CLS Outpatient EVANS JACKSON MD [facility] RAD SCREENING [id number] 01/14/2013 01:58:00 01/14/2013 15:21:00 DIS Inpatient ARTURO LARES MD [facility] SURGICAL INTRACTABLE NAUSEA, POST OP PAIN [id number] 01/12/2013 06:31:00 01/12/2013 13:15:00 DIS Outpatient ARTURO LARES MD [facility] SDC DYSKNESIA [id number] 01/11/2013 13:22:00 01/11/2013 23:59:59 CLS Outpatient ARTURO LARES MD [facility] PREOP DYSKNESIA [id number] 01/11/2013 09:55:00 01/11/2013 23:59:59 CLS Outpatient ARTURO LARES MD [facility] RAD ABD PAIN [id number] 01/06/2013 12:28:00 01/06/2013 14:56:00 DIS Emergency TAMAR MISHRA APRN [facility] ER ABD [id number] 08/02/2012 10:13:00 08/02/2012 23:59:59 CLS Outpatient EVANS JACKSON MD [facility] RAD SCREENING [id number] 04/18/2014 04:16:00 Document Registration [id number] 04/18/2014 04:16:00 Document Registration [id number] 08/31/2011 07:58:00 Document Registration [id number] 08/10/2011 07:18:00 Document Registration [id number] 08/05/2011 07:52:00 Document Registration [id number] 07/31/2011 07:57:00 Document Registration [id number] 08/15/2010 09:43:00 Document Registration [id number] 08/16/2009 07:43:00 Document Registration [id number] 08/02/2009 06:55:00 Document Registration [id number] 12/13/2008 07:52:00 Document Registration [id number] 02/11/2017 09:45:38 02/11/2017 23:59:59 CLS Outpatient
== END 2017-08-26 14:49 | disposition home or self-care (01) ==
LOC: EDUNIT# 12:51 → ER 12:53
DX: R07.89 Other chest pain (principal); C50.912 Malignant neoplasm of unspecified site of left female breast; I10 Essential (primary) hypertension; K21.9 Gastro-esophageal reflux disease without esophagitis; F41.9 Anxiety disorder, unspecified; Z88.0 Allergy status to penicillin; Z87.891 Personal history of nicotine dependence; Z87.19 Personal history of other diseases of the digestive system; Z82.49 Family history of ischemic heart disease and other diseases of the circulatory system
CPT/HCPCS: 36415; 71045; 80053; 84484; 85025; 85379; 93005

== ENCOUNTER → 2017-09-02 | Outpatient (CLI) | payer BC ==
[~2017-09-02] MED LIST changes: +FLUO20CA25
== END ==
LOC: CARD 15:30
PROVIDERS: ATTEND Internal Medicine Hematology & Oncology
DX: Z01.89 Encounter for other specified special examinations (principal); C50.412 Malignant neoplasm of upper-outer quadrant of left female breast

== ENCOUNTER → 2017-09-07 | Outpatient (CLI) | payer BC ==
[~2017-09-07] MED LIST changes: +BARIUM SUSPENSION 2.1% (VANILLA SILQ) 450 ML PO ONE; +CATHETER FLUSH 10 ML SYR IV PRN; +IOHEXOL 350 MG/ML 100 ML (OMNIPAQUE 350) VIAL IV ONE; +NS 250 ML (IVPB) BAG IV ONE
--- NOTE | 2017-09-07 13:35 | Diagnostic Imaging Report ---
PROCEDURE: CT chest and abdomen with contrast. TECHNIQUE: Multiple contiguous axial images were obtained through the chest and abdomen after the administration of intravenous contrast. INDICATION: Left breast carcinoma. COMPARISON: No prior chest CT is available for comparison. Comparison is made with prior CT abdomen and pelvis from 04/15/2017. CT CHEST: FINDINGS: There is a large area of increased density noted in the upper and outer aspect of the left breast, most consistent with patient's known breast carcinoma and perhaps post-therapeutic changes. There are surgical clips in the left axilla. No definite axillary lymphadenopathy is identified. No definite hilar or mediastinal lymphadenopathy is detected. No pericardial or pleural fluid is identified. The central airways are unremarkable. No pulmonary parenchymal mass, nodule, or infiltrate is identified. IMPRESSION: 1. No evidence of thoracic lymphadenopathy or pulmonary metastatic disease. 2. Post-therapeutic changes to the left breast and left axilla, as described. CT ABDOMEN: FINDINGS: Circumscribed low densities within the liver are again noted, suggestive of cysts. These appear stable. There is generalized low density throughout the liver suggestive of hepatic steatosis. The pancreas and spleen are unremarkable. No adrenal mass is identified. The kidneys are unremarkable. The aorta is non-aneurysmal. No central retroperitoneal or mesenteric lymphadenopathy is identified. IMPRESSION: Stable CT of the abdomen when compared with exam from 04/15/2017. No abdominal lymphadenopathy or evidence of metastatic disease is identified. Dictated by: Dictated on workstation # [id number]
--- NOTE | 2017-09-07 15:47 | Diagnostic Imaging Report ---
INDICATION: Left breast carcinoma. TECHNIQUE: Patient was administered 26.5 mCi of technetium 99m MDP intravenously and whole-body imaging was performed after a three-hour delay. COMPARISON: No prior bone scan is available for comparison. FINDINGS: There is normal physiologic uptake of activity by the axial and appendicular skeleton. There is uptake by both kidneys with excretion into the urinary bladder. Mild uptake involving the first MTP joints bilaterally is noted, likely on a degenerative basis. There is moderate size region of homogeneous uptake of activity involving the distal right forearm/right wrist location. Etiology of this is indeterminate. No other abnormal foci are detected. IMPRESSION: Abnormal uptake in the region of the distal right forearm and right wrist. Clinical correlation for prior surgery at this location is recommended. Plain films of this area can be performed for further evaluation, if clinically indicated. The remainder of the study is unremarkable. Dictated by: Dictated on workstation # [id number]
== END ==
LOC: CARD 09-02 15:22
PROVIDERS: ATTEND Internal Medicine Hematology & Oncology
DX: Z01.89 Encounter for other specified special examinations (principal); C50.412 Malignant neoplasm of upper-outer quadrant of left female breast
CPT/HCPCS: 71260; 74160; 78306

== ENCOUNTER → 2017-11-02 | Outpatient (CLI) | payer BC ==
[~2017-11-02] MED LIST changes: -BARIUM SUSPENSION 2.1% (VANILLA SILQ) 450 ML PO ONE; -CATHETER FLUSH 10 ML SYR IV PRN; -IOHEXOL 350 MG/ML 100 ML (OMNIPAQUE 350) VIAL IV ONE; -NS 250 ML (IVPB) BAG IV ONE
--- NOTE | 2017-11-02 17:14 | Diagnostic Imaging Report ---
INDICATION: Hand pain and swelling. FINDINGS: The alignment is normal. There is no fracture or dislocation. There is some questionable degenerative cyst in the scaphoid. Soft tissues are unremarkable. IMPRESSION: 1. No acute fracture or dislocation. 2. Questionable degenerative cyst in the scaphoid. Dictated by: Dictated on workstation # [id number]
== END ==
LOC: RAD 14:15
PROVIDERS: ATTEND Nurse Practitioner Adult Health
DX: M79.642 Pain in left hand (principal); M79.89 Other specified soft tissue disorders
CPT/HCPCS: 73120

== ENCOUNTER 2017-11-17 14:49 | Outpatient (RCR) | payer BC ==
[~2017-11-17 14:49] MED LIST changes: -OXYC-197 PO; +OXYC1TAB87 PO
== END 2017-12-01 | disposition home or self-care (01) ==
LOC: ONC 14:49
PROVIDERS: ATTEND Internal Medicine Hematology & Oncology
DX: Z51.0 Encounter for antineoplastic radiation therapy (principal); C50.412 Malignant neoplasm of upper-outer quadrant of left female breast; I10 Essential (primary) hypertension; K21.9 Gastro-esophageal reflux disease without esophagitis; Z87.891 Personal history of nicotine dependence; Z79.899 Other long term (current) drug therapy; Z17.0 Estrogen receptor positive status [ER+]
CPT/HCPCS: 77290; 77295; 77300; 77307; 77334; 77336; 77417; 99204; 99213; 99214

== ENCOUNTER 2018-01-05 08:01 | Outpatient (CLI) | payer BC ==
[~2018-01-05] VITALS: Ht 152.4 cm; Wt 57.2 kg
[2018-01-05 08:13] VITALS: BP 136/80
[2018-01-05] MEDS ORDERED: OMEP20CA12 PO (08:20)
[2018-01-05] MEDS ORDERED: LORA10TA76 PO (08:20)
[2018-01-05] MEDS ORDERED: GLUC-113 PO (08:20)
[2018-01-05] MEDS ORDERED: TURM538C PO (08:48)
[2018-01-05] MEDS ORDERED: DOCU100T7 PO (08:48)
[2018-01-05 09:11] LABS: BASOPHILS # (AUTO) 0.1 10^3/uL (0.0-0.1); BASOPHILS % (AUTO) 2 % (0-10); EOSINOPHILS # (AUTO) 0.3 10^3/uL (0.0-0.3); EOSINOPHILS % (AUTO) 6 % (0-10); HEMATOCRIT 40 % (35-52); HEMOGLOBIN 13.9 G/DL (11.5-16.0); LYMPHOCYTES # (AUTO) 1.3 X 10^3 (1.0-4.0); LYMPHOCYTES % (AUTO) 29 % (12-44); MEAN CORPUSCULAR HEMOGLOBIN 31 PG (25-34); MEAN CORPUSCULAR HGB CONC 35 G/DL (32-36); MEAN CORPUSCULAR VOLUME 89 FL (80-99); MEAN PLATELET VOLUME 9.8 FL (7.4-10.4); MONOCYTES # (AUTO) 0.4 X 10^3 (0.0-1.0); MONOCYTES % (AUTO) 8 % (0-12); NEUTROPHILS # (AUTO) 2.5 X 10^3 (1.8-7.8); NEUTROPHILS % (AUTO) 56 % (42-75); PLATELET COUNT 352 10^3/uL (130-400); RED BLOOD COUNT 4.53 10^6/uL (4.35-5.85); RED CELL DISTRIBUTION WIDTH 12.7 % (10.0-14.5); WHITE BLOOD COUNT 4.6 10^3/uL (4.3-11.0)
[2018-01-07] MEDS ORDERED: IBUP-1780 PO (14:25)
[2018-01-07] MEDS ORDERED: DOCU100C37 PO (14:25)
[2018-01-07] MEDS ORDERED: OXYC1TAB87 PO (14:25)
== END 2018-01-05 08:40 | disposition home or self-care (01) ==
LOC: PREOP 08:01
PROVIDERS: ATTEND Obstetrics & Gynecology
DX: Z01.812 Encounter for preprocedural laboratory examination (principal); Z11.2 Encounter for screening for other bacterial diseases; N89.0 Mild vaginal dysplasia; N93.8 Other specified abnormal uterine and vaginal bleeding; R19.09 Other intra-abdominal and pelvic swelling, mass and lump; D64.9 Anemia, unspecified
CPT/HCPCS: 36415; 85025; 87081

== ENCOUNTER 2018-01-07 11:29 | Day surgery (SDC) | payer BC ==
[~2018-01-07] VITALS: Ht 152.4 cm; Wt 57.2 kg
[~2018-01-07 11:29] MED LIST changes: +DOCU100T7 PO; +GLUC-113 PO; +LORA10TA76 PO; +OMEP20CA12 PO; +TURM538C PO
[2018-01-07 11:30] VITALS: BP 163/86
[2018-01-07] MEDS: LACTATED RINGERS 1,000 ML IV PRN ×2 (11:45→13:32)
[2018-01-07] MEDS ORDERED: ceFAZolin INJECTION 1,000 MG in NS (IVPB) 50 ML IV ONE (12:00)
[2018-01-07] MEDS ORDERED: LACTATED RINGERS 1,000 ML IV PRN (12:05)
[2018-01-07] MEDS ORDERED: FAMOTIDINE 20MG/2ML IV (PEPCID) IV ONE (12:15)
[2018-01-07] MEDS ORDERED: ONDANSETRON 4 MG/2 ML (SDV) Z0FRAN IV ONE (12:15)
[2018-01-07] MEDS ORDERED: SCOPOLAMINE 1.5 MG (TRANSDERM-SCOP) PATCH TD ONE (12:30)
[2018-01-07] MEDS ORDERED: BUP/EPI 0.5% 1:200,000 (SENSORCAINE) 30 ML VIAL ONE (12:35)
[2018-01-07] MEDS ORDERED: MIDAZOLAM 2 MG/2 ML (VERSED) VIAL ONE (12:35)
[2018-01-07] MEDS ORDERED: fentaNYL INJECTION 100 MCG/2 ML AMP ONE (12:35)
[2018-01-07] MEDS ORDERED: ROCURONIUM 10 MG/ML 5 ML SYRINGE IV ONE (12:42)
[2018-01-07] MEDS ORDERED: KETOROLAC 30 MG/ML VIAL ONE (12:42)
[2018-01-07] MEDS ORDERED: proPOfol 200 MG/20 ML (DIPRIVAN) VIAL IV ONE (12:42)
[2018-01-07] MEDS ORDERED: DEXAMETHASONE 10 MG/ML (DECADRON) 1 ML VIAL ONE (12:42)
[2018-01-07] MEDS ORDERED: SEVOFLURANE (ULTANE) 15 ML INHAL SOLN ONE ×6 (12:42)
[2018-01-07] MEDS ORDERED: ONDANSETRON 4 MG/2 ML (SDV) Z0FRAN ONE (12:42)
[2018-01-07] MEDS ORDERED: LIDOCAINE PF 2% 5 ML (XYLOCAINE) VIAL ONE (12:42)
--- NOTE | 2018-01-07 12:47 | Progress Note-Pre Operative ---
Pre-Operative Progress Note H&P Reviewed The H&P was reviewed, patient examined and no changes noted. Date Seen by Provider: Jan 07, 2018 Time Seen by Provider: 12:46 Date H&P Reviewed: Jan 07, 2018 Time H&P Reviewed: 12:47 Pre-Operative Diagnosis: dub/toshia I/menorrhagia TEMITOPE CARBAJAL MD Jan 07, 2018 12:47 pm
--- NOTE | 2018-01-07 12:48 | Progress Note-Post Operative ---
Post-Operative Progess Note Surgeon (s)/Safety Instruction Police Officer (s) Surgeon TEMITOPE CARBAJAL MD Safety Instruction Police Officer: Vivi Silvestre Pre-Operative Diagnosis dub/toshia I/menorrhagia Post-Operative Diagnosis same with pathology pending Procedure & Operative Findings Date of Procedure 01/07/18 Procedure Performed/Findings TLH/BSO Anesthesia Type GETA Estimated Blood Loss Estimated blood loss (mL): Minimal Specimens/Packing Specimens Removed uterus/tubes/ovaries Packing: none TEMITOPE CARBAJAL MD Jan 07, 2018 12:48
[2018-01-07] MEDS ORDERED: oxyCODONE/APAP 5/325MG (PERCOCET 5) TABLET PO PRN (13:00)
[2018-01-07] MEDS ORDERED: ESTROGENS CONJ IV 25 MG/5 ML (PREMARIN) VIAL IVP ONE (13:00)
[2018-01-07] MEDS ORDERED: WATER (STERILE) FOR INJ 10 ML BTL INJ ONE (13:00)
[2018-01-07] MEDS ORDERED: ONDANSETRON 4 MG/2 ML (SDV) Z0FRAN IVP PRN ×2 (13:00→14:30)
[2018-01-07] MEDS ORDERED: MEPERIDINE (DEMEROL) INJ 100 MG/ML IM PRN (13:00)
[2018-01-07] MEDS ORDERED: KETOROLAC 30 MG/ML VIAL IVP SCH (13:00)
[2018-01-07] MEDS ORDERED: GLYCOPYRROLATE 0.2 MG/ML (ROBINUL) 2 ML VIAL ONE (13:59)
[2018-01-07] MEDS ORDERED: NEOSTIGMINE 1 MG/ML 5 ML SYRINGE ONE (13:59)
[2018-01-07] MEDS: KETOROLAC 30 MG/ML VIAL IVP SCH ×4 (14:00→20:32)
[2018-01-07] MEDS ORDERED: OXYC1TAB87 PO (14:25)
[2018-01-07] MEDS ORDERED: IBUP-1780 PO (14:25)
[2018-01-07] MEDS ORDERED: DOCU100C37 PO (14:25)
--- NOTE | 2018-01-07 14:26 | Discharge Instructions ---
Discharge Instructions Discharge Medications New, Converted or Re-Newed RX: RX on Chart Patient Instructions Patient Instructions: As directed Return to The Hospital For: as directed Activity & Diet Discharge Diet: No Restrictions Activity as Tolerated: No Orders-Post D/C & Referrals Follow Up Appt: Return to clinic on Wednesday, January 10, 2018 at 930 a.m. for staple removal Call to make follow up appt. for patient in 4 weeks. Activity: Rest for 24 hours, than as tolerated. Wound Care: May remove Band-Aid tomorrow. Replace as desired. Keep incisions clean and dry. Wash daily with soap and water. Please call in RX to patient pharmacy. Diet: As tolerated-Clear Liquids only if nauseated. May shower or tub bathe as desired. No driving for 24 hours, no alcoholic beverages for 24 hours, and nothing per vagina (no tampons, douching, or intercourse) for 8 weeks. Patient to return to the clinic as soon as possible for: Temperature greater than 101F, Severe Pain, Foul discharge from incision or vagina, Excessive Bleeding (more than a period). TEMITOPE CARBAJAL MD Jan 07, 2018 2:26 pm
[2018-01-07] MEDS ORDERED: PROMETHAZINE INJ 25 MG/ML (PHENERGAN) AMP IVP ONE (14:30)
[2018-01-07] MEDS ORDERED: morphine INJ 10 MG/ML 1ML (SYR OR VIAL) IVP ONE (14:30)
[2018-01-07 15:21] VITALS: BP 117/70
[2018-01-07] MEDS ORDERED: MEPERIDINE (DEMEROL) INJ 50 MG/ML ONE (15:27)
[2018-01-07] MEDS: PROMETHAZINE INJ 25 MG/ML (PHENERGAN) AMP IM PRN (15:38)
--- OUTSIDE RECORDS SUMMARY | 2018-01-07 16:27 | XMS REPORT | Continuity of Care Document ---
Author Author [facility] Organization [facility] Address Unknown Phone Unavailable Allergies Active Description Code Type Severity Reaction Onset Reported/Identified Relationship to Patient Clinical Status Yes erythromycin base [id number] Drug Allergy Unknown N/A 11/24/2007 Yes azithromycin [id number] Drug Allergy Moderate N/A 04/17/2014 Medications There is no data. Problems Date Dx Coded Attending Type Code Diagnosis Diagnosed By 08/10/2011 Ot 530.81 ESOPHAGEAL REFLUX 01/06/2013 TAMAR MISHRA APRN Ot 564.00 UNSPEC CONSTIPATION 01/06/2013 TMAAR MIHSRA APRN Ot 789.07 ABDOMINAL PAIN, GENERALIZED 01/12/2013 [...] LUCIO WHITEHEADP Ot 789.04 09/11/2014 LUCIO WHITEHEAD FABRIC STRETCHER Ot V76.12 09/12/2014 RENETTA GALAN, EVANS Latif [...] EXAMINATION 05/28/2016 ARNAUD GALAN, ARTURO Ot V72.81 [id number] CARDIOVASCULAR 05/28/2016 RENETTA GALAN, EVANS Latif Ot V76.12 OTH SCREEN MAMMO-MALIGN NEOPLASM OF PAT 05/28/2016 CRISTY MAXWELL ADVISORY APPLICATION DEVELOPER Ot 782.1 NONSPECIF SKIN ERUPT NEC 05/28/2016 CRISTY MAXWELL ADVISORY APPLICATION DEVELOPER Ot 786.05 SHORTNESS OF BREATH 05/28/2016 LUCIO WHITEHEAD Ot V76.12 OTH SCREEN MAMMO-MALIGN NEOPLASM OF PAT 05/28/2016 EVANS JACKSON MD Ot 787.3 FLATUL/ERUCTAT/GAS PAIN 05/28/2016 EVANS JACKSON MD Ot 789.00 ABDOMINAL PAIN, UNSPECIFIED SITE 05/28/2016 LUCIO WHITHEEAD Ot 789.04 ABDOMINAL PAIN, LEFT LOWER QUADRANT 05/28/2016 LUCIO WHITEHEADP Ot 401.9 HYPERTENSION NOS 05/28/2016 LUCIO WHITEHEAD Ot 789.00 ABDOMINAL PAIN, UNSPECIFIED SITE 05/28/2016 MIKAYLA BOYD DO Ot M54.5 LOW BACK PAIN 05/28/2016 TORY MARTIN CIVIL TECHNICIAN Ot H53.9 UNSPECIFIED VISUAL DISTURBANCE 05/28/2016 TORY MARTIN CIVIL TECHNICIAN Ot R51 HEADACHE 05/28/2016 TORY MARTIN CIVIL TECHNICIAN Ot W19.XXXA UNSPECIFIED FALL, INITIAL ENCOUNTER 05/28/2016 TORY MARTIN CIVIL TECHNICIAN Ot Y99.8 OTHER EXTERNAL CAUSE STATUS 06/10/2016 SHANNA ROSA Ot M25.552 PAIN IN LEFT HIP 06/11/2016 SHANNA ROSA Ot M25.552 PAIN IN LEFT HIP 06/11/2016 TORY MARTIN CIVIL TECHNICIAN Ot H53.9 UNSPECIFIED VISUAL DISTURBANCE 06/11/2016 TORY MARTIN CIVIL TECHNICIAN Ot R51 HEADACHE 06/11/2016 TORY MARTIN CIVIL TECHNICIAN Ot W19.XXXA UNSPECIFIED FALL, INITIAL ENCOUNTER 06/11/2016 TORY MARTIN CIVIL TECHNICIAN Ot Y99.8 OTHER EXTERNAL CAUSE STATUS 06/12/2016 [...] EXAMINATION 06/22/2016 ARTURO LARES MD Ot V72.81 [id number] CARDIOVASCULAR 06/22/2016 EVANS JACKSON MD Ot V76.12 OTH SCREEN MAMMO-MALIGN NEOPLASM OF PAT 06/22/2016 CRISTY MAXWELL ADVISORY APPLICATION DEVELOPER Ot 782.1 NONSPECIF SKIN ERUPT NEC 06/22/2016 CRISTY MAXWELL Ot 786.05 SHORTNESS OF BREATH 06/22/2016 WHITEHEAD, LUCIO M FABRIC STRETCHER Ot V76.12 OTH SCREEN MAMMO-MALIGN NEOPLASM OF PAT 06/22/2016 EVANS JACKSON MD Ot 787.3 FLATUL/ERUCTAT/GAS PAIN 06/22/2016 EVANS JACKSON MD Ot 789.00 ABDOMINAL PAIN, UNSPECIFIED SITE 06/22/2016 LUCIO WHITEHEAD FABRIC STRETCHER Ot 789.04 ABDOMINAL PAIN, LEFT LOWER QUADRANT 06/22/2016 LUCIO WHITEHEAD FABRIC STRETCHER Ot 401.9 HYPERTENSION NOS 06/22/2016 LUCIO WHITEHEAD FABRIC STRETCHER Ot 789.00 ABDOMINAL PAIN, UNSPECIFIED SITE 06/22/2016 OLIVER DAY MIKAYLA Paulo Ot M54.5 LOW BACK PAIN 06/22/2016 TORY MARTIN CIVIL TECHNICIAN Ot H53.9 UNSPECIFIED VISUAL DISTURBANCE 06/22/2016 TORY MARTIN CIVIL TECHNICIAN Ot R51 HEADACHE 06/22/2016 TORY MARTIN CIVIL TECHNICIAN Ot W19.XXXA UNSPECIFIED FALL, INITIAL ENCOUNTER 06/22/2016 TORY MARTIN CIVIL TECHNICIAN Ot Y99.8 OTHER EXTERNAL CAUSE STATUS 06/22/2016 [...] EXAMINATION 06/22/2016 ARTURO LARES MD Ot V72.81 [id number]-[id number] CARDIOVASCULAR 06/22/2016 EVANS JACKSON MD Ot V76.12 OTH SCREEN MAMMO-MALIGN NEOPLASM OF PAT 06/22/2016 CRISTY MAXWELL ADVISORY APPLICATION DEVELOPER Ot 782.1 NONSPECIF SKIN ERUPT NEC 06/22/2016 CRISTY MAXWELL ADVISORY APPLICATION DEVELOPER Ot 786.05 SHORTNESS OF BREATH 06/22/2016 LUCIO WHITEHEAD FABRIC STRETCHER Ot V76.12 OTH SCREEN MAMMO-MALIGN NEOPLASM OF PAT 06/22/2016 EVANS JACKSON MD Ot 787.3 FLATUL/ERUCTAT/GAS PAIN 06/22/2016 EVANS JACKSON MD Ot 789.00 ABDOMINAL PAIN, UNSPECIFIED SITE 06/22/2016 LUCIO WHITEHEAD FABRIC STRETCHER Ot 789.04 ABDOMINAL PAIN, LEFT LOWER QUADRANT 06/22/2016 LUCIO WHITEHEAD FABRIC STRETCHER Ot 401.9 HYPERTENSION NOS 06/22/2016 LUCIO WHITEHEAD FABRIC STRETCHER Ot 789.00 ABDOMINAL PAIN, UNSPECIFIED SITE 06/22/2016 MIKAYLA BOYD DO M Ot M54.5 LOW BACK PAIN 06/22/2016 TORY MARTIN CIVIL TECHNICIAN Ot H53.9 UNSPECIFIED VISUAL DISTURBANCE 06/22/2016 TORY MARTIN CIVIL TECHNICIAN Ot R51 HEADACHE 06/22/2016 TORY MARTIN CIVIL TECHNICIAN Ot W19.XXXA UNSPECIFIED FALL, INITIAL ENCOUNTER 06/22/2016 TORY MARTIN CIVIL TECHNICIAN Ot Y99.8 OTHER EXTERNAL CAUSE STATUS 06/22/2016 [...] EXAMINATION 06/22/2016 ARTURO LARES MD Ot V72.81 RVAA-[id number]-UMKTVAPGC CARDIOVASCULAR 06/22/2016 EVANS JACKSON MD Ot V76.12 OTH SCREEN MAMMO-MALIGN NEOPLASM OF PAT 06/22/2016 CRISTY MAXWELL ADVISORY APPLICATION DEVELOPER Ot 782.1 NONSPECIF SKIN ERUPT NEC 06/22/2016 CRISTY MAXWELL ADVISORY APPLICATION DEVELOPER Ot 786.05 SHORTNESS OF BREATH 06/22/2016 LUCIO WHITEHEAD FABRIC STRETCHER Ot V76.12 OTH SCREEN MAMMO-MALIGN NEOPLASM OF PAT 06/22/2016 EVANS JACKSON MD Ot 787.3 FLATUL/ERUCTAT/GAS PAIN 06/22/2016 RENETTA GALAN, EVANS Latif Ot 789.00 ABDOMINAL PAIN, UNSPECIFIED SITE 06/22/2016 LUCIO WHITEHEAD FABRIC STRETCHER Ot 789.04 ABDOMINAL PAIN, LEFT LOWER QUADRANT 06/22/2016 LUCIO WHITEHEAD FABRIC STRETCHER Ot 401.9 HYPERTENSION NOS 06/22/2016 GARY WHITEHEADHANTAMIR Bates FABRIC STRETCHER Ot 789.00 ABDOMINAL PAIN, UNSPECIFIED SITE 06/22/2016 MIKAYLA BOYD DO M Ot M54.5 LOW BACK PAIN 06/22/2016 TORY MARTIN CIVIL TECHNICIAN Ot H53.9 UNSPECIFIED VISUAL DISTURBANCE 06/22/2016 TORY MARTIN CIVIL TECHNICIAN Ot R51 HEADACHE 06/22/2016 TORY MARTIN CIVIL TECHNICIAN Ot W19.XXXA UNSPECIFIED FALL, INITIAL ENCOUNTER 06/22/2016 TORY MARTIN CIVIL TECHNICIAN Ot Y99.8 OTHER EXTERNAL CAUSE STATUS 06/22/2016 [...] EXAMINATION 06/22/2016 ARTURO LARES MD Ot V72.81 [id number] CARDIOVASCULAR 06/22/2016 EVANS JACKSON MD Ot V76.12 OTH SCREEN MAMMO-MALIGN NEOPLASM OF PAT 06/22/2016 CRISTY MAXWELLP Ot 782.1 NONSPECIF SKIN ERUPT NEC 06/22/2016 CRISTY MAXWELL ADVISORY APPLICATION DEVELOPER Ot 786.05 SHORTNESS OF BREATH 06/22/2016 LUCIO WHITEHEAD FABRIC STRETCHER Ot V76.12 OTH SCREEN MAMMO-MALIGN NEOPLASM OF PAT 06/22/2016 EVANS JACKSON MD Ot 787.3 FLATUL/ERUCTAT/GAS PAIN 06/22/2016 EVANS JACKSON MD Ot 789.00 ABDOMINAL PAIN, UNSPECIFIED SITE 06/22/2016 LUCIO WHITEHEAD FABRIC STRETCHER Ot 789.04 ABDOMINAL PAIN, LEFT LOWER QUADRANT 06/22/2016 LUCIO WHITEHEAD FABRIC STRETCHER Ot 401.9 HYPERTENSION NOS 06/22/2016 LUCIO WIHTEHEAD FABRIC STRETCHER Ot 789.00 ABDOMINAL PAIN, UNSPECIFIED SITE 06/22/2016 MIKAYLA BOYD DO M Ot M54.5 LOW BACK PAIN 06/22/2016 TORY MARTIN CIVIL TECHNICIAN Ot H53.9 UNSPECIFIED VISUAL DISTURBANCE 06/22/2016 TORY MARTIN CIVIL TECHNICIAN Ot R51 HEADACHE 06/22/2016 TOYR MARTIN CIVIL TECHNICIAN Ot W19.XXXA UNSPECIFIED FALL, INITIAL ENCOUNTER 06/22/2016 TORY MARTIN CIVIL TECHNICIAN Ot Y99.8 OTHER EXTERNAL CAUSE STATUS 06/22/2016 [...] EXAMINATION 06/22/2016 ARTURO LARES MD Ot V72.81 [id number]-JRJ-[id number] CARDIOVASCULAR 06/22/2016 EVANS JACKSON MD Ot V76.12 OTH SCREEN MAMMO-MALIGN NEOPLASM OF PAT 06/22/2016 CRISTY MAXWELLP Ot 782.1 NONSPECIF SKIN ERUPT NEC 06/22/2016 CRISTY MAXWELL ADVISORY APPLICATION DEVELOPER Ot 786.05 SHORTNESS OF BREATH 06/22/2016 LUCIO WHITEHEAD Ot V76.12 OTH SCREEN MAMMO-MALIGN NEOPLASM OF PAT 06/22/2016 EVANS JACKSON MD Ot 787.3 FLATUL/ERUCTAT/GAS PAIN 06/22/2016 EVANS JACKSON MD Ot 789.00 ABDOMINAL PAIN, UNSPECIFIED SITE 06/22/2016 LUCIO WHITEHEAD FABRIC STRETCHER Ot 789.04 ABDOMINAL PAIN, LEFT LOWER QUADRANT 06/22/2016 LUCIO WHITEHEAD FABRIC STRETCHER Ot 401.9 HYPERTENSION NOS 06/22/2016 LUCIO WHITEHEAD FABRIC STRETCHER Ot 789.00 ABDOMINAL PAIN, UNSPECIFIED SITE 06/22/2016 MIKAYLA BOYD DO Ot M54.5 LOW BACK PAIN 06/22/2016 TORY MARTIN CIVIL TECHNICIAN Ot H53.9 UNSPECIFIED VISUAL DISTURBANCE 06/22/2016 TORY MARTIN CIVIL TECHNICIAN Ot R51 HEADACHE 06/22/2016 TORY MARTIN CIVIL TECHNICIAN Ot W19.XXXA UNSPECIFIED FALL, INITIAL ENCOUNTER 06/22/2016 TORY MARTIN CIVIL TECHNICIAN Ot Y99.8 OTHER EXTERNAL CAUSE STATUS 06/23/2016 [...] MD Ot V72.63 PRE-PROCEDURAL LABORATORY EXAMINATION 06/23/2016 ARTRUO LARES MD Ot V72.81 SSTC-WFC-FUNSGMRHR CARDIOVASCULAR 06/23/2016 EVANS JACKSON MD Ot V76.12 OTH SCREEN MAMMO-MALIGN NEOPLASM OF PAT 06/23/2016 CRISTY MAXWELL ADVISORY APPLICATION DEVELOPER Ot 782.1 NONSPECIF SKIN ERUPT NEC 06/23/2016 CRISTY MAXWELL ADVISORY APPLICATION DEVELOPER Ot 786.05 SHORTNESS OF BREATH 06/23/2016 LUCIO WHITEHEAD FABRIC STRETCHER Ot V76.12 OTH SCREEN MAMMO-MALIGN NEOPLASM OF PAT 06/23/2016 EVANS JACKSON MD Ot 787.3 FLATUL/ERUCTAT/GAS PAIN 06/23/2016 EVANS JACKSON MD Ot 789.00 ABDOMINAL PAIN, UNSPECIFIED SITE 06/23/2016 LUCIO WHITEHEAD FABRIC STRETCHER Ot 789.04 ABDOMINAL PAIN, LEFT LOWER QUADRANT 06/23/2016 LUCIO WHITEHEAD FABRIC STRETCHER Ot 401.9 HYPERTENSION NOS 06/23/2016 LUCIO WHITEHEAD FABRIC STRETCHER Ot 789.00 ABDOMINAL PAIN, UNSPECIFIED SITE 06/23/2016 MIKAYLA BOYD DO Ot M54.5 LOW BACK PAIN 06/23/2016 VERONICA TORY M CIVIL TECHNICIAN Ot H53.9 UNSPECIFIED VISUAL DISTURBANCE 06/23/2016 TORY MARTIN CIVIL TECHNICIAN Ot R51 HEADACHE 06/23/2016 TORY MARTIN CIVIL TECHNICIAN Ot W19.XXXA UNSPECIFIED FALL, INITIAL ENCOUNTER 06/23/2016 VERONICATORY CIVIL TECHNICIAN Ot Y99.8 OTHER EXTERNAL CAUSE STATUS 02/09/2017 Ot 530.81 ESOPHAGEAL REFLUX 02/09/2017 RENETTA GALAN, EVANS Latif Ot V76.12 OTH SCREEN MAMMO-MALIGN NEOPLASM OF APT 02/09/2017 ARNAUD GALAN, ARTURO Ot 575.8 DIS OF GALLBLADDER NEC 02/09/2017 ARNAUD GALAN, ARTURO Ot 575.8 DIS OF GALLBLADDER NEC 02/09/2017 ARNAUD GALAN, ARTURO Ot V72.63 PRE-PROCEDURAL LABORATORY EXAMINATION 02/09/2017 ARNAUD GALAN, ARTURO Ot V72.81 XYVK-SBE-PYIQDYOMT CARDIOVASCULAR 02/09/2017 RENETTA GALAN, EVANS Latif Ot V76.12 OTH SCREEN MAMMO-MALIGN NEOPLASM OF PAT 02/09/2017 CRISTY MAXWELL ADVISORY APPLICATION DEVELOPER Ot 782.1 NONSPECIF SKIN ERUPT NEC 02/09/2017 CRISTY MAXWELL ADVISORY APPLICATION DEVELOPER Ot 786.05 SHORTNESS OF BREATH 02/09/2017 LUCIO WHITEHEAD FABRIC STRETCHER Ot V76.12 OTH SCREEN MAMMO-MALIGN NEOPLASM OF PAT 02/09/2017 EVANS JACKSON MD Ot 787.3 FLATUL/ERUCTAT/GAS PAIN 02/09/2017 EVANS JACKSON MD Ot 789.00 ABDOMINAL PAIN, UNSPECIFIED SITE 02/09/2017 LUCOI WHITEHEAD FABRIC STRETCHER Ot 789.04 ABDOMINAL PAIN, LEFT LOWER QUADRANT 02/09/2017 LUCIO WHITEHEAD FABRIC STRETCHER Ot 401.9 HYPERTENSION NOS 02/09/2017 LUCIO WHITEHEAD FABRIC STRETCHER Ot 789.00 ABDOMINAL PAIN, UNSPECIFIED SITE 02/09/2017 MIKAYLA BOYD DO Ot M54.5 LOW BACK PAIN 02/09/2017 TORY MARTIN CIVIL TECHNICIAN Ot H53.9 UNSPECIFIED VISUAL DISTURBANCE 02/09/2017 STEFANIE MARTINTAMIR Bates CIVIL TECHNICIAN Ot R51 HEADACHE 02/09/2017 TORY MARTIN CIVIL TECHNICIAN Ot W19.XXXA UNSPECIFIED FALL, INITIAL ENCOUNTER 02/09/2017 TORY MARTIN CIVIL TECHNICIAN Ot Y99.8 OTHER EXTERNAL CAUSE STATUS 02/11/2017 [...] EXAMINATION 05/03/2017 ARTURO LARES MD Ot V72.81 [id number]-[id number]-[id number] CARDIOVASCULAR 05/03/2017 EVANS JACKSON MD Ot V76.12 OTH SCREEN MAMMO-MALIGN NEOPLASM OF PAT 05/03/2017 CRISTY MAXWELL ADVISORY APPLICATION DEVELOPER Ot 782.1 NONSPECIF SKIN ERUPT NEC 05/03/2017 CRISTY MAXWELL ADVISORY APPLICATION DEVELOPER Ot 786.05 SHORTNESS OF BREATH 05/03/2017 LUCIO WHITEHEAD FABRIC STRETCHER Ot V76.12 OTH SCREEN MAMMO-MALIGN NEOPLASM OF PAT 05/03/2017 EVANS JACKSON MD Ot 787.3 FLATUL/ERUCTAT/GAS PAIN 05/03/2017 EVANS JACKSON MD Ot 789.00 ABDOMINAL PAIN, UNSPECIFIED SITE 05/03/2017 LUCIO WHITEHEAD FABRIC STRETCHER Ot 789.04 ABDOMINAL PAIN, LEFT LOWER QUADRANT 05/03/2017 LUCIO WHITEHEAD FABRIC STRETCHER Ot 401.9 HYPERTENSION NOS 05/03/2017 LUCIO WHITEHEAD FABRIC STRETCHER Ot 789.00 ABDOMINAL PAIN, UNSPECIFIED SITE 05/03/2017 MIKAYLA BOYD DO Ot M54.5 LOW BACK PAIN 05/03/2017 TORY MARTIN CIVIL TECHNICIAN Ot H53.9 UNSPECIFIED VISUAL DISTURBANCE 05/03/2017 TORY MARTIN CIVIL TECHNICIAN Ot R51 HEADACHE 05/03/2017 TORY MARTIN CIVIL TECHNICIAN Ot W19.XXXA UNSPECIFIED FALL, INITIAL ENCOUNTER 05/03/2017 TORY MARTIN CIVIL TECHNICIAN Ot Y99.8 OTHER EXTERNAL CAUSE STATUS 05/03/2017 [...] EXAMINATION 07/19/2017 ARTURO LARES MD Ot V72.81 [id number]-LLK-[id number] CARDIOVASCULAR 07/19/2017 EVANS JACKSON MD Ot V76.12 OTH SCREEN MAMMO-MALIGN NEOPLASM OF PAT 07/19/2017 CRISTY MAXWELL ADVISORY APPLICATION DEVELOPER Ot 782.1 NONSPECIF SKIN ERUPT NEC 07/19/2017 CRISTY MAXWELL ADVISORY APPLICATION DEVELOPER Ot 786.05 SHORTNESS OF BREATH 07/19/2017 LUCIO WHITEHEAD FABRIC STRETCHER Ot V76.12 OTH SCREEN MAMMO-MALIGN NEOPLASM OF PAT 07/19/2017 EVANS JACKSON MD Ot 787.3 FLATUL/ERUCTAT/GAS PAIN 07/19/2017 EVANS JACKSON MD Ot 789.00 ABDOMINAL PAIN, UNSPECIFIED SITE 07/19/2017 LUCIO WHITEHEAD FABRIC STRETCHER Ot 789.04 ABDOMINAL PAIN, LEFT LOWER QUADRANT 07/19/2017 LUCIO WHITEHEAD FABRIC STRETCHER Ot 401.9 HYPERTENSION NOS 07/19/2017 LUCIO WHITEHEAD FABRIC STRETCHER Ot 789.00 ABDOMINAL PAIN, UNSPECIFIED SITE 07/19/2017 OLIVER DOMIKAYLA Ot M54.5 LOW BACK PAIN 07/19/2017 TORY MARTIN CIVIL TECHNICIAN Ot H53.9 UNSPECIFIED VISUAL DISTURBANCE 07/19/2017 TORY MARTIN CIVIL TECHNICIAN Ot R51 HEADACHE 07/19/2017 TORY MARTIN CIVIL TECHNICIAN Ot W19.XXXA UNSPECIFIED FALL, INITIAL ENCOUNTER 07/19/2017 TORY MARTIN CIVIL TECHNICIAN Ot Y99.8 OTHER EXTERNAL CAUSE STATUS 07/19/2017 [...] EXAMINATION 07/29/2017 ARTURO LARES MD, Ot V72.81 TKRP-BKJ-RVIDJIHFA CARDIOVASCULAR 07/29/2017 EVANS JACKSON MD Ot V76.12 OTH SCREEN MAMMO-MALIGN NEOPLASM OF PAT 07/29/2017 CRISTY MAXWELL ADVISORY APPLICATION DEVELOPER Ot 782.1 NONSPECIF SKIN ERUPT NEC 07/29/2017 CRISTY MAXWELL ADVISORY APPLICATION DEVELOPER Ot 786.05 SHORTNESS OF BREATH 07/29/2017 LUCIO WHITEHEAD FABRIC STRETCHER Ot V76.12 OTH SCREEN MAMMO-MALIGN NEOPLASM OF PAT 07/29/2017 RENETTA GALAN, EVANS Latif Ot 787.3 FLATUL/ERUCTAT/GAS PAIN 07/29/2017 EVANS JACKSON MD Ot 789.00 ABDOMINAL PAIN, UNSPECIFIED SITE 07/29/2017 LUCIO WHITEHEAD FABRIC STRETCHER Ot 789.04 ABDOMINAL PAIN, LEFT LOWER QUADRANT 07/29/2017 LUCIO WHITEHEAD FABRIC STRETCHER Ot 401.9 HYPERTENSION NOS 07/29/2017 LUCIO WHITEHEAD FABRIC STRETCHER Ot 789.00 ABDOMINAL PAIN, UNSPECIFIED SITE 07/29/2017 MIKAYLA BOYD DO Ot M54.5 LOW BACK PAIN 07/29/2017 TORY MARTIN CIVIL TECHNICIAN Ot H53.9 UNSPECIFIED VISUAL DISTURBANCE 07/29/2017 TORY MARTIN CIVIL TECHNICIAN Ot R51 HEADACHE 07/29/2017 TORY MARTIN CIVIL TECHNICIAN Ot W19.XXXA UNSPECIFIED FALL, INITIAL ENCOUNTER 07/29/2017 TORY MARTIN CIVIL TECHNICIAN Ot Y99.8 OTHER EXTERNAL CAUSE STATUS 07/29/2017 [...] EXAMINATION 07/29/2017 ARTURO LARES MD Ot V72.81 [id number]-CIL-OPXBZWZLT CARDIOVASCULAR 07/29/2017 EVANS JACKSON MD Ot V76.12 OTH SCREEN MAMMO-MALIGN NEOPLASM OF PAT 07/29/2017 CRISTY MAXWELL ADVISORY APPLICATION DEVELOPER Ot 782.1 NONSPECIF SKIN ERUPT NEC 07/29/2017 CRISTY MAXWELL ADVISORY APPLICATION DEVELOPER Ot 786.05 SHORTNESS OF BREATH 07/29/2017 LUCIO WHITEHEAD FABRIC STRETCHER Ot V76.12 OTH SCREEN MAMMO-MALIGN NEOPLASM OF PAT 07/29/2017 EVANS JACKSON MD Ot 787.3 FLATUL/ERUCTAT/GAS PAIN 07/29/2017 EVANS JACKSON MD Ot 789.00 ABDOMINAL PAIN, UNSPECIFIED SITE 07/29/2017 LUCIO WHITEHEAD FABRIC STRETCHER Ot 789.04 ABDOMINAL PAIN, LEFT LOWER QUADRANT 07/29/2017 LUCIO WHITEHEAD FABRIC STRETCHER Ot 401.9 HYPERTENSION NOS 07/29/2017 LUCIO WHITEHEAD FABRIC STRETCHER Ot 789.00 ABDOMINAL PAIN, UNSPECIFIED SITE 07/29/2017 MIKAYLA BOYD DO Ot M54.5 LOW BACK PAIN 07/29/2017 TORY MARTIN CIVIL TECHNICIAN Ot H53.9 UNSPECIFIED VISUAL DISTURBANCE 07/29/2017 TORY MARTIN CIVIL TECHNICIAN Ot R51 HEADACHE 07/29/2017 TORY MARTIN CIVIL TECHNICIAN Ot W19.XXXA UNSPECIFIED FALL, INITIAL ENCOUNTER 07/29/2017 TORY MARTIN CIVIL TECHNICIAN Ot Y99.8 OTHER EXTERNAL CAUSE STATUS 07/29/2017 [...] EXAMINATION 08/02/2017 ARTURO LARES MD Ot V72.81 [id number]-TNB-CNQQKRLZD CARDIOVASCULAR 08/02/2017 EVANS JACKSON MD Ot V76.12 OTH SCREEN MAMMO-MALIGN NEOPLASM OF PAT 08/02/2017 CRISTY MAXWELL ADVISORY APPLICATION DEVELOPER Ot 782.1 NONSPECIF SKIN ERUPT NEC 08/02/2017 CRISTY MAXWELL ADVISORY APPLICATION DEVELOPER Ot 786.05 SHORTNESS OF BREATH 08/02/2017 LUCIO WHITEHEAD FABRIC STRETCHER Ot V76.12 OTH SCREEN MAMMO-MALIGN NEOPLASM OF PAT 08/02/2017 EVANS JACKSON MD Ot 787.3 FLATUL/ERUCTAT/GAS PAIN 08/02/2017 EVANS JACKSON MD Ot 789.00 ABDOMINAL PAIN, UNSPECIFIED SITE 08/02/2017 LUCIO WHITEHEAD FABRIC STRETCHER Ot 789.04 ABDOMINAL PAIN, LEFT LOWER QUADRANT 08/02/2017 LUCIO WHITEHEAD FABRIC STRETCHER Ot 401.9 HYPERTENSION NOS 08/02/2017 LUCIO WHITEHEAD FABRIC STRETCHER Ot 789.00 ABDOMINAL PAIN, UNSPECIFIED SITE 08/02/2017 MIKAYLA BOYD DO Ot M54.5 LOW BACK PAIN 08/02/2017 TORY MARTIN CIVIL TECHNICIAN Ot H53.9 UNSPECIFIED VISUAL DISTURBANCE 08/02/2017 TORY MARTIN CIVIL TECHNICIAN Ot R51 HEADACHE 08/02/2017 TORY MARTIN CIVIL TECHNICIAN Ot W19.XXXA UNSPECIFIED FALL, INITIAL ENCOUNTER 08/02/2017 TORY MARTIN CIVIL TECHNICIAN Ot Y99.8 OTHER EXTERNAL CAUSE STATUS 08/02/2017 [...] EXAMINATION 08/02/2017 ARTURO LARES MD Ot V72.81 XEYW-MYT-NNCHFFSUI CARDIOVASCULAR 08/02/2017 EVANS JACKSON MD Ot V76.12 OTH SCREEN MAMMO-MALIGN NEOPLASM OF PAT 08/02/2017 CRISTY MAXWELL ADVISORY APPLICATION DEVELOPER Ot 782.1 NONSPECIF SKIN ERUPT NEC 08/02/2017 CRISTY MAXWELL ADVISORY APPLICATION DEVELOPER Ot 786.05 SHORTNESS OF BREATH 08/02/2017 LUCIO WHITEHEAD Ot V76.12 OTH SCREEN MAMMO-MALIGN NEOPLASM OF PAT 08/02/2017 EVANS JACKSON MD Ot 787.3 FLATUL/ERUCTAT/GAS PAIN 08/02/2017 EVANS JACKSON MD Ot 789.00 ABDOMINAL PAIN, UNSPECIFIED SITE 08/02/2017 LUCIO WHITEHEAD FABRIC STRETCHER Ot 789.04 ABDOMINAL PAIN, LEFT LOWER QUADRANT 08/02/2017 LUCIO WHITEHEAD FABRIC STRETCHER Ot 401.9 HYPERTENSION NOS 08/02/2017 LUCIO WHITEHEAD FABRIC STRETCHER Ot 789.00 ABDOMINAL PAIN, UNSPECIFIED SITE 08/02/2017 MIKAYLA BOYD DO Ot M54.5 LOW BACK PAIN 08/02/2017 TORY MARTIN CIVIL TECHNICIAN Ot H53.9 UNSPECIFIED VISUAL DISTURBANCE 08/02/2017 TORY MARTIN CIVIL TECHNICIAN Ot R51 HEADACHE 08/02/2017 TORY MARTIN CIVIL TECHNICIAN Ot W19.XXXA UNSPECIFIED FALL, INITIAL ENCOUNTER 08/02/2017 TORY MARTIN CIVIL TECHNICIAN Ot Y99.8 OTHER EXTERNAL CAUSE STATUS 08/02/2017 [...] N63.20 UNSPECIFIED LUMP IN THE LEFT BREAST, [facility] [email or web address] 08/02/2017 TEMITOPE CARBAJAL MD, Ot D64.9 ANEMIA, UNSPECIFIED 08/02/2017 TEMITOPE CARBAJAL MD, Ot N85.9 NONINFLAMMATORY DISORDER OF UTERUS, [facility] [email or web address] 08/02/2017 TEMITOPE CARBAJAL MD, Ot N95.0 POSTMENOPAUSAL BLEEDING 08/02/2017 TEMITOPE CARBAJAL MD, Ot Z01.812 ENCOUNTER FOR PREPROCEDURAL LABORATORY E 08/02/2017 TEMITOPE CARBAJAL MD, Ot Z11.2 ENCOUNTER FOR SCREENING FOR OTHER BACTER 08/03/2017 TEMITOPE CARBAJAL MD, Ot D64.9 ANEMIA, UNSPECIFIED 08/03/2017 TEMITOPE CARBAJAL MD, Ot N85.9 NONINFLAMMATORY DISORDER OF UTERUS, [facility] 08/03/2017 TEMITOPE CARBAJAL MD, Ot N95.0 POSTMENOPAUSAL BLEEDING 08/03/2017 TEMITOPE CARBAJAL MD, Ot Z01.812 ENCOUNTER FOR PREPROCEDURAL LABORATORY E 08/03/2017 TEMITOPE CARBAJAL MD, Ot Z11.2 ENCOUNTER FOR SCREENING FOR OTHER BACTER 08/04/2017 TEMITOPE CARBAJAL MD, Ot Z12.31 ENCNTR SCREEN MAMMOGRAM FOR MALIGNANT NE 08/04/2017 TEMITOPE CARBAJAL MD, Ot C50.912 MALIGNANT NEOPLASM OF UNSPECIFIED SITE O 08/04/2017 TEMITOPE CARBAJAL MD, Ot 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 08/04/2017 TEMITOPE CARBAJAL MD, Ot F41.9 ANXIETY DISORDER, UNSPECIFIED 08/04/2017 TEMITOPE CARBAJAL MD, Ot I10 ESSENTIAL (PRIMARY) HYPERTENSION 08/04/2017 TEMITOPE CARBAJAL MD, Ot N84.0 POLYP OF CORPUS UTERI 08/04/2017 TEMITOPE CARBAJAL MD, Ot N95.0 POSTMENOPAUSAL BLEEDING 08/04/2017 TEMITOPE CARBAJAL MD, Ot Z79.899 OTHER TIE BUYER (CURRENT) DRUG THERAPY 08/04/2017 TEMITOPE CARBAJAL MD, [...] 08/11/2017 TEMITOPE CARBAJAL MD, Ot Z79.899 OTHER CORRECTION (CURRENT) DRUG THERAPY 08/11/2017 TEMITOPE CARBAJAL MD, Ot Z87.891 PERSONAL HISTORY OF NICOTINE DEPENDENCE 08/11/2017 TEMITOPE CARBAJAL MD, Ot N63.21 UNSPECIFIED LUMP IN THE LEFT BREAST, UPP 08/11/2017 TAL GALAN, YIFAN Bates Ot N63.20 UNSPECIFIED LUMP IN THE LEFT BREAST, UNS 08/26/2017 EZIO SANDHU MD Ot C50.912 MALIGNANT NEOPLASM OF UNSPECIFIED SITE O 08/26/2017 EZIO SANDHU MD, Ot F41.9 ANXIETY DISORDER, UNSPECIFIED 08/26/2017 EZIO SANDHU MD, Ot I10 ESSENTIAL (PRIMARY) HYPERTENSION 08/26/2017 EZIO SANDHU MD Ot K21.9 GASTRO-ESOPHAGEAL REFLUX DISEASE WITHOUT 08/26/2017 EZIO SANDHU MD Ot R07.89 OTHER CHEST PAIN 08/26/2017 EZIO SANDHU MD, Ot Z82.49 FAMILY HX OF ISCHEM HEART DIS AND OTH DI 08/26/2017 EZIO SANDHU MD Ot Z87.19 PERSONAL HISTORY OF OTHER DISEASES OF TH 08/26/2017 EZIO SANDHU MD, Ot Z87.891 PERSONAL HISTORY OF NICOTINE DEPENDENCE 08/26/2017 EZIO SANDHU MD Ot Z88.0 ALLERGY STATUS TO PENICILLIN 08/30/2017 ODGERS MD, EZIO K Ot C50.912 MALIGNANT NEOPLASM OF UNSPECIFIED SITE O 08/30/2017 EZIO SANDHU MD Ot F41.9 ANXIETY DISORDER, UNSPECIFIED 08/30/2017 EZIO SANDHU MD Ot I10 ESSENTIAL (PRIMARY) HYPERTENSION 08/30/2017 EZIO SANDHU MD Ot K21.9 GASTRO-ESOPHAGEAL REFLUX DISEASE WITHOUT 08/30/2017 EZIO SANDHU MD Ot R07.89 OTHER CHEST PAIN 08/30/2017 EZIO SANDHU MD Ot Z82.49 FAMILY HX OF ISCHEM HEART DIS AND OTH DI 08/30/2017 EZIO SANDHU MD Ot Z87.19 PERSONAL HISTORY OF OTHER DISEASES OF TH 08/30/2017 EZIO SANDHU MD Ot Z87.891 PERSONAL HISTORY OF NICOTINE DEPENDENCE 08/30/2017 EZIO SANDHU MD Ot Z88.0 ALLERGY STATUS TO PENICILLIN 09/01/2017 EZIO SANDHU MD Ot C50.912 MALIGNANT NEOPLASM OF UNSPECIFIED SITE O 09/01/2017 EZIO SANDHU MD Ot F41.9 ANXIETY DISORDER, UNSPECIFIED 09/01/2017 EZIO SANDHU MD Ot I10 ESSENTIAL (PRIMARY) HYPERTENSION 09/01/2017 EZIO SANDHU MD Ot K21.9 GASTRO-ESOPHAGEAL REFLUX DISEASE WITHOUT 09/01/2017 EZIO SANDHU MD Ot R07.89 OTHER CHEST PAIN 09/01/2017 EZIO SANDHU MD Ot Z82.49 FAMILY HX OF ISCHEM HEART DIS AND OTH DI 09/01/2017 EZIO SANDHU MD Ot Z87.19 PERSONAL HISTORY OF OTHER DISEASES OF TH 09/01/2017 EZIO SANDHU MD Ot Z87.891 PERSONAL HISTORY OF NICOTINE DEPENDENCE 09/01/2017 EZIO SANDHU MD Ot Z88.0 ALLERGY STATUS TO PENICILLIN 09/06/2017 ANUPAMALISA LOUISE Ot C50.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 09/06/2017 ANUPAMALISA LOUISE Ot Z01.89 ENCOUNTER FOR OTHER SPECIFIED SPECIAL EX 09/08/2017 ANUPAMALISA N Ot C50.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 09/08/2017 ANUPAMALISA LOUISE Ot Z01.89 ENCOUNTER FOR OTHER SPECIFIED SPECIAL EX 09/16/2017 LISA ALTMAN N Ot C50.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 09/16/2017 ANUPAMA, BOBAN N Ot I10 ESSENTIAL (PRIMARY) HYPERTENSION 09/16/2017 ANUPAMADANAAN N Ot K21.9 GASTRO-ESOPHAGEAL REFLUX DISEASE WITHOUT 09/16/2017 ANUPAMA BOBAN N Ot Z17.0 ESTROGEN RECEPTOR POSITIVE STATUS [ER+] 09/16/2017 ANUPAMA BOBAN N Ot Z79.899 OTHER CORRECTION (CURRENT) DRUG THERAPY 09/16/2017 ANUPAMA, BOBAN N Ot Z87.891 PERSONAL HISTORY OF NICOTINE DEPENDENCE 10/13/2017 ANUPAMALISA LOUISE N Ot C50.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 10/13/2017 ANUPAMA BOBAN N Ot I10 ESSENTIAL (PRIMARY) HYPERTENSION 10/13/2017 ANUPAMA, BOBAN N Ot K21.9 GASTRO-ESOPHAGEAL REFLUX DISEASE WITHOUT 10/13/2017 ANUPAMA, BOBAN N Ot Z17.0 ESTROGEN RECEPTOR POSITIVE STATUS [ER+] 10/13/2017 ANUPAMA BOBAN N Ot Z79.899 OTHER TIE BUYER (CURRENT) DRUG THERAPY 10/13/2017 ANUPAMA, BOBAN N Ot Z87.891 PERSONAL HISTORY OF NICOTINE DEPENDENCE 12/01/2017 ANUPAMALISA LOUISE N Ot C50.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 12/01/2017 ANUPAMA, BOBAN N Ot I10 ESSENTIAL (PRIMARY) HYPERTENSION 12/01/2017 ANUPAMADANA LOUISEAN N Ot K21.9 GASTRO-ESOPHAGEAL REFLUX DISEASE WITHOUT 12/01/2017 ANUPAMA BOBAN N Ot Z17.0 ESTROGEN RECEPTOR POSITIVE STATUS [ER+] 12/01/2017 ANUPAMADANA LOUISEAN N Ot Z51.0 ENCOUNTER FOR ANTINEOPLASTIC RADIATION T 12/01/2017 ANUPAMA BOBAN N Ot Z79.899 OTHER TIE BUYER (CURRENT) DRUG THERAPY 12/01/2017 ANUPAMA, BOBAN N Ot Z87.891 PERSONAL HISTORY OF NICOTINE DEPENDENCE 12/03/2017 DANA ALTMANAN N Ot C50.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 12/03/2017 ANUPAMA, BOBAN N Ot I10 ESSENTIAL (PRIMARY) HYPERTENSION 12/03/2017 ANUPAMA, BOBAN N Ot K21.9 GASTRO-ESOPHAGEAL REFLUX DISEASE WITHOUT 12/03/2017 LISA ALTMAN Ot Z17.0 ESTROGEN RECEPTOR POSITIVE STATUS [ER+] 12/03/2017 LISA ALTMAN Ot Z51.0 ENCOUNTER FOR ANTINEOPLASTIC RADIATION T 12/03/2017 LISA ALTMAN Ot Z79.899 OTHER CORRECTION (CURRENT) DRUG THERAPY 12/03/2017 LISA ALTMAN Ot Z87.891 PERSONAL HISTORY OF NICOTINE DEPENDENCE 01/05/2018 RENETTA GALAN, EVANS Latif Ot V76.12 OTH SCREEN MAMMO-MALIGN NEOPLASM OF PAT 01/05/2018 ARTURO LARES MD Ot 575.8 DIS OF GALLBLADDER NEC 01/05/2018 ARTUOR LARES MD Ot 575.8 DIS OF GALLBLADDER NEC 01/05/2018 ARTURO LARES MD Ot V72.63 PRE-PROCEDURAL LABORATORY EXAMINATION 01/05/2018 ARTURO LARES MD Ot V72.81 SMXV-YZM-[id number] CARDIOVASCULAR 01/05/2018 RENETTA GALAN, EVANS Latif Ot V76.12 OTH SCREEN MAMMO-MALIGN NEOPLASM OF PAT 01/05/2018 CRISTY MAXWELL ADVISORY APPLICATION DEVELOPER Ot 782.1 NONSPECIF SKIN ERUPT NEC 01/05/2018 CRISTY MAXWELL ADVISORY APPLICATION DEVELOPER Ot 786.05 SHORTNESS OF BREATH 01/05/2018 LUCIO WHITEHEAD FABRIC STRETCHER Ot V76.12 OTH SCREEN MAMMO-MALIGN NEOPLASM OF PAT 01/05/2018 EVANS JACKSON MD Ot 787.3 FLATUL/ERUCTAT/GAS PAIN 01/05/2018 EVANS JACKSON MD Ot 789.00 ABDOMINAL PAIN, UNSPECIFIED SITE 01/05/2018 LUCIO WHITEHEAD FABRIC STRETCHER Ot 789.04 ABDOMINAL PAIN, LEFT LOWER QUADRANT 01/05/2018 LUCIO WHITEHEAD FABRIC STRETCHER Ot 401.9 HYPERTENSION NOS 01/05/2018 LUCIO WHITEHEAD FABRIC STRETCHER Ot 789.00 ABDOMINAL PAIN, UNSPECIFIED SITE 01/05/2018 MIKAYLA BOYD DO Ot M54.5 LOW BACK PAIN 01/05/2018 TORY MARTIN CIVIL TECHNICIAN Ot H53.9 UNSPECIFIED VISUAL DISTURBANCE 01/05/2018 TORY MARTNI CIVIL TECHNICIAN Ot R51 HEADACHE 01/05/2018 TORY MARTIN CIVIL TECHNICIAN Ot W19.XXXA UNSPECIFIED FALL, INITIAL ENCOUNTER 01/05/2018 TORY MARTIN APRN Ot Y99.8 OTHER EXTERNAL CAUSE STATUS 01/05/2018 LONG RICH ROUSSEAU Ot M25.552 PAIN IN LEFT HIP 01/05/2018 LONG RICH ROUSSEAU Ot M54.5 LOW BACK PAIN 01/05/2018 RAVEN GALAN, TEMITOPE Fuentes Ot Z12.31 ENCNTR SCREEN MAMMOGRAM FOR MALIGNANT NE 01/05/2018 RAVEN GALAN, TEMITOPE Fuentes Ot N63.21 UNSPECIFIED LUMP IN THE LEFT BREAST, UPP 01/05/2018 TAL GALAN, YIFAN Paulo Ot N63.20 UNSPECIFIED LUMP IN THE LEFT BREAST, UNS 01/05/2018 Ot M79.642 PAIN IN LEFT HAND 01/05/2018 Ot M79.89 OTHER SPECIFIED SOFT TISSUE DISORDERS 01/05/2018 LISA ALTMAN Ot C50.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 Results Test [...] blood basophil count (count/volume) 0.1 10*3/uL 0.0-0.1 Complete blood count (CBC) with automated white blood cell (WBC) differential - 08/26/17 13:26 Blood leukocytes automated count (number/volume) 7.9 10*3/uL 4.3-11.0 Blood erythrocytes automated count (number/volume) 4.37 10*6/uL 4.35-5.85 Venous blood hemoglobin measurement (mass/volume) 13.7 g/dL 11.5-16.0 Blood hematocrit (volume fraction) 38 % 35-52 Automated erythrocyte mean corpuscular volume 88 [foz_us] 80-99 Automated erythrocyte mean corpuscular hemoglobin (mass per erythrocyte) 31 pg 25-34 Automated erythrocyte mean corpuscular hemoglobin concentration measurement ( mass/volume) 36 g/dL 32-36 Automated erythrocyte distribution width ratio 12.5 % 10.0-14.5 Automated blood platelet count (count/volume) 354 10*3/uL 130-400 Automated blood platelet mean volume measurement 10.1 [foz_us] 7.4-10.4 Automated blood neutrophils/100 leukocytes 48 % 42-75 Automated blood lymphocytes/100 leukocytes 35 % 12-44 Blood monocytes/100 leukocytes 7 % 0-12 Automated blood eosinophils/100 leukocytes 8 % 0-10 Automated blood basophils/100 leukocytes 2 % 0-10 Blood neutrophils automated count (number/volume) 3.8 10*3 1.8-7.8 Blood lymphocytes automated count (number/volume) 2.8 10*3 1.0-4.0 Blood monocytes automated count (number/volume) 0.5 10*3 0.0-1.0 Automated eosinophil count 0.6 10*3/uL 0.0-0.3 Automated blood basophil count (count/volume) 0.1 10*3/uL 0.0-0.1 Comprehensive metabolic panel - 08/26/17 13:26 Serum or plasma sodium measurement (moles/volume) 142 mmol/L 135-145 Serum or plasma potassium measurement (moles/volume) 3.9 mmol/L 3.6-5.0 Serum or plasma chloride measurement (moles/volume) 109 mmol/L 98-107 Carbon dioxide 24 mmol/L 21-32 Serum or plasma anion gap determination (moles/volume) 9 mmol/L 5-14 Serum or plasma urea nitrogen measurement (mass/volume) 9 mg/dL 7-18 Serum or plasma creatinine measurement (mass/volume) 0.65 mg/dL 0.60-1.30 Serum or plasma urea nitrogen/creatinine mass ratio 14 NRG Serum or plasma creatinine measurement with calculation of estimated glomerular filtration rate > NRG Serum or plasma glucose measurement (mass/volume) 78 mg/dL 70-105 Serum or plasma calcium measurement (mass/volume) 8.9 mg/dL 8.5-10.1 Serum or plasma total bilirubin measurement (mass/volume) 0.5 mg/dL 0.1-1.0 Serum or plasma alkaline phosphatase measurement (enzymatic activity/volume) 66 U/L 40-136 Serum or plasma aspartate aminotransferase measurement (enzymatic activity/ volume) 15 U/L 5-34 Serum or plasma alanine aminotransferase measurement (enzymatic activity/volume ) 18 U/L 0-55 Serum or plasma protein measurement (mass/volume) 6.7 g/dL 6.4-8.2 Serum or plasma albumin measurement (mass/volume) 4.4 g/dL 3.2-4.5 Serum or plasma troponin i.cardiac measurement (mass/volume) - 08/26/17 13:26 Serum or plasma troponin i.cardiac measurement (mass/volume) < ng/ mL <0.30 Fibrin D-dimer FEU measurement in platelet poor plasma (mass/volume) - 13:26 Fibrin D-dimer FEU measurement in platelet poor plasma (mass/volume) 0.57 ug/mL 0.00-0.49 Methicillin resistant Staphylococcus aureus (MRSA) screening culture - 08:26 Methicillin resistant Staphylococcus aureus (MRSA) screening culture NEG NRG Complete blood count (CBC) with automated white blood cell (WBC) differential - 01/05/18 08:30 Blood leukocytes automated count (number/volume) 4.6 10*3/uL 4.3-11.0 Blood erythrocytes automated count (number/volume) 4.53 10*6/uL 4.35-5.85 Venous blood hemoglobin measurement (mass/volume) 13.9 g/dL 11.5-16.0 Blood hematocrit (volume fraction) 40 % 35-52 Automated erythrocyte mean corpuscular volume 89 [foz_us] 80-99 Automated erythrocyte mean corpuscular hemoglobin (mass per erythrocyte) 31 pg 25-34 Automated erythrocyte mean corpuscular hemoglobin concentration measurement ( mass/volume) 35 g/dL 32-36 Automated erythrocyte distribution width ratio 12.7 % 10.0-14.5 Automated blood platelet count (count/volume) 352 10*3/uL 130-400 Automated blood platelet mean volume measurement 9.8 [foz_us] 7.4-10.4 Automated blood neutrophils/100 leukocytes 56 % 42-75 Automated blood lymphocytes/100 leukocytes 29 % 12-44 Blood monocytes/100 leukocytes 8 % 0-12 Automated blood eosinophils/100 leukocytes 6 % 0-10 Automated blood basophils/100 leukocytes 2 % 0-10 Blood neutrophils automated count (number/volume) 2.5 10*3 1.8-7.8 Blood lymphocytes automated count (number/volume) 1.3 10*3 1.0-4.0 Blood monocytes automated count (number/volume) 0.4 10*3 0.0-1.0 Automated eosinophil count 0.3 10*3/uL 0.0-0.3 Automated blood basophil count (count/volume) 0.1 10*3/uL 0.0-0.1 Blood type T Indirect antibody screen panel - 01/05/18 08:30 ABO+Rh group ON NRG Transfusion band number [id number] NRG Blood group antibody screen NEGATIVE NRG Encounters ACCT No. Visit Date/Time Discharge Status Pt. Type Provider Facility Loc./Unit Complaint [id number] 08/09/2013 16:44:47 08/09/2013 23:59:59 CLS Outpatient Zay Angelina [id number] 08/02/2013 14:06:17 08/02/2013 23:59:59 CLS Outpatient Zay, Angelina [id number] 07/26/2013 14:22:04 07/26/2013 23:59:59 CLS Outpatient Zay, Angelina [id number] 07/19/2013 09:16:53 07/19/2013 23:59:59 CLS Outpatient Walker, Angelina [id number] 07/19/2013 09:03:44 07/19/2013 23:59:59 CLS Outpatient Zay Angelina [id number] 07/12/2013 09:08:28 07/12/2013 23:59:59 CLS Outpatient Zay, Angelina [id number] 07/06/2013 09:04:31 07/06/2013 23:59:59 CLS Outpatient Telly Nataly Kristine [id number] 06/29/2013 11:16:49 06/29/2013 23:59:59 CLS Outpatient Angelina Collazo [id number] 01/05/2018 08:01:00 01/05/2018 08:40:00 DIS Outpatient TEMITOPE CARBAJAL MD [facility] PREOP CIN1 [id number] 12/02/2017 00:10:00 12/02/2017 23:59:59 CLS Preadmit LISA ALTMAN [facility] ONC [id number] 11/17/2017 14:49:00 12/01/2017 00:01:00 DIS Outpatient LISA ALTMAN [facility] ONC [id number] 09/07/2017 11:50:00 09/07/2017 23:59:59 CLS Outpatient LISA ALTMAN [facility] CARD ENCOUNTER FOR IMAGING STUDY OF STAGE NEOPLASM [id number] 09/02/2017 15:30:00 09/02/2017 23:59:59 CLS Outpatient LISA ALTMAN [facility] CARD ENCOUNTER FOR IMAGING STUDY OF STAGE NEOPLASM [id number] 08/26/2017 12:53:00 08/26/2017 14:49:00 DIS Emergency EZIO SANDHU MD [facility] ER CP [id number] 08/04/2017 06:36:00 08/04/2017 17:30:00 DIS Outpatient TEMITOPE CARBAJAL MD [facility] SDC POST MENOPAUSAL BLEED,UTERINE MASS, LT BREAST CA [id number] 08/02/2017 11:34:00 08/02/2017 12:00:00 DIS Outpatient TEMITOPE CARBAJAL MD [facility] PREOP POST MENOPAUSAL BLEEDING,UTERINE MASS [id number] 07/30/2017 08:08:00 07/30/2017 23:59:59 CLS Outpatient YIFAN PARADA MD [facility] RAD LEFT BREAST ABNORMAL SONO [id number] 07/29/2017 08:05:00 07/29/2017 23:59:59 CLS Outpatient TEMITOPE CARBAJAL MD [facility] RAD ABNORMAL MAMMO FROM 07/20/17 [id number] 07/20/2017 11:08:00 07/20/2017 23:59:59 CLS Outpatient TEMITOPE CARBAJAL MD [facility] RAD ROUTINE SCREENING [id number] 04/15/2017 09:14:00 04/15/2017 17:01:00 DIS Emergency JALEN PIERCE DO [facility] ER ABD PAIN,DIZZY [id number] 02/09/2017 16:36:00 02/09/2017 23:59:59 CLS Outpatient RICH GALEANO DC S [facility] RAD LBP LT HIP PAIN [id number] 06/10/2016 10:12:00 06/10/2016 12:50:00 DIS Emergency FREDERIC PASHANNA [facility] ER BACK/LEFT HIP PAIN [id number] 05/25/2016 17:41:00 05/25/2016 23:59:59 CLS Outpatient TORY MARTIN APRN [facility] RAD FALL,HEADACHE,VISION CHANGE [id number] 10/23/2015 16:35:00 10/23/2015 23:59:59 CLS Outpatient OLIVER DAY MIKAYLA Paulo [facility] RAD LOW BACK PAIN [id number] 10/18/2015 10:13:00 10/18/2015 23:59:59 CLS Outpatient MISSY DURAND CIVIL TECHNICIAN [facility] QUICK [id number] 08/15/2014 11:01:00 08/15/2014 23:59:59 CLS Outpatient LUCIO WHITEHEAD FABRIC STRETCHER [facility] RAD SCREENING [id number] 07/30/2014 06:49:00 07/30/2014 23:59:59 CLS Outpatient LUCIO WHITEHEAD FABRIC STRETCHER [facility] RAD ABDOMINAL PAIN HTN [id number] 07/26/2014 10:25:00 07/26/2014 23:59:59 CLS Outpatient LUCIO WHITEHEAD FABRIC STRETCHER [facility] RAD LEFT LOWER QUADRANT PAIN [id number] 07/25/2014 11:15:00 07/25/2014 23:59:59 CLS Outpatient EVANS JACKSON MD [facility] SDC ABD PAIN [id number] 04/18/2014 03:00:00 04/19/2014 14:00:00 DIS Inpatient EVANS JACKSON MD [facility] 4TH GASTROENTERITIS; INTRACTABLE NAUSEA [id number] 04/17/2014 18:42:00 04/17/2014 21:26:00 DIS Emergency JALEN PIERCE DO [facility] ER DEHYDRATION [id number] 11/22/2013 13:56:00 11/22/2013 23:59:59 CLS Outpatient [id number] 08/18/2013 10:01:00 08/18/2013 23:59:59 CLS Outpatient CRISTY MAXWELL ADVISORY APPLICATION DEVELOPER [facility] RAD RASH,SOB [id number] 05/31/2013 15:14:00 05/31/2013 23:59:59 CLS Outpatient EVANS JACKSON MD [facility] RAD SCREENING [id number] 01/14/2013 01:58:00 01/14/2013 15:21:00 DIS Inpatient ARTURO LARES MD [facility] SURGICAL INTRACTABLE NAUSEA, POST OP PAIN [id number] 01/12/2013 06:31:00 01/12/2013 13:15:00 DIS Outpatient ARTURO LARES MD [facility] DYSKNESIA [id number] 01/11/2013 13:22:00 01/11/2013 23:59:59 CLS Outpatient ARTURO LARES MD [facility] PREOP DYSKNESIA [id number] 01/11/2013 09:55:00 01/11/2013 23:59:59 CLS Outpatient ARTURO LARES MD [facility] RAD ABD PAIN [id number] 01/06/2013 12:28:00 01/06/2013 14:56:00 DIS Emergency TAMAR MISHRA CIVIL TECHNICIAN [facility] ER ABD [id number] 08/02/2012 10:13:00 08/02/2012 23:59:59 CLS Outpatient EVANS JACKSON MD [facility] RAD SCREENING [id number] 01/07/2018 13:00:00 PEN Preadmit TEMITOPE CARBAJAL MD [facility] CIN1 [id number] 11/02/2017 14:15:00 Document Registration [id number] 04/18/2014 04:16:00 Document Registration [id number] 04/18/2014 04:16:00 Document Registration [id number] 08/31/2011 07:58:00 Document Registration [id number] 08/10/2011 07:18:00 Document Registration [id number] 08/05/2011 07:52:00 Document Registration [id number] 07/31/2011 07:57:00 Document Registration [id number] 08/15/2010 09:43:00 Document Registration [id number] 08/16/2009 07:43:00 Document Registration [id number] 08/02/2009 06:55:00 Document Registration [id number] 12/13/2008 07:52:00 Document Registration [id number] 02/11/2017 09:45:38 02/11/2017 23:59:59 [facility] Outpatient
[2018-01-07 16:38] VITALS: BP 125/63
[2018-01-07] MEDS: D5 LR IV SOLUTION 1,000 ML IV SCH ×2 (17:29→19:48)
--- NOTE | 2018-01-07 18:30 | OPERATIVE REPORT ---
DATE OF SERVICE: 01/07/2018 SURGEON: Dontrell Rebollar MD PREOPERATIVE DIAGNOSES: Dysfunctional uterine bleeding, menorrhagia and cervical intraepithelial neoplasia I. POSTOPERATIVE DIAGNOSES: Dysfunctional uterine bleeding, menorrhagia and cervical intraepithelial neoplasia I. OPERATIVE PROCEDURE: Total laparoscopic hysterectomy with bilateral salpingo-oophorectomy. OPERATIVE DESCRIPTION: With the patient in the supine position under satisfactory general anesthesia, she was prepped and draped in usual fashion for abdominal and vaginal surgery after being repositioned in the low dorsal lithotomy position in the [facility]. Urinary bladder was drained with Landa catheter to dependent drainage. A weighted speculum placed in posterior fornix of vagina, cervix exposed and grasped anteriorly with single tooth tenaculum. Uterus was sounded to 8.5 cm with uterine sound. The cervix was then serially dilated with Agus dilators to accommodate a Sandy II manipulator, which was placed using a 6 mm x 8 cm uterine probe and a 25 mm colpotomy ring. Sutures of #1 Vicryl placed at 3 and 9 o'clock position of the cervix to affix to the manipulator. The patient was brought in low dorsal lithotomy position. A 12 mm incision was made 3 cm superior to the umbilicus. Veress needle was placed through that incision into the abdominal cavity and correct placement confirmed with water drop test. The abdomen was insufflated with 2.4 liters of carbon dioxide and the Veress needle was removed and a 12 mm Optiview laparoscopic port placed. The abdominal wall transilluminated and 8 mm ports were placed through incisions of those sizes 8 cm lateral to the umbilicus at the level of the umbilicus on each side. All incision/port sites were infiltrated with 0.25% Marcaine with epinephrine prior to incision. The patient was now placed in Trendelenburg allowing the bowel to spill above the pelvis. The uterus was elevated with manipulator. It was somewhat mottled and atretic appearing. The ovaries were atretic appearing. Both fallopian tubes were somewhat clubbed. There was some endometriosis implants in the ovarian fossa more so on the left than on the right. The laparoscope was rotated. The appendix was identified. It was a normal vermiform appendix. Both ureters were seen to peristalt. The attention was turned to the intended procedure. The right tube and ovary were grasped and elevated. The vessel sealer was used to clamp across the IP ligament and that the ligament was cauterized and divided with the vessel sealer. The process was continued across the mesovarium and across the broad ligaments, the round ligament and finally down on to the cardinal ligament. Same procedure performed on the left, allowing for removal of both tubes and ovaries eventually with the uterus. The anterior low uterine segment peritoneum was now exposed using a monopolar shear on the right in place of the vessel sealer. The peritoneum was divided. The bladder was carefully dissected down off the lower uterine segment. Colpotomy incision was then performed starting at 12 o'clock position on the cervix onto the colpotomy ring. That ring was exposed circumferentially completely and then the uterus with tubes and ovaries still attached was extracted through the vagina. The vaginal cuff was then closed with 2 sutures of V-Loc barbed suture starting first from the right angle and continuing just past the midpoint of vaginal cuff and then from the left to close the balance of the cuff. Care was taken to include the uterine vessel pedicles in the initial suture stitch on each side for hemostasis. The bladder peritoneum was brought back down onto the vaginal cuff with the last 2 stitches on each side as well. Hemostasis was complete. There was minimal bleeding. There was no abnormal remaining pathology. At this point, the procedure was terminated. The operative instruments were removed under direct vision as were the ports. The abdomen was evacuated with insufflating gas in the process of removing the ports. The patient brought out of Trendelenburg. The abdominal incision was closed with sushil after first closing the fascia at the supraumbilical incision with a [id number] suture of 2-0 Vicryl. A speculum was replaced in the vagina, the vaginal cuff exposed and found to be completely reapproximated and completely hemostatic. Sponge and needle counts were correct. Estimated blood loss was minimal. The patient was uneventfully awakened from her general anesthesia and transferred to recovery room in stable condition. The patient tolerated the procedure well. Job ID: [id number] DocumentID: [id number] Dictated Date: 01/07/2018 14:05:58 Cotton Classer Date: 01/07/2018 18:29:43 Dictated By: DONTRELL REBOLLAR MD MTDD
[2018-01-07] MEDS ORDERED: CHLORASEPTIC LOZENGE MM ONE (19:47)
[2018-01-07] MEDS ORDERED: CHLORASEPTIC LOZENGE MM PRN (20:00)
[2018-01-07 22:19] VITALS: BP 111/66
[2018-01-08 02:00] VITALS: BP 124/82
[2018-01-08] MEDS: KETOROLAC 30 MG/ML VIAL IVP SCH (03:22)
[2018-01-08] MEDS: PROMETHAZINE INJ 25 MG/ML (PHENERGAN) AMP IM PRN (05:33)
[2018-01-08 05:36] VITALS: BP 107/63
--- NOTE | 2018-01-08 07:45 | Progress Note-Standard ---
Standard Progress Note Progress Notes/Assess & Plan Date Seen by a Provider: Jan 08, 2018 Time Seen by a Provider: 07:44 Progress/Assessment & Plan This patient is without complaint she is ambulating, tolerating oral intake well , has good pain control. Patient has not voided yet. Patient denies chest pain , denies shortness of breath, denies nausea vomiting, denies headache. Vital Signs 01/08/18 05:36 Temp 97.0 Pulse 73 Resp 16 B/P (MAP) 107/63 (78) Pulse Ox 96 O2 Delivery Room Air Vital signs are stable. Patient is afebrile. Abdomen is benign. Bowel sounds are present in all 4 quadrants. Extremities show no clubbing cyanosis. There is no Homans sign. Assessment and plan post operative day number 1 doing well plan is for discharge home with follow-up in clinic Final Diagnosis DUB/JOANA I / menorrhagia TEMITOPE CARBAJAL MD Jan 08, 2018 7:45 am
[2018-01-08] MEDS ORDERED: ESTRADIOL 1 MG TAB (ESTRACE) PO SCH (09:00)
[2018-01-08] MEDS ORDERED: DOCUSATE SODIUM 100 MG (COLACE) CAP PO SCH (09:00)
[2018-01-08] MEDS ORDERED: IBUPROFEN 800 MG (MOTRIN) TAB PO ONE (09:04)
[2018-01-08 09:10] VITALS: BP 127/71
--- NOTE | 2018-01-08 10:50 | Anesthesia-General Post-Op ---
General Patient Condition Mental Status/LOC: Same as Preop Cardiovascular: Satisfactory Nausea/Vomiting: Absent Respiratory: Satisfactory Pain: Controlled Complications: Absent Post Op Complications Complications None Follow Up Care/Instructions Patient Instructions None needed. Anesthesia/Patient Condition Patient Condition Patient is doing well, no complaints, stable vital signs, no apparent adverse anesthesia problems. No complications reported per nursing. JOSÉ MIGUEL SANCHEZ CRNA Jan 08, 2018 10:50
[2018-01-08] MEDS ORDERED: IBUPROFEN 800 MG (MOTRIN) TAB PO SCH (14:00)
== END 2018-01-08 09:40 | disposition home or self-care (01) ==
LOC: SDC 11:29 → WS 15:15 → SDC 01-08 09:40
PROVIDERS: ATTEND Obstetrics & Gynecology
DX: N87.0 Mild cervical dysplasia (principal); N80.0 Endometriosis of uterus; D25.1 Intramural leiomyoma of uterus; N94.89 Other specified conditions associated with female genital organs and menstrual cycle; N93.8 Other specified abnormal uterine and vaginal bleeding; N92.0 Excessive and frequent menstruation with regular cycle; I10 Essential (primary) hypertension; K21.9 Gastro-esophageal reflux disease without esophagitis; Z87.891 Personal history of nicotine dependence; Z79.899 Other long term (current) drug therapy
CPT/HCPCS: 86850; 86900; 86901; 88307; 94664

== ENCOUNTER → 2018-03-03 | Outpatient (CLI) | payer BC ==
[~2018-03-03] MED LIST changes: +DOCU100C37 PO; +IBUP-1780 PO
--- NOTE | 2018-03-03 14:57 | Diagnostic Imaging Report ---
INDICATION: Screening for osteoporosis. COMPARISON: None. FINDINGS: AP Spine L1-L4: [BMD (g/cm2): 1.080] [T-Score: -1.0] [Z-Score: 0.4] [BMD Previous: ] [BMD % Change: ] LT Hip Neck: [BMD (g/cm2): 0.847] [T-Score: -1.4] [Z-Score: 0.0] LT Hip Total: [BMD (g/cm2):0.930] [T-Score:-0.6] [Z-Score: 0.5] [BMD Previous: ] [BMD % Change: ] RT Hip Neck: [BMD (g/cm2):0.845] [T-Score:-1.4] [Z-Score:0.0] RT Hip Total: [BMD (g/cm2):0.948] [T-score:-0.5] [Z-Score:0.6] [BMD Previous: ] [BMD % Change: ] *Indicates significant change from prior examination based on 95% confidence level. World Health Organization criteria for BMD interpretation classify patients as Normal (T-score at or above -1.0), Osteopenic (T-score between -1.0 and -2.5) or Osteoporotic (T-score at or below -2.5). LIMITATIONS AND MODIFICATION: None. FRACTURE RISK (FRAX SCORE): The ten year probability of (%): Major Osteoporotic Fracture: [ ] Hip Fracture: [ ] IMPRESSION: 1. The bone mineral density of the hips and spine is within normal limits. The bone mineral density of the spine is at the lowest end of normal, however. 2. See below National Osteoporosis Foundation guidelines on when to potentially initiate pharmacologic therapy. Based on the National Osteoporosis Foundation Guidelines, pharmacologic treatment should be initiated in any of the following, unless clinical conditions suggest otherwise: * Any patient with prior fragility fracture of the hip or vertebrae. A spine fracture indicates 5X risk for subsequent spine fracture and 2X risk for subsequent hip fracture. * Osteoporosis (T-score <-2.5). * Postmenopausal women and men age 50 and older with low bone mass/osteopenia (T-score between -1.0 and -2.5) by DXA and 10-year major osteoporotic fracture greater than 20% or a 10-year probability of hip fracture greater than 3%. These fracture risks are supplied above in the FRAX score, if applicable. * Clinician judgement and/or patient preferences may indicate treatment for people with 10-year fracture probabilities above or below these levels. Dictated by: Dictated on workstation # [id number]
== END ==
LOC: RAD 11:00
PROVIDERS: ATTEND Internal Medicine Hematology & Oncology
DX: Z13.820 Encounter for screening for osteoporosis (principal); C50.412 Malignant neoplasm of upper-outer quadrant of left female breast; Z78.0 Asymptomatic menopausal state
CPT/HCPCS: 77080

== ENCOUNTER → 2018-06-02 | Outpatient (CLI) | payer BC ==
--- NOTE | 2018-06-02 20:10 | Diagnostic Imaging Report ---
INDICATION: Left breast carcinoma status post lumpectomy and radiation therapy. Correlation is made with prior mammogram from 08/04/2017 and 07/20/2017. 2-D and 3-D bilateral diagnostic mammography was performed with a Computer Aided Detection (CAD) system. FINDINGS: Both breasts remain heterogeneously dense, limiting sensitivity of mammography. Postlumpectomy changes in the upper-outer left breast are noted. There is some skin thickening of the left breast from radiation therapy. No recurrent mass or malignant-appearing microcalcifications are seen. Right breast is unremarkable. The axillae are unremarkable. IMPRESSION: Post-therapeutic changes in left breast. Continued mammographic followup of the left breast in 6 months is recommended to show continued stability of the lumpectomy site. ACR BI-RADS Category 3: Probably benign findings. Result letter will be mailed to the patient. Note: At least 10% of breast cancer is not imaged by mammography. Dictated by: Dictated on workstation # [id number]
== END ==
LOC: RAD 13:28
PROVIDERS: ATTEND Internal Medicine Hematology & Oncology
DX: C50.412 Malignant neoplasm of upper-outer quadrant of left female breast (principal); Z98.890 Other specified postprocedural states
CPT/HCPCS: 77066

== ENCOUNTER 2018-06-15 05:54 | Outpatient (CLI) | payer BC ==
[~2018-06-15] VITALS: Ht 152.4 cm; Wt 57.2 kg
[2018-06-15] MEDS ORDERED: VNL75T PO (09:47)
[2018-06-15] MEDS ORDERED: GABA-488 PO (09:47)
[2018-06-15] MEDS ORDERED: LETR2.5T5 PO (09:47)
== END 2018-06-15 09:52 | disposition home or self-care (01) ==
LOC: PREOP 05:54
PROVIDERS: ATTEND Surgery
DX: Z01.818 Encounter for other preprocedural examination (principal)

== ENCOUNTER → 2018-06-17 | Day surgery (SDC) | payer BC ==
[~2018-06-17] VITALS: Ht 152.4 cm; Wt 57.2 kg
[~2018-06-17] MED LIST changes: +ACETAMINOPHEN 325 MG TABLET PO PRN; +GABA-488 PO; +HURRICAINE EXT TUBE (BENZOCAINE) ONE; +HURRICAINE EXT TUBE (BENZOCAINE) XX PRN; +HYDROcodone/APAP 5 MG/325 MG (LORTAB) TAB PO PRN; +LETR2.5T5 PO; +LIDOCAINE JELLY 2% 6 ML SYRINGE MM PRN; +LIDOCAINE JELLY 2% 6 ML SYRINGE ONE; +MIDAZOLAM 2 MG/2 ML (VERSED) VIAL IVP ONE; +MIDAZOLAM 2 MG/2 ML (VERSED) VIAL ONE; +NS IV 500 ML 500 ML IV PRN; +NS IV 500 ML 500 ML ONE; +ONDANSETRON 4 MG/2 ML (SDV) Z0FRAN IV PRN; +ONDANSETRON 4 MG/2 ML (SDV) Z0FRAN ONE; +VNL75T PO; +fentaNYL INJECTION 100 MCG/2 ML AMP IVP ONE; +fentaNYL INJECTION 100 MCG/2 ML AMP ONE; +morphine INJ 10 MG/ML 1ML (SYR OR VIAL) IV PRN
--- OUTSIDE RECORDS SUMMARY | 2018-06-17 13:45 | XMS REPORT | CCD ---
Author Author Shira Emery Organization [facility] Address [address] [place] [address] Phone Care Team Providers Care Credit Portfolio Advisor Name Role Phone PP Unavailable CCM Unavailable Summary Purpose Interface Exchange Insurance Providers Payer name Policy type / Coverage type Covered republican ID Effective Begin Date Effective End Date [facility] [id number] Unknown Family history Father Diagnosis Age At Onset Cancer Unknown Mother Diagnosis Age At Onset Dementia Unknown Depression Unknown Cardiovascular disease Unknown Stroke Unknown Cancer Unknown Social History Social History Element Codes Description Effective Dates Marital status Unknown Since 199211/24/2010 Number of children Unknown 4 2 adult children, and 2 young children at home 11/24/2010 Employment Unknown 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 Unknown Has never used illegal drugs 11/24/2010 Allergies, Adverse Reactions, Alerts Substance Reaction Codes Entered Date Inactivated Date Status * NO KNOWN FOOD ALLERGIES Unknown 04/07/2011 No Inactive Date Active * NO KNOWN ENVIRONMENTAL ALLERGIES Unknown 04/07/2011 No Inactive Date Active Erythromycin RxNorm: 4053 11/24/2010 No Inactive Date Active zithromax RxNorm: 073992 01/23/2014 No Inactive Date Active Past Medical History Illness Codes Condition Status Onset Date Resolved Date Abnormal weight loss ICD-9: 783.21 ICD-10: R63.4 Active 06/06/2018 Unknown Gastro-esophageal reflux disease without esophagitis ICD-9: 530.81 ICD-10: K21.9 Active 06/06/2018 Unknown Acute laryngopharyngitis ICD-9: 465.0 ICD-10: J06.0 Active 12/13/2017 Unknown Generalized anxiety disorder ICD-9: 300.00 ICD-10: F41.1 Active 03/25/2017 Unknown Major depressive disorder, single episode, moderate ICD-9: 296.22 ICD-10: F32.1 Active 03/25/2017 Unknown Malignant neoplasm of unspecified site of left female breast ICD-9: 174.9 ICD-10: C50.912 Active 10/28/2017 Unknown Other fatigue ICD-9: 780.79 ICD-10: R53.83 [...] Problems Condition Codes Effective Dates Condition Status Abnormal weight loss ICD-9: 783.21 ICD-10: R63.4 06/06/2018 Active Gastro-esophageal reflux disease without esophagitis ICD-9: 530.81 ICD-10: K21.9 06/06/2018 Active Acute laryngopharyngitis ICD-9: 465.0 ICD-10: J06.0 12/13/2017 Active Generalized anxiety disorder ICD-9: 300.00 ICD-10: F41.1 03/25/2017 Active Major depressive disorder, single episode, moderate ICD-9: 296.22 ICD-10: F32.1 03/25/2017 Active Malignant neoplasm of unspecified site of left female breast ICD-9: 174.9 ICD-10: C50.912 10/28/2017 Active Other fatigue ICD-9: 780.79 ICD-10: R53.83 [...] Start Date Stop Date Status Fill Instructions Dexilant 60 mg capsule, delayed release RxNorm: 312528 1 Capsule(s) PO daily 06/07/2018 No Stop Date Active Xanax 1 mg tablet RxNorm: 393482 Tablet(s) TAKE 1 TABLET BY MOUTH IN THE MORNING 1/2 TABLET AT BEDTIME , AND 1/2 TABLET EVERY SIX HOURS NEEDED FOR ANXIETY 05/16/2018 08/25/2018 Active Exforge 5 mg-160 mg tablet RxNorm: 545149 TAKE 1 TABLET BY MOUTH DAILY 12/22/2017 06/19/2018 Active Generic For:EXFORGE 5-160MG TAB 12/22/2017 12:33:20 PM Xanax 1 mg tablet RxNorm: 107831 Tablet(s) TAKE 1 TABLET BY MOUTH IN THE MORNING 1/2 TABLET AT BEDTIME , AND 1/2 TABLET EVERY SIX HOURS NEEDED FOR ANXIETY 10/29/2017 03/12/2018 Inactive Xanax 1 mg tablet RxNorm: 056519 Tablet(s) TAKE 1 TABLET BY MOUTH IN THE MORNING 1/2 TABLET AT BEDTIME , AND 1/2 TABLET EVERY SIX HOURS NEEDED FOR ANXIETY 09/17/2017 10/28/2017 Inactive Xanax 1 mg tablet RxNorm: 198561 Tablet(s) TAKE 1 TABLET BY MOUTH IN THE MORNING 1/2 TABLET AT BEDTIME , AND 1/2 TABLET EVERY SIX HOURS NEEDED FOR ANXIETY 08/13/2017 09/14/2017 Inactive estradiol 1 mg tablet RxNorm: 716585 1 Tablet(s) PO daily 201710/25/2017 Inactive Xanax 1 mg tablet RxNorm: 017469 Tablet(s) TAKE 1 TABLET BY MOUTH IN THE MORNING 1/2 TABLET AT BEDTIME , AND 1/2 TABLET EVERY SIX HOURS NEEDED FOR ANXIETY 05/24/2017 07/21/2017 Inactive Exforge 5 mg-160 mg tablet RxNorm: 456971 1 Tablet(s) PO daily Tablet(s) TAKE ONE (1) TABLET BY MOUTH DAILY 05/24/201711/19 Inactive Generic For:EXFORGE 5- 160MG TAB 03/12/2015 9:09:52 AM Provera 2.5 mg tablet RxNorm: 3359372 1 Tablet(s) PO daily 05/2410/25/2017 Inactive Lexapro 10 mg tablet RxNorm: 878517 1 Tablet(s) PO QHS 201604/23/2017 Inactive Xanax 1 mg tablet RxNorm: 187502 Tablet(s) TAKE 1 TABLET BY MOUTH IN THE MORNING 1/2 TABLET AT BEDTIME , AND 1/2 TABLET EVERY SIX HOURS NEEDED FOR ANXIETY 01/22/2017 08/12/2017 Inactive Xanax 1 mg tablet RxNorm: 037051 Tablet(s) TAKE 1 TABLET BY MOUTH IN THE MORNING 1/2 TABLET AT BEDTIME , AND 1/2 TABLET EVERY SIX HOURS NEEDED FOR ANXIETY 01/21/2017 01/21/2017 Inactive Exforge 5 mg-160 mg tablet RxNorm: 886411 1 Tablet(s) PO daily Tablet(s) TAKE ONE (1) TABLET BY MOUTH DAILY 11/03/201605/01 Inactive Generic For:EXFORGE 5- 160MG TAB 03/12/2015 9:09:52 AM estradiol 1 mg tablet RxNorm: 339820 1 Tablet(s) PO daily 201605/01/2017 Inactive Provera 2.5 mg tablet RxNorm: 1164148 1 Tablet(s) PO daily 11/0305/01/2017 Inactive Bentyl 10 mg capsule RxNorm: 269978 1 Capsule(s) PO TID 201607/29/2016 Inactive Bentyl 10 mg capsule RxNorm: 672427 1 Capsule(s) PO TID 201603/24/2017 Inactive Viberzi 75 mg tablet RxNorm: 2624383 1 Tablet(s) PO BID 201611/02/2016 Inactive Xanax 1 mg tablet RxNorm: 946234 Tablet(s) TAKE 1 TABLET BY MOUTH IN THE MORNING 1/2 TABLET AT BEDTIME , AND 1/2 TABLET EVERY SIX HOURS NEEDED FOR ANXIETY 07/14/2016 05/23/2017 Inactive Xanax 1 mg tablet RxNorm: 453634 Tablet(s) TAKE 1 TABLET BY MOUTH IN THE MORNING 1/2 TABLET AT BEDTIME , AND 1/2 TABLET EVERY SIX HOURS NEEDED FOR ANXIETY 06/01/2016 07/13/2016 Inactive ketorolac 60 mg/2 mL intramuscular solution RxNorm: 540046 2 Milliliter(s) IM 05/26/2016 05/26/2016 Inactive Exforge 5 mg-160 mg tablet RxNorm: 839461 Tablet(s) TAKE ONE (1) TABLET BY MOUTH DAILY 04/13/2016 10/09/2016 Inactive Generic For:EXFORGE 5-160MG TAB 03/12/2015 9: 09:52 AM Xanax 1 mg tablet RxNorm: 690571 Tablet(s) TAKE 1 TABLET BY MOUTH IN THE MORNING 1/2 TABLET AT BEDTIME , AND 1/2 TABLET EVERY SIX HOURS NEEDED FOR ANXIETY 04/09/2016 05/31/2016 Inactive Mobic 15 mg tablet RxNorm: 270788 1 Tablet(s) PO daily 201503/25/2016 Inactive Mobic 15 mg tablet RxNorm: 931744 1 Tablet(s) PO daily 201511/02/2016 Inactive Xanax 1 mg tablet RxNorm: 851446 Tablet(s) TAKE 1 TABLET BY MOUTH IN THE MORNING 1/2 TABLET AT BEDTIME , AND 1/2 TABLET EVERY SIX HOURS NEEDED FOR ANXIETY 02/24/2016 04/08/2016 Inactive Xanax 1 mg tablet RxNorm: 486230 Tablet(s) TAKE 1 TABLET BY MOUTH IN THE MORNING 1/2 TABLET AT BEDTIME , AND 1/2 TABLET EVERY SIX HOURS NEEDED FOR ANXIETY 01/01/2016 02/23/2016 Inactive Generic For:XANAX 1 MG TABLET(Response to an electronic controlled substance refill request - RxReferenceNumber: [id number]) Xanax 1 mg tablet RxNorm: 810482 Tablet(s) TAKE 1 TABLET BY MOUTH IN THE MORNING 1/2 TABLET AT BEDTIME , AND 1/2 TABLET EVERY SIX HOURS NEEDED FOR ANXIETY 09/26/2015 12/31/2015 Inactive Generic For:XANAX 1 MG TABLET(Response to an electronic controlled substance refill request - RxReferenceNumber: [id number]) Exforge 5 mg-160 mg tablet RxNorm: 002869 Tablet(s) TAKE ONE (1) TABLET BY MOUTH DAILY 09/26/2015 04/13/2016 Inactive Generic For:EXFORGE 5-160MG TAB 03/12/2015 9: 09:52 AM Xanax 1 mg tablet RxNorm: 268340 Tablet(s) TAKE 1 TABLET BY MOUTH IN THE MORNING 1/2 TABLET AT BEDTIME , AND 1/2 TABLET EVERY SIX HOURS NEEDED FOR ANXIETY 04/22/2015 09/25/2015 Inactive Generic For:XANAX 1 MG TABLET(Response to an electronic controlled substance refill request - RxReferenceNumber: [id number]) Exforge 5 mg-160 mg tablet RxNorm: 028065 TAKE ONE (1) TABLET BY MOUTH DAILY 03/12/2015 09/07/2015 Inactive Generic For:EXFORGE 5-160MG TAB 03/12/2015 9:09:52 AM Exforge 5 mg-160 mg tablet RxNorm: 130673 1 Tablet(s) PO daily TAKE ONE (1) TABLET BY MOUTH DAILY 08/28/20142014 Inactive 09/05/2012 4:02:25 PM Sprintec (28) 0.25 mg-35 mcg tablet RxNorm: 062979 TAKE 1 TABLET BY MOUTH EVERY DAY 06/18/2014 04/28/2015 Inactive Generic For:ORTHO-CYCLEN 28 TABLET N O T I C E Last quantity doesn't match original quantity Singulair 10 mg tablet RxNorm: 996075 1 Tablet(s) PO daily 07/25/2014 Inactive Singulair 10 mg tablet RxNorm: 977033 1 Tablet(s) PO daily 05/20/2014 Inactive Flonase 50 mcg/actuation nasal spray,suspension RxNorm: 670020 2 Cove NASAL daily 05/18/2014 05/27/2014 Inactive Xanax 1 mg tablet RxNorm: 458242 TAKE 1 TABLET BY MOUTH IN THE MORNING 1/2 TABLET AT BEDTIME , AND 1/2 TABLET EVERY SIX HOURS NEEDED FOR ANXIETY 04/24/2014 06/21/2014 Inactive Generic For:XANAX 1 MG TABLET(Response to an electronic controlled substance refill request - RxReferenceNumber: [id number]) Xanax 1 mg tablet RxNorm: 233528 Tablet(s) TAKE 1 TABLET BY MOUTH IN THE MORNING 1/2 TABLET AT BEDTIME , AND 1/2 TABLET EVERY SIX HOURS NEEDED FOR ANXIETY 04/24/2014 05/07/2014 Inactive Generic For:XANAX 1 MG TABLET(Response to an electronic controlled substance refill request - RxReferenceNumber: [id number]) Exforge 5 mg-160 mg tablet RxNorm: 202375 1 Tablet(s) PO daily TAKE ONE (1) TABLET BY MOUTH DAILY 02/16/20142014 Inactive 09/05/2012 4:02:25 PM Exforge 5 mg-160 mg tablet RxNorm: 222822 1 Tablet(s) PO daily TAKE ONE (1) TABLET BY MOUTH DAILY 01/23/20142013 Inactive 09/05/2012 4:02:25 PM Xanax 1 mg tablet RxNorm: 531907 TAKE 1 TABLET BY MOUTH IN THE MORNING 1/2 TABLET AT BEDTIME , AND 1/2 TABLET EVERY SIX HOURS NEEDED FOR ANXIETY 12/22/2013 12/22/2013 Inactive Generic For:XANAX 1 MG TABLET(Response to an electronic controlled substance refill request - RxReferenceNumber: [id number]) Xanax 1 mg tablet RxNorm: 359220 TAKE 1 TABLET BY MOUTH IN THE MORNING 1/2 TABLET AT BEDTIME , AND 1/2 TABLET EVERY SIX HOURS NEEDED FOR ANXIETY 12/22/2013 01/20/2014 Inactive Generic For:XANAX 1 MG TABLET(Response to an electronic controlled substance refill request - RxReferenceNumber: [id number]) Xanax 1 mg tablet RxNorm: 063356 TAKE 1 TABLET BY MOUTH IN THE MORNING 1/2 TABLET AT BEDTIME , AND 1/2 TABLET EVERY SIX HOURS NEEDED FOR ANXIETY 10/23/2013 12/22/2013 Inactive Generic For:XANAX 1 MG TABLET(Response to an electronic controlled substance refill request - RxReferenceNumber: [id number]) Sprintec (28) 0.25 mg-35 mcg tablet RxNorm: 942759 1 Tablet(s) PO daily 06/09/2013 06/17/2014 Inactive disp. 3 packs at a time please Xanax 1 mg tablet RxNorm: 510514 1 q am 1 1/2 at hs Tablet(s) PO TAKE ONE TABLET BY MOUTH EVERY MORNING AND TAKE ONE AND ONE-HALF TABLETS BY MOUTH AT BEDTIME 05/31/2013 09/26/2013 Inactive Generic For:XANAX 1 MG TABLET (Appended: Controlled substance eRx refill - RxReferenceNumber: [id number]) Exforge 10 mg-160 mg tablet RxNorm: 273328 1 Tablet(s) PO daily TAKE ONE (1) TABLET BY MOUTH DAILY 05/31/20132013 Inactive 09/05/2012 4:02:25 PM Sprintec (28) 0.25 mg-35 mcg tablet RxNorm: 224782 1 Tablet(s) PO daily 05/31/2013 06/08/2013 Inactive disp. 3 packs at a time please Xanax 1 mg tablet RxNorm: 196455 1 q am 1 1/2 at hs Tablet(s) PO TAKE ONE TABLET BY MOUTH EVERY MORNING AND TAKE ONE AND ONE-HALF TABLETS BY MOUTH AT BEDTIME 04/10/2013 05/30/2013 Inactive Generic For:XANAX 1 MG TABLET (Appended: Controlled substance eRx refill - RxReferenceNumber: [id number]) Bactrim DS 800 mg-160 mg tablet RxNorm: 256633 1 Tablet(s) PO BID 03/15/2013 03/21/2013 Inactive Effexor 75 mg tablet RxNorm: 665277 1 Tablet(s) PO BID 201203/14/2013 Inactive Bactrim DS 800 mg-160 mg tablet RxNorm: 401867 1 Tablet(s) PO BID 03/15/2013 03/14/2013 Inactive Effexor 75 mg tablet RxNorm: 731984 1 Tablet(s) PO BID 201207/12/2013 Inactive escitalopram 10 mg tablet RxNorm: 748170 1 Tablet(s) PO QPM 06/201203/15/2013 Inactive ketorolac 60 mg/2 mL IM RxNorm: 801358 2 Milliliter(s) IM 01/1001/10/2013 Inactive promethazine 25 mg/mL Syringe RxNorm: 272906 2 Milliliter(s) Inj 01/10/2013 01/10/2013 Inactive Bactrim DS 800 mg-160 mg tablet RxNorm: 571223 1 Tablet(s) PO BID 01/09/2013 01/08/2013 Inactive Bactrim DS 800 mg-160 mg tablet RxNorm: 848900 1 Tablet(s) PO BID 01/09/2013 01/15/2013 Inactive doxycycline monohydrate 100 mg tablet RxNorm: 6274214 1 Tablet(s) PO BID 12/20/2012 12/26/2012 Inactive Xanax 1 mg tablet RxNorm: 840754 Tablet(s) PO TAKE ONE TABLET BY MOUTH EVERY MORNING AND TAKE ONE AND ONE-HALF TABLETS BY MOUTH AT BEDTIME 09/26/2012 04/09/2013 Inactive Generic For:XANAX 1 MG TABLET (Appended: Controlled substance eRx refill - RxReferenceNumber: [id number]) Exforge 10 mg-160 mg tablet RxNorm: 516175 Tablet(s) PO TAKE ONE (1) TABLET BY MOUTH DAILY 09/05/2012 05/30/2013 Inactive 09/05/2012 4:02:25 PM nystatin-triamcinolone 100,000 unit/g-0.1 % Topical Cream RxNorm: 6418267 1 Application TOP QID 08/02/2012 09/12/2012 Inactive Nexium 40 mg capsule,delayed release RxNorm: 999553 1 Capsule(s) PO daily 08/02/2012 01/09/2013 Inactive use if dexilant does not work Xanax 1 mg tablet RxNorm: 845436 Tablet(s) PO TAKE ONE TABLET BY MOUTH EVERY MORNING AND TAKE ONE AND ONE-HALF TABLETS BY MOUTH AT BEDTIME 06/07/2012 09/25/2012 Inactive Generic For:XANAX 1 MG TABLET (Appended: Controlled substance eRx refill - RxReferenceNumber: [id number]) Xanax 1 mg tablet RxNorm: 289075 Tablet(s) PO TAKE ONE TABLET BY MOUTH EVERY MORNING AND TAKE ONE AND ONE-HALF TABLET BY MOUTH AT BEDTIME 06/07/2012 No Stop Date Active Generic For:XANAX 1 MG TABLET 03/03/12 Thank you (Appended: Controlled substance eRx refill - RxReferenceNumber: [id number]) Sprintec (28) 0.25 mg-35 mcg tablet RxNorm: 671599 1 Tablet(s) PO daily 05/12/2012 12/07/2012 Inactive disp. 3 packs at a time please Starr-D 24 Hour 10 mg-240 mg tablet,extended release RxNorm: 6601832 1 Tablet(s ) PO daily 05/12/2012 11/02/2016 Inactive Xanax 1 mg tablet RxNorm: 361357 Tablet(s) PO TAKE ONE TABLET BY MOUTH EVERY MORNING AND TAKE ONE AND ONE-HALF TABLET BY MOUTH AT BEDTIME 04/25/2012 06/07/2012 Inactive Generic For:XANAX 1 MG TABLET 03/03/12 Thank you (Appended: Controlled substance eRx refill - RxReferenceNumber: [id number]) fluconazole 150 mg tablet RxNorm: 152628 1 Tablet(s) PO QW weekly x 4 weeks 03/11/2012 No Stop Date Active Xanax 1 mg tablet RxNorm: 623427 Tablet(s) PO TAKE ONE TABLET BY MOUTH EVERY MORNING AND TAKE ONE AND ONE-HALF TABLET BY MOUTH AT BEDTIME 03/03/2012 04/24/2012 Inactive Generic For:XANAX 1 MG TABLET 03/03/12 Thank you (Appended: Controlled substance eRx refill - RxReferenceNumber: [id number]) Nexium 40 mg capsule,delayed release RxNorm: 016853 1 Capsule(s) PO BID 01/04/2012 08/01/2012 Inactive use if dexilant does not work fluconazole 150 mg tablet RxNorm: 790793 1 Tablet(s) PO daily 01/04/2012 01/10/2012 Inactive triamcinolone acetonide 0.5 % Topical Cream RxNorm: 6179726 1 TOP BID 01/04/2012 01/23/2012 Inactive Claritin-D 24 Hour 10 mg-240 mg tablet,extended release RxNorm: 9806298 1 Tablet(s ) PO daily 10/19/2011 04/15/2012 Inactive Flonase 50 mcg/actuation Nasal Cove RxNorm: 272090 2 Cove NASAL daily 09/17/2011 09/26/2011 Inactive amoxicillin 500 mg Tab RxNorm: 418363 1 Tablet(s) PO BID 201109/26/2011 Inactive Sprintec (28) 0.25 mg-35 mcg tablet RxNorm: 495697 1 Tablet(s) PO daily 09/08/2011 05/11/2012 Inactive Zofran 4 mg Tab RxNorm : 136070 1 Tablet(s) PO Q8 PRN 08/07/2011 01/03/2012 Inactive promethazine 25 mg Tab RxNorm: 832936 1 Tablet(s) PO Q6 PRN 01/201211/02/2016 Inactive Xanax 1 mg tablet RxNorm: 849357 Tablet(s) PO 07/22/2011 03/03/2012 Inactive 1/2 q am 1 1/2 alprazolam 0.25 mg Tab RxNorm: 729715 1/2 Tablet(s) PO BID 07/21/2011 Inactive Exforge 10 mg-160 mg tablet RxNorm: 938042 Tablet(s) PO 201109/04/2012 Inactive TAKE ONE (1) TABLET BY MOUTH DAILY;wc baclofen 10 mg Tab RxNorm: 851876 1/2 Tablet(s) PO BID 201110/22/2011 Inactive alprazolam 0.25 mg Tab RxNorm: 842499 1/2 Tablet(s) PO BID 07/16/2011 Inactive alprazolam 0.25 mg Tab RxNorm: 712718 1 Tablet(s) PO BID 201106/24/2011 Inactive alprazolam 0.25 mg Tab RxNorm: 617823 Tablet(s) PO 06/02/2011 06/02/2011 Inactive TAKE ONE TABLET BY MOUTH TWICE DAILY;Generic For:XANAX 0.25 MG TABLET 03/14/11 Thank you (Appended: Controlled substance eRx refill - RxReferenceNumber: [id number]) alprazolam 0.25 mg Tab RxNorm: 933514 Tablet(s) PO 04/14/2011 06/01/2011 Inactive TAKE ONE TABLET BY MOUTH TWICE DAILY;Generic For:XANAX 0.25 MG TABLET 03/14/11 Thank you (Appended: Controlled substance eRx refill - RxReferenceNumber: [id number]) Nexium 40 mg Cap RxNorm: 432568 1 Capsule(s) PO QAM 2011 No Stop Date Active use if dexilant does not work Nexium 40 mg capsule,delayed release RxNorm: 442939 1 Capsule(s) PO BID 04/07/2011 01/03/2012 Inactive use if dexilant does not work Exforge 10 mg-160 mg Tab RxNorm: 074856 1 Tablet(s) PO daily No Stop Date Active alprazolam 0.25 mg Tab RxNorm: 408156 2.5 Tablet(s) PO QHS 12/201104/14/2011 Inactive dicyclomine 10 mg Cap RxNorm: 278730 1 Capsule(s) PO BID 201001/03/2012 Inactive alprazolam 0.25 mg Tab RxNorm: 138684 1 Tablet(s) PO BID take 1/2 to 1 pill po bid prn for anxiety 02/25/2011 04/06/2011 Inactive Bentyl 10 mg Cap RxNorm: 961986 1 Capsule(s) PO BID 201003/01/2013 Inactive alprazolam 0.25 mg Tab RxNorm: 355995 1 Tablet(s) PO BID take 1/2 to 1 pill po bid prn for anxiety 12/31/2010 02/24/2011 Inactive amoxicillin 500 mg Tab RxNorm: 122176 1 Tablet(s) PO TID 201012/11/2010 Inactive Xanax 0.25 mg Tab RxNorm: 442387 1/2 Tablet(s) PO BID 1/2 tab bid prn 12/05/2010 01/29/2011 Inactive alprazolam 0.25 mg Tab RxNorm: 525317 1 Tablet(s) PO BID take 1/2 to 1 pill po bid prn for anxiety 12/04/2010 12/30/2010 Inactive Exforge 10 mg-160 mg Tab RxNorm: 955627 1 Tablet(s) PO daily 12/26/2010 Inactive Exforge 10 mg-160 mg Tab RxNorm: 605082 1 Tablet(s) PO daily 12/26/2010 Inactive Xanax 0.25 mg Tab RxNorm: 538845 1/2 Tablet(s) PO BID 1/2 tab bid prn No Start Date 12/04/2010 Inactive Claritin-D 24 Hour 10 mg-240 mg tablet,extended release RxNorm: 1767488 Oral No Start Date 10/18/2011 Inactive Nexium 40 mg Cap RxNorm: 701715 Capsule(s) PO PRN No Start Date 01/28/2011 Inactive use if dexilant does not work Zofran 4 mg Tab RxNorm : 495856 1 Tablet(s) PO Q8 PRN No Start Date 08/06/2011 Inactive Dexilant 60 mg Capsule RxNorm: 683902 1 Capsule(s) PO daily No Start Date 04/07/2011 Inactive Exforge 10 mg-160 mg Tab RxNorm: 584121 1 Tablet(s) PO daily No Start Date 11/26/2010 Inactive estradiol 1 mg tablet RxNorm: 463689 1 Tablet(s) PO daily No Start Date 11/02/2016 Inactive promethazine 25 mg Tab RxNorm: 323005 1 Tablet(s) PO Q6 PRN No Start Date 08/06/2011 Inactive Sprintec (28) 0.25 mg-35 mcg Tab RxNorm: 233790 1 Tablet(s) PO daily No Start Date 09/07/2011 Inactive Provera 2.5 mg tablet RxNorm: 7445617 1 Tablet(s) PO daily No Start Date 11/02/2016 Inactive Medication Administered Medication Codes Instructions Start Date Status ketorolac 60 mg/2 mL intramuscular solution RxNorm: 782373 2Milliliter 05/26/2016 No longer Active promethazine 25 mg/mL Syringe RxNorm: 053432 2Milliliter 01/10/2013 No longer Active ketorolac 60 mg/2 mL IM RxNorm: 164729 2Milliliter 01/10/2013 No longer Active Immunizations Vaccine Codes Date Status PPD Unknown 08/23/2014 completed Influenza CVX: 141 03/01/2013 completed Assessments Condition Codes Effective Dates Abnormal weight loss ICD-10: R63.4 ICD-9: 783.21 06/06/2018 Gastro-esophageal reflux disease without esophagitis ICD-10 : K21.9 ICD-9: 530.81 06/06/2018 Acute laryngopharyngitis ICD-10: J06.0 ICD-9: 465.0 12/13/2017 Malignant neoplasm of unspecified site of left female breast ICD-10: C50.912 ICD-9: 174.9 10/28/2017 Generalized anxiety disorder ICD-10: F41.1 ICD-9: 300.00 10/28/2017 Major depressive disorder, single episode, moderate ICD-10: F32.1 ICD-9: 296.22 10/28/2017 Other fatigue ICD-10: R53.83 ICD-9: 780.79 03/25/2017 Left lower quadrant pain ICD-10: R10.32 [...] Visit Reason For Visit Effective Dates Notes weight loss 06/06/2018 sore throat 12/13/2017 medication follow up 10/28/2017 low back pain 03/25/2017 hypertension 11/03/2016 diarrhea [...] Observation Code Item Item Code Result Date Free T4 [id number] FREE T4 0.65 ng/dL 06/07/2018 Lipid Ord30 CHOL 165 mg/dL 06/07/2018 Lipid Ord30 HDL 68.0 mg/dl 06/07/2018 Lipid Ord30 TRIG 89 mg/dL 06/07/2018 Lipid Ord30 LDL 79 mg/dL 06/07/2018 Lipid Ord30 C/HDL 2.4 Ratio 06/07/2018 Tsh Ord6 TSH (3rd IS) 2.46 uIU/mL 06/07/2018 C RAP A SC [id number] Strep A Negative 12/13/2017 Lipid Ord30 CHOL 183 mg/dL 03/26/2017 Lipid Ord30 HDL 72.0 mg/dl 03/26/2017 Lipid Ord30 TRIG 59 mg/dL 03/26/2017 Lipid Ord30 LDL 99 mg/dL 03/26/2017 Lipid Ord30 C/HDL 2.5 Ratio 03/26/2017 Tsh Ord6 hTSH II 1.03 uIU/mL 03/26/2017 Comp Metabolic Xca679 NA 142 mEq/L 03/26/2017 Comp Metabolic Mem045 K 4.4 mEq/L 03/26/2017 Comp Metabolic Bgp337 CL 108 mEq/L 03/26/2017 Comp Metabolic Xaa511 CO2 27.0 mEq/L 03/26/2017 Comp Metabolic Dyp562 ANION GAP 11 03/26/2017 Comp Metabolic Fdw833 GLUCOSE 94 mg/dL 03/26/2017 Comp Metabolic Cgt354 Creat 0.7 mg/dL 03/26/2017 Comp Metabolic Xcx041 eGFR 96 ml/min/1.73m2 03/26/2017 Comp Metabolic Dwf129 BUN 11 mg/dL 03/26/2017 Comp Metabolic Vhf466 B/C Ratio 16.4 Ratio 03/26/2017 Comp Metabolic Unb820 CALCIUM 9.2 mg/dL 03/26/2017 Comp Metabolic Tgx872 ALK PHOS 64 U/L 03/26/2017 Comp Metabolic Ouj588 AST(SGOT) 13 U/L 03/26/2017 Comp Metabolic Fml934 ALT(SGPT) 11 U/L 03/26/2017 Comp Metabolic Phy007 BILI T 0.7 mg/dL 03/26/2017 Comp Metabolic Kbt770 ALBUMIN 4.3 g/dL 03/26/2017 Comp Metabolic Pln002 TPRO 6.1 g/dL 03/26/2017 Comp Metabolic Tsa097 GLOB 1.8 g/dL 03/26/2017 Comp Metabolic Vmp283 A/G Ratio 2.4 Ratio 03/26/2017 Comp Metabolic Bnh199 Osmo 282 mOsmo 03/26/2017 Cbc With Differential Ord2 WBC 5.88 K/ul 03/26/2017 Cbc With Differential Ord2 RBC 4.46 M/ul 03/26/2017 Cbc With Differential Ord2 HGB 13.9 g/dl 03/26/2017 Cbc With Differential Ord2 HCT 40.0 % 03/26/2017 Cbc With Differential Ord2 Neut% 57.9 % 03/26/2017 Cbc With Differential Ord2 MCV 89.7 fl 03/26/2017 Cbc With Differential Ord2 Lymph% 33.0 % 03/26/2017 Cbc With Differential Ord2 MCH 31.2 pg 03/26/2017 Cbc With Differential Ord2 [place]% 4.8 % 03/26/2017 Cbc With Differential Ord2 MCHC 34.8 pg 03/26/2017 Cbc With Differential Ord2 Eos% 3.1 % 03/26/2017 Cbc With Differential Ord2 PLT 320 K/ul 03/26/2017 Cbc With Differential Ord2 Baso% 1.2 % 03/26/2017 Cbc With Differential Ord2 RDW 12.8 % 03/26/2017 Cbc With Differential Ord2 Neut ABS# 3.41 K/ul 03/26/2017 Cbc With Differential Ord2 Lymph ABS# 1.94 K/ul 03/26/2017 Cbc With Differential Ord2 [place]ent ABS# 0.3 K/ul 03/26/2017 Cbc With Differential Ord2 Eos ABS# 0.2 K/ul 03/26/2017 Cbc With Differential Ord2 Baso ABS# 0.1 K/ul 03/26/2017 Test(s) Not Perfromed [id number] Test(s) Not Performed Test(s) Not Performed. 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 Dylan Mendoza UA 16551 Specific [place] 1.005 DateTime(Free Text in Aprima ) UA 74767 PH 8 DateTime(Free Text in Apr) UA 07347 GLUCOSE DateTime(Free Text in Aprima) UA 63448 Protein DateTime(Free Text in Aprima) UA 10283 Blood DateTime(Free Text in ) UA 83252 Bilirubin DateTime(Free Text in ) UA 87727 Ketones DateTime(Free Text in ) UA 27027 Urobilinogen DateTime(Free Text in ) UA 52207 Nitrite DateTime(Free Text in ) UA 00286 Leukocytes trace DateTime(Free Text in ) Review of Systems System Result Effective Dates Constitutional No recent illness 2018 Constitutional No chills 06/06/2018 Constitutional No diaphoresis 06/06/2018 Constitutional No fever 06/06/2018 Constitutional weight loss 06/06/2018 Eyes No eye erythema 06/06/2018 Ears/Nose/Throat/Neck No nasal discharge 06/06/2018 Cardiovascular No chest pain/pressure 01/2019 Respiratory No cough 06/06/2018 Respiratory No chest congestion 2018 Gastrointestinal No abdominal pain 2018 Gastrointestinal No constipation 2018 Gastrointestinal No diarrhea 06/06/2018 Gastrointestinal gastroesophageal reflux 06/06/2018 Gastrointestinal No vomiting 06/06/2018 Gastrointestinal No nausea 06/06/2018 Gastrointestinal No melena 06/06/2018 Gastrointestinal No hematochezia 2018 Genitourinary/Nephrology No dysuria 06/06 Neurologic No alteration of consciousness 06/06/2018 Neurologic No mental status change 2018 Constitutional recent illness 12/13/2017 Constitutional No anorexia 12/13/2017 Constitutional night sweats 12/13/2017 Constitutional No chills 12/13/2017 Constitutional No diaphoresis 12/13/2017 Constitutional fatigue 12/13/2017 Constitutional No fever 12/13/2017 Constitutional No insomnia 12/13/2017 Constitutional No malaise 12/13/2017 Constitutional No weight loss 12/13/2017 Constitutional No weight gain 12/13/2017 Eyes No eye discharge 12/13/2017 Eyes No eye erythema 12/13/2017 Ears/Nose/Throat/Neck No dizziness 2017 Ears/Nose/Throat/Neck nasal allergies Ears/Nose/Throat/Neck No nasal discharge 12/13/2017 Ears/Nose/Throat/Neck otalgia 12/13/2017 Ears/Nose/Throat/Neck No sinus congestion 12/13/2017 Ears/Nose/Throat/Neck sore throat 2017 Cardiovascular No chest pain/pressure Respiratory No productive sputum 2017 Respiratory No chest congestion 2017 Respiratory cough 12/13/2017 Gastrointestinal No vomiting 12/13/2017 Gastrointestinal No nausea 12/13/2017 Gastrointestinal No diarrhea 12/13/2017 Gastrointestinal No gastroesophageal reflux 12/13/2017 Genitourinary/Nephrology No dysuria 12/13 Musculoskeletal No joint complaint 2017 Dermatologic No rash 12/13/2017 Neurologic No alteration of consciousness 12/13/2017 Constitutional No recent illness 2017 Constitutional No chills 10/28/2017 Constitutional No diaphoresis 10/28/2017 Constitutional No fever 10/28/2017 Eyes No eye erythema 10/28/2017 Ears/Nose/Throat/Neck No nasal allergies 10/28/2017 Ears/Nose/Throat/Neck No nasal discharge 10/28/2017 Cardiovascular No chest pain/pressure 04/2017 Cardiovascular No dyspnea 10/28/2017 Respiratory No chest congestion 2017 Respiratory No daytime hypersomnolence Gastrointestinal No abdominal pain 2017 Musculoskeletal back pain 10/28/2017 Neurologic No alteration of consciousness 10/28/2017 Neurologic No mental status change 2017 Psychiatric anxiety 10/28/2017 Psychiatric depression 10/28/2017 Psychiatric No suicidality 10/28/2017 Constitutional No recent illness 2016 Constitutional No [...] 1994 Constitutional general appearance Overall: well developed 06/06/2018 None Full Exam - General 1994 Constitutional general appearance Overall: in no acute distress 06/06/2018 None Full Exam - General 1994 Constitutional general appearance Overall: well nourished 06/06/2018 None Full Exam - General 1994 Eyes conjunctiva /eyelids Overall: conjunctiva clear 06/06/2018 None Full Exam - General 1994 Eyes conjunctiva /eyelids Overall: cornea clear 06/06/2018 None Full Exam - General 1994 Eyes conjunctiva /eyelids Overall: eyelids normal 06/06/2018 None Full Exam - General 1994 Ears/Nose/Throat otoscopic exam Overall: tympanic membranes clear 06/06/2018 None Full Exam - General 1994 Ears/Nose/Throat otoscopic exam Overall: external auditory canals clear 06/06/2018 None Full Exam - General 1994 Ears/Nose/Throat lips/teeth/gingiva Overall: benign lips 06/06/2018 None Full Exam - General 1994 Ears/Nose/Throat oral cavity/pharynx/larynx Overall: oral mucosa clear 06/06/2018 None Full Exam - General 1994 Respiratory auscultation Overall: breath sounds clear bilaterally 06/06/2018 None Full Exam - General 1994 Respiratory respiratory effort/rhythm Overall: normal rate 06/06/2018 None Full Exam - General 1994 Respiratory respiratory effort/rhythm Overall: no retractions 06/06/2018 None Full Exam - General 1994 Cardiovascular auscultation of heart Overall: regular rate 06/06/2018 None Full Exam - General 1994 Cardiovascular auscultation of heart Overall: normal heart sounds 06/06/2018 None Full Exam - General 1994 Abdomen abdominal exam Overall: normal bowel sounds 06/06/2018 None Full Exam - General 1994 Abdomen abdominal exam Overall: no tenderness 06/06/2018 None Full Exam - General 1994 Musculoskeletal head and neck Overall: head atraumatic 06/06/2018 None Full Exam - General 1994 Musculoskeletal gait and station Overall: normal station 06/06/2018 None Full Exam - General 1994 Musculoskeletal gait and station Overall: normal gait 06/06/2018 None Full Exam - General 1994 Neurologic cranial nerves Overall: crainial nerves 2 - 12 grossly intact 06/06/2018 None Full Exam - General 1994 Psychiatric orientation/consciousness Overall: oriented to person, place and time 06/06/2018 None Full Exam - General 1994 Psychiatric mood and affect Overall: normal mood and affect 06/06/2018 None Full Exam - General 1994 Constitutional general appearance Overall: well developed 12/13/2017 None Full Exam - General 1994 Constitutional general appearance Overall: in no acute distress 12/13/2017 None Full Exam - General 1994 Constitutional general appearance Overall: well nourished 12/13/2017 None Full Exam - General 1994 Ears/Nose/Throat otoscopic exam Overall: external auditory canals clear 12/13/2017 None Full Exam - General 1994 Ears/Nose/Throat otoscopic exam Overall: tympanic membranes clear 12/13/2017 None Full Exam - General 1994 Ears/Nose/Throat oral cavity/pharynx/larynx Overall: oral mucosa clear 12/13/2017 None Full Exam - General 1994 Respiratory auscultation Overall: breath sounds clear bilaterally 12/13/2017 None Full Exam - General 1994 Respiratory respiratory effort/rhythm Overall: no retractions 12/13/2017 None Full Exam - General 1994 Respiratory respiratory effort/rhythm Overall: normal rate 12/13/2017 None Full Exam - General 1994 Cardiovascular auscultation of heart Overall: regular rate 12/13/2017 None Full Exam - General 1994 Cardiovascular auscultation of heart Overall: normal heart sounds 12/13/2017 None Full Exam - General 1994 Lymphatic neck nodes Overall: anterior cervical chain benign 12/13/2017 None Full Exam - General 1994 Lymphatic neck nodes Overall: posterior cervical chain benign 12/13/2017 None Full Exam - General 1994 Psychiatric orientation/consciousness Overall: oriented to person, place and time 12/13/2017 None Full Exam - General 1994 Integument inspection of skin Overall: few scattered moles, no gross abnormalities 12/13/2017 None Full Exam - General 1994 Neurologic cranial nerves Overall: crainial nerves 2 - 12 grossly intact 12/13/2017 None Full Exam - General 1994 Constitutional general appearance Overall: well nourished 10/28/2017 None Full Exam - General 1994 Eyes conjunctiva /eyelids Overall: conjunctiva clear 10/28/2017 None Full Exam - General 1994 Eyes conjunctiva /eyelids Overall: cornea clear 10/28/2017 None Full Exam - General 1994 Eyes conjunctiva /eyelids Overall: eyelids normal 10/28/2017 None Full Exam - General 1994 Eyes pupils and irises Overall: pupils equal, round, reactive to light and accomodation 10/28/2017 None Full Exam - General 1994 Ears/Nose/Throat lips/teeth/gingiva Overall: benign lips 10/28/2017 None Full Exam - General 1994 Ears/Nose/Throat oral cavity/pharynx/larynx Overall: oral mucosa clear 10/28/2017 None Full Exam - General 1994 Respiratory auscultation Overall: breath sounds clear bilaterally 10/28/2017 None Full Exam - General 1994 Respiratory respiratory effort/rhythm Overall: no retractions 10/28/2017 None Full Exam - General 1994 Respiratory respiratory effort/rhythm Overall: normal rate 10/28/2017 None Full Exam - General 1994 Cardiovascular auscultation of heart Overall: regular rate 10/28/2017 None Full Exam - General 1994 Cardiovascular auscultation of heart Overall: normal heart sounds 10/28/2017 None Full Exam - General 1994 Musculoskeletal gait and station Overall: normal gait 10/28/2017 None Full Exam - General 1994 Musculoskeletal gait and station Overall: normal station 10/28/2017 None Full Exam - General 1994 Musculoskeletal head and neck Overall: head atraumatic 10/28/2017 None Full Exam - General 1994 Neurologic cranial nerves Overall: crainial nerves 2 - 12 grossly intact 10/28/2017 None Full Exam - General 1994 Psychiatric orientation/consciousness Overall: oriented to person, place and time 10/28/2017 None Full Exam - General 1994 Psychiatric mood and affect Mood: flat 10/28/2017 None Full Exam - General 1994 Psychiatric mood and affect Mood: depressed 10/28/2017 None Full Exam - General 1994 Psychiatric mood and affect Mood: irritable 10/28/2017 None Full Exam - General 1994 Psychiatric mood and affect Mood: labile mood 10/28/2017 None Full Exam - General 1994 Psychiatric mood and affect Affect: flat 10/28/2017 None Full Exam - General 1994 Psychiatric appearance Overall: well-groomed, good eye contact 10/28/2017 None Full Exam - General 1994 Constitutional general appearance Overall: well developed 10/28/2017 None Full Exam - General 1994 Constitutional general appearance Overall: in no acute distress 10/28/2017 None Full Exam - General 1994 Constitutional [...] cervical os Full Exam - General 1994 Neck thyroid [...] size None Full Exam - General 1994 Psychiatric [...] discharge 05/31/2013 None Full Exam - General 1995 Genitourinary cervix Inspection: no lesions 05/31/2013 None [...] rate 03/01/2013 None Full Exam - General 1995 Cardiovascular auscultation of heart Overall: normal heart sounds 03/01/2013 None Full Exam - General 1995 Cardiovascular auscultation of heart Overall: no murmurs 03/01/2013 None Full Exam - General 1995 Cardiovascular extremities Overall: no clubbing 03/01/2013 None Full Exam - General 1995 Musculoskeletal head and neck Overall: head atraumatic 03/01/2013 None Full Exam - General 1995 Musculoskeletal head and neck Overall: cervical spine benign 03/01/2013 None Full Exam - General 1995 Neurologic cranial nerves Overall: crainial nerves 2 - 12 grossly intact 03/01/2013 None Full Exam - General 1995 Psychiatric orientation/consciousness Overall: oriented to person, place and time 03/01/2013 None Full Exam - General 1995 Psychiatric mood and affect Overall: normal mood and affect 03/01/2013 None Full Exam - General 1995 Constitutional general appearance Overall: well developed 01/10/2013 [...] accomodation 08/02/2012 None Full Exam - General 1994 [...] 1994 Ears/Nose/Throat oral cavity/pharynx/larynx Overall: no masses 08/02/2012 [...] size 08/02/2012 None Full Exam - General 1995 Genitourinary uterus Position: a normal exam 08/02/2012 None Full Exam - General 1995 Genitourinary uterus Mobility: a normal exam 08/02/2012 None Full Exam - General 1995 Genitourinary cervix Overall: no discharge 08/02/2012 None Full Exam - General 1995 Genitourinary cervix Inspection: no lesions 08/02/2012 None Full Exam - General 1995 Genitourinary labia and vagina Overall: normal hair distribution 08/02/2012 None Full Exam - General 1995 Genitourinary labia and vagina Overall: no lesions 08/02/2012 None Full Exam - General 1995 Genitourinary labia and vagina Labia: no lesions present 08/02/2012 None Full Exam - General 1995 Genitourinary adnexa/parametria Overall: no tenderness 08/02/2012 None Full Exam - General 1995 Genitourinary urethra Overall: no masses 08/02/2012 None Full Exam - General 1995 Genitourinary bladder Overall: no tenderness 08/02/2012 None Full Exam - General 1994 Musculoskeletal head and neck Overall: head atraumatic 08/02/2012 None Full Exam - General 1994 Musculoskeletal head and neck Overall: cervical spine benign 08/02/2012 None Full Exam - General 1994 Neurologic cranial nerves Overall: crainial nerves 2 - 12 grossly intact 08/02/2012 None Full Exam - General 1994 Psychiatric orientation/consciousness Overall: oriented to person, place and time 08/02/2012 None Full Exam - General 1994 Psychiatric [...] rate 04/06/2012 None Full Exam - General 1995 [...] Codes Date URINALYSIS NONAUTO W/O SCOPE CPT-4: 77020 11/03/2016 THER/PROPH/DIAG INJ SC/IM CPT-4: 25935 05/26/2016 KETOROLAC TROMETHAMINE INJ CPT-4: J1885 05/26/2016 URINALYSIS NONAUTO W/O SCOPE CPT-4: 06499 03/15/2013 KETOROLAC TROMETHAMINE INJ CPT-4: J1885 01/10/2013 PROMETHAZINE HCL INJECTION CPT-4: J2550 01/10/2013 GC/CHL PRB CPT-4: 6662419 08/02/2012 PAP CPT-4: 6477416 08/02/2012 Vital Signs Date Vital 06/06/2018 Blood Pressure 1: 130/76 Code : 8480-6 BMI: 24.0 Code : 38317-7 Heart Rate 1 : 64 bpm Height: 5' SpO2: 98% Weight: 123 lbs 12/13/2017 Blood Pressure 1: 124/64 Code : 8480-6 BMI: 23.9 Code : 28824-0 Heart Rate 1 : 57 bpm Height: 5'1" SpO2: 99% Temperature: 36.6 (C) / 97.8 (F) Weight: 125 lbs 10/28/2017 Blood Pressure 1: 130/66 Code : 8480-6 BMI: 23.6 Code : 11433-3 Heart Rate 1 : 71 bpm Height: 5' SpO2: 99% Weight: 121 lbs 03/25/2017 Blood Pressure 1: 110/76 Code : 8480-6 BMI: 25.3 Code : 16975-1 Heart Rate 1 : 81 bpm Height: 5'1" SpO2: 98% Weight: 132 lbs 11/03/2016 Blood Pressure 1: 126/76 Code : 8480-6 BMI: 25.4 Code : 30123-0 Heart Rate 1 : 76 bpm Height: 5'1" SpO2: 97% Weight: 132 lbs 8 oz 07/27/2016 Blood Pressure 1: 128/82 Code : 8480-6 BMI: 25.6 Code : 69400-9 Heart Rate 1 : 72 bpm Height: 5' Respiratory Rate: 18 bpm SpO2: 96% Temperature: 37.1 (C) / 98.7 (F) Weight: 131 lbs 05/25/2016 Blood Pressure 1: 154/80 Code : 8480-6 BMI: 25.3 Code : 91121-1 Heart Rate 1 : 80 bpm Height: 5'1" SpO2: 99% Weight: 132 lbs 05/16/2015 Blood Pressure 1: 126/68 Code : 8480-6 BMI: 26.2 Code : 49558-9 Heart Rate 1 : 71 bpm Height: 5'1" SpO2: 97% Weight: 137 lbs 08/15/2014 Blood Pressure 1: 122/82 Code : 8480-6 BMI: 26.6 Code : 29760-4 Heart Rate 1 : 78 bpm Height: 5'1" SpO2: 97% Weight: 139 lbs 07/26/2014 Blood Pressure 1: 122/84 Code : 8480-6 BMI: 26.6 Code : 15115-5 Heart Rate 1 : 69 bpm Height: 5'1" SpO2: 97% Temperature: 37.6 (C) / 99.7 (F) Weight: 139 lbs 05/08/2014 Blood Pressure 1: 102/72 Code : 8480-6 BMI: 25.7 Code : 68898-8 Heart Rate 1 : 76 bpm Height: 5'1" Weight: 134 lbs 01/23/2014 Blood Pressure 1: 120/72 Code : 8480-6 BMI: 26.8 Code : 37051-1 Heart Rate 1 : 80 bpm Height: 5'1" Weight: 140 lbs 05/31/2013 Blood Pressure 1: 110/62 Code : 8480-6 BMI: 25.1 Code : 37827-2 Heart Rate 1 : 64 bpm Height: 5'1" Weight: 131 lbs 03/01/2013 Blood Pressure 1: 112/72 Code : 8480-6 BMI: 25.5 Code : 58413-1 Heart Rate 1 : 76 bpm Height: 5'1" Weight: 133 lbs 01/10/2013 Blood Pressure 1: 100/60 Code : 8480-6 Heart Rate 1: 84 bpm Temperature: 37.8 (C) / 100.0 (F) Weight: 136 lbs 12/20/2012 Blood Pressure 1: 112/62 Code : 8480-6 BMI: 25.3 Code : 04720-4 Heart Rate 1 : 72 bpm Height: 5'1" Weight: 132 lbs 08/02/2012 Blood Pressure 1: 124/62 Code : 8480-6 BMI: 23.8 Code : 68194-3 Heart Rate 1 : 64 bpm Height: [...] Code : 8480-6 BMI: 24.8 Code : 49526-9 Heart Rate 1 : 76 bpm Height: 5' Respiratory Rate: 16 bpm Weight: 127 lbs 04/07/2011 Blood Pressure 1: 126/70 Code : 8480-6 BMI: 24.7 Code : 43419-6 Heart Rate 1 : 76 bpm Height: 5' Respiratory Rate: 16 bpm Weight: 126 lbs 8 oz 12/04/2010 Blood Pressure 1: 127/84 Code : 8480-6 BMI: 24.2 Code : 45303-2 Heart Rate 1 : 97 bpm Height: 5' Weight: 124 lbs 11/25/2010 Blood Pressure 1: 115/77 Code : 8480-6 BMI: 24.5 Code : 86581-1 Heart Rate 1 : 74 bpm Height: 5' Respiratory Rate: 20 bpm Weight: 125 lbs 8 oz Functional Status No Functional Status data History of Present Illness Symptom Name Status Result Effective Date Notes Quality chronic 06/06 None Onset and Resolution gradual in onset 06/06/2018 None Pertinent Findings Denies fever 06/06/2018 None Pertinent Findings Denies dyspnea 06/06/2018 None Pertinent Findings Denies cough 06/06/2018 None Pertinent Findings Denies melena 06/06/2018 None sore throat Location diffusely 12/13/2017 None sore throat Quality burning 12/13/2017 None sore throat Quality aching 12/13/2017 None sore throat Onset and Resolution sudden in onset 12/13/2017 None sore throat Onset of Symptom 1 weeks ago 12/13/2017 None sore throat Frequency of Episodes daily 12/13/2017 None earache Location left ear 12/13/2017 None earache Onset and Resolution sudden in onset 12/13/2017 None earache Onset of Symptom 1 weeks ago 12/13/2017 None earache Frequency of Episodes daily 12/13/2017 None medication follow up Additional Comments medication use 10/28/2017 None medication follow up Location oral intake 10/28/2017 None low back pain Radiating the left buttock [...] 07/26/2014 none today, had a little nausea Wednesday abdominal pain Pertinent Findings Denies urinary urgency [...] data Encounters Encounter Performer Location Codes Date 24019 EST. PATIENT, LEVEL III Diagnosis: Abnormal weight loss[ICD10: R63.4] Diagnosis: Gastro-esophageal reflux disease without esophagitis[ICD10: K21.9] Sandra Triana MD, [facility] CPT-4: 60280 06/06/2018 ([id number]) 93089 EST. PATIENT, LEVEL III Diagnosis: Acute laryngopharyngitis[ICD10: J06.0] Shira Triana MD, [facility] CPT-4: 07537 12/13/2017 [id number] EST. PATIENT, LEVEL III Diagnosis: Generalized anxiety disorder[ICD10: F41.1] Diagnosis: Major depressive disorder, single episode, moderate[ICD10: F32.1] Diagnosis: Malignant neoplasm of unspecified site of left female breast[ICD10: C50.912] Sandra Triana MD, [facility] CPT-4: 52376 2017 08058 EST. PATIENT, LEVEL IV Diagnosis: Other fatigue[ICD10: R53.83] Diagnosis: Generalized anxiety disorder[ICD10: F41.1] Diagnosis: Major depressive disorder, single episode, moderate[ICD10: F32.1] Sandra Triana MD, [facility] CPT-4: 48288 03/25/2017 ([id number]) 07304 EST. PATIENT, LEVEL III Diagnosis: Essential (primary) hypertension[ICD10: I10] Diagnosis: Left lower quadrant pain[ICD10: R10.32] Shira Triana MD, [facility] CPT-4: 99439 11/03/2016 ([id number]) 81974 EST. PATIENT, LEVEL III Diagnosis: Irritable bowel syndrome with diarrhea[ICD10: K58.0] Shira Triana MD, [facility] CPT-4: 92723 07/27/2016 38921 EST. PATIENT, LEVEL IV Diagnosis: Headache[ICD10: R51] Diagnosis: Fall (on)(from) sidewalk curb, initial encounter[ICD10: W10.1XXA] Sandra Triana MD, [facility] CPT-4: 90379 05/25/2016 50626 EST. 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 PATIENT, LEVEL III Diagnosis: Cervical os stenosis[ICD9: 622.4] [facility] CPT-4: 50125 08/23/2014 ([id number]) Miscellaneous no charge Diagnosis: Cervical os stenosis[ICD9: 622.4] [facility] CPT-4: 43502 08/23/2014 ([id number]) PREV VISIT EST AGE 40-64 Diagnosis: Cervical os stenosis[ICD9: 622.4] Tiffany Triana MD, [facility] CPT-4: 82302 08/15/2014 ([id number]) 82144 EST. PATIENT, LEVEL IV Diagnosis: LLQ abdominal pain[ICD9: 789.04] Diagnosis: Nausea[ICD9: 787.02] Diagnosis: ESSENTIAL HYPERTENSION[ICD9: 401.9] [facility] CPT-4: 28697 07/26/2014 ([id number]) 72599 EST. PATIENT, LEVEL III Diagnosis: ALLERGIC RHINITIS[ICD9: 477.9] Diagnosis: ESOPHAGEAL REFLUX[ICD9: 530.81] [facility] CPT- 4: 99899 05/08/2014 ([id number]) 22749 EST. PATIENT, LEVEL IV Diagnosis: EDEMA[ICD9: 782.3] Diagnosis: Weight gain[ICD9: 783.1] Diagnosis: Fatigue[ICD9: 780.79] Diagnosis: ESSENTIAL HYPERTENSION[ICD9: 401.9] [facility] CPT-4: 68560 01/23/2014 ([id number]) PREV VISIT EST AGE 40-64 Diagnosis: ROUTINE GYNE EXAM[ICD9: V72.31] Tiffany Triana MD, [facility] CPT- 4: 85440 05/31/2013 ([id number]) 36174 EST. PATIENT, LEVEL III Diagnosis: GENERALIZED ANXIETY DISEASE[ICD9: 300.02] Diagnosis: DEPRESSIVE DISORDER NEC[ICD9: 311] Tiffany Triana MD, [facility] CPT-4: 78344 03/01/2013 ([id number]) 73025 EST. PATIENT, LEVEL III Diagnosis: Abdominal pain[ICD9: 789.00] Diagnosis: Nausea[ICD9: 787.02] Tiffany Triana MD, [facility] CPT-4: 61777 01/10/2013 ([id number]) 19676 EST. PATIENT, LEVEL III Diagnosis: Tick bite of abdomen[ICD9: 911.4] Diagnosis: Gas[ICD9: 787.3] Tiffany Triana MD, [facility] CPT-4: 97144 12/20/2012 ([id number]) PREV VISIT EST AGE 40-64 Diagnosis: Encounter for routine gynecological examination[ICD9: V72.31] Tiffany Triana MD, [facility] CPT-4: 92313 08/02/2012 ([id number]) 05513 EST. PATIENT, LEVEL III Diagnosis: Nausea and vomiting[ICD9: 787.01] Shira Triana MD, [facility] CPT-4: 60208 04/06/2012 ([id number]) 58098 EST. PATIENT, LEVEL III Diagnosis: Rash[ICD9: 782.1] Shira Triana MD, [facility] CPT-4: 30434 01/04/2012 ([id number]) 80717 EST. PATIENT, LEVEL III Diagnosis: ALLERGIC RHINITIS[ICD9: 477.9] Diagnosis: ACUTE URI[ICD9: 465.9] Shira Triana MD, [facility] CPT-4: 15310 09/17/2011 ([id number]) PREV VISIT EST AGE 40-64 Diagnosis: ROUTINE GYNE EXAM[ICD9: V72.31] Diagnosis: ESSENTIAL HYPERTENSION[SNOMED: 91320883] Diagnosis: DEPRESSIVE DISORDER NEC[ICD9: 311] Tiffany Triana MD, [facility] CPT-4: 80675 07/27/2011 02772 EST. PATIENT, LEVEL IV Diagnosis: ESOPHAGEAL REFLUX[ICD9: 530.81] Diagnosis: ESSENTIAL HYPERTENSION[SNOMED: 85567479] Diagnosis: ABD PAIN GENERALIZED[ICD9: 789.07] Tiffany Triana MD, [facility] CPT-4: 09147 04/07/2011 32824 EST. PATIENT, LEVEL III Diagnosis: Acute sinusitis[ICD9: 461.9] Shira Triana MD, [facility] CPT-4: 69583 12/04/2010 87680 EST. PATIENT, LEVEL III Diagnosis: Acid reflux[ICD9: 530.81] Shira Triana MD, [facility] CPT-4: 51337 11/25/2010 Plan of Care Planned Activity Notes Codes Status Date Care Plan: Referral Order SNOMED-CT : [id number] Pending 06/07/2018 Visit Plan: Weight loss - will start on dexilant, will refer for EGD/Colonoscopy - pt is to weigh daily and notify clinic with any changes, questions, or concerns. 06/06/2018 Appointment: Sandra Conway WPtel: [address] [place], [place] [id number] (15 min) Moderate 06/06/2018 Patient Education: Patient Medication Summary Completed 06/06/2018 Visit Plan: Sore throat -suspect virus -continue claritin - strep swab sent off today in the office -monitor symptoms -instructed patient to call if symtoms worsen and we will send in an antibiotic -patient verbalized understanding of plan. 12/13/2017 Appointment: Shira Emery WPtel: [address] [place], [place] [phone] (15 min) Moderate 12/13/2017 Patient Education: Patient Medication Summary Completed 12/13/2017 Visit Plan: Chronic Depression and anxiety - the pt has symptoms of chronic anxiety and depression that have been fairly well controlled since the last office visit. The pt has expected periods of exacerbation with abatement of the symptoms with change in situational exposure. No change in current medications. Left breast cancer - defer to oncology 10/28/2017 Appointment: Sandra Conway WPtel: [address] [place], [place] [phone] (15 min) Moderate 10/28/2017 Patient Education: Patient Medication Summary Completed 10/28/2017 Appointment: Shira Emery WPtel: [phone] [phone] (15 min) Moderate 08/27/2017 Care Plan: Vitamin D 25 Oh Pending [...] this patient. 03/25/2017 App[facility]ment: [facility] [phone] [phone] (30 min) Complex 03/25/2017 Patient Education: Patient Medication Summary Completed [...] 05/26/2016 Care Plan: CT HEAD/BRAIN W/O DYE [facility] : 11477-1 Pending 05/26/2016 Visit Plan: Pt fell on [...] any concerns. 05/25/2016 Appointment: Sandra Conway WPtel: [phone] [facility] (15 min) Moderate 05/25/2016 Patient Education: Patient [...] or prn. 08/15/2014 Appointment: Tiffany Triana WPtel: [phone] [facility] [facility] 08/15/2014 Patient Education: Patient Medication Summary Completed 08/15/2014 Patient Education: Patient Medication Summary Completed 08/14/2014 Appointment: Sick 07/27/2014 Visit Plan: LLQ abdominal nzsz-hgjzwzrikloj-tnabl pelvic ultrasound, draw labs today HTN-well controlled-no change in medications 07/26/2014 Appointment: Sick 07/26/2014 Patient Education: Patient Medication Summary Completed 07/26/2014 Patient Education: Hypertension Completed 07/26/2014 Care Plan: COMPLETE CBC AUTOMATED LOINC : 09761-0 Ordered 07/26/2014 Care Plan: ASSAY OF AMYLASE [...] Summary Completed 05/08/2014 Appointment: Tiffany Triana WPtel: [facility] [place]0 [facility] [facility]2014 Visit Plan: Edema - pt has been advised to elevate legs to prevent dependent edema, compression has been recommended to help to naturally decrease peripheral edema. Diuretic use has been discussed and pt has been instructed in appropriate use of such medication as necessary to further attempt to reduce peripheral edema. DECREASE EXFORGE FROM 10MG/160MG TO 5MG/ 160MG Weight peoo-zcocicd-kvmbc thyroid, cbc, chem panel HTN-well controlled- decreasing [...] or prn. 05/31/2013 Appointment: Tiffany Triana WPtel: [phone] [facility] [facility] 05/31/2013 Patient Education: Patient Medication Summary Completed 05/31/2013 Appointment: Tiffany Triana WPtel: [address] [place], [place] [id number] Lab Draw 03/15/2013 Patient Education: Patient Medication [...] not improved. 03/01/2013 Appointment: Tiffany Triana WPtel: [address] [place] [address] Other 03/01/2013 Patient Education: Patient Medication Summary Completed 03/01/2013 Visit Plan: Abdominal mshi-incwso-Pw [place] in to evaluate patient-also discussed patient with Dr Ji. FRANKY lynne moved to Wednesday at 10am and will follow as indicated. Toradol and phenergan injections today in the office for acute symptoms. Patient verbalized understanding of plan. 01/10/2013 Appointment: Shira Emery WPtel: [address] [place], [place] [id number] Other 01/10/2013 Patient Education: Patient Medication Summary Completed 01/10/2013 Visit Plan: Tick Bite - pt given script for treatment of infected tick bite, call for symptoms of worsening infection or nonhealing. Gas and bloating - advised to try beano, gas-x, avoid gas producing foods, call if not improving. 12/20/2012 Appointment: Tiffany Triana WPtel: [facility] [place][note 2]8 [facility] Other 12/20/2012 Patient Education: Patient Medication Summary [...] or prn. 08/02/2012 Appointment: Tiffany Triana WPtel: [address] [place] [address] [facility] 08/02/2012 Patient Education: Patient Medication Summary Completed 08/02/2012 Visit Plan: Nausea and vomiting- recommended clear liquid advance to bland diet, start on probiotic if diarrhea starts, and rehydrate with gatorade-like product. Pt to call if feeling worse, or does not improve with above recommendations. Pt to call for acute worsening of stomach upset or stomach pain. 04/06/2012 Appointment: Shira Emery WPtel: [address] [place] [address] Sick 04/06/2012 Patient Education: Patient Medication Summary Completed 04/06/2012 Visit Plan: Rash-discussed natural and expected course of this diagnosis and to alert me if symptoms do not follow expected course, or if any worse. RX sent to patient's pharmacy. Patient verbalized understanding of plan. 01/04/2012 Appointment: Shira Emery WPtel: [address] [place], [place] [phone] Other 01/04/2012 Patient Education: Patient Medication Summary [...] patient's pharmacy. 09/17/2011 Appointment: Shira Emery WPtel: [address] [place], [place] [phone] Other 09/17/2011 Patient Education: Patient Medication Summary [...] at home. 07/27/2011 Appointment: Tiffany Triana WPtel: [facility] [place][note 2] [place] [id number] [facility] 07/27/2011 Patient Education: Patient Medication Summary Completed 07/27/2011 Patient Education: High Blood Pressure: Essential Hypertension Completed 2011 Appointment: Tiffany Triana WPtel: [facility] [place][note 2]0 [facility] Other 04/21/2011 Visit Plan: Esophageal Reflux - [...] few weeks. 04/07/2011 Appointment: Tiffany Triana WPtel: [facility] [place][note 2]7 [facility] Other 04/07/2011 Patient Education: Patient Medication Summary [...] any concerns. 12/04/2010 Appointment: Shira Emery WPtel: [facility] [place][note 2]4 [place] [phone] [place] Other 12/04/2010 Patient Education: Patient Medication Summary [...] if it does not work. 11/25/2010 Appointment: Rupert Shira WPtel: [facility] [place][note 2]5 [phone] [place] Other 11/25/2010 Patient Education: Patient Medication Summary Completed 11/25/2010 Referral: Mike Wilson Referral Initiated Referral: Mike Wilson 06/07 Referral info faxed. His office will call patient to schedule Appointment Requested Instructions Comment . [facility] Adult Female - [...] RTC yearly or prn. . LLQ abdominal lcwj-cqmucsrohygv-vpvgo pelvic ultrasound, draw labs today HTN-well controlled-no [...] DECREASE EXFORGE FROM 10MG/160MG TO 5MG/160MG Weight hrnl-qdekueb-azshn thyroid, cbc, chem panel HTN-well controlled-decreasing medication [...] in blood pressure readings at home. LLQ gkxi-nzpblhbcfsdl-ZG negative-monitor symptoms and call if worsen . [...] dexilant if it does not work. . Sore throat -suspect virus -continue claritin -strep swab sent off today in the office -monitor symptoms -instructed patient to call if symtoms worsen and we will send in an antibiotic -patient verbalized understanding of plan. . Chronic Depression and anxiety - the [...] also recommended. Call for any concerns. . Chronic Depression and anxiety - the pt has symptoms of chronic anxiety and depression that have been fairly well controlled since the last office visit. The pt has expected periods of exacerbation with abatement of the symptoms with change in situational exposure. No change in current medications. Left breast cancer - defer to oncology . Pt fell on Wednesday05/23/16 - she [...] been appropriately prescribed for this patient. . Weight loss - will start on dexilant, will refer for EGD/ Colonoscopy - pt is to weigh daily and notify clinic with any changes, questions , or concerns. . Rash-discussed natural and expected course of this diagnosis and to alert me if symptoms do not follow expected course, or if any worse. RX sent to patient's pharmacy. Patient verbalized understanding of plan. HIDA scan tomorrow at 10am. Abdominal vqjd-zbhrxz-Wb [place] in to evaluate patient-also discussed patient [...]
--- OUTSIDE RECORDS SUMMARY | 2018-06-17 13:48 | XMS REPORT | CCD ---
Author Author Shira Emery Organization [facility] Address [address] [place] [address] Phone Care Team Providers Care Director [employer] Name Role Phone PP Unavailable CCM Unavailable Summary Purpose Interface Exchange Insurance Providers Payer name Policy type / Coverage type Covered libertarian ID Effective Begin Date Effective End Date [facility] [id number] Unknown Family history Father Diagnosis Age At Onset Cancer Unknown Mother Diagnosis Age At Onset Dementia Unknown Depression Unknown Cardiovascular disease Unknown Stroke Unknown Cancer Unknown Social History Social History Element Codes Description Effective Dates Marital status Unknown Since 199211/24/2010 Number of children Unknown 4 2 adult children, and 2 young children at home 11/24/2010 Employment Unknown 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 11/24/[address]: 5047686 Former smoker Previously a social smoker 11/24/[address]: 226253 Currently drinks alcohol Rarely - Once yearly [...] 11/24/2010 No Inactive Date Active zithromax RxNorm: 689771 01/23/2014 No Inactive Date Active Past Medical [...] Dexilant 60 mg capsule, delayed release RxNorm: 554110 1 Capsule(s) PO daily 06/07/2018 No Stop Date Active Xanax 1 mg tablet RxNorm: 831262 Tablet(s) TAKE 1 TABLET BY MOUTH IN THE MORNING 1/2 TABLET AT BEDTIME , AND 1/2 TABLET EVERY SIX HOURS NEEDED FOR ANXIETY 05/16/2018 08/25/2018 Active Exforge 5 mg-160 mg tablet RxNorm: 494703 TAKE 1 TABLET BY MOUTH DAILY 12/22/2017 06/19/2018 Active Generic For:EXFORGE 5-160MG TAB 12/22/2017 12:33:20 PM Xanax 1 mg tablet RxNorm: 368745 Tablet(s) TAKE 1 TABLET BY MOUTH IN THE MORNING 1/2 TABLET AT BEDTIME , AND 1/2 TABLET EVERY SIX HOURS NEEDED FOR ANXIETY 10/29/2017 03/12/2018 Inactive Xanax 1 mg tablet RxNorm: 035462 Tablet(s) TAKE 1 TABLET BY MOUTH IN THE MORNING 1/2 TABLET AT BEDTIME , AND 1/2 TABLET EVERY SIX HOURS NEEDED FOR ANXIETY 09/17/2017 10/28/2017 Inactive Xanax 1 mg tablet RxNorm: 562293 Tablet(s) TAKE 1 TABLET BY MOUTH IN THE MORNING 1/2 TABLET AT BEDTIME , AND 1/2 TABLET EVERY SIX HOURS NEEDED FOR ANXIETY 08/13/2017 09/14/2017 Inactive estradiol 1 mg tablet RxNorm: 004090 1 Tablet(s) PO daily 201710/25/2017 Inactive Xanax 1 mg tablet RxNorm: 372004 Tablet(s) TAKE 1 TABLET BY MOUTH IN THE MORNING 1/2 TABLET AT BEDTIME , AND 1/2 TABLET EVERY SIX HOURS NEEDED FOR ANXIETY 05/24/2017 07/21/2017 Inactive Exforge 5 mg-160 mg tablet RxNorm: 071383 1 Tablet(s) PO daily Tablet(s) TAKE ONE (1) TABLET BY MOUTH DAILY 05/24/201711/19 Inactive Generic For:EXFORGE 5- 160MG TAB 03/12/2015 9:09:52 AM Provera 2.5 mg tablet RxNorm: 8982935 1 Tablet(s) PO daily 05/2410/25/2017 Inactive Lexapro 10 mg tablet RxNorm: 901312 1 Tablet(s) PO QHS 201604/23/2017 Inactive Xanax 1 mg tablet RxNorm: 395041 Tablet(s) TAKE 1 TABLET BY MOUTH IN THE MORNING 1/2 TABLET AT BEDTIME , AND 1/2 TABLET EVERY SIX HOURS NEEDED FOR ANXIETY 01/22/2017 08/12/2017 Inactive Xanax 1 mg tablet RxNorm: 405086 Tablet(s) TAKE 1 TABLET BY MOUTH IN THE MORNING 1/2 TABLET AT BEDTIME , AND 1/2 TABLET EVERY SIX HOURS NEEDED FOR ANXIETY 01/21/2017 01/21/2017 Inactive Exforge 5 mg-160 mg tablet RxNorm: 417976 1 Tablet(s) PO daily Tablet(s) TAKE ONE (1) TABLET BY MOUTH DAILY 11/03/201605/01 Inactive Generic For:EXFORGE 5- 160MG TAB 03/12/2015 9:09:52 AM estradiol 1 mg tablet RxNorm: 724416 1 Tablet(s) PO daily 201605/01/2017 Inactive Provera 2.5 mg tablet RxNorm: 8794178 1 Tablet(s) PO daily 11/0305/01/2017 Inactive Bentyl 10 mg capsule RxNorm: 491298 1 Capsule(s) PO TID 201607/29/2016 Inactive Bentyl 10 mg capsule RxNorm: 502640 1 Capsule(s) PO TID 201603/24/2017 Inactive Viberzi 75 mg tablet RxNorm: 0644040 1 Tablet(s) PO BID 201611/02/2016 Inactive Xanax 1 mg tablet RxNorm: 646496 Tablet(s) TAKE 1 TABLET BY MOUTH IN THE MORNING 1/2 TABLET AT BEDTIME , AND 1/2 TABLET EVERY SIX HOURS NEEDED FOR ANXIETY 07/14/2016 05/23/2017 Inactive Xanax 1 mg tablet RxNorm: 883336 Tablet(s) TAKE 1 TABLET BY MOUTH IN THE MORNING 1/2 TABLET AT BEDTIME , AND 1/2 TABLET EVERY SIX HOURS NEEDED FOR ANXIETY 06/01/2016 07/13/2016 Inactive ketorolac 60 mg/2 mL intramuscular solution RxNorm: 543697 2 Milliliter(s) IM 05/26/2016 05/26/2016 Inactive Exforge 5 mg-160 mg tablet RxNorm: 210786 Tablet(s) TAKE ONE (1) TABLET BY MOUTH DAILY 04/13/2016 10/09/2016 Inactive Generic For:EXFORGE 5-160MG TAB 03/12/2015 9: 09:52 AM Xanax 1 mg tablet RxNorm: 354443 Tablet(s) TAKE 1 TABLET BY MOUTH IN THE MORNING 1/2 TABLET AT BEDTIME , AND 1/2 TABLET EVERY SIX HOURS NEEDED FOR ANXIETY 04/09/2016 05/31/2016 Inactive Mobic 15 mg tablet RxNorm: 433796 1 Tablet(s) PO daily 201503/25/2016 Inactive Mobic 15 mg tablet RxNorm: 168288 1 Tablet(s) PO daily 201511/02/2016 Inactive Xanax 1 mg tablet RxNorm: 741200 Tablet(s) TAKE 1 TABLET BY MOUTH IN THE MORNING 1/2 TABLET AT BEDTIME , AND 1/2 TABLET EVERY SIX HOURS NEEDED FOR ANXIETY 02/24/2016 04/08/2016 Inactive Xanax 1 mg tablet RxNorm: 649899 Tablet(s) TAKE 1 TABLET BY MOUTH IN THE MORNING 1/2 TABLET AT BEDTIME , AND 1/2 TABLET EVERY SIX HOURS NEEDED FOR ANXIETY 01/01/2016 02/23/2016 Inactive Generic For:XANAX 1 MG TABLET(Response to an electronic controlled substance refill request - RxReferenceNumber: [id number]) Xanax 1 mg tablet RxNorm: 784245 Tablet(s) TAKE 1 TABLET BY MOUTH IN THE MORNING 1/2 TABLET AT BEDTIME , AND 1/2 TABLET EVERY SIX HOURS NEEDED FOR ANXIETY 09/26/2015 12/31/2015 Inactive Generic For:XANAX 1 MG TABLET(Response to an electronic controlled substance refill request - RxReferenceNumber: [id number]) Exforge 5 mg-160 mg tablet RxNorm: 771519 Tablet(s) TAKE ONE (1) TABLET BY MOUTH DAILY 09/26/2015 04/13/2016 Inactive Generic For:EXFORGE 5-160MG TAB 03/12/2015 9: 09:52 AM Xanax 1 mg tablet RxNorm: 209709 Tablet(s) TAKE 1 TABLET BY MOUTH IN THE MORNING 1/2 TABLET AT BEDTIME , AND 1/2 TABLET EVERY SIX HOURS NEEDED FOR ANXIETY 04/22/2015 09/25/2015 Inactive Generic For:XANAX 1 MG TABLET(Response to an electronic controlled substance refill request - RxReferenceNumber: [id number]) Exforge 5 mg-160 mg tablet RxNorm: 242186 TAKE ONE (1) TABLET BY MOUTH DAILY 03/12/2015 09/07/2015 Inactive Generic For:EXFORGE 5-160MG TAB 03/12/2015 9:09:52 AM Exforge 5 mg-160 mg tablet RxNorm: 657178 1 Tablet(s) PO daily TAKE ONE (1) TABLET BY MOUTH DAILY 08/28/20142014 Inactive 09/05/2012 4:02:25 PM Sprintec (28) 0.25 mg-35 mcg tablet RxNorm: 936297 TAKE 1 TABLET BY MOUTH EVERY DAY 06/18/2014 04/28/2015 Inactive Generic For:ORTHO-CYCLEN 28 TABLET N O T I C E Last quantity doesn't match original quantity Singulair 10 mg tablet RxNorm: 367423 1 Tablet(s) PO daily 07/25/2014 Inactive Singulair 10 mg tablet RxNorm: 208409 1 Tablet(s) PO daily 05/20/2014 Inactive Flonase 50 mcg/actuation nasal spray,suspension RxNorm: 761834 2 [place] NASAL daily 05/18/2014 05/27/2014 Inactive Xanax 1 mg tablet RxNorm: 202466 TAKE 1 TABLET BY MOUTH IN THE MORNING 1/2 TABLET AT BEDTIME , AND 1/2 TABLET EVERY SIX HOURS NEEDED FOR ANXIETY 04/24/2014 06/21/2014 Inactive Generic For:XANAX 1 MG TABLET(Response to an electronic controlled substance refill request - RxReferenceNumber: [id number]) Xanax 1 mg tablet RxNorm: 866087 Tablet(s) TAKE 1 TABLET BY MOUTH IN THE MORNING 1/2 TABLET AT BEDTIME , AND 1/2 TABLET EVERY SIX HOURS NEEDED FOR ANXIETY 04/24/2014 05/07/2014 Inactive Generic For:XANAX 1 MG TABLET(Response to an electronic controlled substance refill request - RxReferenceNumber: [id number]) Exforge 5 mg-160 mg tablet RxNorm: 538669 1 Tablet(s) PO daily TAKE ONE (1) TABLET BY MOUTH DAILY 02/16/20142014 Inactive 09/05/2012 4:02:25 PM Exforge 5 mg-160 mg tablet RxNorm: 471084 1 Tablet(s) PO daily TAKE ONE (1) TABLET BY MOUTH DAILY 01/23/20142013 Inactive 09/05/2012 4:02:25 PM Xanax 1 mg tablet RxNorm: 999663 TAKE 1 TABLET BY MOUTH IN THE MORNING 1/2 TABLET AT BEDTIME , AND 1/2 TABLET EVERY SIX HOURS NEEDED FOR ANXIETY 12/22/2013 12/22/2013 Inactive Generic For:XANAX 1 MG TABLET(Response to an electronic controlled substance refill request - RxReferenceNumber: [id number]) Xanax 1 mg tablet RxNorm: 670822 TAKE 1 TABLET BY MOUTH IN THE MORNING 1/2 TABLET AT BEDTIME , AND 1/2 TABLET EVERY SIX HOURS NEEDED FOR ANXIETY 12/22/2013 01/20/2014 Inactive Generic For:XANAX 1 MG TABLET(Response to an electronic controlled substance refill request - RxReferenceNumber: [id number]) Xanax 1 mg tablet RxNorm: 199029 TAKE 1 TABLET BY MOUTH IN THE MORNING 1/2 TABLET AT BEDTIME , AND 1/2 TABLET EVERY SIX HOURS NEEDED FOR ANXIETY 10/23/2013 12/22/2013 Inactive Generic For:XANAX 1 MG TABLET(Response to an electronic controlled substance refill request - RxReferenceNumber: [id number]) Sprintec (28) 0.25 mg-35 mcg tablet RxNorm: 729433 1 Tablet(s) PO daily 06/09/2013 06/17/2014 Inactive disp. 3 packs at a time please Xanax 1 mg tablet RxNorm: 055051 1 q am 1 1/2 at hs Tablet(s) PO TAKE ONE TABLET BY MOUTH EVERY MORNING AND TAKE ONE AND ONE-HALF TABLETS BY MOUTH AT BEDTIME 05/31/2013 09/26/2013 Inactive Generic For:XANAX 1 MG TABLET (Appended: Controlled substance eRx refill - RxReferenceNumber: [id number]) Exforge 10 mg-160 mg tablet RxNorm: 263713 1 Tablet(s) PO daily TAKE ONE (1) TABLET BY MOUTH DAILY 05/31/20132013 Inactive 09/05/2012 4:02:25 PM Sprintec (28) 0.25 mg-35 mcg tablet RxNorm: 502336 1 Tablet(s) PO daily 05/31/2013 06/08/2013 Inactive disp. 3 packs at a time please Xanax 1 mg tablet RxNorm: 312383 1 q am 1 1/2 at hs Tablet(s) PO TAKE ONE TABLET BY MOUTH EVERY MORNING AND TAKE ONE AND ONE-HALF TABLETS BY MOUTH AT BEDTIME 04/10/2013 05/30/2013 Inactive Generic For:XANAX 1 MG TABLET (Appended: Controlled substance eRx refill - RxReferenceNumber: [id number]) Bactrim DS 800 mg-160 mg tablet RxNorm: 966264 1 Tablet(s) PO BID 03/15/2013 03/21/2013 Inactive Effexor 75 mg tablet RxNorm: 275101 1 Tablet(s) PO BID 201203/14/2013 Inactive Bactrim DS 800 mg-160 mg tablet RxNorm: 177307 1 Tablet(s) PO BID 03/15/2013 03/14/2013 Inactive Effexor 75 mg tablet RxNorm: 383269 1 Tablet(s) PO BID 201207/12/2013 Inactive escitalopram 10 mg tablet RxNorm: 320020 1 Tablet(s) PO QPM 06/201203/15/2013 Inactive ketorolac 60 mg/2 mL IM RxNorm: 487135 2 Milliliter(s) IM 01/1001/10/2013 Inactive promethazine 25 mg/mL Syringe RxNorm: 929814 2 Milliliter(s) Inj 01/10/2013 01/10/2013 Inactive Bactrim DS 800 mg-160 mg tablet RxNorm: 860184 1 Tablet(s) PO BID 01/09/2013 01/08/2013 Inactive Bactrim DS 800 mg-160 mg tablet RxNorm: 849558 1 Tablet(s) PO BID 01/09/2013 01/15/2013 Inactive doxycycline monohydrate 100 mg tablet RxNorm: 079016 1 Tablet(s) PO BID 12/20/2012 12/26/2012 Inactive Xanax 1 mg tablet RxNorm: 660205 Tablet(s) PO TAKE ONE TABLET BY MOUTH EVERY MORNING AND TAKE ONE AND ONE-HALF TABLETS BY MOUTH AT BEDTIME 09/26/2012 04/09/2013 Inactive Generic For:XANAX 1 MG TABLET (Appended: Controlled substance eRx refill - RxReferenceNumber: [id number]) Exforge 10 mg-160 mg tablet RxNorm: 297496 Tablet(s) PO TAKE ONE (1) TABLET BY MOUTH DAILY 09/05/2012 05/30/2013 Inactive 09/05/2012 4:02:25 PM nystatin-triamcinolone 100,000 unit/g-0.1 % Topical Cream RxNorm: 7593516 1 Application TOP QID 08/02/2012 09/12/2012 Inactive Nexium 40 mg capsule,delayed release RxNorm: 962162 1 Capsule(s) PO daily 08/02/2012 01/09/2013 Inactive use if dexilant does not work Xanax 1 mg tablet RxNorm: 332696 Tablet(s) PO TAKE ONE TABLET BY MOUTH EVERY MORNING AND TAKE ONE AND ONE-HALF TABLETS BY MOUTH AT BEDTIME 06/07/2012 09/25/2012 Inactive Generic For:XANAX 1 MG TABLET (Appended: Controlled substance eRx refill - RxReferenceNumber: [id number]) Xanax 1 mg tablet RxNorm: 958762 Tablet(s) PO TAKE ONE TABLET BY MOUTH EVERY MORNING AND TAKE ONE AND ONE-HALF TABLET BY MOUTH AT BEDTIME 06/07/2012 No Stop Date Active Generic For:XANAX 1 MG TABLET 03/03/12 Thank you (Appended: Controlled substance eRx refill - RxReferenceNumber: [id number]) Sprintec (28) 0.25 mg-35 mcg tablet RxNorm: 860127 1 Tablet(s) PO daily 05/12/2012 12/07/2012 Inactive disp. 3 packs at a time please Starr-D 24 Hour 10 mg-240 mg tablet,extended release RxNorm: 1526903 1 Tablet(s ) PO daily 05/12/2012 11/02/2016 Inactive Xanax 1 mg tablet RxNorm: 196719 Tablet(s) PO TAKE ONE TABLET BY MOUTH EVERY MORNING AND TAKE ONE AND ONE-HALF TABLET BY MOUTH AT BEDTIME 04/25/2012 06/07/2012 Inactive Generic For:XANAX 1 MG TABLET 03/03/12 Thank you (Appended: Controlled substance eRx refill - RxReferenceNumber: [id number]) fluconazole 150 mg tablet RxNorm: 374516 1 Tablet(s) PO QW weekly x 4 weeks 03/11/2012 No Stop Date Active Xanax 1 mg tablet RxNorm: 466385 Tablet(s) PO TAKE ONE TABLET BY MOUTH EVERY MORNING AND TAKE ONE AND ONE-HALF TABLET BY MOUTH AT BEDTIME 03/03/2012 04/24/2012 Inactive Generic For:XANAX 1 MG TABLET 03/03/12 Thank you (Appended: Controlled substance eRx refill - RxReferenceNumber: [id number]) Nexium 40 mg capsule,delayed release RxNorm: 531146 1 Capsule(s) PO BID 01/04/2012 08/01/2012 Inactive use if dexilant does not work fluconazole 150 mg tablet RxNorm: 806660 1 Tablet(s) PO daily 01/04/2012 01/10/2012 Inactive triamcinolone acetonide 0.5 % Topical Cream RxNorm: 1900218 1 TOP BID 01/04/2012 01/23/2012 Inactive Claritin-D 24 Hour 10 mg-240 mg tablet,extended release RxNorm: 0624572 1 Tablet(s ) PO daily 10/19/2011 04/15/2012 Inactive Flonase 50 mcg/actuation Nasal [place] RxNorm: 490620 2 [place] NASAL daily 09/17/2011 09/26/2011 Inactive amoxicillin 500 mg Tab RxNorm: 884807 1 Tablet(s) PO BID 201109/26/2011 Inactive Sprintec (28) 0.25 mg-35 mcg tablet RxNorm: 799353 1 Tablet(s) PO daily 09/08/2011 05/11/2012 Inactive Zofran 4 mg Tab RxNorm : 089284 1 Tablet(s) PO Q8 PRN 08/07/2011 01/03/2012 Inactive promethazine 25 mg Tab RxNorm: 574434 1 Tablet(s) PO Q6 PRN 01/201211/02/2016 Inactive Xanax 1 mg tablet RxNorm: 985941 Tablet(s) PO 07/22/2011 03/03/2012 Inactive 1/2 q am 1 1/2 alprazolam 0.25 mg Tab RxNorm: 783329 1/2 Tablet(s) PO BID 07/21/2011 Inactive Exforge 10 mg-160 mg tablet RxNorm: 347411 Tablet(s) PO 201109/04/2012 Inactive TAKE ONE (1) TABLET BY MOUTH DAILY;wc baclofen 10 mg Tab RxNorm: 652296 1/2 Tablet(s) PO BID 201110/22/2011 Inactive alprazolam 0.25 mg Tab RxNorm: 211682 1/2 Tablet(s) PO BID 07/16/2011 Inactive alprazolam 0.25 mg Tab RxNorm: 596942 1 Tablet(s) PO BID 201106/24/2011 Inactive alprazolam 0.25 mg Tab RxNorm: 125117 Tablet(s) PO 06/02/2011 06/02/2011 Inactive TAKE ONE TABLET BY MOUTH TWICE DAILY;Generic For:XANAX 0.25 MG TABLET 03/14/11 Thank you (Appended: Controlled substance eRx refill - RxReferenceNumber: [id number]) alprazolam 0.25 mg Tab RxNorm: 890841 Tablet(s) PO 04/14/2011 06/01/2011 Inactive TAKE ONE TABLET BY MOUTH TWICE DAILY;Generic For:XANAX 0.25 MG TABLET 03/14/11 Thank you (Appended: Controlled substance eRx refill - RxReferenceNumber: [id number]) Nexium 40 mg Cap RxNorm: 213361 1 Capsule(s) PO QAM 2011 No Stop Date Active use if dexilant does not work Nexium 40 mg capsule,delayed release RxNorm: 342647 1 Capsule(s) PO BID 04/07/2011 01/03/2012 Inactive use if dexilant does not work Exforge 10 mg-160 mg Tab RxNorm: 707200 1 Tablet(s) PO daily No Stop Date Active alprazolam 0.25 mg Tab RxNorm: 459816 2.5 Tablet(s) PO QHS 12/201104/14/2011 Inactive dicyclomine 10 mg Cap RxNorm: 753606 1 Capsule(s) PO BID 201001/03/2012 Inactive alprazolam 0.25 mg Tab RxNorm: 343377 1 Tablet(s) PO BID take 1/2 to 1 pill po bid prn for anxiety 02/25/2011 04/06/2011 Inactive Bentyl 10 mg Cap RxNorm: 887275 1 Capsule(s) PO BID 201003/01/2013 Inactive alprazolam 0.25 mg Tab RxNorm: 307225 1 Tablet(s) PO BID take 1/2 to 1 pill po bid prn for anxiety 12/31/2010 02/24/2011 Inactive amoxicillin 500 mg Tab RxNorm: 037313 1 Tablet(s) PO TID 201012/11/2010 Inactive Xanax 0.25 mg Tab RxNorm: 076356 1/2 Tablet(s) PO BID 1/2 tab bid prn 12/05/2010 01/29/2011 Inactive alprazolam 0.25 mg Tab RxNorm: 785747 1 Tablet(s) PO BID take 1/2 to 1 pill po bid prn for anxiety 12/04/2010 12/30/2010 Inactive Exforge 10 mg-160 mg Tab RxNorm: 989253 1 Tablet(s) PO daily 12/26/2010 Inactive Exforge 10 mg-160 mg Tab RxNorm: 731387 1 Tablet(s) PO daily 12/26/2010 Inactive Xanax 0.25 mg Tab RxNorm: 617115 1/2 Tablet(s) PO BID 1/2 tab bid prn No Start Date 12/04/2010 Inactive Claritin-D 24 Hour 10 mg-240 mg tablet,extended release RxNorm: 2977309 Oral No Start Date 10/18/2011 Inactive Nexium 40 mg Cap RxNorm: 427432 Capsule(s) PO PRN No Start Date 01/28/2011 Inactive use if dexilant does not work Zofran 4 mg Tab RxNorm : 325222 1 Tablet(s) PO Q8 PRN No Start Date 08/06/2011 Inactive Dexilant 60 mg Capsule RxNorm: 095007 1 Capsule(s) PO daily No Start Date 04/07/2011 Inactive Exforge 10 mg-160 mg Tab RxNorm: 633902 1 Tablet(s) PO daily No Start Date 11/26/2010 Inactive estradiol 1 mg tablet RxNorm: 951208 1 Tablet(s) PO daily No Start Date 11/02/2016 Inactive promethazine 25 mg Tab RxNorm: 442520 1 Tablet(s) PO Q6 PRN No Start Date 08/06/2011 Inactive Sprintec (28) 0.25 mg-35 mcg Tab RxNorm: 257590 1 Tablet(s) PO daily No Start Date 09/07/2011 Inactive Provera 2.5 mg tablet RxNorm: 8531067 1 Tablet(s) PO daily No Start Date 11/02/2016 Inactive Medication Administered Medication Codes Instructions Start Date Status ketorolac 60 mg/2 mL intramuscular solution RxNorm: 954639 2Milliliter 05/26/2016 No longer Active promethazine 25 mg/mL Syringe RxNorm: 780085 2Milliliter 01/10/2013 No longer Active ketorolac 60 mg/2 mL IM RxNorm: 358319 2Milliliter 01/10/2013 No longer Active Immunizations Vaccine [...] Observation Code Item Item Code Result Date C RAP A SC 0654222 Strep A Negative 12/13/2017 Lipid Ord30 CHOL 183 mg/dL 03/26/2017 Lipid Ord30 HDL 72.0 mg/dl 03/26/2017 Lipid Ord30 TRIG 59 mg/dL 03/26/2017 Lipid Ord30 LDL 99 mg/dL 03/26/2017 Lipid Ord30 C/HDL 2.5 Ratio 03/26/2017 Tsh Ord6 hTSH II 1.03 uIU/mL 03/26/2017 Comp Metabolic Jxf272 NA 142 mEq/L 03/26/2017 Comp Metabolic Ufj223 K 4.4 mEq/L 03/26/2017 Comp Metabolic Gqd370 CL 108 mEq/L 03/26/2017 Comp Metabolic Xlm583 CO2 27.0 mEq/L 03/26/2017 Comp Metabolic Qbe094 ANION GAP 11 03/26/2017 Comp Metabolic Dkz410 GLUCOSE 94 mg/dL 03/26/2017 Comp Metabolic Rez254 Creat 0.7 mg/dL 03/26/2017 Comp Metabolic Aeg120 eGFR 96 ml/min/1.73m2 03/26/2017 Comp Metabolic Gzj156 BUN 11 mg/dL 03/26/2017 Comp Metabolic Qof551 B/C Ratio 16.4 Ratio 03/26/2017 Comp Metabolic Eoy213 CALCIUM 9.2 mg/dL 03/26/2017 Comp Metabolic Nuj014 ALK PHOS 64 U/L 03/26/2017 Comp Metabolic Mkz938 AST(SGOT) 13 U/L 03/26/2017 Comp Metabolic Jto100 ALT(SGPT) 11 U/L 03/26/2017 Comp Metabolic Pky056 BILI T 0.7 mg/dL 03/26/2017 Comp Metabolic Rtq386 ALBUMIN 4.3 g/dL 03/26/2017 Comp Metabolic Xdy116 TPRO 6.1 g/dL 03/26/2017 Comp Metabolic Lkh598 GLOB 1.8 g/dL 03/26/2017 Comp Metabolic Rca460 A/G Ratio 2.4 Ratio 03/26/2017 Comp Metabolic Zai215 Osmo 282 mOsmo 03/26/2017 Cbc With Differential [...] 31.2 pg 03/26/2017 Cbc With Differential Ord2 [place]% 4.8 % 03/26/2017 Cbc With Differential Ord2 [...] 1.94 K/ul 03/26/2017 Cbc With Differential Ord2 [place] ABS# 0.3 K/ul 03/26/2017 Cbc With Differential Ord2 Eos ABS# 0.2 K/ul 03/26/2017 Cbc With Differential Ord2 Baso ABS# 0.1 K/ul 03/26/2017 Test(s) Not Perfromed PCG9921 Test(s) Not Performed Test(s) Not Performed. 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 UA 51620 Specific [employer] 1.005 DateTime(Free Text in ) UA 91467 PH 8 DateTime(Free Text in ) UA 29909 GLUCOSE DateTime(Free Text in [place]) UA 24738 Protein DateTime(Free Text in Aprima) UA 32517 Blood DateTime(Free Text in Junima) UA 15725 Bilirubin DateTime(Free Text in ) UA 02611 Ketones DateTime(Free Text in Aprima) UA 33708 Urobilinogen DateTime(Free Text in Junima) UA 05350 Nitrite DateTime(Free Text in ) UA 24382 Leukocytes trace DateTime(Free Text in ) Review [...] clear 06/06/2018 None Full Exam - General 1995 Ears/Nose/Throat [...] clear 12/13/2017 None Full Exam - General 1995 Ears/Nose/Throat otoscopic exam Overall: tympanic membranes clear 12/13/2017 None Full Exam - General 1995 Ears/Nose/Throat [...] rate 10/28/2017 None Full Exam - General 1995 Cardiovascular auscultation of heart Overall: regular rate 10/28/2017 None Full Exam - General 1994 Cardiovascular auscultation of heart Overall: normal heart sounds 10/28/2017 None Full Exam - General 1995 Musculoskeletal gait and station Overall: normal gait 10/28/2017 None Full Exam - General 1995 Musculoskeletal gait and station Overall: normal station [...] exam 05/31/2013 None Full Exam - General 1995 Genitourinary cervix Overall: no discharge 05/31/2013 None Full Exam - General 1995 Genitourinary cervix Inspection: no lesions 05/31/2013 None Full Exam - General 1995 Genitourinary labia and vagina Overall: normal hair distribution 05/31/2013 None Full Exam - General 1995 Genitourinary labia and vagina Overall: no lesions 05/31/2013 None Full Exam - General 1994 Genitourinary labia and vagina Labia: no lesions present 05/31/2013 None Full Exam - General 1995 Genitourinary adnexa/parametria Overall: no tenderness 05/31/2013 None Full Exam - General 1995 Genitourinary urethra Overall: no masses 05/31/2013 None [...] 01/10/2013 None Full Exam - General 1994 Ears/Nose/Throat otoscopic exam Overall: external auditory canals clear 01/10/2013 None Full Exam - General 1994 Ears/Nose/Throat otoscopic exam Overall: tympanic membranes clear 01/10/2013 None Full Exam - General 1994 Ears/Nose/Throat [...] benign 08/02/2012 None Full Exam - General 1995 Neurologic [...] developed 04/06/2012 None Full Exam - General 1995 Constitutional general appearance Overall: in no acute distress 04/06/2012 None Full Exam - General 1995 Constitutional general appearance Overall: well nourished 04/06/2012 [...] Codes Date URINALYSIS NONAUTO W/O SCOPE CPT-4: 01022 11/03/2016 THER/PROPH/DIAG INJ SC/IM CPT-4: 07750 05/26/2016 KETOROLAC TROMETHAMINE INJ CPT-4: J1885 05/26/2016 URINALYSIS NONAUTO W/O SCOPE CPT-4: 53856 03/15/2013 KETOROLAC TROMETHAMINE INJ CPT-4: J1885 01/10/2013 PROMETHAZINE HCL INJECTION CPT-4: J2550 01/10/2013 GC/CHL PRB CPT-4: 0299150 08/02/2012 PAP CPT-4: 1928208 08/02/2012 Vital Signs Date Vital 06/06/2018 Blood Pressure 1: 130/76 Code : 8480-6 BMI: 24.0 Code : 81599-2 Heart Rate 1 : 64 bpm Height: 5' SpO2: 98% Weight: 123 lbs 12/13/2017 Blood Pressure 1: 124/64 Code : 8480-6 BMI: 23.9 Code : 35693-7 Heart Rate 1 : 57 bpm Height: 5'1" SpO2: 99% Temperature: 36.6 (C) / 97.8 (F) Weight: 125 lbs 10/28/2017 Blood Pressure 1: 130/66 Code : 8480-6 BMI: 23.6 Code : 76882-4 Heart Rate 1 : 71 bpm Height: 5' SpO2: 99% Weight: 121 lbs 03/25/2017 Blood Pressure 1: 110/76 Code : 8480-6 BMI: 25.3 Code : 90700-0 Heart Rate 1 : 81 bpm Height: 5'1" SpO2: 98% Weight: 132 lbs 11/03/2016 Blood Pressure 1: 126/76 Code : 8480-6 BMI: 25.4 Code : 24069-8 Heart Rate 1 : 76 bpm Height: 5'1" SpO2: 97% Weight: 132 lbs 8 oz 07/27/2016 Blood Pressure 1: 128/82 Code : 8480-6 BMI: 25.6 Code : 47493-2 Heart Rate 1 : 72 bpm Height: 5' Respiratory Rate: 18 bpm SpO2: 96% Temperature: 37.1 (C) / 98.7 (F) Weight: 131 lbs 05/25/2016 Blood Pressure 1: 154/80 Code : 8480-6 BMI: 25.3 Code : 81571-6 Heart Rate 1 : 80 bpm Height: 5'1" SpO2: 99% Weight: 132 lbs 05/16/2015 Blood Pressure 1: 126/68 Code : 8480-6 BMI: 26.2 Code : 77124-1 Heart Rate 1 : 71 bpm Height: 5'1" SpO2: 97% Weight: 137 lbs 08/15/2014 Blood Pressure 1: 122/82 Code : 8480-6 BMI: 26.6 Code : 01190-0 Heart Rate 1 : 78 bpm Height: 5'1" SpO2: 97% Weight: 139 lbs 07/26/2014 Blood Pressure 1: 122/84 Code : 8480-6 BMI: 26.6 Code : 04988-4 Heart Rate 1 : 69 bpm Height: 5'1" SpO2: 97% Temperature: 37.6 (C) / 99.7 (F) Weight: 139 lbs 05/08/2014 Blood Pressure 1: 102/72 Code : 8480-6 BMI: 25.7 Code : 25453-4 Heart Rate 1 : 76 bpm Height: 5'1" Weight: 134 lbs 01/23/2014 Blood Pressure 1: 120/72 Code : 8480-6 BMI: 26.8 Code : 61813-9 Heart Rate 1 : 80 bpm Height: 5'1" Weight: 140 lbs 05/31/2013 Blood Pressure 1: 110/62 Code : 8480-6 BMI: 25.1 Code : 16359-1 Heart Rate 1 : 64 bpm Height: 5'1" Weight: 131 lbs 03/01/2013 Blood Pressure 1: 112/72 Code : 8480-6 BMI: 25.5 Code : 86201-6 Heart Rate 1 : 76 bpm Height: 5'1" Weight: 133 lbs 01/10/2013 Blood Pressure 1: 100/60 Code : 8480-6 Heart Rate 1: 84 bpm Temperature: 37.8 (C) / 100.0 (F) Weight: 136 lbs 12/20/2012 Blood Pressure 1: 112/62 Code : 8480-6 BMI: 25.3 Code : 18332-4 Heart Rate 1 : 72 bpm Height: 5'1" Weight: 132 lbs 08/02/2012 Blood Pressure 1: 124/62 Code : 8480-6 BMI: 23.8 Code : 62882-2 Heart Rate 1 : 64 bpm Height: [...] Code : 8480-6 BMI: 24.8 Code : 19884-7 Heart Rate 1 : 76 bpm Height: 5' Respiratory Rate: 16 bpm Weight: 127 lbs 04/07/2011 Blood Pressure 1: 126/70 Code : 8480-6 BMI: 24.7 Code : 83575-0 Heart Rate 1 : 76 bpm Height: 5' Respiratory Rate: 16 bpm Weight: 126 lbs 8 oz 12/04/2010 Blood Pressure 1: 127/84 Code : 8480-6 BMI: 24.2 Code : 12937-5 Heart Rate 1 : 97 bpm Height: 5' Weight: 124 lbs 11/25/2010 Blood Pressure 1: 115/77 Code : 8480-6 BMI: 24.5 Code : 13785-3 Heart Rate 1 : 74 bpm Height: [...] data Encounters Encounter Performer Location Codes Date 35066 EST. PATIENT, LEVEL III Diagnosis: Abnormal weight loss[ICD10: R63.4] Diagnosis: Gastro-esophageal reflux disease without esophagitis[ICD10: K21.9] Sandra Triana MD, [facility] CPT-4: 14912 06/06/2018 ([id number]) 86449 EST. PATIENT, LEVEL III Diagnosis: Acute laryngopharyngitis[ICD10: J06.0] Shira Triana MD, [facility] CPT-4: 85360 12/13/2017 12716 EST. PATIENT, LEVEL III Diagnosis: Generalized anxiety disorder[ICD10: F41.1] Diagnosis: Major depressive disorder, single episode, moderate[ICD10: F32.1] Diagnosis: Malignant neoplasm of unspecified site of left female breast[ICD10: C50.912] Sandra Triana MD, [facility] CPT-4: 27165 2017 53395 EST. PATIENT, LEVEL IV Diagnosis: Other fatigue[ICD10: R53.83] Diagnosis: Generalized anxiety disorder[ICD10: F41.1] Diagnosis: Major depressive disorder, single episode, moderate[ICD10: F32.1] Sandra Triana MD, [facility] CPT-4: 14063 03/25/2017 ([id number]) 94848 EST. PATIENT, LEVEL III Diagnosis: Essential (primary) hypertension[ICD10: I10] Diagnosis: Left lower quadrant pain[ICD10: R10.32] Shira Triana MD, [facility] CPT-4: 47203 11/03/2016 ([id number]) 69433 EST. PATIENT, LEVEL III Diagnosis: Irritable bowel syndrome with diarrhea[ICD10: K58.0] Shira Triana MD, [facility] CPT-4: 99743 07/27/2016 37872 EST. PATIENT, LEVEL IV Diagnosis: Headache[ICD10: R51] Diagnosis: Fall (on)(from) sidewalk curb, initial encounter[ICD10: W10.1XXA] Sandra Triana MD, [facility] CPT-4: 95891 05/25/2016 71504 EST. 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 PATIENT, LEVEL III Diagnosis: Cervical os stenosis[ICD9: 622.4] Tiffany Triana MD [facility] CPT-4: 58381 08/23/2014 ([id number]) Miscellaneous no charge Diagnosis: Cervical os stenosis[ICD9: 622.4] [facility] CPT-4: 01991 08/23/2014 ([id number]) PREV VISIT EST AGE 40-64 Diagnosis: Cervical os stenosis[ICD9: 622.4] [facility] CPT-4: 88018 08/15/2014 ([id number]) 92014 EST. PATIENT, LEVEL IV Diagnosis: LLQ abdominal pain[ICD9: 789.04] Diagnosis: Nausea[ICD9: 787.02] Diagnosis: ESSENTIAL HYPERTENSION[ICD9: 401.9] Shira Triana MD, [facility] CPT-4: 96342 07/26/2014 ([id number]) 43921 EST. PATIENT, LEVEL III Diagnosis: ALLERGIC RHINITIS[ICD9: 477.9] Diagnosis: ESOPHAGEAL REFLUX[ICD9: 530.81] Tiffany Triana MD, [facility] CPT- 4: 37915 05/08/2014 ([id number]) 74847 EST. PATIENT, LEVEL IV Diagnosis: EDEMA[ICD9: 782.3] Diagnosis: Weight gain[ICD9: 783.1] Diagnosis: Fatigue[ICD9: 780.79] Diagnosis: ESSENTIAL HYPERTENSION[ICD9: 401.9] [facility] CPT-4: 99218 01/23/2014 ([id number]) PREV VISIT EST AGE 40-64 Diagnosis: ROUTINE GYNE EXAM[ICD9: V72.31] [facility] CPT- 4: 70914 05/31/2013 ([id number]) 59133 EST. PATIENT, LEVEL III Diagnosis: GENERALIZED ANXIETY DISEASE[ICD9: 300.02] Diagnosis: DEPRESSIVE DISORDER NEC[ICD9: 311] [facility] CPT-4: 88856 03/01/2013 ([id number]) 27328 EST. PATIENT, LEVEL III Diagnosis: Abdominal pain[ICD9: 789.00] Diagnosis: Nausea[ICD9: 787.02] Tiffany Triana MD, [facility] CPT-4: 04053 01/10/2013 ([id number]) 07202 EST. PATIENT, LEVEL III Diagnosis: Tick bite of abdomen[ICD9: 911.4] Diagnosis: Gas[ICD9: 787.3] Tiffany Triana MD, [facility] CPT-4: 78754 12/20/2012 ([id number]) PREV VISIT EST AGE 40-64 Diagnosis: Encounter for routine gynecological examination[ICD9: V72.31] Tiffany Triana MD, [facility] CPT-4: 74070 08/02/2012 ([id number]) 69204 EST. PATIENT, LEVEL III Diagnosis: Nausea and vomiting[ICD9: 787.01] Shira Triana MD, [facility] CPT-4: 36564 04/06/2012 ([id number]) 72356 EST. PATIENT, LEVEL III Diagnosis: Rash[ICD9: 782.1] Shira Triana MD, [facility] CPT-4: 02270 01/04/2012 ([id number]) 59001 EST. PATIENT, LEVEL III Diagnosis: ALLERGIC RHINITIS[ICD9: 477.9] Diagnosis: ACUTE URI[ICD9: 465.9] Shira Triana MD, [facility] CPT-4: 99996 09/17/2011 ([id number]) PREV VISIT EST AGE 40-64 Diagnosis: ROUTINE GYNE EXAM[ICD9: V72.31] Diagnosis: ESSENTIAL HYPERTENSION[SNOMED: 75964045] Diagnosis: DEPRESSIVE DISORDER NEC[ICD9: 311] Tiffany Triana MD, [facility] CPT-4: 86531 07/27/2011 95320 EST. PATIENT, LEVEL IV Diagnosis: ESOPHAGEAL REFLUX[ICD9: 530.81] Diagnosis: ESSENTIAL HYPERTENSION[SNOMED: 12829707] Diagnosis: ABD PAIN GENERALIZED[ICD9: 789.07] Tiffany Triana MD, [facility] CPT-4: 65342 04/07/2011 85976 EST. PATIENT, LEVEL III Diagnosis: Acute sinusitis[ICD9: 461.9] [facility] CPT-4: 84356 12/04/2010 79285 EST. PATIENT, LEVEL III Diagnosis: Acid reflux[ICD9: 530.81] [facility] CPT-4: 67813 11/25/2010 Plan of Care Planned Activity Notes Codes Status Date Care Plan: Tsh Pending 06/07/2018 Care Plan: Free T4 Pending 06/07/2018 Care Plan: Lipid Pending 06/07/2018 Care Plan: Referral Order SNOMED-CT : 518101917 Pending 06/07/2018 Visit Plan: Weight loss - will start on dexilant, will refer for EGD/Colonoscopy - pt is to weigh daily and notify clinic with any changes, questions, or concerns. 06/06/2018 Appointment: Sandra Conway WPtel: [facility] (15 min) Moderate 06/06/2018 Patient Education: Patient Medication Summary Completed 06/06/2018 Visit Plan: Sore throat -suspect virus -continue claritin - strep swab sent off today in the office -monitor symptoms -instructed patient to call if symtoms worsen and we will send in an antibiotic -patient verbalized understanding of plan. 12/13/2017 Appointment: Shira Emery WPtel: [phone] (15 min) Moderate 12/13/2017 Patient Education: Patient [...] to oncology 10/28/2017 Appointment: Sandra Conway WPtel: [facility] (15 min) Moderate 10/28/2017 Patient Education: Patient Medication Summary Completed 10/28/2017 Appointment: Shira Emery WPtel: [phone] (15 min) Moderate 08/27/2017 Care Plan: [...] this patient. 03/25/2017 Appointment: Sandra Conway WPtel: [facility] (30 min) [facility] 03/25/2017 Patient Education: Patient Medication Summary Completed [...] Care Plan: CT HEAD/BRAIN W/O DYE [facility] : 38464-9 Pending 05/26/2016 Visit Plan: Pt fell on [...] worsen, or with any concerns. 05/25/2016 Appointment: Man Sandra WPtel: [address] [facility] (15 min) Moderate 05/25/2016 Patient Education: Patient [...] or prn. 08/15/2014 [facility]ment: [facility] [facility] 08/15/2014 Patient Education: Patient Medication Summary Completed 08/15/2014 Patient Education: Patient Medication Summary Completed 08/14/2014 Appointment: Sick 07/27/2014 Visit Plan: LLQ abdominal sasa-lkauvgqprkno-gdiho pelvic ultrasound, draw labs today HTN-well controlled-no change in medications 07/26/2014 Appointment: Sick 07/26/2014 Patient Education: Patient Medication Summary Completed 07/26/2014 Patient Education: Hypertension Completed 07/26/2014 Care Plan: COMPLETE CBC AUTOMATED LOINC : 50813-9 Ordered 07/26/2014 Care Plan: ASSAY OF AMYLASE [...] Summary Completed 05/08/2014 Appointment: Tiffany Triana WPtel: [address] [place] [address] Sick 04/18/2014 Visit Plan: Edema - pt has been advised to elevate legs to prevent dependent edema, compression has been recommended to help to naturally decrease peripheral edema. Diuretic use has been discussed and pt has been instructed in appropriate use of such medication as necessary to further attempt to reduce peripheral edema. DECREASE EXFORGE FROM 10MG/160MG TO 5MG/ 160MG Weight izcm-hencsnq-xitjc thyroid, cbc, chem panel HTN-well controlled- decreasing [...] or prn. 05/31/2013 Appointment: Tiffany Triana WPtel: [address] [place], [place] [phone] 05/31/2013 Patient Education: Patient Medication Summary Completed 05/31/2013 Appointment: Tiffany Triana WPtel: [facility] Lab Draw 03/15/2013 Patient Education: Patient Medication [...] not improved. 03/01/2013 Appointment: Tiffany Triana WPtel: [address] [place] [address] Other 03/01/2013 Patient Education: Patient Medication Summary Completed 03/01/2013 Visit Plan: Abdominal chwx-bgrgwd-Ir [place] in to evaluate patient-also discussed patient with Dr Ji. FRANKY lynne moved to Wednesday at 10am and will follow as indicated. Toradol and phenergan injections today in the office for acute symptoms. Patient verbalized understanding of plan. 01/10/2013 Appointment: Shira Emery WPtel: [address] [place], [place] [id number] Other 01/10/2013 Patient Education: Patient Medication Summary Completed 01/10/2013 Visit Plan: Tick Bite - pt given script for treatment of infected tick bite, call for symptoms of worsening infection or nonhealing. Gas and bloating - advised to try beano, gas-x, avoid gas producing foods, call if not improving. 12/20/2012 Appointment: Tiffany Triana WPtel: [address] [place], [place] [phone] Other 12/20/2012 Patient Education: Patient Medication Summary [...] or prn. 08/02/2012 Appointment: T[facility] Triana [facility]Ptel[facility] [facility] 08/02/2012 Patient Education: Patient Medication Summary Completed 08/02/2012 Visit Plan: Nausea and vomiting- recommended clear liquid advance to bland diet, start on probiotic if diarrhea starts, and rehydrate with gatorade-like product. Pt to call if feeling worse, or does not improve with above recommendations. Pt to call for acute worsening of stomach upset or stomach pain. 04/06/2012 Appointment: Shira Emery WPtel: [phone] Sick 04/06/2012 Patient Education: Patient Medication Summary Completed 04/06/2012 Visit Plan: Rash-discussed natural and expected course of this diagnosis and to alert me if symptoms do not follow expected course, or if any worse. RX sent to patient's pharmacy. Patient verbalized understanding of plan. 01/04/2012 Appointment: Shira Emery WPtel: [phone] Other 01/04/2012 Patient Education: Patient Medication Summary [...] patient's pharmacy. 09/17/2011 Appointment: Shira Emery WPtel: [phone] Other 09/17/2011 Patient Education: Patient Medication Summary [...] at home. 07/27/2011 Appointment: Tiffany Triana WPtel: [facility] [facility] 07/27/2011 Patient Education: Patient Medication Summary Completed 07/27/2011 Patient Education: High Blood Pressure: Essential Hypertension Completed 2011 Appointment: Tiffany Triana WPtel: [facility] Other 04/21/2011 Visit Plan: Esophageal Reflux - [...] few weeks. 04/07/2011 Appointment: Tiffany Triana WPtel: [address] [place], [place] [phone] Other 04/07/2011 Patient Education: Patient Medication Summary [...] any concerns. 12/04/2010 Appointment: Shira Emery WPtel: [phone] [place] Other 12/04/2010 Patient Education: Patient Medication [...] not work. 11/25/2010 Appointment: Shira Emery WPtel: [phone] [facility] 11/25/2010 Patient Education: Patient Medication Summary Completed 11/25/2010 Referral: Mike Wilson Referral Initiated Instructions Comment . Chronic Depression and anxiety - the pt has symptoms of chronic anxiety and depression that have been fairly well controlled since the last office visit. The pt has expected periods of exacerbation with abatement of the symptoms with change in situational exposure. No change in current medications. . Nausea and vomiting- recommended clear liquid advance to bland diet, start on probiotic if diarrhea starts, and rehydrate with gatorade- like product. Pt to call if feeling worse, or does not improve with above recommendations. Pt to call for acute worsening of stomach upset or stomach pain. . Weight loss - will start on dexilant, will refer for EGD/ Colonoscopy - pt is to weigh daily and notify clinic with any changes, questions , or concerns. HIDA scan tomorrow at 10am. Abdominal svwe-xohrqz-Dl [place] in to evaluate patient-also discussed patient with Dr Ji. HIDA scan moved to Wednesday at 10am and will follow as indicated. Toradol and phenergan injections today in the office for acute symptoms. Patient verbalized understanding of plan. . Rash-discussed natural and expected course of this diagnosis and to alert me if symptoms do not follow expected course, or if any worse. RX sent to patient's pharmacy. Patient verbalized understanding of plan. Follow up in 1 week - Sooner [...] been appropriately prescribed for this patient. . Anxiety and Depression - uncontrolled - [...] and monitor symptoms, call if not improved. . Pt fell on Wednesday05/23/16 - she [...] they worsen, or with any concerns. . Chronic Depression and anxiety - the pt has symptoms of chronic anxiety and depression that have been fairly well controlled since the last office visit. The pt has expected periods of exacerbation with abatement of the symptoms with change in situational exposure. No change in current medications. Left breast cancer - defer to oncology . DX sinusitis - discussed expected course with the patient , pt advised to call for worsening symptoms, or lack of improvement on prescribed treatment course. Written script for amoxicillin provided per patient request. Nasal saline rinses also recommended. Call for any concerns. . Tick Bite - pt given script for treatment of infected tick bite, call for symptoms of worsening infection or nonhealing. Gas and bloating - advised to try beano, gas-x, avoid gas producing foods, call if not improving. Recommend over the counter allergy [...] any worse. RX sent to patient's pharmacy. TAKE SUSY DAILY AT BEDTIME . Allergies [...] office if the symptoms are not improving. . Cervical stenosis - recommended pt to have evaluation by Dr. High for further recommendations. . Sore throat -suspect virus -continue claritin -strep swab sent off today in the office -monitor symptoms -instructed patient to call if symtoms worsen and we will send in an antibiotic -patient verbalized understanding of plan. Call in 2 weeks with update on [...] dexilant if it does not work. . Well Adult Female - exam completed. pelvic and breast exam completed. Pt will be called with results of her testing. She was advised to continue with yearly annual exams. Safe sex practices discussed during office visit today. Call if any abnormal gynecologic issues during the next year, otherwise, RTC yearly or prn. check UA call if pelvic pain does not resolve or if any worse . Hypertension - well controlled - continue with current medications, continue with no added salt diet. Pt has been encouraged to exercise daily. The pt has been advised to call the office if there are any acute concerns about change in blood pressure readings at home. LLQ lekj-oowofnaxnddj-FO negative-monitor symptoms and call if worsen Avoid salad and creamy/ fatty foods. Viberzi 75 mg BID with food- side effects of constipation discussed with patient. Copay card given to patient. . Irritable Bowel syndrome - Discussed need for adequate daily fiber intake. Continue with a healthy diet, and I have recommended addition of probiotic to the diet when having loose bowel movements. CHANGE EXFORGE TO 5MG/160MG DAILY-SAMPLE PROVIDED CALL [...] DECREASE EXFORGE FROM 10MG/160MG TO 5MG/160MG Weight rltm-wulcnms-gvpte thyroid, cbc, chem panel HTN-well controlled-decreasing medication due to edema-monitor blood pressure . LLQ abdominal mjih-eldxdngjbutr-pprad pelvic ultrasound, draw labs today HTN-well controlled-no change in medications . Well Adult Female - exam completed. Pap and gc/ chlamydia and breast exam completed. Pt will be called with results of her testing. She was advised to continue with yearly annual exams. Safe sex practices discussed during office visit today. Call if any abnormal gynecologic issues during the next year, otherwise, RTC yearly or prn. . Well Adult Female - exam completed. [...] home. . Well Adult Female - exam completed, pap unable to be obtained due to stenotic cervical os, pt to RTC in one week and have repeat eval performed. She was advised to continue with yearly annual exams. Safe sex practices discussed during office visit today. Call if any abnormal gynecologic issues during the next year, otherwise, RTC yearly or prn. . Esophageal Reflux - the patient has [...]
--- OUTSIDE RECORDS SUMMARY | 2018-06-17 13:51 | XMS REPORT | CCD ---
Author Author Shira Emery Organization [facility] Address [address] [place] [address] Phone Care Team Providers Care Tank Riveter Name Role Phone PP Unavailable CCM Unavailable Summary Purpose Interface Exchange Insurance Providers Payer name Policy type / Coverage type Covered green party ID Effective Begin Date Effective End Date [id number] Unknown Family history Father Diagnosis Age At Onset Cancer Unknown Mother Diagnosis Age At Onset Dementia Unknown Depression Unknown Cardiovascular disease Unknown Stroke Unknown Cancer Unknown Social History Social History Element Codes Description Effective Dates Marital status Unknown Since 199211/24/2010 Number of children Unknown 4 2 adult children, and 2 young children at home 11/24/2010 Employment Unknown 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 11/24/[address]: 0577111 Former smoker Previously a social smoker 11/24/[address]: 833237 Currently drinks alcohol Rarely - Once yearly [...] 11/24/2010 No Inactive Date Active zithromax RxNorm: 156845 01/23/2014 No Inactive Date Active Past Medical History Illness Codes Condition Status Onset Date Resolved Date Acute laryngopharyngitis ICD-9: 465.0 ICD-10: J06.0 Active [...] Problems Condition Codes Effective Dates Condition Status Acute laryngopharyngitis ICD-9: 465.0 ICD-10: J06.0 12/13/2017 [...] Start Date Stop Date Status Fill Instructions Xanax 1 mg tablet RxNorm: 287319 Tablet(s) TAKE 1 TABLET BY MOUTH IN THE MORNING 1/2 TABLET AT BEDTIME , AND 1/2 TABLET EVERY SIX HOURS NEEDED FOR ANXIETY 05/16/2018 08/25/2018 Active Exforge 5 mg-160 mg tablet RxNorm: 681862 TAKE 1 TABLET BY MOUTH DAILY 12/22/2017 06/19/2018 Active Generic For:EXFORGE 5-160MG TAB 12/22/2017 12:33:20 PM Xanax 1 mg tablet RxNorm: 188854 Tablet(s) TAKE 1 TABLET BY MOUTH IN THE MORNING 1/2 TABLET AT BEDTIME , AND 1/2 TABLET EVERY SIX HOURS NEEDED FOR ANXIETY 10/29/2017 03/12/2018 Inactive Xanax 1 mg tablet RxNorm: 422627 Tablet(s) TAKE 1 TABLET BY MOUTH IN THE MORNING 1/2 TABLET AT BEDTIME , AND 1/2 TABLET EVERY SIX HOURS NEEDED FOR ANXIETY 09/17/2017 10/28/2017 Inactive Xanax 1 mg tablet RxNorm: 369246 Tablet(s) TAKE 1 TABLET BY MOUTH IN THE MORNING 1/2 TABLET AT BEDTIME , AND 1/2 TABLET EVERY SIX HOURS NEEDED FOR ANXIETY 08/13/2017 09/14/2017 Inactive estradiol 1 mg tablet RxNorm: 209053 1 Tablet(s) PO daily 201710/25/2017 Inactive Xanax 1 mg tablet RxNorm: 586437 Tablet(s) TAKE 1 TABLET BY MOUTH IN THE MORNING 1/2 TABLET AT BEDTIME , AND 1/2 TABLET EVERY SIX HOURS NEEDED FOR ANXIETY 05/24/2017 07/21/2017 Inactive Exforge 5 mg-160 mg tablet RxNorm: 556091 1 Tablet(s) PO daily Tablet(s) TAKE ONE (1) TABLET BY MOUTH DAILY 05/24/201711/19 Inactive Generic For:EXFORGE 5- 160MG TAB 03/12/2015 9:09:52 AM Provera 2.5 mg tablet RxNorm: 7321001 1 Tablet(s) PO daily 05/2410/25/2017 Inactive Lexapro 10 mg tablet RxNorm: 622007 1 Tablet(s) PO QHS 201604/23/2017 Inactive Xanax 1 mg tablet RxNorm: 399389 Tablet(s) TAKE 1 TABLET BY MOUTH IN THE MORNING 1/2 TABLET AT BEDTIME , AND 1/2 TABLET EVERY SIX HOURS NEEDED FOR ANXIETY 01/22/2017 08/12/2017 Inactive Xanax 1 mg tablet RxNorm: 012851 Tablet(s) TAKE 1 TABLET BY MOUTH IN THE MORNING 1/2 TABLET AT BEDTIME , AND 1/2 TABLET EVERY SIX HOURS NEEDED FOR ANXIETY 01/21/2017 01/21/2017 Inactive Exforge 5 mg-160 mg tablet RxNorm: 861718 1 Tablet(s) PO daily Tablet(s) TAKE ONE (1) TABLET BY MOUTH DAILY 11/03/201605/01 Inactive Generic For:EXFORGE 5- 160MG TAB 03/12/2015 9:09:52 AM estradiol 1 mg tablet RxNorm: 474714 1 Tablet(s) PO daily 201605/01/2017 Inactive Provera 2.5 mg tablet RxNorm: 0664523 1 Tablet(s) PO daily 11/0305/01/2017 Inactive Bentyl 10 mg capsule RxNorm: 492156 1 Capsule(s) PO TID 201607/29/2016 Inactive Bentyl 10 mg capsule RxNorm: 791313 1 Capsule(s) PO TID 201603/24/2017 Inactive Viberzi 75 mg tablet RxNorm: 9068412 1 Tablet(s) PO BID 201611/02/2016 Inactive Xanax 1 mg tablet RxNorm: 038682 Tablet(s) TAKE 1 TABLET BY MOUTH IN THE MORNING 1/2 TABLET AT BEDTIME , AND 1/2 TABLET EVERY SIX HOURS NEEDED FOR ANXIETY 07/14/2016 05/23/2017 Inactive Xanax 1 mg tablet RxNorm: 787351 Tablet(s) TAKE 1 TABLET BY MOUTH IN THE MORNING 1/2 TABLET AT BEDTIME , AND 1/2 TABLET EVERY SIX HOURS NEEDED FOR ANXIETY 06/01/2016 07/13/2016 Inactive ketorolac 60 mg/2 mL intramuscular solution RxNorm: 322300 2 Milliliter(s) IM 05/26/2016 05/26/2016 Inactive Exforge 5 mg-160 mg tablet RxNorm: 079550 Tablet(s) TAKE ONE (1) TABLET BY MOUTH DAILY 04/13/2016 10/09/2016 Inactive Generic For:EXFORGE 5-160MG TAB 03/12/2015 9: 09:52 AM Xanax 1 mg tablet RxNorm: 312351 Tablet(s) TAKE 1 TABLET BY MOUTH IN THE MORNING 1/2 TABLET AT BEDTIME , AND 1/2 TABLET EVERY SIX HOURS NEEDED FOR ANXIETY 04/09/2016 05/31/2016 Inactive Mobic 15 mg tablet RxNorm: 302600 1 Tablet(s) PO daily 201503/25/2016 Inactive Mobic 15 mg tablet RxNorm: 069597 1 Tablet(s) PO daily 201511/02/2016 Inactive Xanax 1 mg tablet RxNorm: 160726 Tablet(s) TAKE 1 TABLET BY MOUTH IN THE MORNING 1/2 TABLET AT BEDTIME , AND 1/2 TABLET EVERY SIX HOURS NEEDED FOR ANXIETY 02/24/2016 04/08/2016 Inactive Xanax 1 mg tablet RxNorm: 039336 Tablet(s) TAKE 1 TABLET BY MOUTH IN THE MORNING 1/2 TABLET AT BEDTIME , AND 1/2 TABLET EVERY SIX HOURS NEEDED FOR ANXIETY 01/01/2016 02/23/2016 Inactive Generic For:XANAX 1 MG TABLET(Response to an electronic controlled substance refill request - RxReferenceNumber: [id number]) Xanax 1 mg tablet RxNorm: 226852 Tablet(s) TAKE 1 TABLET BY MOUTH IN THE MORNING 1/2 TABLET AT BEDTIME , AND 1/2 TABLET EVERY SIX HOURS NEEDED FOR ANXIETY 09/26/2015 12/31/2015 Inactive Generic For:XANAX 1 MG TABLET(Response to an electronic controlled substance refill request - RxReferenceNumber: [id number]) Exforge 5 mg-160 mg tablet RxNorm: 751962 Tablet(s) TAKE ONE (1) TABLET BY MOUTH DAILY 09/26/2015 04/13/2016 Inactive Generic For:EXFORGE 5-160MG TAB 03/12/2015 9: 09:52 AM Xanax 1 mg tablet RxNorm: 683139 Tablet(s) TAKE 1 TABLET BY MOUTH IN THE MORNING 1/2 TABLET AT BEDTIME , AND 1/2 TABLET EVERY SIX HOURS NEEDED FOR ANXIETY 04/22/2015 09/25/2015 Inactive Generic For:XANAX 1 MG TABLET(Response to an electronic controlled substance refill request - RxReferenceNumber: [id number]) Exforge 5 mg-160 mg tablet RxNorm: 242268 TAKE ONE (1) TABLET BY MOUTH DAILY 03/12/2015 09/07/2015 Inactive Generic For:EXFORGE 5-160MG TAB 03/12/2015 9:09:52 AM Exforge 5 mg-160 mg tablet RxNorm: 674096 1 Tablet(s) PO daily TAKE ONE (1) TABLET BY MOUTH DAILY 08/28/20142014 Inactive 09/05/2012 4:02:25 PM Sprintec (28) 0.25 mg-35 mcg tablet RxNorm: 102374 TAKE 1 TABLET BY MOUTH EVERY DAY 06/18/2014 04/28/2015 Inactive Generic For:ORTHO-CYCLEN 28 TABLET N O T I C E Last quantity doesn't match original quantity Singulair 10 mg tablet RxNorm: 277067 1 Tablet(s) PO daily 07/25/2014 Inactive Singulair 10 mg tablet RxNorm: 278685 1 Tablet(s) PO daily 05/20/2014 Inactive Flonase 50 mcg/actuation nasal spray,suspension RxNorm: 149038 2 [place] NASAL daily 05/18/2014 05/27/2014 Inactive Xanax 1 mg tablet RxNorm: 918064 TAKE 1 TABLET BY MOUTH IN THE MORNING 1/2 TABLET AT BEDTIME , AND 1/2 TABLET EVERY SIX HOURS NEEDED FOR ANXIETY 04/24/2014 06/21/2014 Inactive Generic For:XANAX 1 MG TABLET(Response to an electronic controlled substance refill request - RxReferenceNumber: [id number]) Xanax 1 mg tablet RxNorm: 016813 Tablet(s) TAKE 1 TABLET BY MOUTH IN THE MORNING 1/2 TABLET AT BEDTIME , AND 1/2 TABLET EVERY SIX HOURS NEEDED FOR ANXIETY 04/24/2014 05/07/2014 Inactive Generic For:XANAX 1 MG TABLET(Response to an electronic controlled substance refill request - RxReferenceNumber: [id number]) Exforge 5 mg-160 mg tablet RxNorm: 035298 1 Tablet(s) PO daily TAKE ONE (1) TABLET BY MOUTH DAILY 02/16/20142014 Inactive 09/05/2012 4:02:25 PM Exforge 5 mg-160 mg tablet RxNorm: 182302 1 Tablet(s) PO daily TAKE ONE (1) TABLET BY MOUTH DAILY 01/23/20142013 Inactive 09/05/2012 4:02:25 PM Xanax 1 mg tablet RxNorm: 508943 TAKE 1 TABLET BY MOUTH IN THE MORNING 1/2 TABLET AT BEDTIME , AND 1/2 TABLET EVERY SIX HOURS NEEDED FOR ANXIETY 12/22/2013 12/22/2013 Inactive Generic For:XANAX 1 MG TABLET(Response to an electronic controlled substance refill request - RxReferenceNumber: [id number]) Xanax 1 mg tablet RxNorm: 114779 TAKE 1 TABLET BY MOUTH IN THE MORNING 1/2 TABLET AT BEDTIME , AND 1/2 TABLET EVERY SIX HOURS NEEDED FOR ANXIETY 12/22/2013 01/20/2014 Inactive Generic For:XANAX 1 MG TABLET(Response to an electronic controlled substance refill request - RxReferenceNumber: [id number]) Xanax 1 mg tablet RxNorm: 610724 TAKE 1 TABLET BY MOUTH IN THE MORNING 1/2 TABLET AT BEDTIME , AND 1/2 TABLET EVERY SIX HOURS NEEDED FOR ANXIETY 10/23/2013 12/22/2013 Inactive Generic For:XANAX 1 MG TABLET(Response to an electronic controlled substance refill request - RxReferenceNumber: [id number]) Sprintec (28) 0.25 mg-35 mcg tablet RxNorm: 472624 1 Tablet(s) PO daily 06/09/2013 06/17/2014 Inactive disp. 3 packs at a time please Xanax 1 mg tablet RxNorm: 744061 1 q am 1 1/2 at hs Tablet(s) PO TAKE ONE TABLET BY MOUTH EVERY MORNING AND TAKE ONE AND ONE-HALF TABLETS BY MOUTH AT BEDTIME 05/31/2013 09/26/2013 Inactive Generic For:XANAX 1 MG TABLET (Appended: Controlled substance eRx refill - RxReferenceNumber: [id number]) Exforge 10 mg-160 mg tablet RxNorm: 267203 1 Tablet(s) PO daily TAKE ONE (1) TABLET BY MOUTH DAILY 05/31/20132013 Inactive 09/05/2012 4:02:25 PM Sprintec (28) 0.25 mg-35 mcg tablet RxNorm: 566216 1 Tablet(s) PO daily 05/31/2013 06/08/2013 Inactive disp. 3 packs at a time please Xanax 1 mg tablet RxNorm: 283668 1 q am 1 1/2 at hs Tablet(s) PO TAKE ONE TABLET BY MOUTH EVERY MORNING AND TAKE ONE AND ONE-HALF TABLETS BY MOUTH AT BEDTIME 04/10/2013 05/30/2013 Inactive Generic For:XANAX 1 MG TABLET (Appended: Controlled substance eRx refill - RxReferenceNumber: [id number]) Bactrim DS 800 mg-160 mg tablet RxNorm: 501294 1 Tablet(s) PO BID 03/15/2013 03/21/2013 Inactive Effexor 75 mg tablet RxNorm: 584835 1 Tablet(s) PO BID 201203/14/2013 Inactive Bactrim DS 800 mg-160 mg tablet RxNorm: 624652 1 Tablet(s) PO BID 03/15/2013 03/14/2013 Inactive Effexor 75 mg tablet RxNorm: 435584 1 Tablet(s) PO BID 201207/12/2013 Inactive escitalopram 10 mg tablet RxNorm: 235128 1 Tablet(s) PO QPM 06/201203/15/2013 Inactive ketorolac 60 mg/2 mL IM RxNorm: 013176 2 Milliliter(s) IM 01/1001/10/2013 Inactive promethazine 25 mg/mL Syringe RxNorm: 890511 2 Milliliter(s) Inj 01/10/2013 01/10/2013 Inactive Bactrim DS 800 mg-160 mg tablet RxNorm: 524047 1 Tablet(s) PO BID 01/09/2013 01/08/2013 Inactive Bactrim DS 800 mg-160 mg tablet RxNorm: 912767 1 Tablet(s) PO BID 01/09/2013 01/15/2013 Inactive doxycycline monohydrate 100 mg tablet RxNorm: 611975 1 Tablet(s) PO BID 12/20/2012 12/26/2012 Inactive Xanax 1 mg tablet RxNorm: 568127 Tablet(s) PO TAKE ONE TABLET BY MOUTH EVERY MORNING AND TAKE ONE AND ONE-HALF TABLETS BY MOUTH AT BEDTIME 09/26/2012 04/09/2013 Inactive Generic For:XANAX 1 MG TABLET (Appended: Controlled substance eRx refill - RxReferenceNumber: [id number]) Exforge 10 mg-160 mg tablet RxNorm: 087334 Tablet(s) PO TAKE ONE (1) TABLET BY MOUTH DAILY 09/05/2012 05/30/2013 Inactive 09/05/2012 4:02:25 PM nystatin-triamcinolone 100,000 unit/g-0.1 % Topical Cream RxNorm: 3400603 1 Application TOP QID 08/02/2012 09/12/2012 Inactive Nexium 40 mg capsule,delayed release RxNorm: 161599 1 Capsule(s) PO daily 08/02/2012 01/09/2013 Inactive use if dexilant does not work Xanax 1 mg tablet RxNorm: 033405 Tablet(s) PO TAKE ONE TABLET BY MOUTH EVERY MORNING AND TAKE ONE AND ONE-HALF TABLETS BY MOUTH AT BEDTIME 06/07/2012 09/25/2012 Inactive Generic For:XANAX 1 MG TABLET (Appended: Controlled substance eRx refill - RxReferenceNumber: [id number]) Xanax 1 mg tablet RxNorm: 590061 Tablet(s) PO TAKE ONE TABLET BY MOUTH EVERY MORNING AND TAKE ONE AND ONE-HALF TABLET BY MOUTH AT BEDTIME 06/07/2012 No Stop Date Active Generic For:XANAX 1 MG TABLET 03/03/12 Thank you (Appended: Controlled substance eRx refill - RxReferenceNumber: [id number]) Sprintec (28) 0.25 mg-35 mcg tablet RxNorm: 444367 1 Tablet(s) PO daily 05/12/2012 12/07/2012 Inactive disp. 3 packs at a time please Claritin-D 24 Hour 10 mg-240 mg tablet,extended release RxNorm: 4737036 1 Tablet(s ) PO daily 05/12/2012 11/02/2016 Inactive Xanax 1 mg tablet RxNorm: 661107 Tablet(s) PO TAKE ONE TABLET BY MOUTH EVERY MORNING AND TAKE ONE AND ONE-HALF TABLET BY MOUTH AT BEDTIME 04/25/2012 06/07/2012 Inactive Generic For:XANAX 1 MG TABLET 03/03/12 Thank you (Appended: Controlled substance eRx refill - RxReferenceNumber: [id number]) fluconazole 150 mg tablet RxNorm: 704304 1 Tablet(s) PO QW weekly x 4 weeks 03/11/2012 No Stop Date Active Xanax 1 mg tablet RxNorm: 983025 Tablet(s) PO TAKE ONE TABLET BY MOUTH EVERY MORNING AND TAKE ONE AND ONE-HALF TABLET BY MOUTH AT BEDTIME 03/03/2012 04/24/2012 Inactive Generic For:XANAX 1 MG TABLET 03/03/12 Thank you (Appended: Controlled substance eRx refill - RxReferenceNumber: [id number]) Nexium 40 mg capsule,delayed release RxNorm: 536274 1 Capsule(s) PO BID 01/04/2012 08/01/2012 Inactive use if dexilant does not work fluconazole 150 mg tablet RxNorm: 497479 1 Tablet(s) PO daily 01/04/2012 01/10/2012 Inactive triamcinolone acetonide 0.5 % Topical Cream RxNorm: 6569694 1 TOP BID 01/04/2012 01/23/2012 Inactive Claritin-D 24 Hour 10 mg-240 mg tablet,extended release RxNorm: 9388638 1 Tablet(s ) PO daily 10/19/2011 04/15/2012 Inactive Flonase 50 mcg/actuation Nasal [place] RxNorm: 130563 2 [place] NASAL daily 09/17/2011 09/26/2011 Inactive amoxicillin 500 mg Tab RxNorm: 381398 1 Tablet(s) PO BID 201109/26/2011 Inactive Sprintec (28) 0.25 mg-35 mcg tablet RxNorm: 524526 1 Tablet(s) PO daily 09/08/2011 05/11/2012 Inactive Zofran 4 mg Tab RxNorm : 121790 1 Tablet(s) PO Q8 PRN 08/07/2011 01/03/2012 Inactive promethazine 25 mg Tab RxNorm: 692632 1 Tablet(s) PO Q6 PRN 01/201211/02/2016 Inactive Xanax 1 mg tablet RxNorm: 130326 Tablet(s) PO 07/22/2011 03/03/2012 Inactive 1/2 q am 1 1/2 alprazolam 0.25 mg Tab RxNorm: 443862 1/2 Tablet(s) PO BID 07/21/2011 Inactive Exforge 10 mg-160 mg tablet RxNorm: 998504 Tablet(s) PO 201109/04/2012 Inactive TAKE ONE (1) TABLET BY MOUTH DAILY;wc baclofen 10 mg Tab RxNorm: 580651 1/2 Tablet(s) PO BID 201110/22/2011 Inactive alprazolam 0.25 mg Tab RxNorm: 382568 1/2 Tablet(s) PO BID 07/16/2011 Inactive alprazolam 0.25 mg Tab RxNorm: 804493 1 Tablet(s) PO BID 201106/24/2011 Inactive alprazolam 0.25 mg Tab RxNorm: 583022 Tablet(s) PO 06/02/2011 06/02/2011 Inactive TAKE ONE TABLET BY MOUTH TWICE DAILY;Generic For:XANAX 0.25 MG TABLET 03/14/11 Thank you (Appended: Controlled substance eRx refill - RxReferenceNumber: [id number]) alprazolam 0.25 mg Tab RxNorm: 545447 Tablet(s) PO 04/14/2011 06/01/2011 Inactive TAKE ONE TABLET BY MOUTH TWICE DAILY;Generic For:XANAX 0.25 MG TABLET 03/14/11 Thank you (Appended: Controlled substance eRx refill - RxReferenceNumber: [id number]) Nexium 40 mg Cap RxNorm: 203076 1 Capsule(s) PO QAM 2011 No Stop Date Active use if dexilant does not work Nexium 40 mg capsule,delayed release RxNorm: 403515 1 Capsule(s) PO BID 04/07/2011 01/03/2012 Inactive use if dexilant does not work Exforge 10 mg-160 mg Tab RxNorm: 678182 1 Tablet(s) PO daily No Stop Date Active alprazolam 0.25 mg Tab RxNorm: 150559 2.5 Tablet(s) PO QHS 12/201104/14/2011 Inactive dicyclomine 10 mg Cap RxNorm: 374819 1 Capsule(s) PO BID 201001/03/2012 Inactive alprazolam 0.25 mg Tab RxNorm: 243040 1 Tablet(s) PO BID take 1/2 to 1 pill po bid prn for anxiety 02/25/2011 04/06/2011 Inactive Bentyl 10 mg Cap RxNorm: 876939 1 Capsule(s) PO BID 201003/01/2013 Inactive alprazolam 0.25 mg Tab RxNorm: 412877 1 Tablet(s) PO BID take 1/2 to 1 pill po bid prn for anxiety 12/31/2010 02/24/2011 Inactive amoxicillin 500 mg Tab RxNorm: 057072 1 Tablet(s) PO TID 201012/11/2010 Inactive Xanax 0.25 mg Tab RxNorm: 233794 1/2 Tablet(s) PO BID 1/2 tab bid prn 12/05/2010 01/29/2011 Inactive alprazolam 0.25 mg Tab RxNorm: 430239 1 Tablet(s) PO BID take 1/2 to 1 pill po bid prn for anxiety 12/04/2010 12/30/2010 Inactive Exforge 10 mg-160 mg Tab RxNorm: 867227 1 Tablet(s) PO daily 12/26/2010 Inactive Exforge 10 mg-160 mg Tab RxNorm: 246618 1 Tablet(s) PO daily 12/26/2010 Inactive Xanax 0.25 mg Tab RxNorm: 022840 1/2 Tablet(s) PO BID 1/2 tab bid prn No Start Date 12/04/2010 Inactive Claritin-D 24 Hour 10 mg-240 mg tablet,extended release RxNorm: 5835533 Oral No Start Date 10/18/2011 Inactive Nexium 40 mg Cap RxNorm: 335723 Capsule(s) PO PRN No Start Date 01/28/2011 Inactive use if dexilant does not work Zofran 4 mg Tab RxNorm : 990248 1 Tablet(s) PO Q8 PRN No Start Date 08/06/2011 Inactive Dexilant 60 mg Capsule RxNorm: 621643 1 Capsule(s) PO daily No Start Date 04/07/2011 Inactive Exforge 10 mg-160 mg Tab RxNorm: 383780 1 Tablet(s) PO daily No Start Date 11/26/2010 Inactive estradiol 1 mg tablet RxNorm: 347805 1 Tablet(s) PO daily No Start Date 11/02/2016 Inactive promethazine 25 mg Tab RxNorm: 107748 1 Tablet(s) PO Q6 PRN No Start Date 08/06/2011 Inactive Sprintec (28) 0.25 mg-35 mcg Tab RxNorm: 488409 1 Tablet(s) PO daily No Start Date 09/07/2011 Inactive Provera 2.5 mg tablet RxNorm: 1060178 1 Tablet(s) PO daily No Start Date 11/02/2016 Inactive Medication Administered Medication Codes Instructions Start Date Status ketorolac 60 mg/2 mL intramuscular solution RxNorm: 315842 2Milliliter 05/26/2016 No longer Active ketorolac 60 mg/2 mL IM RxNorm: 099340 2Milliliter 01/10/2013 No longer Active promethazine 25 mg/mL Syringe RxNorm: 134512 2Milliliter 01/10/2013 No longer Active Immunizations Vaccine Codes Date Status PPD Unknown 08/23/2014 completed Influenza CVX: 141 03/01/2013 completed Assessments Condition Codes Effective Dates Acute laryngopharyngitis ICD-10: J06.0 ICD-9: 465.0 12/13/2017 [...] Visit Reason For Visit Effective Dates Notes sore throat 12/13/2017 medication follow up 10/28/2017 [...] Code Result Date C RAP A SC 0324172 Strep A Negative 12/13/2017 Lipid Ord30 CHOL 183 mg/dL 03/26/2017 Lipid Ord30 HDL 72.0 mg/dl 03/26/2017 Lipid Ord30 TRIG 59 mg/dL 03/26/2017 Lipid Ord30 LDL 99 mg/dL 03/26/2017 Lipid Ord30 C/HDL 2.5 Ratio 03/26/2017 Tsh Ord6 hTSH II 1.03 uIU/mL 03/26/2017 Comp Metabolic Jip715 NA 142 mEq/L 03/26/2017 Comp Metabolic Knr603 K 4.4 mEq/L 03/26/2017 Comp Metabolic Trb648 CL 108 mEq/L 03/26/2017 Comp Metabolic Wqv881 CO2 27.0 mEq/L 03/26/2017 Comp Metabolic Dxs815 ANION GAP 11 03/26/2017 Comp Metabolic Dte055 GLUCOSE 94 mg/dL 03/26/2017 Comp Metabolic Yki300 Creat 0.7 mg/dL 03/26/2017 Comp Metabolic Lpd838 eGFR 96 ml/min/1.73m2 03/26/2017 Comp Metabolic Ikr891 BUN 11 mg/dL 03/26/2017 Comp Metabolic Zik535 B/C Ratio 16.4 Ratio 03/26/2017 Comp Metabolic Mqo282 CALCIUM 9.2 mg/dL 03/26/2017 Comp Metabolic Yfl318 ALK PHOS 64 U/L 03/26/2017 Comp Metabolic Xra129 AST(SGOT) 13 U/L 03/26/2017 Comp Metabolic Iqr529 ALT(SGPT) 11 U/L 03/26/2017 Comp Metabolic Ilt891 BILI T 0.7 mg/dL 03/26/2017 Comp Metabolic Fhd747 ALBUMIN 4.3 g/dL 03/26/2017 Comp Metabolic Lte277 TPRO 6.1 g/dL 03/26/2017 Comp Metabolic Vjf399 GLOB 1.8 g/dL 03/26/2017 Comp Metabolic Yxt075 A/G Ratio 2.4 Ratio 03/26/2017 Comp Metabolic Wey594 Osmo 282 mOsmo 03/26/2017 Cbc With Differential Ord2 WBC 5.88 K/ul 03/26/2017 Cbc With Differential Ord2 RBC 4.46 M/ul 03/26/2017 Cbc With Differential Ord2 HGB 13.9 g/dl 03/26/2017 Cbc With Differential Ord2 Neut% 57.9 % 03/26/2017 Cbc With Differential Ord2 HCT 40.0 % 03/26/2017 Cbc With Differential Ord2 Lymph% 33.0 % 03/26/2017 Cbc With Differential Ord2 MCV 89.7 fl 03/26/2017 Cbc With Differential Ord2 MCH 31.2 pg 03/26/2017 Cbc With Differential Ord2 [place]% 4.8 % 03/26/2017 Cbc With Differential Ord2 MCHC 34.8 pg 03/26/2017 Cbc With Differential Ord2 Eos% 3.1 % 03/26/2017 Cbc With Differential Ord2 Baso% 1.2 % 03/26/2017 Cbc With Differential Ord2 PLT 320 K/ul 03/26/2017 Cbc With Differential Ord2 RDW 12.8 % 03/26/2017 Cbc With Differential Ord2 Neut ABS# 3.41 K/ul 03/26/2017 Cbc With Differential Ord2 Lymph ABS# 1.94 K/ul 03/26/2017 Cbc With Differential Ord2 [place] ABS# 0.3 K/ul 03/26/2017 Cbc With Differential Ord2 Eos ABS# 0.2 K/ul 03/26/2017 Cbc With Differential Ord2 Baso ABS# 0.1 K/ul 03/26/2017 Test(s) Not Perfromed [id number] Test(s) Not Performed Test(s) Not Performed. See Below: 03/26/2017 Test(s) Not Perfromed [id number] TEST NAME VITAMIN D 03/26/2017 Test(s) Not Perfromed [id number] Rejection Reason Declined by Patient 03/26/2017 Test(s) Not Perfromed [id number] COMMENT No Adequate Diagnosis Code 03/26/2017 Test(s) Not Perfromed [id number] [facility]ident [facility] Dylan Mendoza UA 66712 Specific [place] 1.005 DateTime(Free Text in Apr ) UA 69648 PH 8 DateTime(Free Text in ) UA 89559 GLUCOSE DateTime(Free Text in ) UA 73437 Protein DateTime(Free Text in Apr) UA 15875 Blood DateTime(Free Text in Apr) UA 82223 Bilirubin DateTime(Free Text in Apr) UA 90074 Ketones DateTime(Free Text in Apr) UA 57861 Urobilinogen DateTime(Free Text in Apr) UA 95672 Nitrite DateTime(Free Text in ) UA 81570 Leukocytes trace DateTime(Free Text in ) Review of Systems System Result Effective Dates Constitutional recent illness 12/13/2017 Constitutional No anorexia [...] Effective Dates Notes Full Exam - General 1995 Constitutional general appearance Overall: well developed 12/13/2017 [...] clear 04/07/2011 None Full Exam - General 1995 Ears/Nose/Throat oral cavity/pharynx/larynx Overall: no masses 04/07/2011 None Full Exam - General 1995 Ears/Nose/Throat [...] Codes Date URINALYSIS NONAUTO W/O SCOPE CPT-4: 28338 11/03/2016 THER/PROPH/DIAG INJ SC/IM CPT-4: 44478 05/26/2016 KETOROLAC TROMETHAMINE INJ CPT-4: J1885 05/26/2016 URINALYSIS NONAUTO W/O SCOPE CPT-4: 78643 03/15/2013 KETOROLAC TROMETHAMINE INJ CPT-4: J1885 01/10/2013 PROMETHAZINE HCL INJECTION CPT-4: J2550 01/10/2013 GC/CHL PRB CPT-4: 1194072 08/02/2012 PAP CPT-4: 8925292 08/02/2012 Vital Signs Date Vital 12/13/2017 Blood Pressure 1: 124/64 Code : 8480-6 BMI: 23.9 Code : 26479-1 Heart Rate 1 : 57 bpm Height: 5'1" SpO2: 99% Temperature: 36.6 (C) / 97.8 (F) Weight: 125 lbs 10/28/2017 Blood Pressure 1: 130/66 Code : 8480-6 BMI: 23.6 Code : 90707-4 Heart Rate 1 : 71 bpm Height: 5' SpO2: 99% Weight: 121 lbs 03/25/2017 Blood Pressure 1: 110/76 Code : 8480-6 BMI: 25.3 Code : 35516-7 Heart Rate 1 : 81 bpm Height: 5'1" SpO2: 98% Weight: 132 lbs 11/03/2016 Blood Pressure 1: 126/76 Code : 8480-6 BMI: 25.4 Code : 08367-9 Heart Rate 1 : 76 bpm Height: 5'1" SpO2: 97% Weight: 132 lbs 8 oz 07/27/2016 Blood Pressure 1: 128/82 Code : 8480-6 BMI: 25.6 Code : 46998-1 Heart Rate 1 : 72 bpm Height: 5' Respiratory Rate: 18 bpm SpO2: 96% Temperature: 37.1 (C) / 98.7 (F) Weight: 131 lbs 05/25/2016 Blood Pressure 1: 154/80 Code : 8480-6 BMI: 25.3 Code : 17857-8 Heart Rate 1 : 80 bpm Height: 5'1" SpO2: 99% Weight: 132 lbs 05/16/2015 Blood Pressure 1: 126/68 Code : 8480-6 BMI: 26.2 Code : 33384-8 Heart Rate 1 : 71 bpm Height: 5'1" SpO2: 97% Weight: 137 lbs 08/15/2014 Blood Pressure 1: 122/82 Code : 8480-6 BMI: 26.6 Code : 83506-1 Heart Rate 1 : 78 bpm Height: 5'1" SpO2: 97% Weight: 139 lbs 07/26/2014 Blood Pressure 1: 122/84 Code : 8480-6 BMI: 26.6 Code : 33341-7 Heart Rate 1 : 69 bpm Height: 5'1" SpO2: 97% Temperature: 37.6 (C) / 99.7 (F) Weight: 139 lbs 05/08/2014 Blood Pressure 1: 102/72 Code : 8480-6 BMI: 25.7 Code : 86877-2 Heart Rate 1 : 76 bpm Height: 5'1" Weight: 134 lbs 01/23/2014 Blood Pressure 1: 120/72 Code : 8480-6 BMI: 26.8 Code : 05347-6 Heart Rate 1 : 80 bpm Height: 5'1" Weight: 140 lbs 05/31/2013 Blood Pressure 1: 110/62 Code : 8480-6 BMI: 25.1 Code : 12697-3 Heart Rate 1 : 64 bpm Height: 5'1" Weight: 131 lbs 03/01/2013 Blood Pressure 1: 112/72 Code : 8480-6 BMI: 25.5 Code : 16992-6 Heart Rate 1 : 76 bpm Height: 5'1" Weight: 133 lbs 01/10/2013 Blood Pressure 1: 100/60 Code : 8480-6 Heart Rate 1: 84 bpm Temperature: 37.8 (C) / 100.0 (F) Weight: 136 lbs 12/20/2012 Blood Pressure 1: 112/62 Code : 8480-6 BMI: 25.3 Code : 28976-6 Heart Rate 1 : 72 bpm Height: 5'1" Weight: 132 lbs 08/02/2012 Blood Pressure 1: 124/62 Code : 8480-6 BMI: 23.8 Code : 01898-2 Heart Rate 1 : 64 bpm Height: [...] Code : 8480-6 BMI: 24.8 Code : 48657-9 Heart Rate 1 : 76 bpm Height: 5' Respiratory Rate: 16 bpm Weight: 127 lbs 04/07/2011 Blood Pressure 1: 126/70 Code : 8480-6 BMI: 24.7 Code : 30612-9 Heart Rate 1 : 76 bpm Height: 5' Respiratory Rate: 16 bpm Weight: 126 lbs 8 oz 12/04/2010 Blood Pressure 1: 127/84 Code : 8480-6 BMI: 24.2 Code : 13743-2 Heart Rate 1 : 97 bpm Height: 5' Weight: 124 lbs 11/25/2010 Blood Pressure 1: 115/77 Code : 8480-6 BMI: 24.5 Code : 13992-5 Heart Rate 1 : 74 bpm Height: 5' Respiratory Rate: 20 bpm Weight: 125 lbs 8 oz Functional Status No Functional Status data History of Present Illness Symptom Name Status Result Effective Date Notes sore throat Location diffusely 12/13/2017 None sore [...] data Encounters Encounter Performer Location Codes Date () 11492 EST. PATIENT, LEVEL III Diagnosis: Acute laryngopharyngitis[ICD10: J06.0] Shira Triana MD, [facility] CPT-4: 37902 12/13/2017 48867 EST. PATIENT, LEVEL III Diagnosis: Generalized anxiety disorder[ICD10: F41.1] Diagnosis: Major depressive disorder, single episode, moderate[ICD10: F32.1] Diagnosis: Malignant neoplasm of unspecified site of left female breast[ICD10: C50.912] Sandra Triana MD, [facility] CPT-4: 61397 2017 27879 EST. PATIENT, LEVEL IV Diagnosis: Other fatigue[ICD10: R53.83] Diagnosis: Generalized anxiety disorder[ICD10: F41.1] Diagnosis: Major depressive disorder, single episode, moderate[ICD10: F32.1] Sandra Triana MD, [facility] CPT-4: 85291 03/25/2017 ([id number]) 07341 EST. PATIENT, LEVEL III Diagnosis: Essential (primary) hypertension[ICD10: I10] Diagnosis: Left lower quadrant pain[ICD10: R10.32] Shira Triana MD, [facility] CPT-4: 96627 11/03/2016 ([id number]) 75968 EST. PATIENT, LEVEL III Diagnosis: Irritable bowel syndrome with diarrhea[ICD10: K58.0] Shira Triana MD, [facility] CPT-4: 61111 07/27/2016 59406 EST. PATIENT, LEVEL IV Diagnosis: Headache[ICD10: R51] Diagnosis: Fall (on)(from) sidewalk curb, initial encounter[ICD10: W10.1XXA] Sandra Triana MD, [facility] CPT-4: 80446 05/25/2016 44772 EST. 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 PATIENT, LEVEL III Diagnosis: Cervical os stenosis[ICD9: 622.4] [facility] CPT-4: 60657 08/23/2014 ([id number]) Miscellaneous no charge Diagnosis: Cervical os stenosis[ICD9: 622.4] [facility] CPT-4: 84090 08/23/2014 ([id number]) PREV VISIT EST AGE 40-64 Diagnosis: Cervical os stenosis[ICD9: 622.4] Tiffany Triana MD [facility] CPT-4: 01582 08/15/2014 ([id number]) 77550 EST. PATIENT, LEVEL IV Diagnosis: LLQ abdominal pain[ICD9: 789.04] Diagnosis: Nausea[ICD9: 787.02] Diagnosis: ESSENTIAL HYPERTENSION[ICD9: 401.9] Shira Triana MD, [facility] CPT-4: 79922 07/26/2014 ([id number]) 32412 EST. PATIENT, LEVEL III Diagnosis: ALLERGIC RHINITIS[ICD9: 477.9] Diagnosis: ESOPHAGEAL REFLUX[ICD9: 530.81] Tiffany Triana MD, [facility] CPT- 4: 96476 05/08/2014 ([id number]) 02812 EST. PATIENT, LEVEL IV Diagnosis: EDEMA[ICD9: 782.3] Diagnosis: Weight gain[ICD9: 783.1] Diagnosis: Fatigue[ICD9: 780.79] Diagnosis: ESSENTIAL HYPERTENSION[ICD9: 401.9] Shira Triana MD, [facility] CPT-4: 90131 01/23/2014 ([id number]) PREV VISIT EST AGE 40-64 Diagnosis: ROUTINE GYNE EXAM[ICD9: V72.31] Tiffany Triana MD, [facility] CPT- 4: 37225 05/31/2013 ([id number]) 18139 EST. PATIENT, LEVEL III Diagnosis: GENERALIZED ANXIETY DISEASE[ICD9: 300.02] Diagnosis: DEPRESSIVE DISORDER NEC[ICD9: 311] Tiffany Triana MD, [facility] CPT-4: 16377 03/01/2013 ([id number]) 20955 EST. PATIENT, LEVEL III Diagnosis: Abdominal pain[ICD9: 789.00] Diagnosis: Nausea[ICD9: 787.02] Tiffany Triana MD, [facility] CPT-4: 90044 01/10/2013 ([id number]) 70620 EST. PATIENT, LEVEL III Diagnosis: Tick bite of abdomen[ICD9: 911.4] Diagnosis: Gas[ICD9: 787.3] Tiffany Triana MD, [facility] CPT-4: 63924 12/20/2012 ([id number]) PREV VISIT EST AGE 40-64 Diagnosis: Encounter for routine gynecological examination[ICD9: V72.31] Tiffany Triana MD [facility] CPT-4: 01262 08/02/2012 ([id number]) 04275 EST. PATIENT, LEVEL III Diagnosis: Nausea and vomiting[ICD9: 787.01] Shira Triana MD [facility] CPT-4: 21608 04/06/2012 ([id number]) 95287 EST. PATIENT, LEVEL III Diagnosis: Rash[ICD9: 782.1] Shira Triana MD [facility] CPT-4: 70212 01/04/2012 ([id number]) 36615 EST. PATIENT, LEVEL III Diagnosis: ALLERGIC RHINITIS[ICD9: 477.9] Diagnosis: ACUTE URI[ICD9: 465.9] Shira Triana MD, [facility] CPT-4: 53739 09/17/2011 ([id number]) PREV VISIT EST AGE 40-64 Diagnosis: ROUTINE GYNE EXAM[ICD9: V72.31] Diagnosis: ESSENTIAL HYPERTENSION[SNOMED: 84818849] Diagnosis: DEPRESSIVE DISORDER NEC[ICD9: 311] Tiffany Triana MD, [facility] CPT-4: 30468 07/27/2011 56613 EST. PATIENT, LEVEL IV Diagnosis: ESOPHAGEAL REFLUX[ICD9: 530.81] Diagnosis: ESSENTIAL HYPERTENSION[SNOMED: 76368536] Diagnosis: ABD PAIN GENERALIZED[ICD9: 789.07] Tiffany Triana MD, [facility] CPT-4: 52095 04/07/2011 48019 EST. PATIENT, LEVEL III Diagnosis: Acute sinusitis[ICD9: 461.9] Shira Triana MD, [facility] CPT-4: 37922 12/04/2010 20821 EST. PATIENT, LEVEL III Diagnosis: Acid reflux[ICD9: 530.81] Shira Triana MD, [facility] CPT-4: 04597 11/25/2010 Plan of Care Planned Activity Notes Codes Status Date Visit Plan: Sore throat -suspect virus -continue claritin - strep swab sent off today in the office -monitor symptoms -instructed patient to call if symtoms worsen and we will send in an antibiotic -patient verbalized understanding of plan. 12/13/2017 Appointment: Shira Emery WPtel: [phone] (15 min) Moderate 12/13/2017 Patient Education: Patient [...] to oncology 10/28/2017 Appointment: Sandra Conway WPtel: [facility] (15 min) Moderate 10/28/2017 Patient Education: Patient Medication Summary Completed 10/28/2017 Appointment: Shira Emery WPtel: [phone] (15 min) Moderate 08/27/2017 Care Plan: Vitamin [...] this patient. 03/25/2017 [facility]ment: [phone] (30 min) Complex 03/25/2017 Patient Education: Patient [...] 05/26/2016 Care Plan: CT HEAD/BRAIN W/O DYE [facility] : 08788-5 Pending 05/26/2016 Visit Plan: Pt fell on [...] concerns. 05/25/2016 Appointment: [phone] (15 min) Moderate 05/25/2016 Patient Education: Patient [...] or prn. 08/15/2014 Appointment: Tiffany Triana WPtel: [facility] [address] [facility] 08/15/2014 Patient Education: Patient Medication Summary Completed 08/15/2014 Patient Education: Patient Medication Summary Completed 08/14/2014 Appointment: Sick 07/27/2014 Visit Plan: LLQ abdominal odny-sfbgkfarwqff-nyqqr pelvic ultrasound, draw labs today HTN-well controlled-no change in medications 07/26/2014 Appointment: Sick 07/26/2014 Patient Education: Patient Medication Summary Completed 07/26/2014 Patient Education: Hypertension Completed 07/26/2014 Care Plan: COMPLETE CBC AUTOMATED LOINC : 99871-1 Ordered 07/26/2014 Care Plan: ASSAY OF AMYLASE [...] Summary Completed 05/08/2014 Appointment: Tiffany Triana WPtel: [facility] [facility] 04/18/2014 Visit Plan: Edema - pt has been advised to elevate legs to prevent dependent edema, compression has been recommended to help to naturally decrease peripheral edema. Diuretic use has been discussed and pt has been instructed in appropriate use of such medication as necessary to further attempt to reduce peripheral edema. DECREASE EXFORGE FROM 10MG/160MG TO 5MG/ 160MG Weight txdg-dvfuzgp-txnfw thyroid, cbc, chem panel HTN-well controlled- decreasing [...] or prn. 05/31/2013 Appointment: Tiffany Triana WPtel: [facility] 05/31/2013 Patient Education: Patient Medication Summary Completed 05/31/2013 Appointment: Tiffany Triana WPtel: [facility] [address] Lab Draw 03/15/2013 Patient Education: Patient Medication [...] not improved. 03/01/2013 Appointment: Tiffany Triana WPtel: [facility] Other 03/01/2013 Patient Education: Patient Medication Summary Completed 03/01/2013 Visit Plan: Abdominal wige-hpphxo-Yr [place] in to evaluate patient-also discussed patient with Dr Ji. FRANKY lynne moved to Wednesday at 10am and will follow as indicated. Toradol and phenergan injections today in the office for acute symptoms. Patient verbalized understanding of plan. 01/10/2013 Appointment: Shira Emery WPtel: [address] [place], [place] [phone] Other 01/10/2013 Patient Education: Patient Medication Summary Completed 01/10/2013 Visit Plan: Tick Bite - pt given script for treatment of infected tick bite, call for symptoms of worsening infection or nonhealing. Gas and bloating - advised to try beano, gas-x, avoid gas producing foods, call if not improving. 12/20/2012 Appointment: Tiffany Triana WPtel: [address] [place], [place] [phone] Other 12/20/2012 Patient Education: Patient Medication Summary [...] or prn. 08/02/2012 Appointment: Tiffany Triana WPtel: [address] [place], [place] [phone] [facility] 08/02/2012 Patient Education: Patient Medication Summary Completed 08/02/2012 Visit Plan: Nausea and vomiting- recommended clear liquid advance to bland diet, start on probiotic if diarrhea starts, and rehydrate with gatorade-like product. Pt to call if feeling worse, or does not improve with above recommendations. Pt to call for acute worsening of stomach upset or stomach pain. 04/06/2012 Appointment: Shira Emery WPtel: [address] [place], [place] [phone] Sick 04/06/2012 Patient Education: Patient Medication Summary Completed 04/06/2012 Visit Plan: Rash-discussed natural and expected course of this diagnosis and to alert me if symptoms do not follow expected course, or if any worse. RX sent to patient's pharmacy. Patient verbalized understanding of plan. 01/04/2012 Appointment: Shira Emery WPtel: [address] [place], [place] [phone] [place] Other 01/04/2012 Patient Education: Patient Medication Summary [...] patient's pharmacy. 09/17/2011 Appointment: Shira Emery WPtel: [address] [place], [place] [phone] [place] [address] Other 09/17/2011 Patient Education: Patient Medication Summary [...] at home. 07/27/2011 Appointment: Tiffany Triana WPtel: [address] [place], [place] [phone] 07/27/2011 Patient Education: Patient Medication Summary Completed 07/27/2011 Patient Education: High Blood Pressure: Essential Hypertension Completed 2011 Appointment: Tiffany Triana WPtel: [address] [place], [place] [phone] Other 04/21/2011 Visit Plan: Esophageal Reflux - [...] few weeks. 04/07/2011 Appointment: Tiffany Triana WPtel: [facility] Other 04/07/2011 Patient Education: Patient Medication Summary [...] any concerns. 12/04/2010 Appointment: Shira Emery WPtel: [facility] [address] Other 12/04/2010 Patient Education: Patient Medication Summary [...] not work. 11/25/2010 Appointment: Shira Emery WPtel: [address] [place], [place] [phone] [place] [address] Other 11/25/2010 Patient Education: Patient Medication Summary Completed 11/25/2010 Instructions Comment . Anxiety and Depression - uncontrolled - [...] monitor symptoms, call if not improved. . Nausea and vomiting- recommended clear liquid advance to bland diet, start on probiotic if diarrhea starts, and rehydrate with gatorade- like product. Pt to call if feeling worse, or does not improve with above recommendations. Pt to call for acute worsening of stomach upset or stomach pain. . Pt fell on Wednesday05/23/16 - she [...] by Dr. High for further recommendations. . Chronic Depression and anxiety - the pt has symptoms of chronic anxiety and depression that have been fairly well controlled since the last office visit. The pt has expected periods of exacerbation with abatement of the symptoms with change in situational exposure. No change in current medications. . Sore throat -suspect virus -continue claritin [...] in blood pressure readings at home. LLQ bzsk-llvmdgpdijqz-FH negative-monitor symptoms and call if worsen Avoid [...] DECREASE EXFORGE FROM 10MG/160MG TO 5MG/160MG Weight nmsz-bnmmatn-xhewn thyroid, cbc, chem panel HTN-well controlled-decreasing medication due to edema-monitor blood pressure . LLQ abdominal chgu-kvofgnilqbmv-gukjj pelvic ultrasound, draw labs today HTN-well controlled-no [...] change in blood pressure readings at home. HIDA scan tomorrow at 10am. Abdominal chbl-pozjwi-Zo [place] in to evaluate patient-also discussed patient [...] been appropriately prescribed for this patient. . Esophageal Reflux - the patient has [...]
--- OUTSIDE RECORDS SUMMARY | 2018-06-17 13:56 | XMS REPORT | Continuity of Care Document ---
Author Author [facility] Organization [facility] Address Unknown Phone Unavailable Allergies Active Description Code Type Severity Reaction Onset Reported/Identified Relationship to Patient Clinical Status Yes erythromycin base [id number] Drug Allergy Unknown N/A 11/24/2007 Yes azithromycin [id number] Drug Allergy Moderate N/A 04/17/2014 Medications There is no data. Problems Date Dx Coded Attending Type Code Diagnosis Diagnosed By 08/10/2011 Ot 530.81 ESOPHAGEAL REFLUX 01/06/2013 TAMAR MISHRA APRN Ot 564.00 UNSPEC CONSTIPATION 01/06/2013 TAMAR MISHRA APRN Ot 789.07 ABDOMINAL PAIN, GENERALIZED 01/12/2013 ARTURO LARSE MD Ot 574.10 CHOLELITH W CHOLECYS NEC [...] LUCIO WHITEHEADP Ot 789.04 09/11/2014 LUCIO WHITEHEAD DIVIDEND DEPOSIT VOUCHER CLERK Ot V76.12 09/12/2014 RENETTA GALAN, EVANS Latif Ot 787.3 09/12/2014 EVANS JACKSON MD Ot 789.00 09/12/2014 LUCIO WHITEHEAD Ot 401.9 09/12/2014 LUCIO WHITEHEADP Ot 789.00 10/24/2015 MIKAYLA BYOD DO Ot M54.5 LOW BACK PAIN 10/29/2015 [...] EXAMINATION 05/28/2016 ARNAUD GALAN, ARTURO Ot V72.81 [id number]-[id number] CARDIOVASCULAR 05/28/2016 RENETTA GALAN, EVANS Latif Ot V76.12 OTH SCREEN MAMMO-MALIGN NEOPLASM OF PAT 05/28/2016 CRISTY MAXWELL TRAVEL ACCOMMODATIONS RATER Ot 782.1 NONSPECIF SKIN ERUPT NEC 05/28/2016 CRISTY MAXWELL TRAVEL ACCOMMODATIONS RATER Ot 786.05 SHORTNESS OF BREATH 05/28/2016 LUCIO [...] M54.5 LOW BACK PAIN 05/28/2016 TORY MARTIN MESS COOK Ot H53.9 UNSPECIFIED VISUAL DISTURBANCE 05/28/2016 TORY MARTIN MESS COOK Ot R51 HEADACHE 05/28/2016 TORY MARTIN MESS COOK Ot W19.XXXA UNSPECIFIED FALL, INITIAL ENCOUNTER 05/28/2016 TORY MARTIN MESS COOK Ot Y99.8 OTHER EXTERNAL CAUSE STATUS 06/10/2016 SHANNA ROSA Ot M25.552 PAIN IN LEFT HIP 06/11/2016 SHANNA ROSA Ot M25.552 PAIN IN LEFT HIP 06/11/2016 TORY MARTIN MESS COOK Ot H53.9 UNSPECIFIED VISUAL DISTURBANCE 06/11/2016 TORY MARTIN MESS COOK Ot R51 HEADACHE 06/11/2016 TORY MARTIN MESS COOK Ot W19.XXXA UNSPECIFIED FALL, INITIAL ENCOUNTER 06/11/2016 TORY MARTIN MESS COOK Ot Y99.8 OTHER EXTERNAL CAUSE STATUS 06/12/2016 [...] EXAMINATION 06/22/2016 ARTURO LARES MD Ot V72.81 YEXR-HSX-[id number] CARDIOVASCULAR 06/22/2016 EVANS JACKSON MD Ot V76.12 OTH SCREEN MAMMO-MALIGN NEOPLASM OF PAT 06/22/2016 CRISTY MAXWELL TRAVEL ACCOMMODATIONS RATER Ot 782.1 NONSPECIF SKIN ERUPT NEC 06/22/2016 CRISTY MAXWELL Ot 786.05 SHORTNESS OF BREATH 06/22/2016 WHITEHEAD, LUCIO M DIVIDEND DEPOSIT VOUCHER CLERK Ot V76.12 OTH SCREEN MAMMO-MALIGN NEOPLASM OF PAT 06/22/2016 EVANS JACKSON MD Ot 787.3 FLATUL/ERUCTAT/GAS PAIN 06/22/2016 EVANS JACKSON MD Ot 789.00 ABDOMINAL PAIN, UNSPECIFIED SITE 06/22/2016 LUCIO WHITEHEAD DIVIDEND DEPOSIT VOUCHER CLERK Ot 789.04 ABDOMINAL PAIN, LEFT LOWER QUADRANT 06/22/2016 LUCIO WHITEHEAD DIVIDEND DEPOSIT VOUCHER CLERK Ot 401.9 HYPERTENSION NOS 06/22/2016 LUCIO WHITEHEAD DIVIDEND DEPOSIT VOUCHER CLERK Ot 789.00 ABDOMINAL PAIN, UNSPECIFIED SITE 06/22/2016 OLIVER DAY MIKAYLA Paulo Ot M54.5 LOW BACK PAIN 06/22/2016 TORY MARTIN MESS COOK Ot H53.9 UNSPECIFIED VISUAL DISTURBANCE 06/22/2016 TORY MARTIN MESS COOK Ot R51 HEADACHE 06/22/2016 TORY MARTIN MESS COOK Ot W19.XXXA UNSPECIFIED FALL, INITIAL ENCOUNTER 06/22/2016 TORY MARTIN MESS COOK Ot Y99.8 OTHER EXTERNAL CAUSE STATUS 06/22/2016 [...] EXAMINATION 06/22/2016 ARTURO LARES MD Ot V72.81 [id number]-[id number] CARDIOVASCULAR 06/22/2016 EVANS JACKSON MD Ot V76.12 OTH SCREEN MAMMO-MALIGN NEOPLASM OF PAT 06/22/2016 CRISTY MAXWELL TRAVEL ACCOMMODATIONS RATER Ot 782.1 NONSPECIF SKIN ERUPT NEC 06/22/2016 CRISTY MAXWELL TRAVEL ACCOMMODATIONS RATER Ot 786.05 SHORTNESS OF BREATH 06/22/2016 LUCIO WHITEHEAD DIVIDEND DEPOSIT VOUCHER CLERK Ot V76.12 OTH SCREEN MAMMO-MALIGN NEOPLASM OF PAT 06/22/2016 EVANS JACKSON MD Ot 787.3 FLATUL/ERUCTAT/GAS PAIN 06/22/2016 EVANS JACKSON MD Ot 789.00 ABDOMINAL PAIN, UNSPECIFIED SITE 06/22/2016 LUCIO WHITEHEAD DIVIDEND DEPOSIT VOUCHER CLERK Ot 789.04 ABDOMINAL PAIN, LEFT LOWER QUADRANT 06/22/2016 LUCIO WHITEHEAD DIVIDEND DEPOSIT VOUCHER CLERK Ot 401.9 HYPERTENSION NOS 06/22/2016 LUCIO WHITEHEAD DIVIDEND DEPOSIT VOUCHER CLERK Ot 789.00 ABDOMINAL PAIN, UNSPECIFIED SITE 06/22/2016 MIKAYLA BOYD DO M Ot M54.5 LOW BACK PAIN 06/22/2016 TORY MARTIN MESS COOK Ot H53.9 UNSPECIFIED VISUAL DISTURBANCE 06/22/2016 TORY MARTIN MESS COOK Ot R51 HEADACHE 06/22/2016 TORY MARTIN MESS COOK Ot W19.XXXA UNSPECIFIED FALL, INITIAL ENCOUNTER 06/22/2016 TORY MARTIN MESS COOK Ot Y99.8 OTHER EXTERNAL CAUSE STATUS 06/22/2016 [...] EXAMINATION 06/22/2016 ARTURO LARES MD Ot V72.81 BVOM-IMA-RQQFOUYFK CARDIOVASCULAR 06/22/2016 EVANS JACKSON MD Ot V76.12 OTH SCREEN MAMMO-MALIGN NEOPLASM OF PAT 06/22/2016 CRISTY MAXWELL TRAVEL ACCOMMODATIONS RATER Ot 782.1 NONSPECIF SKIN ERUPT NEC 06/22/2016 CRISTY MAXWELL TRAVEL ACCOMMODATIONS RATER Ot 786.05 SHORTNESS OF BREATH 06/22/2016 LUCIO WHITEHEAD DIVIDEND DEPOSIT VOUCHER CLERK Ot V76.12 OTH SCREEN MAMMO-MALIGN NEOPLASM OF PAT 06/22/2016 EVANS JACKSON MD Ot 787.3 FLATUL/ERUCTAT/GAS PAIN 06/22/2016 RENETTA GALNA, EVANS Latif Ot 789.00 ABDOMINAL PAIN, UNSPECIFIED SITE 06/22/2016 LUCIO WHITEHEAD DIVIDEND DEPOSIT VOUCHER CLERK Ot 789.04 ABDOMINAL PAIN, LEFT LOWER QUADRANT 06/22/2016 LUCIO WHITEHEAD DIVIDEND DEPOSIT VOUCHER CLERK Ot 401.9 HYPERTENSION NOS 06/22/2016 GARY WHITEHEADHANTAMIR Bates DIVIDEND DEPOSIT VOUCHER CLERK Ot 789.00 ABDOMINAL PAIN, UNSPECIFIED SITE 06/22/2016 MIKAYLA BOYD DO M Ot M54.5 LOW BACK PAIN 06/22/2016 TORY MARTIN MESS COOK Ot H53.9 UNSPECIFIED VISUAL DISTURBANCE 06/22/2016 TORY MARTIN MESS COOK Ot R51 HEADACHE 06/22/2016 TORY MARTIN MESS COOK Ot W19.XXXA UNSPECIFIED FALL, INITIAL ENCOUNTER 06/22/2016 TORY MARTIN MESS COOK Ot Y99.8 OTHER EXTERNAL CAUSE STATUS 06/22/2016 [...] EXAMINATION 06/22/2016 ARTURO LARES MD Ot V72.81 USWY-RQB-NYNEUWKIP CARDIOVASCULAR 06/22/2016 EVANS JACKSON MD Ot V76.12 OTH SCREEN MAMMO-MALIGN NEOPLASM OF PAT 06/22/2016 CRISTY MAXWELLP Ot 782.1 NONSPECIF SKIN ERUPT NEC 06/22/2016 CRISTY MAXWELL TRAVEL ACCOMMODATIONS RATER Ot 786.05 SHORTNESS OF BREATH 06/22/2016 LUCIO WHITEHEAD DIVIDEND DEPOSIT VOUCHER CLERK Ot V76.12 OTH SCREEN MAMMO-MALIGN NEOPLASM OF PAT 06/22/2016 EVANS JACKSON MD Ot 787.3 FLATUL/ERUCTAT/GAS PAIN 06/22/2016 EVANS JACKSON MD Ot 789.00 ABDOMINAL PAIN, UNSPECIFIED SITE 06/22/2016 LUCIO WHITEHEAD DIVIDEND DEPOSIT VOUCHER CLERK Ot 789.04 ABDOMINAL PAIN, LEFT LOWER QUADRANT 06/22/2016 LUCIO WHITEHEAD DIVIDEND DEPOSIT VOUCHER CLERK Ot 401.9 HYPERTENSION NOS 06/22/2016 LUCIO WHITEHEAD DIVIDEND DEPOSIT VOUCHER CLERK Ot 789.00 ABDOMINAL PAIN, UNSPECIFIED SITE 06/22/2016 MIKAYLA BOYD DO M Ot M54.5 LOW BACK PAIN 06/22/2016 TORY MARTIN MESS COOK Ot H53.9 UNSPECIFIED VISUAL DISTURBANCE 06/22/2016 TORY MARTIN MESS COOK Ot R51 HEADACHE 06/22/2016 TORY MARTIN MESS COOK Ot W19.XXXA UNSPECIFIED FALL, INITIAL ENCOUNTER 06/22/2016 TORY MARTIN MESS COOK Ot Y99.8 OTHER EXTERNAL CAUSE STATUS 06/22/2016 [...] EXAMINATION 06/22/2016 ARTURO LARES MD Ot V72.81 [id number]-[id number] CARDIOVASCULAR 06/22/2016 EVANS JACKSON MD Ot V76.12 OTH SCREEN MAMMO-MALIGN NEOPLASM OF PAT 06/22/2016 CRISTY MAXWELLP Ot 782.1 NONSPECIF SKIN ERUPT NEC 06/22/2016 CRISTY MAXWELL TRAVEL ACCOMMODATIONS RATER Ot 786.05 SHORTNESS OF BREATH 06/22/2016 LUCIO WHITEHEAD Ot V76.12 OTH SCREEN MAMMO-MALIGN NEOPLASM OF PAT 06/22/2016 EVANS JACKSON MD Ot 787.3 FLATUL/ERUCTAT/GAS PAIN 06/22/2016 EVANS JACKSON MD Ot 789.00 ABDOMINAL PAIN, UNSPECIFIED SITE 06/22/2016 LUCIO WHITEHEAD DIVIDEND DEPOSIT VOUCHER CLERK Ot 789.04 ABDOMINAL PAIN, LEFT LOWER QUADRANT 06/22/2016 LUCIO WHITEHEAD DIVIDEND DEPOSIT VOUCHER CLERK Ot 401.9 HYPERTENSION NOS 06/22/2016 LUCIO WHITEHEAD DIVIDEND DEPOSIT VOUCHER CLERK Ot 789.00 ABDOMINAL PAIN, UNSPECIFIED SITE 06/22/2016 MIKAYLA BOYD DO Ot M54.5 LOW BACK PAIN 06/22/2016 TORY MARTIN MESS COOK Ot H53.9 UNSPECIFIED VISUAL DISTURBANCE 06/22/2016 TORY MARTIN MESS COOK Ot R51 HEADACHE 06/22/2016 TORY MARTIN MESS COOK Ot W19.XXXA UNSPECIFIED FALL, INITIAL ENCOUNTER 06/22/2016 TORY MARTIN MESS COOK Ot Y99.8 OTHER EXTERNAL CAUSE STATUS 06/23/2016 [...] EXAMINATION 06/23/2016 ARTURO LARES MD Ot V72.81 [id number]-IGA-UOWRJWUIM CARDIOVASCULAR 06/23/2016 EVANS JACKSON MD Ot V76.12 OTH SCREEN MAMMO-MALIGN NEOPLASM OF PAT 06/23/2016 CRISTY MAXWELL TRAVEL ACCOMMODATIONS RATER Ot 782.1 NONSPECIF SKIN ERUPT NEC 06/23/2016 CRISTY MAXWELL TRAVEL ACCOMMODATIONS RATER Ot 786.05 SHORTNESS OF BREATH 06/23/2016 LUCIO WHITEHEAD DIVIDEND DEPOSIT VOUCHER CLERK Ot V76.12 OTH SCREEN MAMMO-MALIGN NEOPLASM OF PAT 06/23/2016 EVANS JACKSON MD Ot 787.3 FLATUL/ERUCTAT/GAS PAIN 06/23/2016 EVANS JACKSON MD Ot 789.00 ABDOMINAL PAIN, UNSPECIFIED SITE 06/23/2016 LUCIO WHITEHEAD DIVIDEND DEPOSIT VOUCHER CLERK Ot 789.04 ABDOMINAL PAIN, LEFT LOWER QUADRANT 06/23/2016 LUCIO WHITEHEAD DIVIDEND DEPOSIT VOUCHER CLERK Ot 401.9 HYPERTENSION NOS 06/23/2016 LUCIO WHITEHEAD DIVIDEND DEPOSIT VOUCHER CLERK Ot 789.00 ABDOMINAL PAIN, UNSPECIFIED SITE 06/23/2016 MIKAYLA BOYD DO Ot M54.5 LOW BACK PAIN 06/23/2016 VERONICA TORY M MESS COOK Ot H53.9 UNSPECIFIED VISUAL DISTURBANCE 06/23/2016 TORY MARTIN MESS COOK Ot R51 HEADACHE 06/23/2016 TORY MARTIN MESS COOK Ot W19.XXXA UNSPECIFIED FALL, INITIAL ENCOUNTER 06/23/2016 VERONICATORY MESS COOK Ot Y99.8 OTHER EXTERNAL CAUSE STATUS 02/09/2017 Ot 530.81 ESOPHAGEAL REFLUX 02/09/2017 RENETTA GALAN, EVANS Latif Ot V76.12 OTH SCREEN MAMMO-MALIGN NEOPLASM OF PAT 02/09/2017 ARNAUD GALAN, ARTURO Ot 575.8 DIS OF GALLBLADDER NEC 02/09/2017 ARNAUD GALAN, ARTURO Ot 575.8 DIS OF GALLBLADDER NEC 02/09/2017 ARNAUD GALAN, ARTURO Ot V72.63 PRE-PROCEDURAL LABORATORY EXAMINATION 02/09/2017 ARNAUD GALAN, ARTURO Ot V72.81 MRFL-QFM-TMSRVJSSC CARDIOVASCULAR 02/09/2017 RENETTA GALAN, EVANS Latif Ot V76.12 OTH SCREEN MAMMO-MALIGN NEOPLASM OF PAT 02/09/2017 CRISTY MAXWELL TRAVEL ACCOMMODATIONS RATER Ot 782.1 NONSPECIF SKIN ERUPT NEC 02/09/2017 CRISTY MAXWELL TRAVEL ACCOMMODATIONS RATER Ot 786.05 SHORTNESS OF BREATH 02/09/2017 LUCIO WHITEHEAD DIVIDEND DEPOSIT VOUCHER CLERK Ot V76.12 OTH SCREEN MAMMO-MALIGN NEOPLASM OF PAT 02/09/2017 EVANS JACKSON MD Ot 787.3 FLATUL/ERUCTAT/GAS PAIN 02/09/2017 EVANS JACKSON MD Ot 789.00 ABDOMINAL PAIN, UNSPECIFIED SITE 02/09/2017 LUCIO WHITEHEAD DIVIDEND DEPOSIT VOUCHER CLERK Ot 789.04 ABDOMINAL PAIN, LEFT LOWER QUADRANT 02/09/2017 LUCIO WHITEHEAD DIVIDEND DEPOSIT VOUCHER CLERK Ot 401.9 HYPERTENSION NOS 02/09/2017 LUCIO WHITEHEAD DIVIDEND DEPOSIT VOUCHER CLERK Ot 789.00 ABDOMINAL PAIN, UNSPECIFIED SITE 02/09/2017 MIKAYLA BOYD DO Ot M54.5 LOW BACK PAIN 02/09/2017 TORY MARTIN MESS COOK Ot H53.9 UNSPECIFIED VISUAL DISTURBANCE 02/09/2017 STEFANIE MARTINTAMIR Bates MESS COOK Ot R51 HEADACHE 02/09/2017 TORY MARTIN MESS COOK Ot W19.XXXA UNSPECIFIED FALL, INITIAL ENCOUNTER 02/09/2017 TORY MARTIN MESS COOK Ot Y99.8 OTHER EXTERNAL CAUSE STATUS 02/11/2017 [...] EXAMINATION 05/03/2017 ARTURO LARES MD Ot V72.81 IYLX-BOS-VWCEPKMGJ CARDIOVASCULAR 05/03/2017 EVANS JACKSON MD Ot V76.12 OTH SCREEN MAMMO-MALIGN NEOPLASM OF PAT 05/03/2017 CRISTY MAXWELL TRAVEL ACCOMMODATIONS RATER Ot 782.1 NONSPECIF SKIN ERUPT NEC 05/03/2017 CRISTY MAXWELL TRAVEL ACCOMMODATIONS RATER Ot 786.05 SHORTNESS OF BREATH 05/03/2017 LUCIO WHITEHEAD DIVIDEND DEPOSIT VOUCHER CLERK Ot V76.12 OTH SCREEN MAMMO-MALIGN NEOPLASM OF PAT 05/03/2017 EVANS JACKSON MD Ot 787.3 FLATUL/ERUCTAT/GAS PAIN 05/03/2017 EVANS JACKSON MD Ot 789.00 ABDOMINAL PAIN, UNSPECIFIED SITE 05/03/2017 LUCIO WHITEHEAD DIVIDEND DEPOSIT VOUCHER CLERK Ot 789.04 ABDOMINAL PAIN, LEFT LOWER QUADRANT 05/03/2017 LUCIO WHITEHEAD DIVIDEND DEPOSIT VOUCHER CLERK Ot 401.9 HYPERTENSION NOS 05/03/2017 LUCIO WHITEHEAD DIVIDEND DEPOSIT VOUCHER CLERK Ot 789.00 ABDOMINAL PAIN, UNSPECIFIED SITE 05/03/2017 MIKAYLA BOYD DO Ot M54.5 LOW BACK PAIN 05/03/2017 TORY MARTIN MESS COOK Ot H53.9 UNSPECIFIED VISUAL DISTURBANCE 05/03/2017 TORY MARTIN MESS COOK Ot R51 HEADACHE 05/03/2017 TORY MARTIN MESS COOK Ot W19.XXXA UNSPECIFIED FALL, INITIAL ENCOUNTER 05/03/2017 TORY MARTIN MESS COOK Ot Y99.8 OTHER EXTERNAL CAUSE STATUS 05/03/2017 [...] EXAMINATION 07/19/2017 ARTURO LARES MD Ot V72.81 GGYO-UPV-UJFYZZYEU CARDIOVASCULAR 07/19/2017 EVANS JACKSON MD Ot V76.12 OTH SCREEN MAMMO-MALIGN NEOPLASM OF PAT 07/19/2017 CRISTY MAXWELL TRAVEL ACCOMMODATIONS RATER Ot 782.1 NONSPECIF SKIN ERUPT NEC 07/19/2017 CRISTY MAXWELL TRAVEL ACCOMMODATIONS RATER Ot 786.05 SHORTNESS OF BREATH 07/19/2017 LUCIO WHITEHEAD DIVIDEND DEPOSIT VOUCHER CLERK Ot V76.12 OTH SCREEN MAMMO-MALIGN NEOPLASM OF PAT 07/19/2017 EVANS JACKSON MD Ot 787.3 FLATUL/ERUCTAT/GAS PAIN 07/19/2017 EVANS JACKSON MD Ot 789.00 ABDOMINAL PAIN, UNSPECIFIED SITE 07/19/2017 LUCIO WHITEHEAD DIVIDEND DEPOSIT VOUCHER CLERK Ot 789.04 ABDOMINAL PAIN, LEFT LOWER QUADRANT 07/19/2017 LUCIO WHITEHEAD DIVIDEND DEPOSIT VOUCHER CLERK Ot 401.9 HYPERTENSION NOS 07/19/2017 LUCIO WHITEHEAD DIVIDEND DEPOSIT VOUCHER CLERK Ot 789.00 ABDOMINAL PAIN, UNSPECIFIED SITE 07/19/2017 OLIVER DOMIKAYLA Ot M54.5 LOW BACK PAIN 07/19/2017 TORY MARTIN MESS COOK Ot H53.9 UNSPECIFIED VISUAL DISTURBANCE 07/19/2017 TORY MARTIN MESS COOK Ot R51 HEADACHE 07/19/2017 TORY MARTIN MESS COOK Ot W19.XXXA UNSPECIFIED FALL, INITIAL ENCOUNTER 07/19/2017 TORY MARTIN MESS COOK Ot Y99.8 OTHER EXTERNAL CAUSE STATUS 07/19/2017 [...] EXAMINATION 07/29/2017 ARTURO LARES MD, Ot V72.81 GHPW-FUU-VANNKSXYG CARDIOVASCULAR 07/29/2017 EVANS JACKSON MD Ot V76.12 OTH SCREEN MAMMO-MALIGN NEOPLASM OF PAT 07/29/2017 CRISTY MAXWELL TRAVEL ACCOMMODATIONS RATER Ot 782.1 NONSPECIF SKIN ERUPT NEC 07/29/2017 CRISTY MAXWELL TRAVEL ACCOMMODATIONS RATER Ot 786.05 SHORTNESS OF BREATH 07/29/2017 LUCIO WHITEHEAD DIVIDEND DEPOSIT VOUCHER CLERK Ot V76.12 OTH SCREEN MAMMO-MALIGN NEOPLASM OF PAT 07/29/2017 RENETTA GALAN, EVANS Latif Ot 787.3 FLATUL/ERUCTAT/GAS PAIN 07/29/2017 EVANS JACKSON MD Ot 789.00 ABDOMINAL PAIN, UNSPECIFIED SITE 07/29/2017 LUCIO WHITEHEAD DIVIDEND DEPOSIT VOUCHER CLERK Ot 789.04 ABDOMINAL PAIN, LEFT LOWER QUADRANT 07/29/2017 LUCIO WHITEHEAD DIVIDEND DEPOSIT VOUCHER CLERK Ot 401.9 HYPERTENSION NOS 07/29/2017 LUCIO WHITEHEAD DIVIDEND DEPOSIT VOUCHER CLERK Ot 789.00 ABDOMINAL PAIN, UNSPECIFIED SITE 07/29/2017 MIKAYLA BOYD DO Ot M54.5 LOW BACK PAIN 07/29/2017 TORY MARTIN MESS COOK Ot H53.9 UNSPECIFIED VISUAL DISTURBANCE 07/29/2017 TORY MARTIN MESS COOK Ot R51 HEADACHE 07/29/2017 TORY MARTIN MESS COOK Ot W19.XXXA UNSPECIFIED FALL, INITIAL ENCOUNTER 07/29/2017 TORY MARTIN MESS COOK Ot Y99.8 OTHER EXTERNAL CAUSE STATUS 07/29/2017 [...] EXAMINATION 07/29/2017 ARTURO LARES MD Ot V72.81 [id number]-JXP-PYSNEMYBS CARDIOVASCULAR 07/29/2017 EVANS JACKSON MD Ot V76.12 OTH SCREEN MAMMO-MALIGN NEOPLASM OF PAT 07/29/2017 CRISTY MAXWELL TRAVEL ACCOMMODATIONS RATER Ot 782.1 NONSPECIF SKIN ERUPT NEC 07/29/2017 CRISTY MAXWELL TRAVEL ACCOMMODATIONS RATER Ot 786.05 SHORTNESS OF BREATH 07/29/2017 LUCIO WHITEHEAD DIVIDEND DEPOSIT VOUCHER CLERK Ot V76.12 OTH SCREEN MAMMO-MALIGN NEOPLASM OF PAT 07/29/2017 EVANS JACKSON MD Ot 787.3 FLATUL/ERUCTAT/GAS PAIN 07/29/2017 EVANS JACKSON MD Ot 789.00 ABDOMINAL PAIN, UNSPECIFIED SITE 07/29/2017 LUCIO WHITEHEAD DIVIDEND DEPOSIT VOUCHER CLERK Ot 789.04 ABDOMINAL PAIN, LEFT LOWER QUADRANT 07/29/2017 LUCIO WHITEHEAD DIVIDEND DEPOSIT VOUCHER CLERK Ot 401.9 HYPERTENSION NOS 07/29/2017 LUCIO WHITEHEAD DIVIDEND DEPOSIT VOUCHER CLERK Ot 789.00 ABDOMINAL PAIN, UNSPECIFIED SITE 07/29/2017 MIKAYLA BOYD DO Ot M54.5 LOW BACK PAIN 07/29/2017 TORY MARTIN MESS COOK Ot H53.9 UNSPECIFIED VISUAL DISTURBANCE 07/29/2017 TORY MARTIN MESS COOK Ot R51 HEADACHE 07/29/2017 TORY MARTIN MESS COOK Ot W19.XXXA UNSPECIFIED FALL, INITIAL ENCOUNTER 07/29/2017 TORY MARTIN MESS COOK Ot Y99.8 OTHER EXTERNAL CAUSE STATUS 07/29/2017 [...] EXAMINATION 08/02/2017 ARTURO LARES MD Ot V72.81 CRED-VMD-DZHNQSQFV CARDIOVASCULAR 08/02/2017 EVANS JACKSON MD Ot V76.12 OTH SCREEN MAMMO-MALIGN NEOPLASM OF PAT 08/02/2017 CRISTY MAXWELL TRAVEL ACCOMMODATIONS RATER Ot 782.1 NONSPECIF SKIN ERUPT NEC 08/02/2017 CRISTY MAXWELL TRAVEL ACCOMMODATIONS RATER Ot 786.05 SHORTNESS OF BREATH 08/02/2017 LUCIO WHITEHEAD DIVIDEND DEPOSIT VOUCHER CLERK Ot V76.12 OTH SCREEN MAMMO-MALIGN NEOPLASM OF PAT 08/02/2017 EVANS JACKSON MD Ot 787.3 FLATUL/ERUCTAT/GAS PAIN 08/02/2017 EVANS JACKSON MD Ot 789.00 ABDOMINAL PAIN, UNSPECIFIED SITE 08/02/2017 LUCIO WHITEHEAD DIVIDEND DEPOSIT VOUCHER CLERK Ot 789.04 ABDOMINAL PAIN, LEFT LOWER QUADRANT 08/02/2017 LUCIO WHITEHEAD DIVIDEND DEPOSIT VOUCHER CLERK Ot 401.9 HYPERTENSION NOS 08/02/2017 LUCIO WHITEHEAD DIVIDEND DEPOSIT VOUCHER CLERK Ot 789.00 ABDOMINAL PAIN, UNSPECIFIED SITE 08/02/2017 MIKAYLA BOYD DO Ot M54.5 LOW BACK PAIN 08/02/2017 TORY MARTIN MESS COOK Ot H53.9 UNSPECIFIED VISUAL DISTURBANCE 08/02/2017 TORY MARTIN MESS COOK Ot R51 HEADACHE 08/02/2017 TORY MARTIN MESS COOK Ot W19.XXXA UNSPECIFIED FALL, INITIAL ENCOUNTER 08/02/2017 TORY MARTIN MESS COOK Ot Y99.8 OTHER EXTERNAL CAUSE STATUS 08/02/2017 RICH GALEANO DC S Ot M25.552 PAIN IN LEFT HIP 08/02/2017 RICH GALEANO DC S Ot M54.5 LOW BACK PAIN 08/02/2017 RAVEN GALAN, TEMITOPE Fuentes Ot Z12.31 ENCNTR SCREEN MAMMOGRAM FOR MALIGNANT NE 08/02/2017 TEMITOPE CARBAJAL MD Ot N63.21 UNSPECIFIED LUMP IN THE LEFT BREAST, UPP 08/02/2017 TAL GALAN, YIFAN aBtes Ot N63.20 UNSPECIFIED LUMP IN THE LEFT BREAST, UNS 08/02/2017 EVANS JACKSON MD Ot V76.12 OTH SCREEN MAMMO-MALIGN NEOPLASM OF PAT 08/02/2017 ARNAUD GALAN, ARTURO Ot 575.8 DIS OF GALLBLADDER NEC 08/02/2017 ARTURO LARES MD Ot 575.8 DIS OF GALLBLADDER NEC 08/02/2017 ARTURO LARES MD Ot V72.63 PRE-PROCEDURAL LABORATORY EXAMINATION 08/02/2017 ARTURO LARES MD Ot V72.81 RKEW-ENP-KCOEIGHXP CARDIOVASCULAR 08/02/2017 EVANS JACKSON MD Ot V76.12 OTH SCREEN MAMMO-MALIGN NEOPLASM OF PAT 08/02/2017 CRISTY MAXWELL TRAVEL ACCOMMODATIONS RATER Ot 782.1 NONSPECIF SKIN ERUPT NEC 08/02/2017 CRISTY MAXWELL TRAVEL ACCOMMODATIONS RATER Ot 786.05 SHORTNESS OF BREATH 08/02/2017 LUCIO WHITEHEAD Ot V76.12 OTH SCREEN MAMMO-MALIGN NEOPLASM OF PAT 08/02/2017 EVANS JACKSON MD Ot 787.3 FLATUL/ERUCTAT/GAS PAIN 08/02/2017 EVANS JACKSON MD Ot 789.00 ABDOMINAL PAIN, UNSPECIFIED SITE 08/02/2017 LUCIO WHITEHEAD DIVIDEND DEPOSIT VOUCHER CLERK Ot 789.04 ABDOMINAL PAIN, LEFT LOWER QUADRANT 08/02/2017 LUCIO WHITEHEAD DIVIDEND DEPOSIT VOUCHER CLERK Ot 401.9 HYPERTENSION NOS 08/02/2017 LUCIO WHITEHEAD DIVIDEND DEPOSIT VOUCHER CLERK Ot 789.00 ABDOMINAL PAIN, UNSPECIFIED SITE 08/02/2017 MIKAYLA BOYD DO Ot M54.5 LOW BACK PAIN 08/02/2017 TORY MARTIN MESS COOK Ot H53.9 UNSPECIFIED VISUAL DISTURBANCE 08/02/2017 TORY MARTIN MESS COOK Ot R51 HEADACHE 08/02/2017 TORY MARTIN MESS COOK Ot W19.XXXA UNSPECIFIED FALL, INITIAL ENCOUNTER 08/02/2017 TORY MARTIN MESS COOK Ot Y99.8 OTHER EXTERNAL CAUSE STATUS 08/02/2017 [...] N63.20 UNSPECIFIED LUMP IN THE LEFT BREAST, [facility] 08/02/2017 TEMITOPE CARBAJAL MD, Ot D64.9 ANEMIA, UNSPECIFIED 08/02/2017 TEMITOPE CARBAJAL MD, Ot N85.9 NONINFLAMMATORY DISORDER OF UTERUS, [facility] 08/02/2017 TEMITOPE CARBAJAL MD, Ot N95.0 POSTMENOPAUSAL BLEEDING 08/02/2017 TEMITOPE CARBAJAL MD, Ot Z01.812 ENCOUNTER FOR PREPROCEDURAL LABORATORY E 08/02/2017 TEMITOPE CARBAJAL MD, Ot Z11.2 ENCOUNTER FOR SCREENING FOR OTHER BACTER 08/03/2017 TEMITOPE CARBAJAL MD, Ot D64.9 ANEMIA, UNSPECIFIED 08/03/2017 TEMITOPE CARBAJAL MD, Ot N85.9 NONINFLAMMATORY DISORDER OF UTERUS, [facility] 08/03/2017 TEMITOPE CARBAJAL MD, Ot N95.0 [...] 08/04/2017 TEMITOPE CARBAJAL MD, Ot 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 08/04/2017 TEMITOPE CARBAJAL MD, [...] 08/11/2017 TEMITOPE CARBAJAL MD, Ot Z79.899 OTHER [facility] (CURRENT) DRUG THERAPY 08/11/2017 TEMITOPE CARBAJAL MD, [...] 09/16/2017 ANUPAMA BOBAN N Ot Z79.899 OTHER [facility] (CURRENT) DRUG THERAPY 09/16/2017 ANUPAMA, BOBAN N Ot Z87.891 PERSONAL HISTORY OF NICOTINE DEPENDENCE 10/13/2017 ANUPAMALISA LOUISE N Ot C50.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 10/13/2017 ANUPAMA BOBAN N Ot I10 ESSENTIAL (PRIMARY) HYPERTENSION 10/13/2017 ANUPAMA, BOBAN N Ot K21.9 GASTRO-ESOPHAGEAL REFLUX DISEASE WITHOUT 10/13/2017 ANUPAMA, BOBAN N Ot Z17.0 ESTROGEN RECEPTOR POSITIVE STATUS [ER+] 10/13/2017 ANUPAMA BOBAN N Ot 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 10/13/2017 ANUPAMA, BOBAN N [...] 12/01/2017 ANUPAMA BOBAN N Ot 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 12/01/2017 ANUPAMA, BOBAN N Ot Z87.891 PERSONAL HISTORY OF NICOTINE DEPENDENCE 12/03/2017 DANA ALTMANAN N Ot C50.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 12/03/2017 ANUPAAM, BOBAN N Ot I10 ESSENTIAL (PRIMARY) HYPERTENSION 12/03/2017 ANUPAMA, BOBAN N Ot K21.9 GASTRO-ESOPHAGEAL REFLUX DISEASE WITHOUT 12/03/2017 LISA ALTMAN Ot Z17.0 ESTROGEN RECEPTOR POSITIVE STATUS [ER+] 12/03/2017 LISA ALTMAN Ot Z51.0 ENCOUNTER FOR ANTINEOPLASTIC RADIATION T 12/03/2017 LISA ALTMAN Ot Z79.899 OTHER [facility] (CURRENT) DRUG THERAPY 12/03/2017 LISA ALTMAN Ot Z87.891 PERSONAL HISTORY OF NICOTINE DEPENDENCE 01/05/2018 RENETTA GALAN, EVANS Latif Ot V76.12 OTH SCREEN MAMMO-MALIGN NEOPLASM OF PAT 01/05/2018 ARTURO LARES MD Ot 575.8 DIS OF GALLBLADDER NEC 01/05/2018 ARTURO LARES MD Ot 575.8 DIS OF GALLBLADDER NEC 01/05/2018 ARTURO LARES MD Ot V72.63 PRE-PROCEDURAL LABORATORY EXAMINATION 01/05/2018 ARTURO LARES MD Ot V72.81 [id number]-JSU-FVCALADDZ CARDIOVASCULAR 01/05/2018 RENETTA GALAN, EVANS Latif Ot V76.12 OTH SCREEN MAMMO-MALIGN NEOPLASM OF PAT 01/05/2018 CRISTY MAXWELL TRAVEL ACCOMMODATIONS RATER Ot 782.1 NONSPECIF SKIN ERUPT NEC 01/05/2018 CRISTY MAXWELL TRAVEL ACCOMMODATIONS RATER Ot 786.05 SHORTNESS OF BREATH 01/05/2018 LUCIO WHITEHEAD DIVIDEND DEPOSIT VOUCHER CLERK Ot V76.12 OTH SCREEN MAMMO-MALIGN NEOPLASM OF PAT 01/05/2018 EVANS JACKSON MD Ot 787.3 FLATUL/ERUCTAT/GAS PAIN 01/05/2018 EVANS JACKSON MD Ot 789.00 ABDOMINAL PAIN, UNSPECIFIED SITE 01/05/2018 LUCIO WHITEHEAD DIVIDEND DEPOSIT VOUCHER CLERK Ot 789.04 ABDOMINAL PAIN, LEFT LOWER QUADRANT 01/05/2018 LUCIO WHITEHEAD DIVIDEND DEPOSIT VOUCHER CLERK Ot 401.9 HYPERTENSION NOS 01/05/2018 LUCIO WHITEHEAD DIVIDEND DEPOSIT VOUCHER CLERK Ot 789.00 ABDOMINAL PAIN, UNSPECIFIED SITE 01/05/2018 MIKAYLA BOYD DO Ot M54.5 LOW BACK PAIN 01/05/2018 TORY MARTIN MESS COOK Ot H53.9 UNSPECIFIED VISUAL DISTURBANCE 01/05/2018 TORY MARTIN MESS COOK Ot R51 HEADACHE 01/05/2018 TORY MARTIN MESS COOK Ot W19.XXXA UNSPECIFIED FALL, INITIAL ENCOUNTER 01/05/2018 TORY MARTIN MESS COOK Ot Y99.8 OTHER EXTERNAL CAUSE STATUS 01/05/2018 LONG ONELIA, RICH Cline Ot M25.552 PAIN IN LEFT HIP 01/05/2018 LONG ONELIA, RICH S Ot M54.5 LOW BACK PAIN 01/05/2018 TEMITOPE CARBAJAL MD Ot Z12.31 ENCNTR SCREEN MAMMOGRAM FOR MALIGNANT NE 01/05/2018 TEMITOPE CARBAJAL MD Ot N63.21 UNSPECIFIED LUMP [...] Ot K21.9 GASTRO-ESOPHAGEAL REFLUX DISEASE WITHOUT 01/05/2018 LISA ALTMAN Ot Z17.0 ESTROGEN RECEPTOR POSITIVE STATUS [ER+] 01/05/2018 LISA ALTMAN Ot 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 01/05/2018 LISA ALTMAN Ot Z87.891 PERSONAL HISTORY OF NICOTINE DEPENDENCE 01/05/2018 TEMITOPE CARBAJAL MD Ot D64.9 ANEMIA, UNSPECIFIED 01/05/2018 TEMITOPE CARBAJAL MD, Ot 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 01/05/2018 TEMITOPE CARBAJAL MD Ot N93.8 OTHER SPECIFIED ABNORMAL UTERINE AND VAG 01/05/2018 TEMITOPE CARBAJAL MD Ot R19.09 OTHER INTRA-ABDOMINAL AND PELVIC SWELLIN 01/05/2018 TEMITOPE CARBAJAL MD, Ot Z01.812 ENCOUNTER FOR PREPROCEDURAL LABORATORY E 01/05/2018 TEMITOPE CARBAJAL MD, Ot Z11.2 ENCOUNTER FOR SCREENING FOR OTHER BACTER 01/07/2018 EVANS JACKSON MD Ot V76.12 OTH SCREEN MAMMO-MALIGN NEOPLASM OF PAT 01/07/2018 ARNAUD GALAN, ARTURO Ot 575.8 DIS OF GALLBLADDER NEC 01/07/2018 ARNAUD GALAN, ARTURO Ot 575.8 DIS OF GALLBLADDER NEC 01/07/2018 ARNAUD GALAN, ARTURO Ot V72.63 PRE-PROCEDURAL LABORATORY EXAMINATION 01/07/2018 ARNAUD GALAN, ARTURO Ot V72.81 [id number]-DLMYEZVDE CARDIOVASCULAR 01/07/2018 EVANS JACKSON MD Ot V76.12 OTH SCREEN MAMMO-MALIGN NEOPLASM OF PAT 01/07/2018 CRISTY MAXWELL TRAVEL ACCOMMODATIONS RATER Ot 782.1 NONSPECIF SKIN ERUPT NEC 01/07/2018 CRISTY MAXWELL TRAVEL ACCOMMODATIONS RATER Ot 786.05 SHORTNESS OF BREATH 01/07/2018 LUCIO WHITEHEAD DIVIDEND DEPOSIT VOUCHER CLERK Ot V76.12 OTH SCREEN MAMMO-MALIGN NEOPLASM OF PAT 01/07/2018 EVANS JACKSON MD Ot 787.3 FLATUL/ERUCTAT/GAS PAIN 01/07/2018 EVANS JACKSON MD Ot 789.00 ABDOMINAL PAIN, UNSPECIFIED SITE 01/07/2018 LUCIO WHITEHEAD DIVIDEND DEPOSIT VOUCHER CLERK Ot 789.04 ABDOMINAL PAIN, LEFT LOWER QUADRANT 01/07/2018 LUCIO WHITEHEAD DIVIDEND DEPOSIT VOUCHER CLERK Ot 401.9 HYPERTENSION NOS 01/07/2018 LUCIO WHITEHEAD DIVIDEND DEPOSIT VOUCHER CLERK Ot 789.00 ABDOMINAL PAIN, UNSPECIFIED SITE 01/07/2018 MIKAYLA BOYD DO Ot M54.5 LOW BACK PAIN 01/07/2018 OTRY MARTIN MESS COOK Ot H53.9 UNSPECIFIED VISUAL DISTURBANCE 01/07/2018 TORY MARTIN MESS COOK Ot R51 HEADACHE 01/07/2018 TORY MARTIN MESS COOK Ot W19.XXXA UNSPECIFIED FALL, INITIAL ENCOUNTER 01/07/2018 TORY MARTIN MESS COOK Ot Y99.8 OTHER EXTERNAL CAUSE STATUS 01/07/2018 LONG RICH ROUSSEAU Ot M25.552 PAIN IN LEFT HIP 01/07/2018 LONG RICH ROUSSEAU Ot M54.5 LOW BACK PAIN 01/07/2018 TEMITOPE CARBAJAL MD Ot Z12.31 ENCNTR SCREEN MAMMOGRAM FOR MALIGNANT NE 01/07/2018 TEMITOPE CARBAJAL MD Ot N63.21 UNSPECIFIED LUMP IN THE LEFT BREAST, UPP 01/07/2018 TAL GALAN, YIFAN Bates Ot N63.20 UNSPECIFIED LUMP IN THE LEFT BREAST, UNS 01/07/2018 Ot M79.642 PAIN IN LEFT HAND 01/07/2018 Ot M79.89 OTHER SPECIFIED SOFT TISSUE DISORDERS 01/07/2018 ANUPAMALISA LOUISE Leti Ot C50.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 01/07/2018 ANUPAMALISA LOUISE Leti Ot I10 ESSENTIAL (PRIMARY) HYPERTENSION 01/07/2018 LISA ALTMAN Leti Ot K21.9 GASTRO-ESOPHAGEAL REFLUX DISEASE WITHOUT 01/07/2018 ANUPAMALISA LOUISE Leti Ot Z17.0 ESTROGEN RECEPTOR POSITIVE STATUS [ER+] 01/07/2018 LISA ALTMAN Leti Ot Z79.899 OTHER [facility] (CURRENT) DRUG THERAPY 01/07/2018 ANUPAMALISA LOUISE Leti Ot Z87.891 PERSONAL HISTORY OF NICOTINE DEPENDENCE 01/07/2018 TEMITOPE CARBAJAL MD, Ot D64.9 ANEMIA, UNSPECIFIED 01/07/2018 TEMITOPE CARBAJAL MD, Ot 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 01/07/2018 TEMITOPE CARBAJAL MD, Ot N93.8 OTHER SPECIFIED ABNORMAL UTERINE AND VAG 01/07/2018 TEMITOPE CARBAJAL MD, Ot R19.09 OTHER INTRA-ABDOMINAL AND PELVIC SWELLIN 01/07/2018 TEMITOPE CARBAJAL MD, Ot Z01.812 ENCOUNTER FOR PREPROCEDURAL LABORATORY E 01/07/2018 TEMITOPE CARBAJAL MD, Ot Z11.2 ENCOUNTER FOR SCREENING FOR OTHER BACTER 01/08/2018 TEMITOPE CARBAJAL MD, Ot D25.1 INTRAMURAL LEIOMYOMA OF UTERUS 01/08/2018 TEMITOPE CARBAJAL MD, Ot I10 ESSENTIAL (PRIMARY) HYPERTENSION 01/08/2018 TEMITOPE CARBAJAL MD, Ot K21.9 GASTRO-ESOPHAGEAL REFLUX DISEASE WITHOUT 01/08/2018 TEMITOPE CARBAJAL MD, Ot N80.0 ENDOMETRIOSIS OF UTERUS 01/08/2018 TEMITOPE CARBAJAL MD, Ot N87.0 MILD CERVICAL DYSPLASIA 01/08/2018 TEMITOPE CARBAJAL MD, Ot N92.0 EXCESSIVE AND FREQUENT MENSTRUATION WITH 01/08/2018 TEMITOPE CARBAJAL MD, Ot N93.8 OTHER SPECIFIED ABNORMAL UTERINE AND VAG 01/08/2018 TEMITOPE CARBAJAL MD, Ot N94.89 OT COND ASSOC W FEMALE GENITAL ORGANS A 01/08/2018 TEMITOPE CARBAJAL MD, Ot Z79.899 OTHER [facility] (CURRENT) DRUG THERAPY 01/08/2018 TEMITOPE CARBAJAL MD, Ot Z87.891 PERSONAL HISTORY OF NICOTINE DEPENDENCE 01/11/2018 TEMITOPE CARBAJAL MD, Ot D64.9 ANEMIA, UNSPECIFIED 01/11/2018 TEMITOPE CARBAJAL MD, Ot 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 01/11/2018 TEMITOPE CARBAJAL MD, Ot N93.8 OTHER SPECIFIED ABNORMAL UTERINE AND VAG 01/11/2018 TEMITOPE CARBAJAL MD, Ot R19.09 OTHER INTRA-ABDOMINAL AND PELVIC SWELLIN 01/11/2018 TEMITOPE CARBAJAL MD, Ot Z01.812 ENCOUNTER FOR PREPROCEDURAL LABORATORY E 01/11/2018 TEMITOPE CARBAJAL MD, Ot Z11.2 ENCOUNTER FOR SCREENING FOR OTHER BACTER 01/12/2018 TEMITOPE CARBAJAL MD, Ot D25.1 INTRAMURAL LEIOMYOMA OF UTERUS 01/12/2018 TEMITOPE CARBAJAL MD, Ot I10 ESSENTIAL (PRIMARY) HYPERTENSION 01/12/2018 TEMITOPE CARBAJAL MD, Ot K21.9 GASTRO-ESOPHAGEAL REFLUX DISEASE WITHOUT 01/12/2018 TEMITOPE CARBAJAL MD, Ot N80.0 ENDOMETRIOSIS OF UTERUS 01/12/2018 TEMITOPE CARBAJAL MD, Ot N87.0 MILD CERVICAL DYSPLASIA 01/12/2018 TEMITOPE CARBAJAL MD, Ot N92.0 EXCESSIVE AND FREQUENT MENSTRUATION WITH 01/12/2018 TEMITOPE CARBAJAL MD, Ot N93.8 OTHER SPECIFIED ABNORMAL UTERINE AND VAG 01/12/2018 TEMITOPE CARBAJAL MD, Ot N94.89 [facility] COND ASSOC W FEMALE GENITAL ORGANS A 01/12/2018 TEMITOPE CARBAJAL MD, Ot Z79.899 OTHER [facility] (CURRENT) DRUG THERAPY 01/12/2018 TEMITOPE CARBAJAL MD, Ot Z87.891 PERSONAL HISTORY OF NICOTINE DEPENDENCE 01/19/2018 TEMITOPE CARBAJAL MD, Ot D25.1 INTRAMURAL LEIOMYOMA OF UTERUS 01/19/2018 TEMITOPE CARBAJAL MD, Ot I10 ESSENTIAL (PRIMARY) HYPERTENSION 01/19/2018 TEMITOPE CARBAJAL MD, Ot K21.9 GASTRO-ESOPHAGEAL REFLUX DISEASE WITHOUT 01/19/2018 TEMITOPE CARBAJAL MD, Ot N80.0 ENDOMETRIOSIS OF UTERUS 01/19/2018 TEMITOPE CARBAJAL MD, Ot N87.0 MILD CERVICAL DYSPLASIA 01/19/2018 TEMITOPE CARBAJAL MD, Ot N92.0 EXCESSIVE AND FREQUENT MENSTRUATION WITH 01/19/2018 TEMITOPE CARBAJAL MD, Ot N93.8 OTHER SPECIFIED ABNORMAL UTERINE AND VAG 01/19/2018 TEMITOPE CARBAJAL MD, Ot N94.89 OTH COND ASSOC W FEMALE GENITAL ORGANS A 01/19/2018 TEMITOPE CARBAJAL MD, Ot 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 01/19/2018 TEMITOPE CARBAJAL MD, Ot Z87.891 PERSONAL HISTORY OF NICOTINE DEPENDENCE 01/23/2018 TEMITOPE CARBAJAL MD, Ot D64.9 ANEMIA, UNSPECIFIED 01/23/2018 TEMITOPE CARBAJAL MD, Ot 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 01/23/2018 TEMITOPE CARBAJAL MD, Ot N93.8 OTHER SPECIFIED ABNORMAL UTERINE AND VAG 01/23/2018 TEMITOPE CARBAJAL MD, Ot R19.09 OTHER INTRA-ABDOMINAL AND PELVIC SWELLIN 01/23/2018 TEMITOPE CARBAJAL MD, Ot Z01.812 ENCOUNTER FOR PREPROCEDURAL LABORATORY E 01/23/2018 TEMITOPE CARBAJAL MD, Ot Z11.2 ENCOUNTER FOR SCREENING FOR OTHER BACTER 03/10/2018 LISA ALTMAN Ot C50.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 03/10/2018 LISA ALTMAN Ot Z13.820 ENCOUNTER FOR SCREENING FOR OSTEOPOROSIS 03/10/2018 LISA ALTMAN Leti Ot Z78.0 ASYMPTOMATIC MENOPAUSAL STATE 03/25/2018 ANUPAMA LISA Landeros Ot C50.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 03/25/2018 ANUPAMA LISA Landeros Ot Z13.820 ENCOUNTER FOR SCREENING FOR OSTEOPOROSIS 03/25/2018 ANUPAMA DANAPRACHI Leti Ot Z78.0 ASYMPTOMATIC MENOPAUSAL STATE 04/18/2018 ANUPAMA LISA Landeros Ot C50.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 04/18/2018 ANUPAMA LISA N Ot I10 ESSENTIAL (PRIMARY) HYPERTENSION 04/18/2018 ANUPAMALISA N Ot M79.642 PAIN IN LEFT HAND 04/18/2018 LISA ALTMAN N Ot M79.89 OTHER SPECIFIED SOFT TISSUE DISORDERS 04/18/2018 LISA ALTMAN N Ot 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 06/05/2018 LISA ALTMAN Ot C50.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 06/05/2018 ANUPAMALISA N Ot Z98.890 OTHER SPECIFIED POSTPROCEDURAL STATES 06/08/2018 ANUPAMA LISA N Ot C50.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 06/08/2018 ANUPAMALISA N Ot Z98.890 OTHER SPECIFIED POSTPROCEDURAL STATES 06/08/2018 ANUPAMALISA N Ot C50.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 06/08/2018 ANUPAMALISA N Ot Z98.890 OTHER SPECIFIED POSTPROCEDURAL STATES 06/08/2018 ANUPAMALISA Ot C50.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 06/08/2018 ANUPAMALISA N Ot Z98.890 OTHER SPECIFIED POSTPROCEDURAL STATES 06/13/2018 ANUPAMALISA N Ot C50.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 06/13/2018 LISA ALTMAN N Ot I10 ESSENTIAL (PRIMARY) HYPERTENSION 06/13/2018 LISA ALTMAN N Ot K21.9 GASTRO-ESOPHAGEAL REFLUX DISEASE WITHOUT 06/13/2018 LISA ALTMAN N Ot M79.89 OTHER SPECIFIED SOFT TISSUE DISORDERS 06/13/2018 LISA ALTMAN Ot Z17.0 ESTROGEN RECEPTOR POSITIVE STATUS [ER+] 06/13/2018 ANUPAMALISA LOUISE Leti Ot Z79.899 OTHER [facility] (CURRENT) DRUG THERAPY 06/13/2018 DANA ALTMANPRACHI Leti Ot Z87.891 PERSONAL HISTORY OF NICOTINE DEPENDENCE 06/14/2018 ARTURO LARES MD Ot Z01.818 ENCOUNTER FOR OTHER PREPROCEDURAL EXAMIN 06/14/2018 ARTURO LARES MD Ot Z01.818 ENCOUNTER FOR OTHER PREPROCEDURAL EXAMIN 06/15/2018 ARTURO LARES MD Ot Z01.818 ENCOUNTER FOR OTHER PREPROCEDURAL EXAMIN 06/15/2018 ARTURO LARES MD, Ot Z01.818 ENCOUNTER FOR OTHER PREPROCEDURAL EXAMIN 06/15/2018 ARTURO LARES MD Ot Z01.818 ENCOUNTER FOR OTHER PREPROCEDURAL EXAMIN 06/15/2018 ARTURO LARES MD, Ot Z01.818 ENCOUNTER FOR OTHER PREPROCEDURAL EXAMIN 06/15/2018 LISA ALTMAN Ot C50.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 06/15/2018 LISA ALTMAN Ot Z98.890 OTHER SPECIFIED POSTPROCEDURAL STATES Procedures There is no data. Results Test [...] resistant Staphylococcus aureus (MRSA) screening culture NEG NR Complete blood count (CBC) with automated white [...] ABO+Rh group ON NRG Transfusion band number [id number] NRG Blood group antibody screen NEGATIVE NRG Encounters ACCT No. Visit Date/Time Discharge Status Pt. Type Provider Facility Loc./Unit Complaint [id number] 08/09/2013 16:44:47 08/09/2013 23:59:59 CLS Outpatient Zay Angelina [id number] 08/02/2013 14:06:17 08/02/2013 23:59:59 CLS Outpatient Zay, Angelina [id number] 07/26/2013 14:22:04 07/26/2013 23:59:59 CLS Outpatient Zay, Angelina [id number] 07/19/2013 09:16:53 07/19/2013 23:59:59 CLS Outpatient Zay, Angelina [id number] 07/19/2013 09:03:44 07/19/2013 23:59:59 CLS Outpatient Zay, Angelina [id number] 07/12/2013 09:08:28 07/12/2013 23:59:59 CLS Outpatient Walker, Angelina [id number] 07/06/2013 09:04:31 07/06/2013 23:59:59 CLS Outpatient Nataly Varner [id number] 06/29/2013 11:16:49 06/29/2013 23:59:59 CLS Outpatient Zay Angelina [id number] 06/15/2018 05:54:00 06/15/2018 09:52:00 DIS Outpatient ARTURO LARES MD Via [facility] PREOP COLONOSCOPY/EGD [id number] 06/02/2018 13:28:00 06/02/2018 23:59:59 CLS Outpatient LISA ALTMAN [facility] RAD BREAST CA [id number] 05/26/2018 14:42:00 05/26/2018 23:59:59 CLS Outpatient LISA ALTMAN [facility] ONC [id number] 02/24/2018 13:35:00 04/18/2018 00:01:00 DIS Outpatient LISA ALTMAN [facility] ONC [id number] 03/03/2018 11:00:00 03/03/2018 23:59:59 CLS Outpatient LISA ALTMAN [facility] RAD SURGICAL MENOPAUSE [id number] 01/07/2018 11:29:00 01/08/2018 09:40:00 DIS Outpatient [facility] [id number] 01/05/2018 08:01:00 01/05/2018 08:40:00 DIS Outpatient TEMITOPE CARBAJAL MD [facility] PREOP CIN1 [id number] 11/17/2017 14:49:00 12/01/2017 00:01:00 DIS Outpatient LISA ALTMAN [facility] ONC [id number] 09/07/2017 11:50:00 09/07/2017 23:59:59 CLS Outpatient LISA ALTMAN [facility] CARD ENCOUNTER FOR IMAGING STUDY OF STAGE NEOPLASM [id number] 09/02/2017 15:30:00 09/02/2017 23:59:59 CLS Outpatient LISA ALTMAN [facility] CARD ENCOUNTER FOR IMAGING STUDY OF STAGE NEOPLASM [id number] 08/26/2017 12:53:00 08/26/2017 14:49:00 DIS Emergency EDSON GALAN, EZIO Hernandez [facility] ER CP [id number] 08/04/2017 06:36:00 08/04/2017 17:30:00 DIS Outpatient TEMITOPE CARBAJAL MD Via [facility] POST MENOPAUSAL BLEED,UTERINE MASS, LT BREAST CA [id number] 08/02/2017 11:34:00 08/02/2017 12:00:00 DIS Outpatient TEMITOPE CARBAJAL MD [facility] PREOP POST MENOPAUSAL BLEEDING,UTERINE MASS [id number] 07/30/2017 08:08:00 07/30/2017 23:59:59 CLS Outpatient YIFAN PARADA MD [facility] RAD LEFT BREAST ABNORMAL SONO [id number] 07/29/2017 08:05:00 07/29/2017 23:59:59 CLS Outpatient TEMITOPE CARBAJAL MD [facility] RAD ABNORMAL MAMMO FROM 07/20/17 [id number] 07/20/2017 11:08:00 07/20/2017 23:59:59 CLS Outpatient TEMITOPE CARBAJAL MD [facility] RAD ROUTINE SCREENING [id number] 04/15/2017 09:14:00 04/15/2017 17:01:00 DIS Emergency JALEN PIERCE DO [facility] ER ABD PAIN,DIZZY [id number] 02/09/2017 16:36:00 02/09/2017 23:59:59 CLS Outpatient RICH GALEANO DC [facility] RAD LBP LT HIP PAIN [id number] 06/10/2016 10:12:00 06/10/2016 12:50:00 DIS Emergency SHANNA ROSA [facility] ER BACK/LEFT HIP PAIN [id number] 05/25/2016 17:41:00 05/25/2016 23:59:59 CLS Outpatient TORY MARTIN APRN [facility] RAD FALL,HEADACHE,VISION CHANGE [id number] 10/23/2015 16:35:00 10/23/2015 23:59:59 CLS Outpatient MIKAYLA BOYD DO [facility] RAD LOW BACK PAIN [id number] 10/18/2015 10:13:00 10/18/2015 23:59:59 CLS Outpatient MISSY DURAND APRN [facility] QUICK [id number] 08/15/2014 11:01:00 08/15/2014 23:59:59 CLS Outpatient LUCIO WHITEHEAD [facility] RAD SCREENING [id number] 07/30/2014 06:49:00 07/30/2014 23:59:59 CLS Outpatient LUCIO WHITEHEAD DIVIDEND DEPOSIT VOUCHER CLERK [facility] RAD ABDOMINAL PAIN HTN [id number] 07/26/2014 10:25:00 07/26/2014 23:59:59 CLS Outpatient LUCIO WHITEHEAD DIVIDEND DEPOSIT VOUCHER CLERK [facility] RAD LEFT LOWER QUADRANT PAIN [id number] 07/25/2014 11:15:00 07/25/2014 23:59:59 CLS Outpatient EVANS JACKSON MD [facility] ABD PAIN [id number] 04/18/2014 03:00:00 04/19/2014 14:00:00 DIS Inpatient EVANS JACKSON MD [facility] 4TH GASTROENTERITIS; INTRACTABLE NAUSEA [id number] 04/17/2014 18:42:00 04/17/2014 21:26:00 DIS Emergency JALEN PIERCE DO [facility] ER DEHYDRATION [id number] 11/22/2013 13:56:00 11/22/2013 23:59:59 CLS Outpatient [id number] 08/18/2013 10:01:00 08/18/2013 23:59:59 CLS Outpatient CRISTY MAXWELL TRAVEL ACCOMMODATIONS RATER [facility] RAD RASH,SOB [id number] 05/31/2013 15:14:00 05/31/2013 23:59:59 CLS Outpatient EVANS JACKSON MD [facility] RAD SCREENING [id number] 01/14/2013 01:58:00 01/14/2013 15:21:00 DIS Inpatient ARTURO LARES MD [facility] SURGICAL INTRACTABLE NAUSEA, POST OP PAIN [id number] 01/12/2013 06:31:00 01/12/2013 13:15:00 DIS Outpatient ARTURO LARES MD [facility] DYSKNESIA [id number] 01/11/2013 13:22:00 01/11/2013 23:59:59 CLS Outpatient ARTURO LARES MD [facility] PREOP DYSKNESIA [id number] 01/11/2013 09:55:00 01/11/2013 23:59:59 CLS Outpatient ARTURO LARES MD [facility] RAD ABD PAIN [id number] 01/06/2013 12:28:00 01/06/2013 14:56:00 DIS Emergency TAMAR MISHRA Charissa COPPOLA [facility] ER ABD [id number] 08/02/2012 10:13:00 08/02/2012 23:59:59 CLS Outpatient EVANS JACKSON MD [facility] RAD SCREENING [id number] 06/17/2018 13:38:00 ACT Outpatient ARTURO LARES MD [facility] ENDO DYSPHAGIA/SCREENING [id number] 11/02/2017 14:15:00 Document Registration [id number] 04/18/2014 04:16:00 Document Registration [id number] 04/18/2014 04:16:00 Document Registration [id number] 08/31/2011 07:58:00 Document Registration [id number] 08/10/2011 07:18:00 Document Registration [id number] 08/05/2011 07:52:00 Document Registration [id number] 07/31/2011 07:57:00 Document Registration [id number] 08/15/2010 09:43:00 Document Registration [id number] 08/16/2009 07:43:00 Document Registration [id number] 08/02/2009 06:55:00 Document Registration [id number] 12/13/2008 07:52:00 Document Registration [id number] 02/11/2017 09:45:38 02/11/2017 23:59:59 CLS Outpatient
--- NOTE | 2018-06-17 14:13 | Conscious Sedation/ASA ---
Conscious Sedation Pre-Proced Time 13:30 ASA Score 2 For ASA 3 and 4: Consider anesthesia and medical clearance. Also, for patients with a history of failed moderate sedation consider anesthesia. Airway Lungs Heart ASA score ASA 1: a normal healthy patient ASA 2: a patient with a mild systemic disease (mid diabetes, controlled hypertension, obesity ASA 3: a patient with a severe systemic disease that limits activity (angina , COPD, prior Myocardial infarction) ASA 4: a patient with an incapacitating disease that is a constant threat to life (CHF, renal failure) ASA 5: a moribund patient not expected to survive 24 hrs. (ruptured aneurysm) ASA 6: a declared brain- patient whose organs are being harvested. For emergent operations, add the letter E after the classification Mallampati Classification Grade 2 Sedation Plan Analgesia, Amnesia, Plan communicated to team members, Discussed options with patient/fam, Discussed risks with patient/fam The patient is an appropriate candidate to undergo the planned procedure, sedation, and anesthesia. The patient immediately re-assessed prior to indication. ARTURO LARES MD Jun 17, 2018 14:13
--- NOTE | 2018-06-17 14:14 | Progress Note-Pre Operative ---
Pre-Operative Progress Note H&P Reviewed The H&P was reviewed, patient examined and no changes noted. Date Seen by Provider: Jun 17, 2018 Time Seen by Provider: 13:30 Date H&P Reviewed: Jun 17, 2018 Time H&P Reviewed: 13:30 Pre-Operative Diagnosis: GERD, screening colonscopy ARTURO LARES MD Jun 17, 2018 14:14
--- NOTE | 2018-06-17 14:15 | Discharge Inst-Surgical ---
D/C Lap Instructions-ARNAUD Follow Up Activity as tolerated High Fiber Diet 25g or more per day Avoid Alcohol, Caffeine, Spicy [place] and Acid foods. Drink 64 fluid oz or more of fluids per day. Symptoms to Report: Fever over 101 degree F, Nausea/Vomiting If any problems/questions: Contact your physician or go to Emergency Room ARTURO LARES MD Jun 17, 2018 14:15
[2018-06-17 14:28] VITALS: BP 125/81
--- NOTE | 2018-06-17 15:19 | Progress Note-Post Operative ---
Post-Operative Progess Note Surgeon (s)/Scheduling Coordinator (s) Surgeon ARTURO LARES MD Scheduling Coordinator: none Pre-Operative Diagnosis GERD, screening colonscopy Post-Operative Diagnosis reflux esophagitis(stage 2), mild distal esophageal stricture. mod-severe gastritis. chronic stage 2 ext and int hemorrhoids. Procedure & Operative Findings Date of Procedure 06/17/18 Procedure Performed/Findings EGD with bx and balloon dilation. Colonoscopy. Anesthesia Type cs Estimated Blood Loss Estimated blood loss (mL): minimal Specimens/Packing Specimens Removed ge jxn, antrum ARTURO LARES MD Jun 17, 2018 15:19
[2018-06-17 15:30] VITALS: BP 116/65
[2018-06-17 16:00] VITALS: BP 114/65
[2018-06-17 16:15] VITALS: BP 114/65
--- NOTE | 2018-06-18 02:03 | OPERATIVE REPORT ---
DATE OF SERVICE: 06/17/2018 ATTENDING PHYSICIAN: Dr. Triana. PREOPERATIVE DIAGNOSES: Dysphagia, weight loss, screening colonoscopy, personal history of breast cancer. POSTOPERATIVE DIAGNOSES: Reflux esophagitis stage II. Mild distal esophageal stricture, intact previous hiatal hernia repair. Moderate severity gastritis. Pylorus and duodenum appeared normal. Mild chronic stage II external and internal hemorrhoids. Remainder of the colon and rectum were normal. PROCEDURE: EGD with biopsy and balloon dilatation. Colonoscopy. SURGEON: Arturo Lares MD ANESTHESIA: Conscious sedation. ESTIMATED BLOOD LOSS: Minimal. FINDINGS: As above in the postoperative diagnoses. DISPOSITION: The patient tolerated the procedure well. INDICATIONS: The patient is a 57-year-old female known to us. She had crampy abdominal pain and abdominal bloating as well as gastroesophageal reflux disease. She had had a history of hiatal hernia and reflux esophagitis and underwent a Hill gastropexy in 2007. She then had worsening bloating as well as crampy pain and underwent a HIDA scan in 2011 and she did have reproduction of symptoms consistent with a biliary dyskinesia. She underwent a laparoscopic cholecystectomy in 12/2012. Since that time, she was diagnosed with left-sided breast cancer and underwent a lumpectomy, sentinel node biopsy, which was negative followed by radiation. She also underwent a complete hysterectomy in 12/2017. The breast surgery was 07/2017. She reports that she has lost weight inadvertently. Upon further questioning, she does report that she just feels nauseous quite a bit of the time. She also does have some issues with dysphagia at times as well. She has not had a colonoscopy up to this point in her life for much she can recall. DESCRIPTION OF PROCEDURE: The patient was brought to the endoscopy suite, laid in the left lateral decubitus position. After adequate IV pain and sedative medications and conscious sedation anesthesia, the mouthpiece was applied. The endoscope was then placed in the mouth visualizing the pharynx and hypopharyngeal region. Vocal cords, epiglottis and vallecula identified and appeared to be normal. The endoscope was then gently intubated at the esophageal opening and esophagus insufflated. The endoscope was then advanced to the first, second and third portion of the esophagus at the level of the GE junction, a reflux esophagitis stage II identified. There was also mild distal esophageal stricture, most likely secondary to the postsurgical changes as well as possible recent radiation. A biopsy was taken of the GE junction with forceps with visualization of good hemostasis. The endoscope was then advanced into the stomach and endoscope retroflexed, visualizing intact previous hiatal hernia repair as well as no recurrent hiatal hernia. There was a considerable gastritis noted more towards the stomach antrum; however, no formal ulcerations. A biopsy was taken of the antrum with forceps to rule out H. pylori with visualization of good hemostasis. We then proceeded with dilatation of esophageal stricture. A balloon was placed in the stomach and then pulled back to the area of stricture and then insufflated to 2 atmospheres of pressure with no resistance. We then proceeded to 4 atmospheres of pressure with mild resistance and then eventually 6 atmospheres with a mild to moderate resistance and at 20 mm in luminal diameter. The balloon was left insufflated for approximately 60 seconds, then desufflated. No mucosal tears were identified as well as no bleeding. The endoscope was then slowly withdrawn while taking a second look and suctioning of residual air with no additional findings. The patient tolerated this portion of the procedure well. Most likely etiology of her dysphagia as well as a loss of appetite is secondary to a mild distal esophageal stricture as well as gastritis. She has been under a significant amount of stress and underwent a recent surgery as well as radiation therapy. We will start her on Protonix 40 mg daily and the only other risk factor discerned was taking in approximately three cups of coffee, which we will have her moderate. Under the same anesthesia, we then proceed with colonoscopy portion of the procedure. A digital rectal examination was performed, which showed mild chronic stage II external and internal hemorrhoids, not actively edematous nor inflamed nor any bleeding. Normal sphincter tone was felt and there were no palpable masses. The endoscope was then intubated to the anus and rectum gently insufflated. The endoscope was then advanced to the valves of Andujar in the rectum with no polyps or any neoplasms identified. Through the sigmoid colon, no significant diverticulosis identified. The endoscope was then advanced to the remainder of the descending, transverse and ascending colon to the cecum. These segments were normal. There were no polyps or any neoplasms identified throughout the colon or rectum. The endoscope was then slowly withdrawn while taking a second look and suctioning residual air with no additional findings. The patient tolerated the procedure well. We will recommend continued medical management with a high fiber diet with at least 25 grams of fiber per day as well as significant amounts of water on a daily basis to promote soft stools on a daily basis and prevent constipation. Due to her personal history of breast cancer, we will recommend a followup colonoscopy in approximately 5 years. Job ID: [id number] DocumentID: [id number] Dictated Date: 06/17/2018 15:20:02 Deblocker Date: 06/18/2018 02:02:03 Dictated By: ARTURO LARES MD
== END | disposition home or self-care (01) ==
LOC: ENDO 13:38 → EEVIPCON 06-20 15:00
PROVIDERS: ATTEND Surgery
DX: Z12.11 Encounter for screening for malignant neoplasm of colon (principal); K21.0 Gastro-esophageal reflux disease with esophagitis; K22.2 Esophageal obstruction; K29.50 Unspecified chronic gastritis without bleeding; K64.1 Second degree hemorrhoids; I10 Essential (primary) hypertension; F41.9 Anxiety disorder, unspecified; F32.9 Major depressive disorder, single episode, unspecified; Z85.3 Personal history of malignant neoplasm of breast; Z92.3 Personal history of irradiation; Z90.710 Acquired absence of both cervix and uterus; Z87.891 Personal history of nicotine dependence; Z79.899 Other long term (current) drug therapy

== ENCOUNTER 2018-10-10 14:23 | Outpatient (RCR) | payer BC ==
[~2018-10-10 14:23] MED LIST changes: -ACETAMINOPHEN 325 MG TABLET PO PRN; -HURRICAINE EXT TUBE (BENZOCAINE) ONE; -HURRICAINE EXT TUBE (BENZOCAINE) XX PRN; -HYDROcodone/APAP 5 MG/325 MG (LORTAB) TAB PO PRN; -LIDOCAINE JELLY 2% 6 ML SYRINGE MM PRN; -LIDOCAINE JELLY 2% 6 ML SYRINGE ONE; -MIDAZOLAM 2 MG/2 ML (VERSED) VIAL IVP ONE; -MIDAZOLAM 2 MG/2 ML (VERSED) VIAL ONE; -NS IV 500 ML 500 ML IV PRN; -NS IV 500 ML 500 ML ONE; -OMEP20CA12 PO; +OMEP20CA13 PO; -ONDANSETRON 4 MG/2 ML (SDV) Z0FRAN IV PRN; -ONDANSETRON 4 MG/2 ML (SDV) Z0FRAN ONE; -fentaNYL INJECTION 100 MCG/2 ML AMP IVP ONE; -fentaNYL INJECTION 100 MCG/2 ML AMP ONE; -morphine INJ 10 MG/ML 1ML (SYR OR VIAL) IV PRN
[2018-10-10 15:09] LABS: BASOPHILS % (AUTO) 1 % (0-10); EOSINOPHILS # (AUTO) 0.1 10^3/uL (0.0-0.3); EOSINOPHILS % (AUTO) 2 % (0-10); HEMATOCRIT 41 % (35-52); LYMPHOCYTES # (AUTO) 1.4 X 10^3 (1.0-4.0); LYMPHOCYTES % (AUTO) 25 % (12-44); MEAN CORPUSCULAR HEMOGLOBIN 31 PG (25-34); MEAN CORPUSCULAR HGB CONC 34 G/DL (32-36); MEAN CORPUSCULAR VOLUME 90 FL (80-99); MEAN PLATELET VOLUME 9.7 FL (7.4-10.4); MONOCYTES # (AUTO) 0.5 X 10^3 (0.0-1.0); MONOCYTES % (AUTO) 8 % (0-12); NEUTROPHILS # (AUTO) 3.5 X 10^3 (1.8-7.8); NEUTROPHILS % (AUTO) 64 % (42-75); PLATELET COUNT 350 10^3/uL (130-400); RED CELL DISTRIBUTION WIDTH 12.4 % (10.0-14.5); WHITE BLOOD COUNT 5.5 10^3/uL (4.3-11.0)
[2018-10-10 15:30] LABS: ALANINE AMINOTRANSFERASE 20 U/L (0-55); ALBUMIN 4.5 GM/DL (3.2-4.5); ALKALINE PHOSPHATASE 96 U/L (40-136); BILIRUBIN,TOTAL 0.4 MG/DL (0.1-1.0); BUN/CREATININE RATIO 12; CALCIUM 9.7 MG/DL (8.5-10.1); CARBON DIOXIDE 28 MMOL/L (21-32); CHLORIDE 105 MMOL/L (98-107); CREATININE SERUM 0.73 MG/DL (0.60-1.30); GFR ESTIMATED > 60; GLUCOSE 63 MG/DL (70-105); POTASSIUM 3.9 MMOL/L (3.6-5.0); SODIUM 142 MMOL/L (135-145); TOTAL PROTEIN 7.1 GM/DL (6.4-8.2)
== END 2019-01-08 | disposition home or self-care (01) ==
LOC: ONC 14:23
PROVIDERS: ATTEND Internal Medicine Hematology & Oncology
DX: C50.412 Malignant neoplasm of upper-outer quadrant of left female breast (principal); I10 Essential (primary) hypertension; K21.9 Gastro-esophageal reflux disease without esophagitis; Z17.0 Estrogen receptor positive status [ER+]; Z87.891 Personal history of nicotine dependence; Z79.899 Other long term (current) drug therapy
CPT/HCPCS: 36415; 80053; 85025; 99213

== ENCOUNTER → 2018-12-07 | Outpatient (CLI) | payer BC ==
--- NOTE | 2018-12-07 10:17 | Diagnostic Imaging Report ---
INDICATION: Breast carcinoma, status post lumpectomy in July 2017. COMPARISON: 06/02/2018 and 07/20/2017. TECHNIQUE: A unilateral left 2D and 3D diagnostic mammography was performed with CAD. FINDINGS: The left breast remains heterogeneously dense. Post-therapeutic changes in the upper-outer left breast are again noted. The overall appearance is stable. No new mass or malignant-appearing microcalcifications are seen. The left axilla is unremarkable. IMPRESSION: Post therapeutic changes, stable. Continued followup in 6 months is recommended to confirm stability. ACR BI-RADS Category 3: Probably benign findings. Result letter will be mailed to the patient. Note: At least 10% of breast cancer is not imaged by mammography. Dictated by: Dictated on workstation # [id number]
== END ==
LOC: RAD 08:02
PROVIDERS: ATTEND Nurse Practitioner Adult Health
DX: C50.412 Malignant neoplasm of upper-outer quadrant of left female breast (principal); R92.8 Other abnormal and inconclusive findings on diagnostic imaging of breast; Z98.890 Other specified postprocedural states

== ENCOUNTER 2019-01-10 13:53 | Outpatient (RCR) | payer BC ==
[~2019-01-10 13:53] MED LIST changes: -FLUO20CA25; +FLUO20CA45; +OMEP-280 PO; -OMEP20CA13 PO; -TRAM50TA2 PO; +TRM50T PO
[2019-01-10 14:20] LABS: BASOPHILS # (AUTO) 0.1 10^3/uL (0.0-0.1); BASOPHILS % (AUTO) 1 % (0-10); EOSINOPHILS # (AUTO) 0.3 10^3/uL (0.0-0.3); EOSINOPHILS % (AUTO) 3 % (0-10); HEMATOCRIT 42 % (35-52); HEMOGLOBIN 14.1 G/DL (11.5-16.0); LYMPHOCYTES # (AUTO) 2.8 X 10^3 (1.0-4.0); LYMPHOCYTES % (AUTO) 29 % (12-44); MEAN CORPUSCULAR HEMOGLOBIN 30 PG (25-34); MEAN CORPUSCULAR HGB CONC 34 G/DL (32-36); MEAN CORPUSCULAR VOLUME 90 FL (80-99); MEAN PLATELET VOLUME 9.9 FL (7.4-10.4); MONOCYTES # (AUTO) 0.8 X 10^3 (0.0-1.0); MONOCYTES % (AUTO) 8 % (0-12); NEUTROPHILS # (AUTO) 5.8 X 10^3 (1.8-7.8); NEUTROPHILS % (AUTO) 59 % (42-75); PLATELET COUNT 382 10^3/uL (130-400); RED CELL DISTRIBUTION WIDTH 12.4 % (10.0-14.5); WHITE BLOOD COUNT 9.8 10^3/uL (4.3-11.0)
[2019-01-10 14:36] LABS: ALANINE AMINOTRANSFERASE 27 U/L (0-55); ALBUMIN 4.3 GM/DL (3.2-4.5); ALKALINE PHOSPHATASE 98 U/L (40-136); BILIRUBIN,TOTAL 0.4 MG/DL (0.1-1.0); BUN/CREATININE RATIO 16; CARBON DIOXIDE 27 MMOL/L (21-32); CHLORIDE 103 MMOL/L (98-107); CREATININE SERUM 0.69 MG/DL (0.60-1.30); GFR ESTIMATED > 60; GLUCOSE 76 MG/DL (70-105); POTASSIUM 3.7 MMOL/L (3.6-5.0); SODIUM 139 MMOL/L (135-145); TOTAL PROTEIN 6.5 GM/DL (6.4-8.2)
== END 2019-04-10 | disposition home or self-care (01) ==
LOC: ONC 13:53
PROVIDERS: ATTEND Internal Medicine Hematology & Oncology
DX: C50.412 Malignant neoplasm of upper-outer quadrant of left female breast (principal); I10 Essential (primary) hypertension; K21.9 Gastro-esophageal reflux disease without esophagitis; Z17.0 Estrogen receptor positive status [ER+]; Z87.891 Personal history of nicotine dependence; Z79.899 Other long term (current) drug therapy
CPT/HCPCS: 36415; 80053; 85025; 99213

== ENCOUNTER → 2019-04-17 | Outpatient (CLI) | payer BC ==
[2019-04-17 15:50] LABS: BASOPHILS # (AUTO) 0.1 10^3/uL (0.0-0.1); BASOPHILS % (AUTO) 1 % (0-10); EOSINOPHILS # (AUTO) 0.3 10^3/uL (0.0-0.3); EOSINOPHILS % (AUTO) 3 % (0-10); HEMATOCRIT 43 % (35-52); HEMOGLOBIN 14.7 G/DL (11.5-16.0); LYMPHOCYTES # (AUTO) 1.9 X 10^3 (1.0-4.0); LYMPHOCYTES % (AUTO) 21 % (12-44); MEAN CORPUSCULAR HEMOGLOBIN 31 PG (25-34); MEAN CORPUSCULAR HGB CONC 34 G/DL (32-36); MEAN CORPUSCULAR VOLUME 89 FL (80-99); MEAN PLATELET VOLUME 9.9 FL (7.4-10.4); MONOCYTES # (AUTO) 0.9 X 10^3 (0.0-1.0); MONOCYTES % (AUTO) 10 % (0-12); NEUTROPHILS # (AUTO) 5.8 X 10^3 (1.8-7.8); NEUTROPHILS % (AUTO) 65 % (42-75); PLATELET COUNT 310 10^3/uL (130-400); RED CELL DISTRIBUTION WIDTH 12.3 % (10.0-14.5); WHITE BLOOD COUNT 8.9 10^3/uL (4.3-11.0)
[2019-04-17 16:13] LABS: ALANINE AMINOTRANSFERASE 20 U/L (0-55); ALBUMIN 4.8 GM/DL (3.2-4.5); ALKALINE PHOSPHATASE 92 U/L (40-136); BILIRUBIN,TOTAL 0.4 MG/DL (0.1-1.0); BUN/CREATININE RATIO 17; CALCIUM 9.6 MG/DL (8.5-10.1); CARBON DIOXIDE 25 MMOL/L (21-32); CHLORIDE 105 MMOL/L (98-107); CREATININE SERUM 0.78 MG/DL (0.60-1.30); GFR ESTIMATED > 60; GLUCOSE 93 MG/DL (70-105); POTASSIUM 3.6 MMOL/L (3.6-5.0); SODIUM 141 MMOL/L (135-145); TOTAL PROTEIN 7.4 GM/DL (6.4-8.2)
== END ==
LOC: EDSTATUS 04-11 15:33 → ONC 15:34
PROVIDERS: ATTEND Internal Medicine Hematology & Oncology
DX: C50.412 Malignant neoplasm of upper-outer quadrant of left female breast (principal); I10 Essential (primary) hypertension; K21.9 Gastro-esophageal reflux disease without esophagitis; Z17.0 Estrogen receptor positive status [ER+]; Z87.891 Personal history of nicotine dependence; Z79.899 Other long term (current) drug therapy
CPT/HCPCS: 80053; 85025; 99213

== ENCOUNTER → 2019-05-29 | Outpatient (CLI) | payer BC ==
[~2019-05-29] MED LIST changes: -FLUO20CA45; +FLUO20CA46; -LETR2.5T5 PO; +LETR2.5T6 PO; -OMEP-280 PO; +OMEP20CA18 PO
--- NOTE | 2019-05-29 18:04 | Diagnostic Imaging Report ---
EXAMINATION: Bilateral diagnostic mammogram The current study was also evaluated with a Computer Aided Detection (CAD) system. 3-D tomosynthesis was also performed and reviewed. This study was compared to the prior exams of 12/07/2018, 06/02/2018, 07/20/2017, and 08/15/2014. By history, the patient has had a lumpectomy for carcinoma in 2018. At this time, there are no current complaints. FINDINGS: The postoperative changes involving the upper-outer aspect of the left breast seen previously are again evident and not significantly changed. There is no evidence for recurrent malignancy in the lumpectomy site. The fibroglandular tissue in both breasts is heterogeneously dense. This does limit the sensitivity of this exam. Overall, there does not appear to have been any significant change. There is no primary or secondary sign of malignancy noted. IMPRESSION: 1. There is no evidence for malignancy. 2. The patient should have her annual bilateral diagnostic mammogram in May 2020 for continued evaluation. ACR BI-RADS Category 1: Negative. Result letter will be mailed to the patient. Note: At least 10% of breast cancer is not imaged by mammography. Dictated by: Dictated on workstation # [id number]
== END ==
LOC: RAD 14:01
PROVIDERS: ATTEND Nurse Practitioner Adult Health
DX: C50.412 Malignant neoplasm of upper-outer quadrant of left female breast (principal); Z98.890 Other specified postprocedural states
CPT/HCPCS: 77066

== ENCOUNTER → 2019-07-17 | Outpatient (CLI) | payer BC ==
[2019-07-17 13:51] LABS: BASOPHILS # (AUTO) 0.1 10^3/uL (0.0-0.1); BASOPHILS % (AUTO) 1 % (0-10); EOSINOPHILS # (AUTO) 0.3 10^3/uL (0.0-0.3); EOSINOPHILS % (AUTO) 4 % (0-10); HEMATOCRIT 42 % (35-52); HEMOGLOBIN 13.8 G/DL (11.5-16.0); LYMPHOCYTES # (AUTO) 1.9 X 10^3 (1.0-4.0); LYMPHOCYTES % (AUTO) 31 % (12-44); MEAN CORPUSCULAR HEMOGLOBIN 30 PG (25-34); MEAN CORPUSCULAR HGB CONC 33 G/DL (32-36); MEAN CORPUSCULAR VOLUME 90 FL (80-99); MONOCYTES # (AUTO) 0.4 X 10^3 (0.0-1.0); MONOCYTES % (AUTO) 6 % (0-12); NEUTROPHILS # (AUTO) 3.5 X 10^3 (1.8-7.8); NEUTROPHILS % (AUTO) 58 % (42-75); PLATELET COUNT 278 10^3/uL (130-400); RED CELL DISTRIBUTION WIDTH 12.6 % (10.0-14.5); WHITE BLOOD COUNT 6.1 10^3/uL (4.3-11.0)
[2019-07-17 14:12] LABS: ALANINE AMINOTRANSFERASE 25 U/L (0-55); ALBUMIN 4.4 GM/DL (3.2-4.5); ALKALINE PHOSPHATASE 90 U/L (40-136); BILIRUBIN,TOTAL 0.7 MG/DL (0.1-1.0); BUN/CREATININE RATIO 13; CALCIUM 9.4 MG/DL (8.5-10.1); CARBON DIOXIDE 22 MMOL/L (21-32); CHLORIDE 107 MMOL/L (98-107); GFR ESTIMATED > 60; GLUCOSE 74 MG/DL (70-105); POTASSIUM 3.8 MMOL/L (3.6-5.0); SODIUM 140 MMOL/L (135-145); TOTAL PROTEIN 7.2 GM/DL (6.4-8.2)
== END ==
LOC: ONC 13:24
PROVIDERS: ATTEND Internal Medicine Hematology & Oncology
DX: C50.412 Malignant neoplasm of upper-outer quadrant of left female breast (principal); I10 Essential (primary) hypertension; K21.9 Gastro-esophageal reflux disease without esophagitis; Z17.0 Estrogen receptor positive status [ER+]; Z87.891 Personal history of nicotine dependence; Z79.899 Other long term (current) drug therapy
CPT/HCPCS: 80053; 85025; 99213

== ENCOUNTER → 2019-07-27 | Outpatient (REF) ==
--- NOTE | 2019-07-27 14:53 | Diagnostic Imaging Report ---
HISTORY: Fall this morning with neck pain. TECHNIQUE: Three views of the cervical spine. COMPARISON: None. FINDINGS: There is minimal retrolisthesis of C5 on C6 measuring 2 mm. Mild degenerative changes are seen at C5-C6. Vertebral body heights are preserved. The remainder of the disc heights appear preserved. There is mild multilevel facet arthropathy. The C1-C2 alignment appears normal. Prevertebral soft tissues are unremarkable. IMPRESSION: 1. Mild degenerative changes and retrolisthesis at C5-C6 with no acute osseous abnormality seen. Dictated by: Dictated on workstation # [id number]
--- NOTE | 2019-07-27 15:35 | Diagnostic Imaging Report ---
HISTORY: Fall, head injury. TECHNIQUE: Four views of the skull. FINDINGS: No acute fracture is seen in the skull. CT is more sensitive for evaluation. No focal osseous lesions are identified. No fluid level is seen in the maxillary sinuses. IMPRESSION: No skull fracture seen. Dictated by: Dictated on workstation # [id number]
== END | disposition home or self-care (01) ==
LOC: OCC 12:03
PROVIDERS: ATTEND Family Medicine
DX: Z01.818 Encounter for other preprocedural examination (principal)
CPT/HCPCS: 70250; 72040

== ENCOUNTER → 2019-08-02 | Outpatient (CLI) | payer BC ==
[2019-08-02 07:59] LABS: HEMOGLOBIN 13.2 G/DL (11.5-16.0); MEAN PLATELET VOLUME 9.5 FL (7.4-10.4); RED CELL DISTRIBUTION WIDTH 12.4 % (10.0-14.5); WHITE BLOOD COUNT 4.9 10^3/uL (4.3-11.0)
== END ==
LOC: LAB 07:46
PROVIDERS: ATTEND Obstetrics & Gynecology
DX: Z13.220 Encounter for screening for lipoid disorders (principal); Z13.29 Encounter for screening for other suspected endocrine disorder; R53.83 Other fatigue
CPT/HCPCS: 36415; 80061; 84443; 85027

== ENCOUNTER 2019-08-11 19:35 | Emergency (ER) | payer BC, OTHER ==
[~2019-08-11] VITALS: Ht 152 cm; Wt 61.0 kg
--- NOTE | 2019-08-11 20:29 | ED Integumentary General ---
General Chief Complaint: Skin/Wound Problems Stated Complaint: RASH/BLISTER ON CHEST AND BACK Source: patient Exam Limitations: no limitations History of Present Illness Date Seen by Provider: August 11, 2019 Time Seen by Provider: 20:24 Initial Comments ER with a rash to the chest present for about a week, painful. Timing/Duration: just prior to arrival Severity: moderate Possible Cause: no cause identified Associated Symptoms: denies symptoms Allergies and Home Medications Allergies Coded Allergies: azithromycin (Unverified Allergy, Intermediate, 04/17/14) erythromycin base (Verified Allergy, Unknown, 11/24/07) Home Medications Alprazolam 1 Mg Tablet, 1 MG PO HS, (Reported) Amlodipine/Valsartan 1 Each Tablet, 1 EACH PO DAILY, (Reported) Gabapentin 300 Mg Capsule, 300 MG PO DAILY, (Reported) Letrozole 2.5 Mg Tablet, 2.5 MG PO DAILY, (Reported) Oxycodone HCl/Acetaminophen 1 Each Tablet, 1 TAB PO Q4H Prescribed by: TAMAR MISHRA on 08/11/192030 Prednisone 10 Mg Tab.ds.pk, 10 MG PO DAILY Take 6 tabs(60mg)daily,decrease by 1 tab(10MG)daily. Prescribed by: TAMAR MISHRA on 08/11/192029 Valacyclovir HCl 1,000 Mg Tablet, 1,000 MG PO TID Prescribed by: TAMAR MISHRA on 08/11/192029 Venlafaxine HCl 75 Mg Tab, 75 MG PO DAILY, (Reported) Patient Home Medication List Home Medication List Reviewed: Yes Review of Systems Review of Systems Constitutional: see HPI EENTM: see HPI Respiratory: no symptoms reported Cardiovascular: no symptoms reported Genitourinary: no symptoms reported Musculoskeletal: no symptoms reported Skin: see HPI Psychiatric/Neurological: No Symptoms Reported Endocrine: No Symptoms Reported Past Jpppodk-Ndcrzj-Krtsgh Hx Patient Social History Alcohol Beverage of Choice: Beer Type Used: Cigarettes Former Smoker, Quit: Jul 04, 1999 2nd Hand Smoke Exposure: No Recent Foreign Travel: No Contact w/Someone Who Travel: No Recent Hopitalizations: No Immunizations Up To Date Tetanus Booster (TDap): More than 5yrs Date of Influenza Vaccine: Dec 30, 2017 Seasonal Allergies Seasonal Allergies: No Past Medical History Surgeries: Yes (HIATAL HERNIA REPAIR, D&C,) Abdominal, Breast, Gallbladder, Lumpectomy Respiratory: No (cough at times r/t radiation treatments in past) Cardiac: Yes Hypertension Neurological: No 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 Genitourinary: No Gastrointestinal: Yes Gastroesophageal Reflux, Irritable Bowel Musculoskeletal: Yes (DX W/ BURSITIS L HIP ) Arthritis Endocrine: No HEENT: No Loss of Vision: Denies Hearing Impairment: Denies Cancer: Yes (LT BREAST) Breast What Type of Treatment Did You: Radiation, Surgical Intervention Psychosocial: Yes Anxiety Integumentary: No Blood Disorders: No Adverse Reaction/Blood Tranf: No (NEVER HAD BLOOD TRANSFUSION) Family Medical History Arthritis 19 MOTHER Cardiovascular disease 19 MOTHER Completed stroke 19 MOTHER Diabetes mellitus 19 MOTHER Hypertension 19 MOTHER No Family History of: AIDS Abdominal aortic aneurysm [place]'s disease Alcoholism Alzheimer's disease Aphasia Asthma Cancer of mouth Cataracts Colon cancer Congenital disease Congenital heart disease Coronary thrombosis Cystic fibrosis Deafness or hearing loss Dementia Drug abuse Dysphasia Fibrocystic disease of breast Gastroenteritis Glaucoma Headache disorder Hypercholesterolemia Infertility Kidney disease Myocardial infarction Neoplasm Not obtainable due to adoption Osteoporosis Parkinson's disease Prostate cancer Psychosocial problem Respiratory disorder Seizure disorder Severe allergy Thyroid disease Tuberculosis Visual disorder No Pertinent Family Hx Physical Exam Vital Signs Capillary Refill : General Appearance: WD/WN, no apparent distress Neck: non-tender, full range of motion Respiratory: no respiratory distress, no accessory muscle use Neurologic/Psychiatric: alert, normal mood/affect, oriented x 3 Skin: normal color, warm/dry Skin Problem Character: other (erythematous papulovesicular rash the trunk just at the inferior aspect of the left breast that extends medially anteriorly in the midline and posteriorly also to the midline. Does not cross to the right side on either the front or back. Tender to touch, her shirt brushing against it is painful.) Progress/Results/Core Measures Results/Orders My Orders Orders - TAMAR MSIHRA APRN Rx-Oxycodone/Apap 5-325 Mg (Rx-Percocet (08/11/19 20:30) Valacyclovir Tablet (Valtrex Tablet) (08/11/19 20:30) Prednisone Tablet (Deltasone Tablet) (08/11/19 20:30) Departure Impression Primary Impression: Herpes zoster Qualified Codes: B02.9 - Zoster without complications Disposition: 01 HOME, SELF-CARE Condition: Stable Departure-Patient Inst. Decision time for Depature: 20:26 Referrals: COLTHARP,ALICE A DO (PCP) Primary Care Physician Patient Instructions: Shingles Add. Discharge Instructions: 1. Steroids as directed. Side effect of these can be increased appetite, insomnia, feeling like he had a couple cups of coffee to drink. If these side effects are too bothersome then you can take Benadryl for its sedating effect. Take pain medication as needed for pain control and antivirals (valacyclovir) as directed. Follow-up with your doctor in a week or 2. Expect the rash to stick around for another 2 or 3 weeks. All discharge instructions reviewed with patient and/or family. Voiced understanding. Scripts Oxycodone HCl/Acetaminophen (Percocet 5-325 mg Tablet) 1 Each Tablet 1 TAB PO Q4H for PAIN-MODERATE MDD 6 TABS for 7 Days, #20 TAB Prov: TAMAR MISHRA APRN 08/11/19 Prednisone (Prednisone) 10 Mg Tab.ds.pk 10 MG PO DAILY, #21 EA Take 6 tabs(60mg)daily,decrease by 1 tab(10MG)daily. Prov: TAMAR MISHRA APRN 08/11/19 Valacyclovir HCl (Valacyclovir) 1,000 Mg Tablet 1000 MG PO TID, #21 TAB Prov: TAMAR MISHRA APRN 08/11/19 TAMAR MISHRA APRN August 11, 2019 20:29
[2019-08-11] MEDS ORDERED: OXYC1TAB87 PO (20:30)
[2019-08-11] MEDS ORDERED: VALA10007 PO (20:30)
[2019-08-11] MEDS ORDERED: predniSONE 20 MG TAB PO ONE (20:30)
[2019-08-11] MEDS ORDERED: PRED10TA22 PO (20:30)
[2019-08-11] MEDS ORDERED: VALACYCLOVIR 500 MG TAB (VALTREX) PO SCH (20:30)
[2019-08-11] MEDS ORDERED: RX-OXYCODONE/APAP 5-325 MG #4 TAB PK PO PRN (20:30)
[2019-08-11 20:49] VITALS: BP 136/90
== END 2019-08-11 20:49 | disposition home or self-care (01) ==
LOC: EDUNIT# 19:35 → ER 19:37
DX: B02.9 Zoster without complications (principal); I10 Essential (primary) hypertension; F41.9 Anxiety disorder, unspecified; Z85.3 Personal history of malignant neoplasm of breast; Z88.1 Allergy status to other antibiotic agents; Z87.891 Personal history of nicotine dependence; Z82.49 Family history of ischemic heart disease and other diseases of the circulatory system
CPT/HCPCS: 99283

== ENCOUNTER 2019-09-25 16:06 | Outpatient (RCR) | payer OTHER ==
[~2019-09-25 16:06] MED LIST changes: +PRED10TA22 PO; +VALA10007 PO
== END 2019-10-13 15:08 | disposition home or self-care (01) ==
PROVIDERS: ATTEND Family Medicine
DX: M54.6 Pain in thoracic spine (principal); Z91.81 History of falling

== ENCOUNTER → 2019-11-14 | Outpatient (CLI) | payer BC ==
[2019-11-14 12:57] LABS: BASOPHILS # (AUTO) 0.1 10^3/uL (0.0-0.1); BASOPHILS % (AUTO) 1 % (0-10); EOSINOPHILS # (AUTO) 0.4 10^3/uL (0.0-0.3); EOSINOPHILS % (AUTO) 6 % (0-10); HEMATOCRIT 39 % (35-52); HEMOGLOBIN 13.2 G/DL (11.5-16.0); LYMPHOCYTES # (AUTO) 1.7 X 10^3 (1.0-4.0); LYMPHOCYTES % (AUTO) 29 % (12-44); MEAN CORPUSCULAR HEMOGLOBIN 30 PG (25-34); MEAN CORPUSCULAR HGB CONC 34 G/DL (32-36); MEAN CORPUSCULAR VOLUME 89 FL (80-99); MEAN PLATELET VOLUME 9.9 FL (7.4-10.4); MONOCYTES # (AUTO) 0.3 X 10^3 (0.0-1.0); MONOCYTES % (AUTO) 5 % (0-12); NEUTROPHILS # (AUTO) 3.5 X 10^3 (1.8-7.8); NEUTROPHILS % (AUTO) 59 % (42-75); PLATELET COUNT 329 10^3/uL (130-400); RED CELL DISTRIBUTION WIDTH 12.7 % (10.0-14.5); WHITE BLOOD COUNT 5.9 10^3/uL (4.3-11.0)
[2019-11-14 13:11] LABS: ALANINE AMINOTRANSFERASE 18 U/L (0-55); ALBUMIN 4.5 GM/DL (3.2-4.5); ALKALINE PHOSPHATASE 72 U/L (40-136); BILIRUBIN,TOTAL 0.3 MG/DL (0.1-1.0); BUN/CREATININE RATIO 16; CALCIUM 9.5 MG/DL (8.5-10.1); CARBON DIOXIDE 29 MMOL/L (21-32); CHLORIDE 105 MMOL/L (98-107); CREATININE SERUM 0.83 MG/DL (0.60-1.30); GFR ESTIMATED > 60; GLUCOSE 91 MG/DL (70-105); SODIUM 140 MMOL/L (135-145); TOTAL PROTEIN 6.9 GM/DL (6.4-8.2)
[2019-11-14 13:17] LABS: ERYTHROCYTE SEDIMENTATION RATE 5 MM/HR (0-30)
== END ==
LOC: LAB 12:15
PROVIDERS: ATTEND Nurse Practitioner Family
DX: M85.80 Other specified disorders of bone density and structure, unspecified site (principal); R53.1 Weakness; D51.9 Vitamin B12 deficiency anemia, unspecified
CPT/HCPCS: 36415; 80053; 82306; 82607; 84439; 84443; 85025; 85652; 86141; 86663; 86664; 86665; 86666; 86668; 86757

== ENCOUNTER → 2019-12-07 | Outpatient (CLI) | payer BC ==
[~2019-12-07] MED LIST changes: -OXYC-465 PO; +OXYC-556 PO
[2019-12-07 13:47] LABS: BASOPHILS # (AUTO) 0.1 10^3/uL (0.0-0.1); BASOPHILS % (AUTO) 1 % (0-10); EOSINOPHILS # (AUTO) 0.4 10^3/uL (0.0-0.3); EOSINOPHILS % (AUTO) 7 % (0-10); HEMATOCRIT 41 % (35-52); HEMOGLOBIN 13.8 G/DL (11.5-16.0); LYMPHOCYTES # (AUTO) 2.2 X 10^3 (1.0-4.0); LYMPHOCYTES % (AUTO) 34 % (12-44); MEAN CORPUSCULAR HEMOGLOBIN 30 PG (25-34); MEAN CORPUSCULAR HGB CONC 34 G/DL (32-36); MEAN CORPUSCULAR VOLUME 89 FL (80-99); MEAN PLATELET VOLUME 9.8 FL (7.4-10.4); MONOCYTES # (AUTO) 0.4 X 10^3 (0.0-1.0); MONOCYTES % (AUTO) 7 % (0-12); NEUTROPHILS # (AUTO) 3.3 X 10^3 (1.8-7.8); NEUTROPHILS % (AUTO) 51 % (42-75); PLATELET COUNT 374 10^3/uL (130-400); WHITE BLOOD COUNT 6.4 10^3/uL (4.3-11.0)
[2019-12-07 13:59] LABS: ALANINE AMINOTRANSFERASE 16 U/L (0-55); ALBUMIN 4.5 GM/DL (3.2-4.5); ALKALINE PHOSPHATASE 98 U/L (40-136); BILIRUBIN,TOTAL 0.4 MG/DL (0.1-1.0); BUN/CREATININE RATIO 14; CARBON DIOXIDE 25 MMOL/L (21-32); CHLORIDE 104 MMOL/L (98-107); CREATININE SERUM 0.73 MG/DL (0.60-1.30); GFR ESTIMATED > 60; GLUCOSE 74 MG/DL (70-105); POTASSIUM 4.3 MMOL/L (3.6-5.0); SODIUM 139 MMOL/L (135-145); TOTAL PROTEIN 7.3 GM/DL (6.4-8.2)
== END ==
LOC: ONC 13:31
PROVIDERS: ATTEND Internal Medicine Hematology & Oncology
DX: C50.412 Malignant neoplasm of upper-outer quadrant of left female breast (principal); M85.89 Other specified disorders of bone density and structure, multiple sites; Z17.0 Estrogen receptor positive status [ER+]; Z92.3 Personal history of irradiation; Z90.710 Acquired absence of both cervix and uterus; Z90.722 Acquired absence of ovaries, bilateral; Z79.899 Other long term (current) drug therapy; Z98.890 Other specified postprocedural states
CPT/HCPCS: 80053; 85025; G0463; 99213

== ENCOUNTER → 2020-02-27 | Outpatient (CLI) | payer BC ==
--- NOTE | 2020-02-27 14:11 | Diagnostic Imaging Report ---
INDICATION: Postmenopausal state. COMPARISON: March 03, 2018. FINDINGS: AP Spine L1-L4: [BMD (g/cm2): 0.972] [T-Score: -1.9] [Z-Score: -0.5] [BMD Previous: 1.080] [BMD % Change: -10.0] LT Hip Neck: [BMD (g/cm2): 0.753] [T-Score: -2.0] [Z-Score: -0.7] LT Hip Total: [BMD (g/cm2):0.903] [T-Score:-0.8] [Z-Score: 0.3] [BMD Previous: 0.903] [BMD % Change: -2.9] RT Hip Neck: [BMD (g/cm2):0.785] [T-Score:-1.8] [Z-Score:-0.4] RT Hip Total: [BMD (g/cm2):0.917] [T-score:-0.7] [Z-Score:0.4] [BMD Previous:0.948] [BMD % Change:-3.3] *Indicates significant change from prior examination based on 95% confidence level. World Health Organization criteria for BMD interpretation classify patients as Normal (T-score at or above -1.0), Osteopenic (T-score between -1.0 and -2.5) or Osteoporotic (T-score at or below -2.5). LIMITATIONS AND MODIFICATION: None. FRACTURE RISK (FRAX SCORE): The ten year probability of (%): Major Osteoporotic Fracture: [10.2] Hip Fracture: [1.4] IMPRESSION: 1. Osteopenia (Low bone mass). 2. No significant change in bone mineral density since prior examination. 3. See below National Osteoporosis Foundation guidelines on when to potentially initiate pharmacologic therapy. Based on the National Osteoporosis Foundation Guidelines, pharmacologic treatment should be initiated in any of the following, unless clinical conditions suggest otherwise: * Any patient with prior fragility fracture of the hip or vertebrae. A spine fracture indicates 5X risk for subsequent spine fracture and 2X risk for subsequent hip fracture. * Osteoporosis (T-score <-2.5). * Postmenopausal women and men age 50 and older with low bone mass/osteopenia (T-score between -1.0 and -2.5) by DXA and 10-year major osteoporotic fracture greater than 20% or a 10-year probability of hip fracture greater than 3%. These fracture risks are supplied above in the FRAX score, if applicable. * Clinician judgement and/or patient preferences may indicate treatment for people with 10-year fracture probabilities above or below these levels. Dictated by: Dictated on workstation # [id number]
== END ==
LOC: RAD 12:19
PROVIDERS: ATTEND Internal Medicine Hematology & Oncology
DX: C50.412 Malignant neoplasm of upper-outer quadrant of left female breast (principal); E55.9 Vitamin D deficiency, unspecified; M85.80 Other specified disorders of bone density and structure, unspecified site; Z78.0 Asymptomatic menopausal state
CPT/HCPCS: 77080

== ENCOUNTER 2020-03-05 14:48 | Outpatient (RCR) | payer BC ==
[2020-02-27 16:52] LABS: ALANINE AMINOTRANSFERASE 17 U/L (0-55); ALBUMIN 4.6 GM/DL (3.2-4.5); ALKALINE PHOSPHATASE 92 U/L (40-136); BILIRUBIN,TOTAL 0.5 MG/DL (0.1-1.0); BUN/CREATININE RATIO 19; CALCIUM 9.3 MG/DL (8.5-10.1); CARBON DIOXIDE 26 MMOL/L (21-32); CHLORIDE 102 MMOL/L (98-107); CREATININE SERUM 0.83 MG/DL (0.60-1.30); GFR ESTIMATED > 60; GLUCOSE 86 MG/DL (70-105); POTASSIUM 3.7 MMOL/L (3.6-5.0); SODIUM 140 MMOL/L (135-145); TOTAL PROTEIN 7.2 GM/DL (6.4-8.2)
[2020-02-27 17:01] LABS: BASOPHILS # (AUTO) 0.1 10^3/uL (0.0-0.1); BASOPHILS % (AUTO) 1 % (0-10); EOSINOPHILS # (AUTO) 0.3 10^3/uL (0.0-0.3); EOSINOPHILS % (AUTO) 5 % (0-10); HEMATOCRIT 40 % (35-52); HEMOGLOBIN 13.5 g/dL (11.5-16.0); LYMPHOCYTES # (AUTO) 2.4 10^3/uL (1.0-4.0); LYMPHOCYTES % (AUTO) 37 % (12-44); MEAN CORPUSCULAR HEMOGLOBIN 30 pg (25-34); MEAN CORPUSCULAR HGB CONC 33 g/dL (32-36); MEAN CORPUSCULAR VOLUME 90 fL (80-99); MEAN PLATELET VOLUME 10.1 fL (9.0-12.2); MONOCYTES # (AUTO) 0.4 10^3/uL (0.0-1.0); MONOCYTES % (AUTO) 6 % (0-12); NEUTROPHILS # (AUTO) 3.2 10^3/uL (1.8-7.8); NEUTROPHILS % (AUTO) 49 % (42-75); PLATELET COUNT 365 10^3/uL (130-400); WHITE BLOOD COUNT 6.4 10^3/uL (4.3-11.0)
== END 2020-05-27 | disposition home or self-care (01) ==
LOC: ONC 14:48
PROVIDERS: ATTEND Internal Medicine Hematology & Oncology
DX: Z51.81 Encounter for therapeutic drug level monitoring (principal); C50.919 Malignant neoplasm of unspecified site of unspecified female breast
CPT/HCPCS: 80053; 82306; 85025; 99213

== ENCOUNTER → 2020-06-20 | Outpatient (CLI) | payer BC ==
--- NOTE | 2020-06-20 14:43 | Diagnostic Imaging Report ---
EXAM: Ultrasound, limited left breast. INDICATION: Abnormal mammogram The diagnostic mammogram performed earlier today noted scar formation in the upper outer quadrant of the left breast in the region of the patient's lumpectomy site. This did seem somewhat more conspicuous than noted on the prior exam of 05/29/2019. On this study, there is a 1.1 x 2.5 cm area of altered echogenicity with some associated shadowing in the upper outer quadrant of the left breast near the chest wall. I suspect that this is secondary to scar formation from the patient's prior lumpectomy. There is no increased vascularity in this area to indicate recurrent neoplasm however. No other abnormality is noted. IMPRESSION: There is scar formation in the area of the lumpectomy site but there is no sign of recurrent malignancy. Clinical follow-up is recommended. ACR category 1. ACR BI-RADS Category 1: Negative. Result letter will be mailed to the patient. Note: At least 10% of breast cancer is not imaged by mammography. Dictated by: Dictated on workstation # [id number]
--- NOTE | 2020-06-20 19:28 | Diagnostic Imaging Report ---
INDICATION: Malignant neoplasm of breast. At this time there are no current complaints. EXAMINATION: Bilateral diagnostic mammogram with CAD. 3D tomographic images were obtained and reviewed. The current study was also evaluated with a Computer Aided Detection (CAD) system. COMPARISON: The study was compared to the prior exams of 05/29/2019, 12/07/2018, 06/02/2018 and 07/20/2017. FINDINGS: By history, patient has had a prior lumpectomy on the left. The postsurgical changes involving the upper outer quadrant of the left breast, seen previously, are again evident. The scar formation seen on the prior study is again evident and perhaps slightly more conspicuous. There is no sign of malignancy but I would recommend that ultrasound of this area be performed for further study. The overall appearance of the breasts has not changed significantly otherwise. The fibroglandular tissue in both breasts is heterogeneously dense. This does limit the sensitivity of this exam. There is no primary or secondary sign of malignancy noted otherwise. IMPRESSION: The density in the lumpectomy site may be slightly greater than noted on the prior exam. There is no evidence for malignancy in this region but ultrasound would be recommended for further study. ACR BI-RADS Category 0: Incomplete. (Needs additional imaging evaluation). Result letter will be mailed to the patient. Note: At least 10% of breast cancer is not imaged by mammography. Dictated by: Dictated on workstation # [id number]
== END ==
LOC: RAD 13:15
PROVIDERS: ATTEND Nurse Practitioner Adult Health
DX: C50.412 Malignant neoplasm of upper-outer quadrant of left female breast (principal); Z90.12 Acquired absence of left breast and nipple
CPT/HCPCS: 76642; 77066; G0279; 77062

== ENCOUNTER 2020-08-27 14:46 | Outpatient (RCR) | payer BC ==
[2020-08-27 15:19] LABS: BASOPHILS # (AUTO) 0.1 10^3/uL (0.0-0.1); BASOPHILS % (AUTO) 1 % (0-10); EOSINOPHILS # (AUTO) 0.4 10^3/uL (0.0-0.3); EOSINOPHILS % (AUTO) 6 % (0-10); HEMATOCRIT 40 % (35-52); HEMOGLOBIN 13.9 g/dL (11.5-16.0); LYMPHOCYTES # (AUTO) 2.8 10^3/uL (1.0-4.0); LYMPHOCYTES % (AUTO) 40 % (12-44); MEAN CORPUSCULAR HEMOGLOBIN 31 pg (25-34); MEAN CORPUSCULAR HGB CONC 34 g/dL (32-36); MEAN CORPUSCULAR VOLUME 89 fL (80-99); MEAN PLATELET VOLUME 9.8 fL (9.0-12.2); MONOCYTES # (AUTO) 0.5 10^3/uL (0.0-1.0); MONOCYTES % (AUTO) 7 % (0-12); NEUTROPHILS # (AUTO) 3.2 10^3/uL (1.8-7.8); NEUTROPHILS % (AUTO) 46 % (42-75); PLATELET COUNT 357 10^3/uL (130-400); WHITE BLOOD COUNT 6.9 10^3/uL (4.3-11.0)
[2020-08-27 15:24] LABS: ALANINE AMINOTRANSFERASE 16 U/L (0-55); ALBUMIN 4.4 GM/DL (3.2-4.5); ALKALINE PHOSPHATASE 90 U/L (40-136); BILIRUBIN,TOTAL 0.4 MG/DL (0.1-1.0); BUN/CREATININE RATIO 10; CALCIUM 9.5 MG/DL (8.5-10.1); CARBON DIOXIDE 27 MMOL/L (21-32); CHLORIDE 106 MMOL/L (98-107); GFR ESTIMATED > 60; GLUCOSE 98 MG/DL (70-105); POTASSIUM 3.4 MMOL/L (3.6-5.0); SODIUM 141 MMOL/L (135-145); TOTAL PROTEIN 6.9 GM/DL (6.4-8.2)
== END 2020-11-25 | disposition home or self-care (01) ==
LOC: ONC 14:46
PROVIDERS: ATTEND Internal Medicine Hematology & Oncology
DX: C50.412 Malignant neoplasm of upper-outer quadrant of left female breast (principal); M85.80 Other specified disorders of bone density and structure, unspecified site; E55.9 Vitamin D deficiency, unspecified; K21.9 Gastro-esophageal reflux disease without esophagitis; I10 Essential (primary) hypertension; Z79.811 Long term (current) use of aromatase inhibitors; Z90.710 Acquired absence of both cervix and uterus; Z90.722 Acquired absence of ovaries, bilateral; Z90.12 Acquired absence of left breast and nipple; Z98.890 Other specified postprocedural states; Z92.3 Personal history of irradiation; Z17.0 Estrogen receptor positive status [ER+]; Z79.899 Other long term (current) drug therapy
CPT/HCPCS: 80053; 85025; G0463; 99213

== ENCOUNTER → 2020-11-26 | Outpatient (CLI) | payer BC, OTHER ==
--- NOTE | 2020-11-26 15:40 | Diagnostic Imaging Report ---
INDICATION: Neck pain. TIME OF EXAM: 12:11 PM. FINDINGS: There is normal thoracic kyphotic curvature. No fractures are seen. The vertebral body heights are maintained. The pedicles and paraspinous line are intact. IMPRESSION: Generalized thoracic spondylosis. No acute bony abnormality is detected. Dictated by: Dictated on workstation # [id number]
--- NOTE | 2020-11-26 15:42 | Diagnostic Imaging Report ---
INDICATION: Neck pain. TIME OF EXAM: 12:08 PM. FINDINGS: Three views of the cervical spine demonstrate normal curvature and alignment. There is degenerative disc disease at the C5-C6 level with disc space narrowing and marginal spurring. The prevertebral tissues are normal. There is some generalized cervical facet degenerative change. The odontoid is intact. No fractures are identified. IMPRESSION: Cervical spondylosis. No acute bony abnormality is detected. Dictated by: Dictated on workstation # [id number]
== END ==
LOC: RAD 11:35
PROVIDERS: ATTEND Chiropractor
DX: M47.812 Spondylosis without myelopathy or radiculopathy, cervical region (principal); M47.814 Spondylosis without myelopathy or radiculopathy, thoracic region
CPT/HCPCS: 72040; 72072

== ENCOUNTER 2021-03-04 15:16 | Outpatient (RCR) | payer BC, OTHER ==
[~2021-03-04 15:16] MED LIST changes: +CYCL10TA25 PO; -CYCL10TA9 PO; -FLUO20CA46; +FLUO20CA48; +SCOP1PAT10 TD; -SCOP1PAT11 TD
[2021-03-04 15:31] LABS: BASOPHILS # (AUTO) 0.1 10^3/uL (0.0-0.1); BASOPHILS % (AUTO) 2 % (0-10); EOSINOPHILS # (AUTO) 0.3 10^3/uL (0.0-0.3); EOSINOPHILS % (AUTO) 4 % (0-10); HEMATOCRIT 43 % (35-52); HEMOGLOBIN 14.4 g/dL (11.5-16.0); LYMPHOCYTES # (AUTO) 2.9 10^3/uL (1.0-4.0); LYMPHOCYTES % (AUTO) 41 % (12-44); MEAN CORPUSCULAR HEMOGLOBIN 31 pg (25-34); MEAN CORPUSCULAR HGB CONC 34 g/dL (32-36); MEAN CORPUSCULAR VOLUME 91 fL (80-99); MONOCYTES # (AUTO) 0.5 10^3/uL (0.0-1.0); MONOCYTES % (AUTO) 8 % (0-12); NEUTROPHILS # (AUTO) 3.3 10^3/uL (1.8-7.8); NEUTROPHILS % (AUTO) 46 % (42-75); PLATELET COUNT 336 10^3/uL (130-400); WHITE BLOOD COUNT 7.1 10^3/uL (4.3-11.0)
== END 2021-03-28 | disposition home or self-care (01) ==
LOC: ONC 15:16
PROVIDERS: ATTEND Internal Medicine Hematology & Oncology
DX: C50.412 Malignant neoplasm of upper-outer quadrant of left female breast (principal); M85.88 Other specified disorders of bone density and structure, other site; E55.9 Vitamin D deficiency, unspecified; K21.9 Gastro-esophageal reflux disease without esophagitis; I10 Essential (primary) hypertension; Z79.811 Long term (current) use of aromatase inhibitors; Z90.710 Acquired absence of both cervix and uterus; Z90.722 Acquired absence of ovaries, bilateral; Z90.12 Acquired absence of left breast and nipple; Z98.890 Other specified postprocedural states; Z92.3 Personal history of irradiation
CPT/HCPCS: 85025; G0463; 99213

== ENCOUNTER → 2021-07-08 | Outpatient (CLI) | payer BC, OTHER ==
--- NOTE | 2021-07-08 15:19 | Diagnostic Imaging Report ---
INDICATION: Fullness in the left breast. Patient does have known left breast carcinoma. COMPARISON: Correlation is made with the left breast ultrasound from 06/20/2020. FINDINGS: Sonographic interrogation of the area of fullness in the upper outer left breast was performed. At the 2 o'clock location 6 cm from the nipple, there is an irregular area of hypoechogenicity measuring 2.1 x 1.3 x 1.6 cm. This does appear different than on the prior ultrasound and the possibility of tumor recurrence cannot be entirely excluded. It is conceivable that this represents post-therapeutic changes. No fluid collections are identified. IMPRESSION: Irregular hypoechogenicity at the area of fullness in the left breast at the 2 o'clock location 6 cm from the nipple. While this could potentially be post therapeutic in nature, the possibility of tumor recurrence cannot be entirely excluded and tissue sampling is recommended. This would be amenable to ultrasound-guided core biopsy. No fluid collections are identified. ACR BI-RADS Category 4: Suspicious abnormality. Dictated by: Dictated on workstation # [id number]
== END ==
LOC: RAD 14:30
PROVIDERS: ATTEND Internal Medicine Hematology & Oncology
DX: C50.412 Malignant neoplasm of upper-outer quadrant of left female breast (principal)
CPT/HCPCS: 76641

== ENCOUNTER → 2021-07-10 | Outpatient (CLI) | payer BC ==
[~2021-07-10] VITALS: Ht 152.4 cm; Wt 57.7 kg
[~2021-07-10] MED LIST changes: +LIDOCAINE 1% INJ 20 ML VIAL INJ ONE
--- NOTE | 2021-07-10 14:03 | Diagnostic Imaging Report ---
INDICATION: Left breast carcinoma with a new area of fullness in the upper outer left breast. Patient had a recent abnormal left breast ultrasound. Patient presents for ultrasound guided biopsy. DETAILS OF THE PROCEDURE: The patient was brought to the sonographic suite and placed on the table in the supine position. Ultrasound imaging over the upper outer left breast was performed to evaluate for an appropriate entry site. The left breast was then prepped and draped in the usual sterile fashion. A small amount of 1% lidocaine was utilized for local anesthesia. A total of four core biopsies was made through the area of irregular hypoechogenicity at the 2 o'clock location of the left breast 6 cm from the nipple utilizing a 14-gauge Achieve needle. A marker clip was then deployed. Hemostasis was obtained using manual compression. The patient tolerated the procedure well and was sent for a post procedure mammogram in satisfactory condition. IMPRESSION: Successful ultrasound guided core biopsy of the area of hypoechogenicity at the 2 o'clock location of the left breast 6 cm from the nipple. Pathology results are currently pending. Dictated by: Dictated on workstation # [id number]
--- NOTE | 2021-07-10 14:06 | Diagnostic Imaging Report ---
INDICATION: Status post ultrasound guided left breast biopsy. FINDINGS: Unilateral left 2D CC and MLO mammography was performed after the patient underwent ultrasound-guided core biopsy. There is a marker clip in the upper outer left breast at posterior depth. IMPRESSION: Marker clip placement after the patient underwent ultrasound-guided breast biopsy. Dictated by: Dictated on workstation # [id number]
== END ==
LOC: RAD 12:11
PROVIDERS: ATTEND Internal Medicine Hematology & Oncology
DX: N63.0 Unspecified lump in unspecified breast (principal)
CPT/HCPCS: 19083; 77065; G0279

== ENCOUNTER → 2022-06-08 | Outpatient (CLI) | payer BC ==
[~2022-06-08] MED LIST changes: -LIDOCAINE 1% INJ 20 ML VIAL INJ ONE
--- NOTE | 2022-06-08 12:39 | Diagnostic Imaging Report ---
INDICATION: Left breast carcinoma. COMPARISON: Correlation is made with prior mammograms from 07/10/2021, 06/20/2020, and 05/29/2019. TECHNIQUE: 2D and 3D bilateral diagnostic mammography was performed with CAD. FINDINGS: Both breasts are heterogeneously dense, limiting the sensitivity of mammography. There are post-therapeutic changes in the left breast. A biopsy marker clip in the upper outer left breast is also noted. No new mass or malignant-appearing microcalcifications are seen. There are benign calcifications present. The axillae are unremarkable. IMPRESSION: No mammographic features suspicious for malignancy are identified. ACR BI-RADS Category 2: Benign findings. Result letter will be mailed to the patient. Note: At least 10% of breast cancer is not imaged by mammography. Dictated by: Dictated on workstation # [id number]
== END ==
LOC: RAD 11:31
PROVIDERS: ATTEND Nurse Practitioner Adult Health
DX: C50.412 Malignant neoplasm of upper-outer quadrant of left female breast (principal); N63.0 Unspecified lump in unspecified breast; Z79.811 Long term (current) use of aromatase inhibitors
CPT/HCPCS: 77066; G0279; 77062

== ENCOUNTER → 2022-10-06 | Outpatient (CLI) | payer BC ==
--- NOTE | 2022-10-06 17:19 | Diagnostic Imaging Report ---
INDICATION: Asymptomatic postmenopausal state. Osteoporosis screening. COMPARISON: 02/27/2020. FINDINGS: AP Spine L1-L4: [BMD (g/cm2): 0.953] [T-Score: -2.1] [Z-Score: -0.3] [BMD Previous: 0.972] [BMD % Change: -2.0] LT Hip Neck: [BMD (g/cm2): 0.776] [T-Score: -1.9] [Z-Score: -0.3] LT Hip Total: [BMD (g/cm2):0.891] [T-Score:-0.9] [Z-Score: 0.4] [BMD Previous: 0.903] [BMD % Change: -1.3] RT Hip Neck: [BMD (g/cm2):0.772] [T-Score:-1.9] [Z-Score:-0.4] RT Hip Total: [BMD (g/cm2):0.905] [T-score:-0.8] [Z-Score:0.5] [BMD Previous:0.917] [BMD % Change:-1.3] *Indicates significant change from prior examination based on 95% confidence level. World Health Organization criteria for BMD interpretation classify patients as Normal (T-score at or above -1.0), Osteopenic (T-score between -1.0 and -2.5) or Osteoporotic (T-score at or below -2.5). LIMITATIONS AND MODIFICATION: None. FRACTURE RISK (FRAX SCORE): The ten year probability of (%): Major Osteoporotic Fracture: [10.3] Hip Fracture: [1.4] IMPRESSION: 1. Osteopenia (Low bone mass). 2. No significant change in bone mineral density since prior examination. 3. See below National Osteoporosis Foundation guidelines on when to potentially initiate pharmacologic therapy. Based on the National Osteoporosis Foundation Guidelines, pharmacologic treatment should be initiated in any of the following, unless clinical conditions suggest otherwise: * Any patient with prior fragility fracture of the hip or vertebrae. A spine fracture indicates 5X risk for subsequent spine fracture and 2X risk for subsequent hip fracture. * Osteoporosis (T-score <-2.5). * Postmenopausal women and men age 50 and older with low bone mass/osteopenia (T-score between -1.0 and -2.5) by DXA and 10-year major osteoporotic fracture greater than 20% or a 10-year probability of hip fracture greater than 3%. These fracture risks are supplied above in the FRAX score, if applicable. * Clinician judgement and/or patient preferences may indicate treatment for people with 10-year fracture probabilities above or below these levels. Dictated by: Dictated on workstation # [id number]
== END ==
LOC: RAD 13:15
PROVIDERS: ATTEND Internal Medicine Hematology & Oncology
DX: M85.80 Other specified disorders of bone density and structure, unspecified site (principal); C50.412 Malignant neoplasm of upper-outer quadrant of left female breast; Z79.811 Long term (current) use of aromatase inhibitors; Z78.0 Asymptomatic menopausal state
CPT/HCPCS: 77080